=== PATIENT | female | born 1945 | race Caucasian/White ===

== ENCOUNTER 2018-02-07 20:36 | Inpatient (IN) | payer MEDICARE, SELFPAY ==
[2018-02-07 20:37] VITALS: BP 147/74; PULSE 100; RESP 24; TEMP 36.6; O2SAT 96; BMI 45.1
--- NOTE | 2018-02-07 20:51 | RAD_ITS ---
STUDY: X-RAY - RIGHT FEMUR REASON FOR STUDY: Female, 72 years old. Fall. TECHNIQUE: Radiological exam, femur, minimum 2 views COMPARISON: None. FINDINGS: There is diffuse demineralization of the femur. There is muscular atrophy of the thigh. RAD/Femur Min 2 Views IMPRESSION: Diffuse demineralization with no evidence of acute fracture. Electronically Signed: Wei Lucas DO at 21:53 EDT , Service support ,
--- NOTE | 2018-02-07 20:51 | EKG12_ITS ---
Test Reason : SOB Blood Pressure : / mmHG Vent. Rate : 098 BPM Atrial Rate : 098 BPM P-R Int : 150 ms QRS Dur : 122 ms QT Int : 384 ms P-R-T Axes : 056 -80 061 degrees QTc Int : 490 ms Sinus rhythm with Premature atrial complexes Right bundle branch block Left anterior fascicular block Bifascicular block Abnormal ECG Confirmed by LEON DAVIS, REG ([id number]), food editor DAYLNI DOWD ([id number]) on 02/10/2018 4:02:09 PM Referred By: GABRIELLE Confirmed By:REG QUINTERO MD
--- NOTE | 2018-02-07 20:56 | ED.VISSUMM ---
- ER Visit Summary Date of Service: 02/07/18 Chief Complaint: Dyspnea History of Present Illness: The patient is a 72 F with shortness of breath. She always has shortness of breath, but it has been increasing over the last several days. She has had an increasing cough with sputum. She has a history of COPD and CHF. She uses 3 L of oxygen at home. She thinks her CHF symptoms are worsening. She has some left breast pain, but denies any other chest or back pains. She also reports pain in her right femur for several days after a fall. She has noted her right leg has been increasingly swollen and increasingly red. She does have some baseline redness at times up to her knee, but her redness has been spreading above the knee. Physical Examination: Afebrile and vital signs unremarkable except for a heart rate of 100 and a respiratory rate of 24. She is 96% on 5 L. Speaking in full sentences. Resting. HEENT exam unremarkable. Heart regular. Lungs diminished throughout. Abdomen soft and nontender. Lower extremities are edematous, worse on the right. Right lower extremity is erythematous up to the mid thigh. Neurovascularly intact distally. Test Results: EKG, labs, chest x-ray, right femur x-ray, and right lower extremity duplex ultrasound pending. Emergency Department Course and Treatment: Treated with oxygen and a DuoNeb while awaiting results. EKG showed sinus rhythm at a rate of 98. Right bundle branch block pattern and left anterior fascicular block pattern. Troponin normal. BNP normal. White count 11.1 and hemoglobin 10.2. CO2 greater than 45 and glucose 221. INR 1.9. Chest x-ray showed chronic changes and congestion. X-ray of the right femur negative. Right leg ultrasound negative for DVT. Patient had mild improvement with a DuoNeb. She was started on doxycycline for right lower extremity cellulitis and for respiratory coverage. Given her hypoxia at home, COPD, history CHF, and cellulitis, patient was discussed with the hospitalist and will be admitted. Treatment Plan: As above Disposition: Admission Impression: 1. CHF 2. COPD 3. Cellulitis right leg 4. Coumadin coagulopathy This note was generated with Wozity[employer]ation software. It may contain incorrect words, spelling, and punctuation that were not noted in review of the chart prior to signing ED Disposition - Plan for ED Patient: Chief Complaint: Shortness of Breath Referrals: [facility] Doctor,Out of [NON-STAFF] -
[2018-02-07 20:59] VITALS: O2SAT 96
[2018-02-07 21:04] VITALS: PULSE 100; RESP 22
[2018-02-07] MEDS: Ipratropium/Albuterol Sulfate 3 ML AMPUL.NEB INHALATION (21:04)
--- NOTE | 2018-02-07 21:06 | US_ITS ---
STUDY: VENOUS DOPPLER ULTRASOUND - RIGHT LOWER EXTREMITY REASON FOR EXAM: Female, 72 years old. Right leg redness and swelling. TECHNIQUE: Ultrasound evaluation of the deep vein system to include serna-scale imaging and compression was performed. Serna-scale imaging and Doppler sonographic evaluation, including duplex spectral analysis and qualitative color flow sonography, was performed. COMPARISON: None. FINDINGS: Common Femoral Vein: Normal compression, spontaneity and augmentation. Normal color Doppler. Common Femoral Vein/Greater Saphenous Junction: Normal compression without internal echoes. Deep Femoral Vein: Normal compression without internal echoes. Femoral Proximal: Normal compression without internal echoes. Femoral Middle: Normal compression, spontaneity and augmentation. Normal color Doppler. Femoral Distal: Normal compression without internal echoes. Popliteal Vein: Normal compression, spontaneity and augmentation. Normal color Doppler. Posterior Tibial Vein: Normal compression without internal echoes. Peroneal Vein: Normal compression without internal echoes. US/Venous Duplex Imag/Limited/Uni IMPRESSION: No evidence of deep venous thrombosis. Electronically Signed: Wei Lucas DO at 21:49 EDT , Service support ,
[2018-02-07 21:31] LABS: International Normalized Ratio 1.9; Prothrombin Time (Protime)PT. 22.2 SECONDS (11.7-14.9)
[2018-02-07 21:32] LABS: Absolute Lymphocyte Count 1.74 X10^3/ul (0.83-4.51); Absolute Neutrophil Count 8.3 X10^3/uL (2.0-7.7); Basophil# 0.01 X10^3/uL; Basophil% 0.1 % (0-1); Eosinophil# 0.03 X10^3/uL; Eosinophils% 0.3 % (0-5); Hematocrit 35.7 % (37-47); Hemoglobin 10.2 g/dl (12.0-15.0); Lymphocyte # 1.74 X10^3/ul (4.0); Lymphocyte % 15.7 % (19-41); Mean Corp Hgb Conc 28.6 g/gl (32-36); Mean Corpuscular Volume 90.8 fL (81-99); Mean Platelet Vol. 10.9 fl (6.2-12.0); Monocyte# 1.01 X10^3/uL; Monocyte% 9.1 % (0-10); Neutrophil # 8.25 X10^3/uL (2.7-7.7); Neutrophil % 74.6 % (47-70); Platelet Count 234 K/mm3 (150-450); RBC Distribution Width CV 15.5 % (11.6-14.6); RBC Distribution Width SD 51.7 fl (35.1-43.9); Red Blood Count 3.93 M/mm3 (4.2-5.4); White Blood Count 11.1 K/mm3 (4.4-11.0)
[2018-02-07 21:33] LABS: POSITIVE COUNT NO; POSITIVE DIFFERENTIAL NO; POSITIVE MORPHOLOGY NO
--- NOTE | 2018-02-07 21:35 | RAD_ITS ---
STUDY: X-RAY CHEST REASON FOR EXAM: Female, 72 years old. Shortness of breath for a few days. TECHNIQUE: Single AP portable view of the chest. COMPARISON: None. FINDINGS: Prominent interstitial markings throughout are present. There is no demonstrated pleural abnormality. Normal size heart. Normal mediastinum and luke. Normal visualized pulmonary arteries. There is atherosclerotic calcification of the aortic arch with tortuosity. There are diffuse degenerative changes of the visualized thoracic spine. Normal visualized ribs, clavicles, and shoulders. There is no demonstrated abnormality of the visualized soft tissue structures of the upper abdomen. RAD/Chest 1 View (Portable) IMPRESSION: Prominent diffuse interstitial markings with underlying interstitial edema likely. Clinically correlate for underlying CHF exacerbation in the appropriate clinical setting. Electronically Signed: Wei Lucas DO at 21:52 EDT , Service support ,
[2018-02-07 21:45] VITALS: BP 128/57; PULSE 101; RESP 21; O2SAT 96
[2018-02-07 22:02] LABS: BNP,B-Type NATRIURETIC PEPTIDE 42.2 pg/mL (0-100)
[2018-02-07 22:14] LABS: BUN 12 mg/dL (7-18); BUN/Creat Ratio 15.3 RATIO (10-20); Calcium,Total 8.8 mg/dL (8.5-10.1); Carbon Dioxide > 45.0 mmol/L (21.0-32.0); Chloride 88 mmol/L (98-107); Creatinine, Serum 0.78 mg/dL (0.55-1.02); EST Glomerular Filtration Rate 77 mL/min (>60); Est Glom Filt Rate - Afr Amer 93 mL/min (>60); Glucose 221 mg/dL (74-106); Potassium 4.5 mmol/L (3.5-5.1); Sodium Level 139 mmol/L (136-145)
--- NOTE | 2018-02-07 22:16 | ED.RN ---
CO2 >45 REPORTED TO . VERBALIZED UNDERSTANDING
[2018-02-07 23:01] VITALS: BP 127/72; PULSE 102; RESP 20; O2SAT 94
[2018-02-08] VITALS (21 sets, daily range): BP systolic 112–134; BP diastolic 52–85; PULSE 90–119; RESP 14–26; TEMP 36.6–36.9; O2SAT 85–96; BMI 45.8; BMI 45.9
--- NOTE | 2018-02-08 00:33 | HP.PCM_ITS ---
Problem List (1) CHF (congestive heart failure) Status: Acute Qualifiers: Heart failure type: unspecified (2) COPD (chronic obstructive pulmonary disease) Status: Acute Qualifiers: COPD type: unspecified COPD Qualified Code(s): J44.9 - Chronic obstructive pulmonary disease, unspecified (3) Cellulitis Status: Acute Qualifiers: Site of cellulitis: extremity Site of cellulitis of extremity: lower extremity Laterality: right Qualified Code(s): L03.115 - Cellulitis of right lower limb History of Present Illness Date of Admission: 02/08/18 Chief Complaint: shortness of breath The patient is a 72 year old female patient presents to the ER with shortness of breath. She is convinced that she has fluid in her lungs. She has had progressive shortness of breath over the past few days. Chest X-ray shows interstitial markings consistent with congestive heart failure. No fevers or chills. She has chronic stasis changes of her legs and right leg is warm and red as well from ankle to just above her knee. She is requiring oxygen to maintain her SPO2 in the 90s. She will be admitted for further management of CHF and COPD and cellulitis. Past Medical History Allergies amoxicillin Allergy (Verified 02/07/18 20:43) Rash azithromycin [From Zithromax] Allergy (Verified 02/07/18 20:43) Swelling levofloxacin [From Levaquin] Allergy (Verified 02/07/18 20:43) Swelling moxifloxacin [From Avelox] Allergy (Verified 02/07/18 20:43) Swelling aspirin Adverse Reaction (Verified 02/07/18 20:43) Other bleeding Home Medications: Ambulatory Orders Medication Instructions Recorded Acetaminophen [Tylenol Extra 500 mg PO Q6H PRN PRN 02/07/18 Strength] Albuterol Aerosols [Ventolin 2.5 mg INHALATION Q4H PRN PRN 02/07/18 Aerosols] Albuterol Inhaler [Ventolin Hfa 2 puff INHALATION Q4H PRN PRN 02/07/18 (SP)] Calcium Carbonate/Vitamin D3 1 each PO DAILY 02/07/18 [Calcium 600 with Vit D Chew Tb] Cholecalciferol (Vitamin D3) 2,000 unit PO DAILY 02/07/18 [Vitamin D3] Cranberry Fruit Extract [Cranberry] 2,000 mg PO DAILY PRN PRN 02/07/18 Deep Sea Nasal [place] 1 spray BID 02/07/18 Duloxetine Hcl [Cymbalta] 60 mg PO DAILY 02/07/18 Ezetimibe/Simvastatin [Vytorin 1 tablet PO DAILY 02/07/18 10-40 MG Tablet] Famotidine [Pepcid] 20 mg PO BID 02/07/18 Ferrous Sulfate [Iron] 325 mg PO DAILY 02/07/18 Furosemide [Lasix] 40 mg PO BIDLX 02/07/18 Hydrocodone Bitart/Apap 5-325 1 tablet PO Q6H PRN PRN 02/07/18 [[place] 5MG-325MG] Insulin Aspart [Novolog Flexpen 10 units SC TIDCM 02/07/18 ([facility])] Lactobacillus Acidophilus 1 tablet PO DAILY 02/07/18 [Acidophilus] Levothyroxine [Synthroid] 25 mcg PO DAILY 02/07/18 Loratadine [Claritin] 10 mg PO DAILY 02/07/18 Losartan Potassium [Cozaar] 25 mg PO DAILY 02/07/18 Magnesium Oxide [Magnesium] 400 mg PO DAILY 02/07/18 Montelukast [Singulair] 10 mg PO DAILY 02/07/18 Pantoprazole Sodium [Protonix] 40 mg PO BID 02/07/18 Polyethylene Glycol 3350 [Miralax] 17 gm PO DAILY PRN 02/07/18 Potassium Chloride [K-Dur] 10 meq PO DAILY 02/07/18 Warfarin [Coumadin ([facility])] 3 mg PO DAILY 02/07/18 busPIRone [Buspar] 15 mg PO TID 02/07/18 Smoking Status: Former smoker Review of Systems Constitutional: Denies: Chills, Fever, Weight Change HEENT: Denies: Head Aches, Sinus Congestion, Sinus Drainage Cardiovascular: Denies: Chest Pain, Palpitations Respiratory: Reports: Cough, Shortness of breath at rest. Denies: Sputum production Gastrointestinal: Denies: Abdominal Pain, Nausea, Vomiting Genitourinary: Denies: Dysuria Musculoskeletal: Denies: Joint Pain, Joint Tenderness Skin: Denies: Rash, Wounds Neurological: Denies: Numbness, Tingling, Focal weakness Psychiatric: Reports: Anxiety. Denies: Depression, Homicidal Ideations, Suicidal Ideations Hematologic/ Lymphatic: Denies: Easy Bruising, Easy Bleeding VTE Information - Inpt Only VTE Present on Admission: No VTE Mechan Device Prophylaxis: None VTE Pharm Prophylaxis ordered?: Yes Patient Problems: Active and Suspected Problems CHF (congestive heart failure) (Acute) COPD (chronic obstructive pulmonary disease) (Acute) Cellulitis (Acute) - Physical Exam General: Alert, Oriented x3, Cooperative HEENT: Atraumatic, Normocephalic Neck: Supple Lungs: No rhonchi, No rales, Diminished, Wheezes Cardiovascular: Regular rate, Normal S1, Normal S2, No murmurs, No Ectopic Activity Abdomen: Bowel Sounds Present, Soft, Non Tender, Obese Extremities: Edema Skin: - - erythema and warm to touch on right lower leg from ankle to just superior to knee Musculoskeletal: No Tenderness to Palpation of Joints or Extremities Neurological: Neuro grossly intact Psych/Mental Status: Normal Affect, Appropriate Vital Signs Temp Pulse Resp BP Pulse Ox 97.9 F 102 H 20 H 127/72 H 94 02/07/18 20:37 02/07/18 23:01 02/07/18 23:01 02/07/18 23:01 02/07/18 23:01 Oxygen Flow Rate (L/min) 3 Oxygen Delivery Method Nasal Cannula Weight: 231 lb Body Mass Index (BMI) 45.1 Laboratory Tests Past 24 Hrs 02/07/18 02/07/18 02/07/18 21:16 21:16 21:16 WBC 11.1 H RBC 3.93 L Hgb 10.2 L Hct 35.7 L MCV 90.8 MCH 26.0 L MCHC 28.6 L RDW 15.5 H RDW Differential 51.7 H Plt Count 234 MPV 10.9 Immature Gran % (Auto) 0.200 Neut % (Auto) 74.6 H Lymph % (Auto) 15.7 L [place] % (Auto) 9.1 Eos % (Auto) 0.3 Baso % (Auto) 0.1 Absolute Neuts (auto) 8.3 H Absolute Lymphs (auto) 1.74 Total Counted Not Reportable PT 22.2 H INR 1.9 Sodium 139 Potassium 4.5 Chloride 88 L Carbon Dioxide > 45.0 H* Anion Gap TNP BUN 12 Creatinine 0.78 Estim Creat Clear Calc 37.60 Est GFR (MDRD) Af Amer 93 Est GFR (MDRD) Non-Af 77 BUN/Creatinine Ratio 15.3 Glucose 221 H Calcium 8.8 Troponin I < 0.015 B-Natriuretic Peptide 02/07/18 21:16 WBC RBC Hgb Hct MCV MCH MCHC RDW RDW Differential Plt Count MPV Immature Gran % (Auto) Neut % (Auto) Lymph % (Auto) [place] % (Auto) Eos % (Auto) Baso % (Auto) Absolute Neuts (auto) Absolute Lymphs (auto) Total Counted PT INR Sodium Potassium Chloride Carbon Dioxide Anion Gap BUN Creatinine Estim Creat Clear Calc Est GFR (MDRD) Af Amer Est GFR (MDRD) Non-Af BUN/Creatinine Ratio Glucose Calcium Troponin I B-Natriuretic Peptide 42.2 Assessment/Plan All Active Problems CHF (congestive heart failure) (Acute) COPD (chronic obstructive pulmonary disease) (Acute) Cellulitis (Acute) Plan - admit to progressive care unit. - cycle cardiac markers. - ECHO in am - start sharma catheter and add 40mg IV lasix x 1 - doxycycline 100mg IV q 12 - methylprednisolone 40mg IV q 8hrs - duo neb inh q 4hrs prn - oxygen per routine - LMWH for DVT prophylaxis Code Visit Inpatient E&M: 96712 Init Hosp L3
--- NOTE | 2018-02-08 00:46 | NURSING ---
Called [facility] charge nurserose mary to send patient to the floor.
[2018-02-08] MEDS: Ipratropium/Albuterol Sulfate 3 ML AMPUL.NEB INHALATION ×6 (03:07→23:26)
[2018-02-08 04:25] LABS: Absolute Lymphocyte Count 1.67 X10^3/ul (0.83-4.51); Absolute Neutrophil Count 7.9 X10^3/uL (2.0-7.7); Basophil# 0.03 X10^3/uL; Basophil% 0.3 % (0-1); Eosinophil# 0.05 X10^3/uL; Eosinophils% 0.5 % (0-5); Hematocrit 34.1 % (37-47); Hemoglobin 9.7 g/dl (12.0-15.0); Lymphocyte # 1.67 X10^3/ul (4.0); Lymphocyte % 15.4 % (19-41); Mean Corp Hgb Conc 28.4 g/gl (32-36); Mean Corpuscular Hgb 26.6 pg (27.0-32.0); Mean Corpuscular Volume 93.4 fL (81-99); Mean Platelet Vol. 11.4 fl (6.2-12.0); Monocyte# 1.16 X10^3/uL; Monocyte% 10.7 % (0-10); Neutrophil % 72.7 % (47-70); Platelet Count 227 K/mm3 (150-450); RBC Distribution Width CV 15.3 % (11.6-14.6); RBC Distribution Width SD 50.1 fl (35.1-43.9); Red Blood Count 3.65 M/mm3 (4.2-5.4); White Blood Count 10.9 K/mm3 (4.4-11.0)
[2018-02-08 04:33] LABS: POSITIVE COUNT NO; POSITIVE DIFFERENTIAL NO; POSITIVE MORPHOLOGY NO
[2018-02-08] MEDS: Furosemide 40 MG/4 ML Vial IV (04:45)
[2018-02-08] MEDS: 0.9% NaCl Peripheral Flush Adult/Peds IV ×2 (04:46→13:28)
[2018-02-08 05:11] LABS: ALB/GLOB Ratio 0.6 RATIO (0.9-2.4); AST(SGOT) 12 U/L (15-37); Alanine Aminotransfer ALT/SGPT 16 U/L (13-56); Albumin, Serum 2.4 g/dL (3.2-5.0); Alkaline Phosphatase 77 U/L (45-117); BUN 11 mg/dL (7-18); BUN/Creat Ratio 15.9 RATIO (10-20); Calcium,Total 8.6 mg/dL (8.5-10.1); Carbon Dioxide > 45.0 mmol/L (21.0-32.0); Chloride 88 mmol/L (98-107); Creatinine, Serum 0.69 mg/dL (0.55-1.02); EST Glomerular Filtration Rate 89 mL/min (>60); Est Glom Filt Rate - Afr Amer 108 mL/min (>60); Globulin 4.1 g/dL (2.2-4.2); Glucose 226 mg/dL (74-106); Potassium 3.3 mmol/L (3.5-5.1); Protein, Total 6.5 g/dL (6.4-8.2); Sodium Level 141 mmol/L (136-145)
[2018-02-08] MEDS: busPIRone 15 MG TABLET PO ×3 (05:49→23:17)
[2018-02-08] MEDS: Levothyroxine 25 MCG TABLET PO (05:50)
--- NOTE | 2018-02-08 05:55 | ECHOD_ITS ---
Reason For Study: CHF Procedure This was a 2D Doppler, Color Flow transthoracic echocardiogram. The study was technically difficult. Unable to use Definity due to increased PAP. Exam performed portable in patient room. Left Ventricle Mild concentric left ventricular hypertrophy. Based upon the 2D echocardiographic images obtained there appears to be grossly normal appearing left ventricular size, wall motion, and systolic function. The estimated ejection fraction is 65 %. Unable to assess diastolic dysfunction. Right Ventricle Based upon the 2D echocardiographic images obtained there appears to be grossly normal right ventricular size and systolic function. Atria The left atrium is not well visualized. The right atrium is not well visualized. No doppler evidence for ASD. Mitral Valve There is no mitral annular calcification. Normal mitral valve. Trivial mitral valve insufficiency. Tricuspid Valve Normal tricuspid valve. Trivial tricuspid valve insufficiency. Right ventricular systolic pressure estimated to be 72 mmHg. Aortic Valve Trisinus/trileaflet aortic valve. Mild focal aortic valve thickening. Pulmonic Valve The pulmonic valve is not well visualized. Great Vessels The aortic root is not well visualized. Pericardium/Pleural No pericardial effusion. MMode/2D Measurements & Calculations LVIDd: 4.1 cm IVSd: 1.3 cm LA dimension: 4.7 cm LVIDs: 2.6 cm LVPWd: 1.3 cm FS: 37.7 % Time Measurements MV dec time: 0.23 sec Doppler Measurements & Calculations MV E max yarely: 72.5 cm/sec MV V2 max: 140.2 cm/sec MV P1/2t max yarely: 97.0 cm/sec MV A max yarely: 104.4 cm/sec MV max P.9 mmHg MV P1/2t: 58.6 msec MV E/A: 0.69 MV V2 mean: 72.3 cm/sec MV dec slope: 485.1 cm/sec2 MV mean P.5 mmHg MVA(P1/2t): 3.8 cm2 MV V2 VTI: 24.8 cm Ao V2 max: 170.6 cm/sec LV V1 max: 140.3 cm/sec PA V2 max: 169.6 cm/sec Ao max P.6 mmHg LV V1 max P.9 mmHg Ao V2 mean: 111.5 cm/sec LV V1 mean P.6 mmHg Ao mean P.8 mmHg LV V1 mean: 86.0 cm/sec Ao V2 VTI: 28.6 cm LV V1 VTI: 26.9 cm TR max yarely: 400.8 cm/sec TR max P.3 mmHg Interpretation Summary The study was technically difficult. Based upon the 2D echocardiographic images obtained there appears to be grossly normal appearing left ventricular size, wall motion, and systolic function. The estimated ejection fraction is 65 %. Mild concentric left ventricular hypertrophy. Trivial mitral valve insufficiency. Trivial tricuspid valve insufficiency. Mild focal aortic valve thickening. Right ventricular systolic pressure estimated to be 72 mmHg c/w pulmonary hypertension. Unable to assess diastolic dysfunction. Ordering Physician: Noel Mo Referring Physician: Kwasi Arnold Performed By: Anshul Payne RCS
[2018-02-08 07:11] LABS: Bedside Glucose 209 mg/dL (70-110)
[2018-02-08] MEDS: Ferrous Sulfate 325 MG Tablet PO (08:41)
[2018-02-08] MEDS: Sodium Chloride 0.65% 1 SPRAY SPRAY.BTL NASAL ×2 (08:42→23:17)
[2018-02-08] MEDS: Loratadine 10 MG Tablet PO (08:42)
[2018-02-08] MEDS: Calcium Carb/Vitamin D 1 TABLET Tablet PO (08:42)
[2018-02-08] MEDS: Magnesium Oxide 400 MG Tablet PO (08:43)
[2018-02-08] MEDS: DULoxetine Hcl 60 MG Capsule PO (08:43)
[2018-02-08] MEDS: Furosemide 40 MG Tablet PO ×2 (08:43→17:32)
[2018-02-08] MEDS: Famotidine 20 MG Tablet PO ×2 (08:44→23:18)
[2018-02-08] MEDS: Losartan Potassium 25 MG Tablet PO (08:44)
[2018-02-08] MEDS: Pantoprazole Sodium 40 MG Tablet PO ×2 (08:44→23:18)
[2018-02-08] MEDS: Montelukast 10 MG Tablet PO (08:44)
[2018-02-08] MEDS: Ezetimibe 10 MG Tablet PO (08:45)
[2018-02-08] MEDS: Insulin Lispro 100 UNIT/ML INSULN.PEN 10 UNIT SC ×3 (09:51→17:32)
[2018-02-08 11:20] LABS: Bedside Glucose 336 mg/dL (70-110)
--- NOTE | 2018-02-08 11:25 | CPS ---
PT PLACED BACK ON BIPAP POST AEROSOL RX FOR COMFORT
--- NOTE | 2018-02-08 12:31 | PCM.CONS.GEN ---
Problem List (1) Acute on chronic respiratory failure with hypoxia and hypercapnia Status: Acute (2) CHF (congestive heart failure) Status: Acute Qualifiers: Heart failure type: unspecified (3) COPD (chronic obstructive pulmonary disease) Status: Chronic Qualifiers: COPD type: unspecified COPD Qualified Code(s): J44.9 - Chronic obstructive pulmonary disease, unspecified (4) Cellulitis Status: Acute Qualifiers: Site of cellulitis: extremity Site of cellulitis of extremity: lower extremity Laterality: right Qualified Code(s): L03.115 - Cellulitis of right lower limb Reason for Consult Date of Consultation: 02/08/18 Reason for Consultation: Acute on chronic respiratory failure History of Present Illness: The patient is a 72 year old F with a past medical history as below, presented to the ED on 02/07/18 with complaints of right lower extremity pain, edema, and erythema, increased cough with changes in sputum production, and increased shortness of breath for several days. Checked her pulse ox at home and was in the 60s-70s on her baseline oxygen requirement of 3L per nasal cannula. Complains of some intermittent wheezing. No overt URI symptoms. She had some nausea which has resolved. She was unable to go to her primary care physician's office when she first noticed the right lower extremity edema and redness a couple of weeks ago, however called him and was placed on doxycycline for suspected right lower extremity infection. She completed a 10-day course and actually worsened. No fevers but had some shaking chills. Thought she was probably in congestive heart failure, similar to previous presentations. Patient reports white to brown, occasionally blood-tinged sputum over last few days. No epistaxis. Patient does have a history of DVT in the left lower extremity. She is anticoagulated on Coumadin for atrial fibrillation. Initial vitals BP 147/74, pulse 100, RR 24, 97.9?F, 96% on 5 L of oxygen supplementation. Blood work revealed a white count of 11,100, hemoglobin 10.2, normal platelets. Chemistry remarkable for a chloride level of 88, serum bicarb greater than 45.0, glucose of 221. Normal BNP and troponins. PT 22.2 and INR 1.9. An x-ray of her femur was normal. Right lower extremity venous Doppler ultrasound was negative for DVT. A plain film chest x-ray showed prominent diffuse interstitial markings with underlying interstitial edema. Possibly underlying CHF. No infectious workup has been ordered to date. She reports a history of COPD, however there are no formal pulmonary function tests available at this time. Patient follows with Dr. Wesley of [facility] and last saw him a couple of weeks ago. Patient states she is currently on albuterol and Atrovent nebulizers. He did change her to [facility] with albuterol, however she has not started this yet. She has been on several other different inhalers in the past. She previously followed with Dr. Cavazos in [place]. Her last pulmonary function tests were a few months ago. She reports she has asthma and COPD. She is unclear why she is on oxygen other than her COPD. Thinks she has been on oxygen for over 25 years. Does have obstructive sleep apnea and is compliant with her noninvasive positive pressure ventilation. She is not sure if she has pulmonary hypertension. Patient has significant smoking history of approximately [id number]. She previously followed with a commercial stripper in [place], however has not seen him in over 3 years. Patient is relatively immobile but can ambulate with the use of a cane. She gets dyspneic with minimal exertion. She lives with her daughter, who assists her when needed. Past Medical History Past Medical History (Chronic Problems): Chronic Problems Anxiety and depression (Chronic) Obstructive sleep apnea (Chronic) on NIPPV History of DVT (deep vein thrombosis) (Chronic) Hypothyroidism (Chronic) Morbid obesity with BMI of 45.0-49.9, adult (Chronic) COPD (chronic obstructive pulmonary disease) (Chronic) Allergies amoxicillin Allergy (Verified 02/07/18 20:43) Rash azithromycin [From Zithromax] Allergy (Verified 02/07/18 20:43) Swelling levofloxacin [From Levaquin] Allergy (Verified 02/07/18 20:43) Swelling moxifloxacin [From Avelox] Allergy (Verified 02/07/18 20:43) Swelling aspirin Adverse Reaction (Verified 02/07/18 20:43) Other bleeding Home Medications: Ambulatory Orders Medication Instructions Recorded Acetaminophen [Tylenol Extra 500 mg PO Q6H PRN PRN 02/07/18 Strength] Albuterol Aerosols [Ventolin 2.5 mg INHALATION Q4H PRN PRN 02/07/18 Aerosols] Albuterol Inhaler [Ventolin Hfa 2 puff INHALATION Q4H PRN PRN 02/07/18 (SP)] Calcium Carbonate/Vitamin D3 1 each PO DAILY 02/07/18 [Calcium 600 with Vit D Chew Tb] Cholecalciferol (Vitamin D3) 2,000 unit PO DAILY 02/07/18 [Vitamin D3] Cranberry Fruit Extract [Cranberry] 2,000 mg PO DAILY PRN PRN 02/07/18 Deep Sea Nasal [place] 1 spray BID 02/07/18 Duloxetine Hcl [Cymbalta] 60 mg PO DAILY 02/07/18 Ezetimibe/Simvastatin [Vytorin 1 tablet PO DAILY 02/07/18 10-40 MG Tablet] Furosemide [Lasix] 40 mg PO BIDLX 02/07/18 Insulin Aspart [Novolog Flexpen 10 units SC TIDCM 02/07/18 ([facility])] Levothyroxine [Synthroid] 25 mcg PO DAILY 02/07/18 Loratadine [Claritin] 10 mg PO DAILY 02/07/18 Losartan Potassium [Cozaar] 25 mg PO DAILY 02/07/18 Magnesium Oxide [Magnesium] 400 mg PO DAILY 02/07/18 Montelukast [Singulair] 10 mg PO DAILY 02/07/18 Pantoprazole Sodium [Protonix] 40 mg PO BID 02/07/18 Polyethylene Glycol 3350 [Miralax] 17 gm PO DAILY PRN 02/07/18 Potassium Chloride [K-Dur] 10 meq PO DAILY 02/07/18 Warfarin [Coumadin ([facility])] 3 mg PO DAILY 02/07/18 busPIRone [Buspar] 15 mg PO TID 02/07/18 Surgical History: - - noncontributory Psychiatric History: Anxiety, Depression 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 Denies: Anorexia, Fever, Night Sweats, Malaise, Weight Change Eyes: Denies: Pain, Vision Change HEENT: Denies: Difficulty Swallowing, Nasal bleeding, Nasal Congestion, Post Nasal Drip, Sinus Congestion, Sinus Drainage, Sore Throat Cardiovascular: Reports: Edema. Denies: Chest Pain, Chest Pressure, Light Headedness, Orthopnea, Palpitations, Paroxysmal Noc. Dyspnea, Syncope Respiratory: Reports: Cough, Hemoptysis, Shortness of breath upon exertion, Sputum production, Wheezing. Denies: Shortness of breath at rest Gastrointestinal: Denies: Abdominal Pain, Constipation, Diarrhea, Dyspepsia, Hematemesis, Hematochezia, Nausea, Melena, Vomiting Genitourinary: Reports: Incontinence. Denies: Dysuria, Frequency, Hematuria, Retention Musculoskeletal: Reports: Joint stiffness, Leg Pain - RLE. Denies: Back Pain, Neck Pain Skin: Reports: Skin Changes, - - RLE edema, erythema, warmth Neurological: Reports: Balance problems, Numbness, Tingling. Denies: Change in Speech, Confusion, Difficulty swallowing, Focal weakness, Tremor, Seizures Psychiatric: Reports: Anxiety, Depression Endocrine: Reports: Change in Body Habitus. Denies: Polydipsia, Polyuria Hematologic/ Lymphatic: Reports: Anemia, Easy Bruising, Easy Bleeding, Hx of blood clot, Hx of blood transfusion. Denies: Adenopathy Patient Problems: Active and Suspected Problems CHF (congestive heart failure) (Acute) Cellulitis (Acute) Acute on chronic respiratory failure with hypoxia and hypercapnia (Acute) Subjective: The patient was seen and examined. She does not appear to be in any acute distress. She is saturating in the low 90s on 4 L of oxygen supplementation. Denies any shortness of breath at rest. She is coughing up intermittent clear to brown sputum, occasional hemoptysis. Objective: Clinical Impression(s) from Imaging Studies Femur X-Ray 02/07/18 20:51 IMPRESSION: Diffuse demineralization with no evidence of acute fracture. Electronically Signed: Wei Lucas DO at 21:53 EDT , Service support , Venous Duplex 02/07/18 21:06 IMPRESSION: No evidence of deep venous thrombosis. Electronically Signed: Wei Lucas DO at 21:49 EDT , Service support , Chest X-Ray 02/07/18 21:35 IMPRESSION: Prominent diffuse interstitial markings with underlying interstitial edema likely. Clinically correlate for underlying CHF exacerbation in the appropriate clinical setting. Electronically Signed: Wei Lucas DO at 21:52 EDT , Service support , - Physical Exam General: Alert, Oriented x3, Cooperative, No apparent distress, Well developed, Well nourished, - - Conversational dyspnea. Obese. HEENT: Atraumatic, Normocephalic Oral: Moist Mucosa, No Gingival or Mucosal Lesions/ Ulcerations Neck: Supple, No Nodes, Trachea Midline, - - Large neck circumference with redundant soft tissue Lungs: No rhonchi, Diminished, - - Few expiratory wheeze with bibasilar rales. Symmetric expansion, no dullness to percussion. Cardiovascular: Regular Rhythm, Normal S1, Normal S2, No murmurs, No rub noted, No Gallop, Tachycardic Abdomen: Bowel Sounds Present, Soft, Non Tender, Non-Distended, Obese Extremities: No clubbing, Edema - Bilateral lower extremities, right greater than left, - - Toes are mildly cyanotic laterally, patient reports this is chronic Skin: - - Right lower extremity edema, erythema, increased warmth Musculoskeletal: No Muscle Wasting, Tenderness - RLE Lymphatic: No Cervical, Supraclavicular, or Inguinal Adenopathy Neurological: Cranial nerves II-XII grossly intact, Neuro grossly intact, Motor Exam 5/5 strength throughout, - - Chronic decreased sensation to bilateral LEs Psych/Mental Status: Alert and oriented to time, place, person, mood and affect Vital Signs Temp Pulse Resp BP Pulse Ox 97.9 F 101 H 21 H 122/71 H 90 02/08/18 05:57 02/08/18 11:00 02/08/18 10:40 02/08/18 05:57 02/08/18 10:40 Oxygen Flow Rate (L/min) 4 Oxygen Delivery Method Nasal Cannula Weight: 234 lb 12.783 oz Body Mass Index (BMI) 45.8 Intake and Output for Last 24 Hours 02/06/18 02/07/18 02/08/18 23:59 23:59 23:59 Output Total 1000 / 1000 Balance -1000 / -1000 Laboratory Tests Past 24 Hrs 02/08/18 02/08/18 02/08/18 01:55 04:14 04:14 WBC 10.9 RBC 3.65 L Hgb 9.7 L Hct 34.1 L MCV 93.4 MCH 26.6 L MCHC 28.4 L RDW 15.3 H RDW Differential 50.1 H Plt Count 227 MPV 11.4 Immature Gran % (Auto) 0.400 Neut % (Auto) 72.7 H Lymph % (Auto) 15.4 L [place] % (Auto) 10.7 H Eos % (Auto) 0.5 Baso % (Auto) 0.3 Absolute Neuts (auto) 7.9 H Absolute Lymphs (auto) 1.67 Total Counted Not Reportable Sodium 141 Potassium 3.3 L Chloride 88 L Carbon Dioxide > 45.0 H* Anion Gap TNP BUN 11 Creatinine 0.69 Estim Creat Clear Calc 37.60 Est GFR (MDRD) Af Amer 108 Est GFR (MDRD) Non-Af 89 BUN/Creatinine Ratio 15.9 Glucose 226 H Calcium 8.6 Total Bilirubin 0.50 AST 12 L ALT 16 Alkaline Phosphatase 77 Troponin I < 0.015 < 0.015 B-Natriuretic Peptide Total Protein 6.5 Albumin 2.4 L Globulin 4.1 Albumin/Globulin Ratio 0.6 L 02/08/18 02/08/18 07:30 07:30 WBC RBC Hgb Hct MCV MCH MCHC RDW RDW Differential Plt Count MPV Immature Gran % (Auto) Neut % (Auto) Lymph % (Auto) [place] % (Auto) Eos % (Auto) Baso % (Auto) Absolute Neuts (auto) Absolute Lymphs (auto) Total Counted Sodium Potassium Chloride Carbon Dioxide Anion Gap BUN Creatinine Estim Creat Clear Calc Est GFR (MDRD) Af Amer Est GFR (MDRD) Non-Af BUN/Creatinine Ratio Glucose Calcium Total Bilirubin AST ALT Alkaline Phosphatase Troponin I < 0.015 B-Natriuretic Peptide Pending Total Protein Albumin Globulin Albumin/Globulin Ratio POC Glucose 02/08/18 02/08/18 11:17 07:03 POC Glucose 336 H 209 H Assessment/Plan All Active Problems CHF (congestive heart failure) (Acute) Cellulitis (Acute) Acute on chronic respiratory failure with hypoxia and hypercapnia (Acute) RECOMMENDATIONS 1. Wean oxygen supplementation to keep saturations 88-92% to prevent paradoxical CO2 retention. 2. Encourage incentive spirometer/Acapella 3. Increase activity as tolerated 4. Continue bronchodilators 5. Continue IV steroids and transition to prednisone in the next 24-48 hours 6. Viral respiratory panel 7. Check urine for strep/Legionella antigens 8. Obtain echocardiogram, if not already done 9. Replete electrolytes as indicated 10. Obtain records from [facility] pul[facility]ology including any imaging, would also be beneficial to have last echocardiogram for comparison 11. Ambulatory pulse ox prior to discharge 12. 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 Acute on chronic hypoxic and hypercarbic respiratory failure Unclear etiology. No infectious workup to date. No fevers but chills at home. BNP was normal. Has chronic lower extremity edema. Chest x-ray showing prominent diffuse interstitial markings with underlying interstitial edema. Patient is being diuresed with IV Lasix. She remains on 4 L, home oxygen requirements of 3 L. PE would be an consideration given her history of DVT, however patient anticoagulated on Coumadin so would be unlikely. Continue BiPAP with all sleep and intermittently throughout the day as needed. Patient may bring her Trilogy machine and if she desires. Continue bronchodilators and antibiotics, antibiotics choice will need to be reevaluated secondary to failure of outpatient doxycycline. Obtain respiratory viral panel and sputum culture. Encourage incentive spirometer/Acapella and increase activity as tolerated. Likely has component of COPD exacerbation, so agree with IV steroids. Likely can be transitioned to oral in the next 24-48 hours. 2. Right lower extremity cellulitis Patient recently completed a 10 day course of doxycycline prescribed over the phone by her primary care physician. Currently on doxycycline here, this will need to be changed. However, patient lists several allergies to various antibiotics. Consider ID consultation. 3. Self reported history of COPD and asthma, with probable COPD exacerbation Patient with increased dyspnea, sputum production, cough. Uses albuterol and Atrovent nebulizers at home. Recently transitioned to Trelogy but has yet to start this. 4. Self-reported history of obstructive sleep apnea Compliant with trilogy at home. 5. Morbid obesity/hypothyroidism/history of DVT/anxiety/depression/hypokalemia Complicates care, management, recovery, and prognosis. Continue home medications as indicated. Electrolyte repletion as indicated.
--- NOTE | 2018-02-08 12:45 | CON.PCM_ITS ---
Problem List (1) Acute on chronic respiratory failure with hypoxia and hypercapnia Status: Acute (2) CHF (congestive heart failure) Status: Acute Qualifiers: Heart failure type: unspecified (3) COPD (chronic obstructive pulmonary disease) Status: Chronic Qualifiers: COPD type: unspecified COPD Qualified Code(s): J44.9 - Chronic obstructive pulmonary disease, unspecified (4) Cellulitis Status: Acute Qualifiers: Site of cellulitis: extremity Site of cellulitis of extremity: lower extremity Laterality: right Qualified Code(s): L03.115 - Cellulitis of right lower limb Reason for Consult Date of Consultation: 02/08/18 Reason for Consultation: Acute on chronic respiratory failure History of Present Illness: The patient is a 72 year old F with a past medical history as below, presented to the ED on 02/07/18 with complaints of right lower extremity pain, edema, and erythema, increased cough with changes in sputum production, and increased shortness of breath for several days. Checked her pulse ox at home and was in the 60s-70s on her baseline oxygen requirement of 3L per nasal cannula. Complains of some intermittent wheezing. No overt URI symptoms. She had some nausea which has resolved. She was unable to go to her primary care physician' s office when she first noticed the right lower extremity edema and redness a couple of weeks ago, however called him and was placed on doxycycline for suspected right lower extremity infection. She completed a 10-day course and actually worsened. No fevers but had some shaking chills. Thought she was probably in congestive heart failure, similar to previous presentations. Patient reports white to brown, occasionally blood-tinged sputum over last few days. No epistaxis. Patient does have a history of DVT in the left lower extremity. She is anticoagulated on Coumadin for atrial fibrillation. Initial vitals BP 147/74, pulse 100, RR 24, 97.9?F, 96% on 5 L of oxygen supplementation. Blood work revealed a white count of 11,100, hemoglobin 10.2, normal platelets. Chemistry remarkable for a chloride level of 88, serum bicarb greater than 45.0, glucose of 221. Normal BNP and troponins. PT 22.2 and INR 1.9. An x-ray of her femur was normal. Right lower extremity venous Doppler ultrasound was negative for DVT. A plain film chest x-ray showed prominent diffuse interstitial markings with underlying interstitial edema. Possibly underlying CHF. No infectious workup has been ordered to date. She reports a history of COPD, however there are no formal pulmonary function tests available at this time. Patient follows with Dr. Wesley of [facility] and last saw him a couple of weeks ago. Patient states she is currently on albuterol and Atrovent nebulizers. He did change her to [facility] with albuterol , however she has not started this yet. She has been on several other different inhalers in the past. She previously followed with Dr. Cavazos in [place]. Her last pulmonary function tests were a few months ago. She reports she has asthma and COPD. She is unclear why she is on oxygen other than her COPD. Thinks she has been on oxygen for over 25 years. Does have obstructive sleep apnea and is compliant with her noninvasive positive pressure ventilation. She is not sure if she has pulmonary hypertension. Patient has significant smoking history of approximately [id number]. She previously followed with a gate cutter in [place], however has not seen him in over 3 years. Patient is relatively immobile but can ambulate with the use of a cane. She gets dyspneic with minimal exertion. She lives with her daughter, who assists her when needed. Past Medical History Past Medical History (Chronic Problems): Chronic Problems Anxiety and depression (Chronic) Obstructive sleep apnea (Chronic) on NIPPV History of DVT (deep vein thrombosis) (Chronic) Hypothyroidism (Chronic) Morbid obesity with BMI of 45.0-49.9, adult (Chronic) COPD (chronic obstructive pulmonary disease) (Chronic) Allergies amoxicillin Allergy (Verified 02/07/18 20:43) Rash azithromycin [From Zithromax] Allergy (Verified 02/07/18 20:43) Swelling levofloxacin [From Levaquin] Allergy (Verified 02/07/18 20:43) Swelling moxifloxacin [From Avelox] Allergy (Verified 02/07/18 20:43) Swelling aspirin Adverse Reaction (Verified 02/07/18 20:43) Other bleeding Home Medications: Ambulatory Orders Medication Instructions Recorded Acetaminophen [Tylenol Extra 500 mg PO Q6H PRN PRN 02/07/18 Strength] Albuterol Aerosols [Ventolin 2.5 mg INHALATION Q4H PRN PRN 02/07/18 Aerosols] Albuterol Inhaler [Ventolin Hfa 2 puff INHALATION Q4H PRN PRN 02/07/18 (SP)] Calcium Carbonate/Vitamin D3 1 each PO DAILY 02/07/18 [Calcium 600 with Vit D Chew Tb] Cholecalciferol (Vitamin D3) 2,000 unit PO DAILY 02/07/18 [Vitamin D3] Cranberry Fruit Extract [Cranberry] 2,000 mg PO DAILY PRN PRN 02/07/18 Deep Sea Nasal [place] 1 spray BID 02/07/18 Duloxetine Hcl [Cymbalta] 60 mg PO DAILY 02/07/18 Ezetimibe/Simvastatin [Vytorin 1 tablet PO DAILY 02/07/18 10-40 MG Tablet] Furosemide [Lasix] 40 mg PO BIDLX 02/07/18 Insulin Aspart [Novolog Flexpen 10 units SC TIDCM 02/07/18 (BKC)] Levothyroxine [Synthroid] 25 mcg PO DAILY 02/07/18 Loratadine [Claritin] 10 mg PO DAILY 02/07/18 Losartan Potassium [Cozaar] 25 mg PO DAILY 02/07/18 Magnesium Oxide [Magnesium] 400 mg PO DAILY 02/07/18 Montelukast [Singulair] 10 mg PO DAILY 02/07/18 Pantoprazole Sodium [Protonix] 40 mg PO BID 02/07/18 Polyethylene Glycol 3350 [Miralax] 17 gm PO DAILY PRN 02/07/18 Potassium Chloride [K-Dur] 10 meq PO DAILY 02/07/18 Warfarin [Coumadin (PBKC)] 3 mg PO DAILY 02/07/18 busPIRone [Buspar] 15 mg PO TID 02/07/18 Surgical History: - - noncontributory Psychiatric History: Anxiety, Depression DISTRICT TRAFFIC CHIEF History: No pertinent DISTRICT TRAFFIC CHIEF history Lives: - - with daughter Smoking Status: Former smoker Tobacco Use: Cigarettes Alcohol: None Drugs: None Review of Systems Constitutional: Reports: Chills, Weakness, Fatigue. Denies: Anorexia, Fever, Night Sweats, Malaise, Weight Change Eyes: Denies: Pain, Vision Change HEENT: Denies: Difficulty Swallowing, Nasal bleeding, Nasal Congestion, Post Nasal Drip, Sinus Congestion, Sinus Drainage, Sore Throat Cardiovascular: Reports: Edema. Denies: Chest Pain, Chest Pressure, Light Headedness, Orthopnea, Palpitations, Paroxysmal Noc. Dyspnea, Syncope Respiratory: Reports: Cough, Hemoptysis, Shortness of breath upon exertion, Sputum production, Wheezing. Denies: Shortness of breath at rest Gastrointestinal: Denies: Abdominal Pain, Constipation, Diarrhea, Dyspepsia, Hematemesis, Hematochezia, Nausea, Melena, Vomiting Genitourinary: Reports: Incontinence. Denies: Dysuria, Frequency, Hematuria, Retention Musculoskeletal: Reports: Joint stiffness, Leg Pain - RLE. Denies: Back Pain, Neck Pain Skin: Reports: Skin Changes, - - RLE edema, erythema, warmth Neurological: Reports: Balance problems, Numbness, Tingling. Denies: Change in Speech, Confusion, Difficulty swallowing, Focal weakness, Tremor, Seizures Psychiatric: Reports: Anxiety, Depression Endocrine: Reports: Change in Body Habitus. Denies: Polydipsia, Polyuria Hematologic/ Lymphatic: Reports: Anemia, Easy Bruising, Easy Bleeding, Hx of blood clot, Hx of blood transfusion. Denies: Adenopathy Patient Problems: Active and Suspected Problems CHF (congestive heart failure) (Acute) Cellulitis (Acute) Acute on chronic respiratory failure with hypoxia and hypercapnia (Acute) Subjective: The patient was seen and examined. She does not appear to be in any acute distress. She is saturating in the low 90s on 4 L of oxygen supplementation. Denies any shortness of breath at rest. She is coughing up intermittent clear to brown sputum, occasional hemoptysis. Objective: Clinical Impression(s) from Imaging Studies Femur X-Ray 02/07/18 20:51 IMPRESSION: Diffuse demineralization with no evidence of acute fracture. Electronically Signed: Wei Lucas DO at 21:53 EDT , Service support , Venous Duplex 02/07/18 21:06 IMPRESSION: No evidence of deep venous thrombosis. Electronically Signed: Wei Lucas DO at 21:49 EDT , Service support , Chest X-Ray 02/07/18 21:35 IMPRESSION: Prominent diffuse interstitial markings with underlying interstitial edema likely. Clinically correlate for underlying CHF exacerbation in the appropriate clinical setting. Electronically Signed: Wei Lucas DO at 21:52 EDT , Service support , - Physical Exam General: Alert, Oriented x3, Cooperative, No apparent distress, Well developed, Well nourished, - - Conversational dyspnea. Obese. HEENT: Atraumatic, Normocephalic Oral: Moist Mucosa, No Gingival or Mucosal Lesions/ Ulcerations Neck: Supple, No Nodes, Trachea Midline, - - Large neck circumference with redundant soft tissue Lungs: No rhonchi, Diminished, - - Few expiratory wheeze with bibasilar rales. Symmetric expansion, no dullness to percussion. Cardiovascular: Regular Rhythm, Normal S1, Normal S2, No murmurs, No rub noted, No Gallop, Tachycardic Abdomen: Bowel Sounds Present, Soft, Non Tender, Non-Distended, Obese Extremities: No clubbing, Edema - Bilateral lower extremities, right greater than left, - - Toes are mildly cyanotic laterally, patient reports this is chronic Skin: - - Right lower extremity edema, erythema, increased warmth Musculoskeletal: No Muscle Wasting, Tenderness - RLE Lymphatic: No Cervical, Supraclavicular, or Inguinal Adenopathy Neurological: Cranial nerves II-XII grossly intact, Neuro grossly intact, Motor Exam 5/5 strength throughout, - - Chronic decreased sensation to bilateral LEs Psych/Mental Status: Alert and oriented to time, place, person, mood and affect Vital Signs Temp Pulse Resp BP Pulse Ox 97.9 F 101 H 21 H 122/71 H 90 02/08/18 05:57 02/08/18 11:00 02/08/18 10:40 02/08/18 05:57 02/08/18 10:40 Oxygen Flow Rate (L/min) 4 Oxygen Delivery Method Nasal Cannula Weight: 234 lb 12.783 oz Body Mass Index (BMI) 45.8 Intake and Output for Last 24 Hours 02/06/18 02/07/18 02/08/18 23:59 23:59 23:59 Output Total 1000 / 1000 Balance -1000 / -1000 Laboratory Tests Past 24 Hrs 02/08/18 02/08/18 02/08/18 01:55 04:14 04:14 WBC 10.9 RBC 3.65 L Hgb 9.7 L Hct 34.1 L MCV 93.4 MCH 26.6 L MCHC 28.4 L RDW 15.3 H RDW Differential 50.1 H Plt Count 227 MPV 11.4 Immature Gran % (Auto) 0.400 Neut % (Auto) 72.7 H Lymph % (Auto) 15.4 L [place] % (Auto) 10.7 H Eos % (Auto) 0.5 Baso % (Auto) 0.3 Absolute Neuts (auto) 7.9 H Absolute Lymphs (auto) 1.67 Total Counted Not Reportable Sodium 141 Potassium 3.3 L Chloride 88 L Carbon Dioxide > 45.0 H* Anion Gap TNP BUN 11 Creatinine 0.69 Estim Creat Clear Calc 37.60 Est GFR (MDRD) Af Amer 108 Est GFR (MDRD) Non-Af 89 BUN/Creatinine Ratio 15.9 Glucose 226 H Calcium 8.6 Total Bilirubin 0.50 AST 12 L ALT 16 Alkaline Phosphatase 77 Troponin I < 0.015 < 0.015 B-Natriuretic Peptide Total Protein 6.5 Albumin 2.4 L Globulin 4.1 Albumin/Globulin Ratio 0.6 L 02/08/18 02/08/18 07:30 07:30 WBC RBC Hgb Hct MCV MCH MCHC RDW RDW Differential Plt Count MPV Immature Gran % (Auto) Neut % (Auto) Lymph % (Auto) [place] % (Auto) Eos % (Auto) Baso % (Auto) Absolute Neuts (auto) Absolute Lymphs (auto) Total Counted Sodium Potassium Chloride Carbon Dioxide Anion Gap BUN Creatinine Estim Creat Clear Calc Est GFR (MDRD) Af Amer Est GFR (MDRD) Non-Af BUN/Creatinine Ratio Glucose Calcium Total Bilirubin AST ALT Alkaline Phosphatase Troponin I < 0.015 B-Natriuretic Peptide Pending Total Protein Albumin Globulin Albumin/Globulin Ratio POC Glucose 02/08/18 02/08/18 11:17 07:03 POC Glucose 336 H 209 H Assessment/Plan All Active Problems CHF (congestive heart failure) (Acute) Cellulitis (Acute) Acute on chronic respiratory failure with hypoxia and hypercapnia (Acute) RECOMMENDATIONS 1. Wean oxygen supplementation to keep saturations 88-92% to prevent paradoxical CO2 retention. 2. Encourage incentive spirometer/Acapella 3. Increase activity as tolerated 4. Continue bronchodilators 5. Continue IV steroids and transition to prednisone in the next 24-48 hours 6. Viral respiratory panel 7. Check urine for strep/Legionella antigens 8. Obtain echocardiogram, if not already done 9. Replete electrolytes as indicated 10. Obtain records from [facility] pulmonology including any imaging, would also be beneficial to have last echocardiogram for comparison 11. Ambulatory pulse ox prior to discharge 12. Patient should follow-up with her primary bellhop service captain within 2 weeks of discharge from the hospital IMPRESSIONS 1. Acute on chronic hypoxic and hypercarbic respiratory failure Unclear etiology. No infectious workup to date. No fevers but chills at home. BNP was normal. Has chronic lower extremity edema. Chest x-ray showing prominent diffuse interstitial markings with underlying interstitial edema. Patient is being diuresed with IV Lasix. She remains on 4 L, home oxygen requirements of 3 L. PE would be an consideration given her history of DVT, however patient anticoagulated on Coumadin so would be unlikely. Continue BiPAP with all sleep and intermittently throughout the day as needed. Patient may bring her Trilogy machine and if she desires. Continue bronchodilators and antibiotics, antibiotics choice will need to be reevaluated secondary to failure of outpatient doxycycline. Obtain respiratory viral panel and sputum culture. Encourage incentive spirometer/Acapella and increase activity as tolerated. Likely has component of COPD exacerbation, so agree with IV steroids. Likely can be transitioned to oral in the next 24-48 hours. 2. Right lower extremity cellulitis Patient recently completed a 10 day course of doxycycline prescribed over the phone by her primary care physician. Currently on doxycycline here, this will need to be changed. However, patient lists several allergies to various antibiotics. Consider ID consultation. 3. Self reported history of COPD and asthma, with probable COPD exacerbation Patient with increased dyspnea, sputum production, cough. Uses albuterol and Atrovent nebulizers at home. Recently transitioned to Trelogy but has yet to start this. 4. Self-reported history of obstructive sleep apnea Compliant with trilogy at home. 5. Morbid obesity/hypothyroidism/history of DVT/anxiety/depression/hypokalemia Complicates care, management, recovery, and prognosis. Continue home medications as indicated. Electrolyte repletion as indicated.
[2018-02-08 12:57] LABS: BNP,B-Type NATRIURETIC PEPTIDE 56.4 pg/mL (0-100)
--- NOTE | 2018-02-08 14:47 | CASEMGMT ---
SEE ISHA FREEMAN LINK. D/C PLAN: Undetermined PT/OT evaluations completed. Will continue to follow to eval Home with Home Health vs. SNF Contacted [facility] to verify services--pt currently has [facility], PT/OT, and aide services. [facility]: P: [phone] F: [phone] Pt's daughter, Verito, is her POA. Pt states she will ask her Verito to bring in copies of Advanced Directives. Bull AJ RN CM
[2018-02-08 16:45] LABS: Bedside Glucose 307 mg/dL (70-110)
--- NOTE | 2018-02-08 16:55 | PCM.PN.HOSP ---
Patient Problems: Active and Suspected Problems CHF (congestive heart failure) (Acute) Cellulitis (Acute) Acute on chronic respiratory failure with hypoxia and hypercapnia (Acute) Subjective: Patient was seen and examined. Admitted last night with acute hypoxic hypercapnic respiratory failure. Patient wants a Saldana catheter to be placed because I helped to drain fluid inhaler. History of acute on chronic diastolic heart failure and says the catheter helps her day because she has been voiding very little. Denies any chest pain or dizziness or shortness of breath. Patient has BiPAP at home. Vitals/I&O's: Vital Signs Temp Pulse Resp BP Pulse Ox 98.2 F 99 16 112/52 L 92 02/08/18 12:00 02/08/18 15:10 02/08/18 15:10 02/08/18 12:00 02/08/18 12:00 Oxygen Flow Rate (L/min) 4 Oxygen Delivery Method Bi-pap Weight: 106.503 kg Body Mass Index (BMI) 45.8 Intake and Output for Last 24 Hours 02/06/18 02/07/18 02/08/18 23:59 23:59 23:59 Intake Total 945 / 945 Output Total 2150 / 2150 Balance -1205 / -1205 General: Alert, Oriented x3, Cooperative, - - In moderate respiratory distress, obese HEENT: Atraumatic, PERRLA, EOMI, Normocephalic Oral: Moist Mucosa Neck: Supple Lungs: Clear to auscultation, Normal air movement Cardiovascular: Regular rate, Regular Rhythm, Normal S1, Normal S2, No murmurs Abdomen: Bowel Sounds Present, Soft, Non Tender, Non-Distended, No Hepato-splenomegaly Extremities: No edema Skin: No rashes, No breakdown Musculoskeletal: No Tenderness to Palpation of Joints or Extremities Lymphatic: No Cervical, Supraclavicular, or Inguinal Adenopathy Neurological: Cranial nerves II-XII grossly intact, Neuro grossly intact Psych/Mental Status: Normal Affect, Appropriate Microbiology Past 72 Hours 02/08/18 13:15 Mucosa - Nose Respiratory Panel (PCR) - Final 02/08/18 13:30 Urine Catheter - [place] Legionella Antigen - Final 02/08/18 13:30 Urine Catheter - [place] Streptococcus pneumoniae Antigen (M - Final Laboratory Results 02/08/18 01:55: Troponin I < 0.015 02/08/18 04:14: WBC 10.9, RBC 3.65 L, Hgb 9.7 L, Hct 34.1 L, MCV 93.4, MCH 26.6 L, MCHC 28.4 L, RDW 15.3 H, RDW Differential 50.1 H, Plt Count 227, MPV 11.4, Immature Gran % (Auto) 0.400, Neut % (Auto) 72.7 H, Lymph % (Auto) 15.4 L, [place] % (Auto) 10.7 H, Eos % (Auto) 0.5, Baso % (Auto) 0.3, Absolute Neuts (auto) 7.9 H, Absolute Lymphs (auto) 1.67, Total Counted Not Reportable 02/08/18 04:14: Sodium 141, Potassium 3.3 L, Chloride 88 L, Carbon Dioxide > 45.0 H*, Anion Gap TNP, BUN 11, Creatinine 0.69, Estim Creat Clear Calc 37.60, Est GFR (MDRD) Af Amer 108, Est GFR (MDRD) Non-Af 89, BUN/Creatinine Ratio 15.9, Glucose 226 H, Calcium 8.6, Total Bilirubin 0.50, AST 12 L, ALT 16, Alkaline Phosphatase 77, Troponin I < 0.015, Total Protein 6.5, Albumin 2.4 L, Globulin 4.1, Albumin/Globulin Ratio 0.6 L 02/08/18 07:03: POC Glucose 209 H 02/08/18 07:30: Troponin I < 0.015 02/08/18 07:30: B-Natriuretic Peptide 56.4 02/08/18 11:17: POC Glucose 336 H 02/08/18 16:37: POC Glucose 307 H Current Medications Acetaminophen (Tylenol) 500 mg PO Q6H PRN PRN PRN Reason: PAIN Hydrocodone Bitart/Acetaminophen ([place] 5mg-325mg) 1 tablet PO Q6H PRN PRN PRN Reason: PAIN Albuterol/Ipratropium (Duoneb) 3 ml INHALATION Q4H.RT CECILIO Last Admin: 02/08/18 15:10 Dose: 3 ml Atorvastatin Calcium (Lipitor) 20 mg PO QHS CECILIO Buspirone HCl (Buspar) 15 mg PO TID CECILIO Last Admin: 02/08/18 13:28 Dose: 15 mg Calcium/Vitamin D (Os-Carlos 500mg + D) 1 tablet PO DAILY [facility] Last Admin: 02/08/18 08:42 Dose: 1 tablet Cholecalciferol (Vitamin D) 2,000 unit PO DAILY [facility] Last Admin: 02/08/18 08:45 Dose: 2,000 unit Duloxetine HCl (Cymbalta) 60 mg PO DAILY [facility] Last Admin: 02/08/18 08:43 Dose: 60 mg Ezetimibe (Zetia) 10 mg PO DAILY [facility] Last Admin: 02/08/18 08:45 Dose: 10 mg Famotidine (Pepcid) 20 mg PO BID [facility] Last Admin: 02/08/18 08:44 Dose: 20 mg Ferrous Sulfate (Ferrous Sulfate) 325 mg PO DAILYCM [facility] Last Admin: 02/08/18 08:41 Dose: 325 mg Furosemide (Lasix) 40 mg PO BIDLX [facility] Last Admin: 02/08/18 08:43 Dose: 40 mg Doxycycline Hyclate 100 mg/ (Dextrose) 260 mls @ 250 mls/hr IV Q12 [facility] Last Admin: 02/08/18 09:52 Dose: 250 mls/hr Insulin Human Lispro (Humalog Kwikpen (Bkc)) 10 unit SC 0800,1200,1700 [facility] Last Admin: 02/08/18 13:28 Dose: 10 units Lactobacillus Acidophilus (Acidophilus) 1 tablet PO DAILY [facility] Last Admin: 02/08/18 08:41 Dose: 1 tablet Levothyroxine Sodium (Synthroid) 25 mcg PO DAILY@0600 [facility] Last Admin: 02/08/18 05:50 Dose: 25 mcg Loratadine (Claritin) 10 mg PO DAILY [facility] Last Admin: 02/08/18 08:42 Dose: 10 mg Losartan Potassium (Cozaar) 25 mg PO DAILY [facility] Last Admin: 02/08/18 08:44 Dose: 25 mg Magnesium Hydroxide (Milk Of Magnesia) 30 ml PO DAILY PRN PRN Reason: Constipation Magnesium Oxide (Mag-Ox 400) 400 mg PO DAILY [facility] Last Admin: 02/08/18 08:43 Dose: 400 mg Methylprednisolone (Solu-Medrol) 40 mg IV Q8 [facility] Last Admin: 02/08/18 13:28 Dose: 40 mg Montelukast Sodium (Singulair) 10 mg PO DAILY [facility] Last Admin: 02/08/18 08:44 Dose: 10 mg Morphine Sulfate () 2 - 4 mg IV Q3H PRN PRN PRN Reason: Severe Pain (pain scale 6-10) Pantoprazole Sodium (Protonix) 40 mg PO BID [facility] Last Admin: 02/08/18 08:44 Dose: 40 mg Polyethylene Glycol (Miralax) 17 gm PO DAILY PRN PRN Reason: Constipation Potassium Chloride (K-Dur) 10 meq PO DAILY [facility] Last Admin: 02/08/18 08:43 Dose: 10 meq Sodium Chloride ([place] Nasal [place]) 1 spray NASAL BID [facility] Last Admin: 02/08/18 08:42 Dose: 1 spray Sodium Chloride () 5 - 30 ml IV UD PRN PRN Reason: SALINE FLUSH Last Admin: 02/08/18 13:28 Dose: 10 ml Warfarin Sodium (Coumadin (Pbkc)) 3 mg PO DAILY@1700 [facility] Medical Necessity - Tobacco Use Smoking Status: Former smoker Tobacco Use: Cigarettes Assessment/Plan All Active Problems CHF (congestive heart failure) (Acute) Cellulitis (Acute) Acute on chronic respiratory failure with hypoxia and hypercapnia (Acute) 72-year-old female with multiple comorbidities, who gets most of her care in the [facility], comes in with complaints of worsening shortness of breath ongoing over the several days. 1. Acute hypoxic hypercapnic respiratory failure in a patient with severe COPD/diastolic heart failure, patient is on BiPAP, encourage use of BiPAP, pulmonology consult, retrieve records from the [facility] 2. Acute COPD exacerbation, does follow with urology [facility] system, on IV steroids, continue breathing treatments, doubt CHF as a BNpep is very low. Appreciate pulmonology consult. 3. Hypokalemia, replace, recheck in a.m. 4. Right lower extremity cellulitis, on doxycycline, doppler DVT for right DVT, multiple co-morbidities, will try on clindamycin and ID consult, discontinue doxycycline in the meantime. 5. History of LEDY, obesity hypoventilation syndrome, continue on BiPAP 6. Hyperlipidemia, on statin 7. Hypertension, continue on Cozaar, 8. Anxiety/depression, continue on Cymbalta, buspar 9. Hypothyroidism, on levothyroxine 10. Type II DM, on humalog 10 units SC, blood sugars are not controlled, will check hgbA1c, continue accucheks with insulin sliding scale. 11. History of diatolic CHF, not in acute exacerbation, BNPep is 42.2, will continued on home lasix, daily weights, strict I & Os 12. H/o DVT on coumadin, follow INRs. Code Visit Inpatient E&M: 20893 Subs Hosp L3
--- NOTE | 2018-02-08 17:29 | PN_ITS ---
Patient Problems: Active and Suspected Problems CHF (congestive heart failure) (Acute) Cellulitis (Acute) Acute on chronic respiratory failure with hypoxia and hypercapnia (Acute) Subjective: Patient was seen and examined. Admitted last night with acute hypoxic hypercapnic respiratory failure. Patient wants a [place] catheter to be placed because I helped to drain fluid inhaler. History of acute on chronic diastolic heart failure and says the catheter helps her day because she has been voiding very little. Denies any chest pain or dizziness or shortness of breath. Patient has BiPAP at home. Vitals/I&O's: Vital Signs Temp Pulse Resp BP Pulse Ox 98.2 F 99 16 112/52 L 92 02/08/18 12:00 02/08/18 15:10 02/08/18 15:10 02/08/18 12:00 02/08/18 12:00 Oxygen Flow Rate (L/min) 4 Oxygen Delivery Method Bi-pap Weight: 106.503 kg Body Mass Index (BMI) 45.8 Intake and Output for Last 24 Hours 02/06/18 02/07/18 02/08/18 23:59 23:59 23:59 Intake Total 945 / 945 Output Total 2150 / 2150 Balance -1205 / -1205 General: Alert, Oriented x3, Cooperative, - - In moderate respiratory distress, obese HEENT: Atraumatic, PERRLA, EOMI, Normocephalic Oral: Moist Mucosa Neck: Supple Lungs: Clear to auscultation, Normal air movement Cardiovascular: Regular rate, Regular Rhythm, Normal S1, Normal S2, No murmurs Abdomen: Bowel Sounds Present, Soft, Non Tender, Non-Distended, No Hepato- splenomegaly Extremities: No edema Skin: No rashes, No breakdown Musculoskeletal: No Tenderness to Palpation of Joints or Extremities Lymphatic: No Cervical, Supraclavicular, or Inguinal Adenopathy Neurological: Cranial nerves II-XII grossly intact, Neuro grossly intact Psych/Mental Status: Normal Affect, Appropriate Microbiology Past 72 Hours 02/08/18 13:15 Mucosa - Nose Respiratory Panel (PCR) - Final 02/08/18 13:30 Urine Catheter - [place] Legionella Antigen - Final 02/08/18 13:30 Urine Catheter - [place] Streptococcus pneumoniae Antigen (M - Final Laboratory Results 02/08/18 01:55: Troponin I < 0.015 02/08/18 04:14: WBC 10.9, RBC 3.65 L, Hgb 9.7 L, Hct 34.1 L, MCV 93.4, MCH 26.6 L, MCHC 28.4 L, RDW 15.3 H, RDW Differential 50.1 H, Plt Count 227, MPV 11.4, Immature Gran % (Auto) 0.400, Neut % (Auto) 72.7 H, Lymph % (Auto) 15.4 L, [place] % (Auto) 10.7 H, Eos % (Auto) 0.5, Baso % (Auto) 0.3, Absolute Neuts (auto) 7.9 H, Absolute Lymphs (auto) 1.67, Total Counted Not Reportable 02/08/18 04:14: Sodium 141, Potassium 3.3 L, Chloride 88 L, Carbon Dioxide > 45.0 H*, Anion Gap TNP, BUN 11, Creatinine 0.69, Estim Creat Clear Calc 37.60, Est GFR (MDRD) Af Amer 108, Est GFR (MDRD) Non-Af 89, BUN/Creatinine Ratio 15.9 , Glucose 226 H, Calcium 8.6, Total Bilirubin 0.50, AST 12 L, ALT 16, Alkaline Phosphatase 77, Troponin I < 0.015, Total Protein 6.5, Albumin 2.4 L, Globulin 4.1, Albumin/Globulin Ratio 0.6 L 02/08/18 07:03: POC Glucose 209 H 02/08/18 07:30: Troponin I < 0.015 02/08/18 07:30: B-Natriuretic Peptide 56.4 02/08/18 11:17: POC Glucose 336 H 02/08/18 16:37: POC Glucose 307 H Current Medications Acetaminophen (Tylenol) 500 mg PO Q6H PRN PRN PRN Reason: PAIN Hydrocodone Bitart/Acetaminophen ([place] 5mg-325mg) 1 tablet PO Q6H PRN PRN PRN Reason: PAIN Albuterol/Ipratropium (Duoneb) 3 ml INHALATION Q4H.RT CECILIO Last Admin: 02/08/18 15:10 Dose: 3 ml Atorvastatin Calcium (Lipitor) 20 mg PO QHS CECILIO Buspirone HCl (Buspar) 15 mg PO TID CECILIO Last Admin: 02/08/18 13:28 Dose: 15 mg Calcium/Vitamin D (Os-Carlos 500mg + D) 1 tablet PO DAILY [facility] Last Admin: 02/08/18 08:42 Dose: 1 tablet Cholecalciferol (Vitamin D) 2,000 unit PO DAILY [facility] Last Admin: 02/08/18 08:45 Dose: 2,000 unit Duloxetine HCl (Cymbalta) 60 mg PO DAILY [facility] Last Admin: 02/08/18 08:43 Dose: 60 mg Ezetimibe (Zetia) 10 mg PO DAILY [facility] Last Admin: 02/08/18 08:45 Dose: 10 mg Famotidine (Pepcid) 20 mg PO BID [facility] Last Admin: 02/08/18 08:44 Dose: 20 mg Ferrous Sulfate (Ferrous Sulfate) 325 mg PO DAILYCM [facility] Last Admin: 02/08/18 08:41 Dose: 325 mg Furosemide (Lasix) 40 mg PO BIDLX [facility] Last Admin: 02/08/18 08:43 Dose: 40 mg Doxycycline Hyclate 100 mg/ (Dextrose) 260 mls @ 250 mls/hr IV Q12 [facility] Last Admin: 02/08/18 09:52 Dose: 250 mls/hr Insulin Human Lispro (Humalog Kwikpen (Bkc)) 10 unit SC 0800,1200,1700 [facility] Last Admin: 02/08/18 13:28 Dose: 10 units Lactobacillus Acidophilus (Acidophilus) 1 tablet PO DAILY [facility] Last Admin: 02/08/18 08:41 Dose: 1 tablet Levothyroxine Sodium (Synthroid) 25 mcg PO DAILY@0600 [facility] Last Admin: 02/08/18 05:50 Dose: 25 mcg Loratadine (Claritin) 10 mg PO DAILY [facility] Last Admin: 02/08/18 08:42 Dose: 10 mg Losartan Potassium (Cozaar) 25 mg PO DAILY [facility] Last Admin: 02/08/18 08:44 Dose: 25 mg Magnesium Hydroxide (Milk Of Magnesia) 30 ml PO DAILY PRN PRN Reason: Constipation Magnesium Oxide (Mag-Ox 400) 400 mg PO DAILY [facility] Last Admin: 02/08/18 08:43 Dose: 400 mg Methylprednisolone (Solu-Medrol) 40 mg IV Q8 [facility] Last Admin: 02/08/18 13:28 Dose: 40 mg Montelukast Sodium (Singulair) 10 mg PO DAILY [facility] Last Admin: 02/08/18 08:44 Dose: 10 mg Morphine Sulfate () 2 - 4 mg IV Q3H PRN PRN PRN Reason: Severe Pain (pain scale 6-10) Pantoprazole Sodium (Protonix) 40 mg PO BID [facility] Last Admin: 02/08/18 08:44 Dose: 40 mg Polyethylene Glycol (Miralax) 17 gm PO DAILY PRN PRN Reason: Constipation Potassium Chloride (K-Dur) 10 meq PO DAILY [facility] Last Admin: 02/08/18 08:43 Dose: 10 meq Sodium Chloride (Crystal Nasal [place]) 1 spray NASAL BID [facility] Last Admin: 02/08/18 08:42 Dose: 1 spray Sodium Chloride () 5 - 30 ml IV UD PRN PRN Reason: SALINE FLUSH Last Admin: 02/08/18 13:28 Dose: 10 ml Warfarin Sodium (Coumadin (Pbkc)) 3 mg PO DAILY@1700 [facility] Medical Necessity - Tobacco Use Smoking Status: Former smoker Tobacco Use: Cigarettes Assessment/Plan All Active Problems CHF (congestive heart failure) (Acute) Cellulitis (Acute) Acute on chronic respiratory failure with hypoxia and hypercapnia (Acute) 72-year-old female with multiple comorbidities, who gets most of her care in the [facility], comes in with complaints of worsening shortness of breath ongoing over the several days. 1. Acute hypoxic hypercapnic respiratory failure in a patient with severe COPD/ diastolic heart failure, patient is on BiPAP, encourage use of BiPAP, pulmonology consult, retrieve records from the [facility] 2. Acute COPD exacerbation, does follow with urology [facility] system, on IV steroids, continue breathing treatments, doubt CHF as a BNpep is very low. Appreciate pulmonology consult. 3. Hypokalemia, replace, recheck in a.m. 4. Right lower extremity cellulitis, on doxycycline, doppler DVT for right DVT, multiple co-morbidities, will try on clindamycin and ID consult, discontinue doxycycline in the meantime. 5. History of LEDY, obesity hypoventilation syndrome, continue on BiPAP 6. Hyperlipidemia, on statin 7. Hypertension, continue on Cozaar, 8. Anxiety/depression, continue on Cymbalta, buspar 9. Hypothyroidism, on levothyroxine 10. Type II DM, on humalog 10 units SC, blood sugars are not controlled, will check hgbA1c, continue accucheks with insulin sliding scale. 11. History of diatolic CHF, not in acute exacerbation, BNPep is 42.2, will continued on home lasix, daily weights, strict I & Os 12. H/o DVT on coumadin, follow INRs. Code Visit Inpatient E&M: 44753 Subs Hosp L3
[2018-02-08 18:40] LABS: Hemoglobin A1c 8.2 % (4.2-6.3)
[2018-02-08] MEDS: Polyethylene Glycol 3350 17 GM PACKET PO (19:05)
--- NOTE | 2018-02-08 19:17 | CPS ---
o2 increased to 40% due to low sat-nurse aware
[2018-02-08] MEDS: Atorvastatin Calcium 20 MG Tablet PO (23:17)
[2018-02-09] VITALS (20 sets, daily range): BP systolic 104–128; BP diastolic 52–69; PULSE 90–110; RESP 14–29; TEMP 36.6–37; O2SAT 89–96
[2018-02-09] MEDS: Ipratropium/Albuterol Sulfate 3 ML AMPUL.NEB INHALATION ×5 (03:30→19:18)
[2018-02-09 05:35] LABS: Absolute Lymphocyte Count 0.67 X10^3/ul (0.83-4.51); Basophil# 0.01 X10^3/uL; Basophil% 0.1 % (0-1); Hematocrit 33.3 % (37-47); Hemoglobin 9.3 g/dl (12.0-15.0); Lymphocyte # 0.67 X10^3/ul (4.0); Lymphocyte % 7.3 % (19-41); Mean Corp Hgb Conc 27.9 g/gl (32-36); Mean Platelet Vol. 11.4 fl (6.2-12.0); Monocyte# 0.42 X10^3/uL; Monocyte% 4.6 % (0-10); Neutrophil # 8.01 X10^3/uL (2.7-7.7); Neutrophil % 87.8 % (47-70); Platelet Count 232 K/mm3 (150-450); RBC Distribution Width CV 15.1 % (11.6-14.6); RBC Distribution Width SD 51.7 fl (35.1-43.9); Red Blood Count 3.58 M/mm3 (4.2-5.4); White Blood Count 9.1 K/mm3 (4.4-11.0)
[2018-02-09] MEDS: Levothyroxine 25 MCG TABLET PO (05:43)
[2018-02-09] MEDS: busPIRone 15 MG TABLET PO ×3 (05:43→22:14)
[2018-02-09] MEDS: 0.9% NaCl Peripheral Flush Adult/Peds IV ×3 (05:44→22:14)
[2018-02-09 05:45] LABS: International Normalized Ratio 1.5; Prothrombin Time (Protime)PT. 17.8 SECONDS (11.7-14.9)
[2018-02-09 05:49] LABS: POSITIVE COUNT NO; POSITIVE DIFFERENTIAL NO; POSITIVE MORPHOLOGY NO
[2018-02-09 05:58] LABS: BUN 17 mg/dL (7-18); BUN/Creat Ratio 19.2 RATIO (10-20); Calcium,Total 8.9 mg/dL (8.5-10.1); Carbon Dioxide > 45.0 mmol/L (21.0-32.0); Chloride 90 mmol/L (98-107); Creatinine, Serum 0.88 mg/dL (0.55-1.02); EST Glomerular Filtration Rate 67 mL/min (>60); Est Glom Filt Rate - Afr Amer 81 mL/min (>60); Estimated Creatinine Clearance 42.73 ml/min; Glucose 324 mg/dL (74-106); Potassium 4.4 mmol/L (3.5-5.1); Sodium Level 141 mmol/L (136-145)
[2018-02-09] MEDS: Ferrous Sulfate 325 MG Tablet PO (09:00)
[2018-02-09] MEDS: Sodium Chloride 0.65% 1 SPRAY SPRAY.BTL NASAL ×2 (09:03→22:13)
[2018-02-09] MEDS: Polyethylene Glycol 3350 17 GM PACKET PO (09:05)
[2018-02-09] MEDS: Calcium Carb/Vitamin D 1 TABLET Tablet PO (09:06)
[2018-02-09] MEDS: Loratadine 10 MG Tablet PO (09:06)
[2018-02-09] MEDS: Furosemide 40 MG Tablet PO ×2 (09:06→16:51)
[2018-02-09] MEDS: Magnesium Oxide 400 MG Tablet PO (09:06)
[2018-02-09] MEDS: Pantoprazole Sodium 40 MG Tablet PO ×2 (09:06→22:12)
[2018-02-09] MEDS: Ezetimibe 10 MG Tablet PO (09:06)
[2018-02-09] MEDS: Famotidine 20 MG Tablet PO (09:06)
[2018-02-09] MEDS: Montelukast 10 MG Tablet PO (09:06)
[2018-02-09] MEDS: DULoxetine Hcl 60 MG Capsule PO (09:06)
[2018-02-09] MEDS: Losartan Potassium 25 MG Tablet PO (09:07)
[2018-02-09] MEDS: Insulin Lispro 100 UNIT/ML INSULN.PEN 10 UNIT SC ×3 (09:07→16:43)
--- NOTE | 2018-02-09 09:27 | PCM.PROGNOTE ---
Patient Problems: Active and Suspected Problems CHF (congestive heart failure) (Acute) Cellulitis (Acute) Acute on chronic respiratory failure with hypoxia and hypercapnia (Acute) Subjective: Patient was seen and examined. She is sitting up in the chair, in moderate respiratory distress. Patient just took off her oxygen to blow her nose and her saturations dropped into the 70s and she is tachycardic. She states this happens all the time with any activity and takes at least 10 minutes to recover back into the 80s or 90s. Her toes are cyanotic. No evidence of circumoral cyanosis. She does complain of a coarse cough with occasional small amounts of sputum production, clear to brown. Patient requesting steroids be discontinued. Objective: Recent lab and culture data reviewed. Patient remains afebrile and hemodynamically stable. Her serum bicarb remains elevated at greater than 45.0. Her potassium has normalized after repletion. Blood sugar is elevated this morning at 324. A viral respiratory panel and urine strep/Legionella antigens were negative. Echocardiogram revealed grossly normal LV size and systolic function, estimated EF of 65%, mild concentric LVH, trivial MVI and TVI, mild focal aortic valve thickening, RVSP estimated at 72 mmHg. Diastolic dysfunction was not assessed. - Physical Exam General: Alert, Oriented x3, Cooperative, - - moderate conversational dyspnea HEENT: Atraumatic, Normocephalic Oral: Moist Mucosa Neck: Supple, Trachea Midline Lungs: - - Very little air movement, no discernible rhonchi, wheezes, or rales. She is tachypneic with accessory muscle use, associated with minimal activity. Cardiovascular: Normal S1, Normal S2, No murmurs, Tachycardic Abdomen: Bowel Sounds Present, Soft, Non Tender, Obese Extremities: No Calf Tenderness, Cyanosis, Diminished Peripheral Pulses, Edema - bilat LEs, R>L. somewhat improved Skin: - - no changes from previous except erythema/edema RLE minimally improved Musculoskeletal: Tenderness - RLE Lymphatic: - - no adenopathy Neurological: Neuro grossly intact Psych/Mental Status: Alert and oriented to time, place, person, mood and affect Vital Signs Temp Pulse Resp BP Pulse Ox 97.8 F 94 18 126/69 H 94 02/09/18 09:00 02/09/18 09:00 02/09/18 09:00 02/09/18 09:00 02/09/18 09:00 Oxygen Flow Rate (L/min) 4 Oxygen Delivery Method Nasal Cannula Weight: 234 lb 12.677 oz Body Mass Index (BMI) 45.8 Intake and Output for Last 24 Hours 02/07/18 02/08/18 02/09/18 23:59 23:59 23:59 Intake Total 1165 / 1165 209 / 209 Output Total 2425 / 2425 550 / 550 Balance -1260 / -1260 -341 / -341 Microbiology Past 72 Hours 02/08/18 13:15 Respiratory Panel (PCR) - Final Mucosa - Nose 02/08/18 13:30 Legionella Antigen - Final Urine Catheter - [place] 02/08/18 13:30 Streptococcus pneumoniae Antigen (M - Final Urine Catheter - [place] Laboratory Tests Past 24 Hrs 02/08/18 02/08/18 02/09/18 04:14 07:30 05:15 WBC 9.1 RBC 3.58 L Hgb 9.3 L Hct 33.3 L MCV 93.0 MCH 26.0 L MCHC 27.9 L RDW 15.1 H RDW Differential 51.7 H Plt Count 232 MPV 11.4 Immature Gran % (Auto) 0.200 Neut % (Auto) 87.8 H Lymph % (Auto) 7.3 L [place] % (Auto) 4.6 Eos % (Auto) 0.0 Baso % (Auto) 0.1 Absolute Neuts (auto) 8.0 H Absolute Lymphs (auto) 0.67 L Total Counted Not Reportable PT INR Sodium Potassium Chloride Carbon Dioxide Anion Gap BUN Creatinine Estim Creat Clear Calc Est GFR (MDRD) Af Amer Est GFR (MDRD) Non-Af BUN/Creatinine Ratio Glucose Hemoglobin A1c 8.2 H Calcium B-Natriuretic Peptide 56.4 02/09/18 02/09/18 05:15 05:15 WBC RBC Hgb Hct MCV MCH MCHC RDW RDW Differential Plt Count MPV Immature Gran % (Auto) Neut % (Auto) Lymph % (Auto) [place] % (Auto) Eos % (Auto) Baso % (Auto) Absolute Neuts (auto) Absolute Lymphs (auto) Total Counted PT 17.8 H INR 1.5 Sodium 141 Potassium 4.4 Chloride 90 L Carbon Dioxide > 45.0 H* Anion Gap TNP BUN 17 Creatinine 0.88 Estim Creat Clear Calc 42.73 Est GFR (MDRD) Af Amer 81 Est GFR (MDRD) Non-Af 67 BUN/Creatinine Ratio 19.2 Glucose 324 H Hemoglobin A1c Calcium 8.9 B-Natriuretic Peptide POC Glucose 02/08/18 02/08/18 16:37 11:17 POC Glucose 307 H 336 H Medical Necessity - Tobacco Use Smoking Status: Former smoker Tobacco Use: Cigarettes Assessment/Plan All Active Problems CHF (congestive heart failure) (Acute) Cellulitis (Acute) Acute on chronic respiratory failure with hypoxia and hypercapnia (Acute) RECOMMENDATIONS 1. Wean oxygen supplementation to keep saturations 88-92% to prevent paradoxical CO2 retention. 2. Encourage incentive spirometer/Acapella 3. Increase activity as tolerated 4. Continue bronchodilators 5. Transition to prednisone today, possibly discontinue steroids altogether pending discussion w/ Dr. Pérez 6. Replete electrolytes as indicated 7. Obtain records from [facility] pulmonology including any imaging, would also be beneficial to have last echocardiogram for comparison 8. Ambulatory pulse ox prior to discharge 9. Patient should follow-up with her primary qc scientist within 2 weeks of discharge from the hospital IMPRESSIONS 1. Acute on chronic hypoxic and hypercarbic respiratory failure Unclear etiology. Echo does show significant pulmonary hypertension and I suspect patient is chronically hypoxic, especially with exertion. Infectious workup negative thus far, no blood cultures obtained. No fevers but chills at home. BNP normal. CXR showing prominent diffuse interstitial markings with underlying interstitial edema. Patient is being diuresed. She remains on 4 L, home oxygen requirements of 3 L. PE would be an consideration given her history of DVT, patient anticoagulated on Coumadin so would be unlikely. However, INR is subtherapeutic at 1.5 today. Continue BiPAP with all sleep and intermittently throughout the day as needed. Patient may bring her Trilogy machine if she desires. Continue bronchodilators and antibiotics. Encourage incentive spirometer/Acapella and increase activity as tolerated. Likely has component of COPD exacerbation, so agree with IV steroids. Transition to oral steroids. Possibly discontinue altogether, pending discussion with Dr. Pérez. 2. Right lower extremity cellulitis Patient recently completed a 10 day course of doxycycline prescribed over the phone by PCP. Antibiotics changed to Clindamycin. However, patient lists several allergies to various antibiotics. Consider ID consultation if no improvement in RLE cellulitis. 3. Self reported history of COPD and asthma, with probable COPD exacerbation Patient with increased dyspnea, sputum production, cough. Uses albuterol and Atrovent nebulizers at home. Recently transitioned to Trelogy but has yet to start this. See #1. 4. Self-reported history of obstructive sleep apnea Compliant with trilogy at home. Use BiPAP with all sleep. 5. Morbid obesity/hypothyroidism/history of DVT/anxiety/depression/hypokalemia Complicates care, management, recovery, and prognosis. Continue home medications as indicated. Electrolyte repletion as indicated. This note was generated with [employer] software. It may contain incorrect words, spelling, and punctuation that were not noted in checking the note before signing.
[2018-02-09 11:30] LABS: Bedside Glucose 415 mg/dL (70-110)
--- NOTE | 2018-02-09 13:35 | CON.PCM_ITS ---
Problem List (1) Cellulitis Status: Acute Qualifiers: Site of cellulitis: extremity Site of cellulitis of extremity: lower extremity Laterality: right Qualified Code(s): L03.115 - Cellulitis of right lower limb Reason for Consult: cellulitis Consulted by: Dr. Aguirre History of Present Illness: The patient is a 72 year old F who reports several years of BLE, R more than L, chronic redness and intermittent soreness. No drainage, no ulcers, no warmth, no fever. Had been on course of doxy with no improvement. Came to ED due to worsening cough with sputum and SOB. Dx with copd exacerbation, pulm following. Started on steroids and iv lasix. Doxy was changed to clinda 02/08. Today, feeling better, leg resolved resolved and swelling much better in BLE. Reports rash with amox, but no issues with keflex in the past. Full ROS performed and neg except as noted above. - Medical History Past Medical History (Chronic Problems): Chronic Problems Anxiety and depression (Chronic) Obstructive sleep apnea (Chronic) on NIPPV History of DVT (deep vein thrombosis) (Chronic) Hypothyroidism (Chronic) Morbid obesity with BMI of 45.0-49.9, adult (Chronic) COPD (chronic obstructive pulmonary disease) (Chronic) Allergies/Adverse Reactions: Allergies amoxicillin Allergy (Mild, Verified 02/09/18 13:28) Rash Reports tolerating keflex with no issue. azithromycin [From Zithromax] Allergy (Verified 02/07/18 20:43) Swelling levofloxacin [From Levaquin] Allergy (Verified 02/07/18 20:43) Swelling moxifloxacin [From Avelox] Allergy (Verified 02/07/18 20:43) Swelling aspirin Adverse Reaction (Verified 02/09/18 13:28) Other bleeding. Home Medications: Ambulatory Orders Medication Instructions Recorded Acetaminophen [Tylenol Extra 500 mg PO Q6H PRN PRN 02/07/18 Strength] Albuterol Aerosols [Ventolin 2.5 mg INHALATION Q4H PRN PRN 02/07/18 Aerosols] Albuterol Inhaler [Ventolin Hfa 2 puff INHALATION Q4H PRN PRN 02/07/18 (SP)] Calcium Carbonate/Vitamin D3 1 each PO DAILY 02/07/18 [Calcium 600 with Vit D Chew Tb] Cholecalciferol (Vitamin D3) 2,000 unit PO DAILY 02/07/18 [Vitamin D3] Cranberry Fruit Extract [Cranberry] 2,000 mg PO DAILY PRN PRN 02/07/18 [place] Nasal [place] 1 spray BID 02/07/18 Duloxetine Hcl [Cymbalta] 60 mg PO DAILY 02/07/18 Ezetimibe/Simvastatin [Vytorin 1 tablet PO DAILY 02/07/18 10-40 MG Tablet] Furosemide [Lasix] 40 mg PO BIDLX 02/07/18 Insulin Aspart [Novolog Flexpen 10 units SC TIDCM 02/07/18 (BKC)] Levothyroxine [Synthroid] 25 mcg PO DAILY 02/07/18 Loratadine [Claritin] 10 mg PO DAILY 02/07/18 Losartan Potassium [Cozaar] 25 mg PO DAILY 02/07/18 Magnesium Oxide [Magnesium] 400 mg PO DAILY 02/07/18 Montelukast [Singulair] 10 mg PO DAILY 02/07/18 Pantoprazole Sodium [Protonix] 40 mg PO BID 02/07/18 Polyethylene Glycol 3350 [Miralax] 17 gm PO DAILY PRN 02/07/18 Potassium Chloride [K-Dur] 10 meq PO DAILY 02/07/18 Warfarin [Coumadin (PBKC)] 3 mg PO DAILY 02/07/18 busPIRone [Buspar] 15 mg PO TID 02/07/18 - Social History SMOKING STATUS:: Former smoker Vital Signs Temp Pulse Resp BP Pulse Ox 97.8 F 105 H 18 126/69 H 92 02/09/18 09:00 02/09/18 10:53 02/09/18 10:53 02/09/18 09:00 02/09/18 10:53 Oxygen Flow Rate (L/min) 4 Oxygen Delivery Method Nasal Cannula Weight: 106.5 kg Body Mass Index (BMI) 45.8 Microbiology Past 72 Hours 02/08/18 13:15 Respiratory Panel (PCR) - Final Mucosa - Nose 02/08/18 13:30 Legionella Antigen - Final Urine Catheter - [place] 02/08/18 13:30 Streptococcus pneumoniae Antigen (M - Final Urine Catheter - [place] Laboratory Tests Past 24 Hrs 02/08/18 02/09/18 02/09/18 04:14 05:15 05:15 WBC 9.1 RBC 3.58 L Hgb 9.3 L Hct 33.3 L MCV 93.0 MCH 26.0 L MCHC 27.9 L RDW 15.1 H RDW Differential 51.7 H Plt Count 232 MPV 11.4 Immature Gran % (Auto) 0.200 Neut % (Auto) 87.8 H Lymph % (Auto) 7.3 L [place] % (Auto) 4.6 Eos % (Auto) 0.0 Baso % (Auto) 0.1 Absolute Neuts (auto) 8.0 H Absolute Lymphs (auto) 0.67 L Total Counted Not Reportable PT INR Sodium 141 Potassium 4.4 Chloride 90 L Carbon Dioxide > 45.0 H* Anion Gap TNP BUN 17 Creatinine 0.88 Estim Creat Clear Calc 42.73 Est GFR (MDRD) Af Amer 81 Est GFR (MDRD) Non-Af 67 BUN/Creatinine Ratio 19.2 Glucose 324 H Hemoglobin A1c 8.2 H Calcium 8.9 02/09/18 05:15 WBC RBC Hgb Hct MCV MCH MCHC RDW RDW Differential Plt Count MPV Immature Gran % (Auto) Neut % (Auto) Lymph % (Auto) [place] % (Auto) Eos % (Auto) Baso % (Auto) Absolute Neuts (auto) Absolute Lymphs (auto) Total Counted PT 17.8 H INR 1.5 Sodium Potassium Chloride Carbon Dioxide Anion Gap BUN Creatinine Estim Creat Clear Calc Est GFR (MDRD) Af Amer Est GFR (MDRD) Non-Af BUN/Creatinine Ratio Glucose Hemoglobin A1c Calcium - Other Studies Radiology: [] reviewed Other Studies: [] Route of nutrition/ use of supplements: [] Nutritional Intake: [] IV Site: [] [place] Catheter: [] - Physical Exam General: Alert, Oriented x3, Cooperative, No apparent distress HEENT: Atraumatic, PERRLA, EOMI Neck: Supple, No Nodes Lungs: Diminished Cardiovascular: Regular rate, Regular Rhythm Abdomen: Bowel Sounds Present, Soft, Non Tender, Non-Distended Extremities: Edema - mild in BLE Skin: No rashes IV Site: Peripheral Musculoskeletal: No Tenderness to Palpation of Joints or Extremities Neurological: Cranial nerves II-XII grossly intact - Assessment/Plan Antibiotics: [] Assessment/Plan: [] Active and Suspected Problems CHF (congestive heart failure) (Acute) Cellulitis (Acute) Acute on chronic respiratory failure with hypoxia and hypercapnia (Acute) RLE cellulitis - given that it had been present for years and had rapid improvement with diuresis, seems most consistent with chronic edema/venous stasis. Will change clinda to keflex for short course (5-7 days total of abx). Reports tolerating keflex in the past with no issue. Thank you, will follow as needed, please call with any ?s.
--- NOTE | 2018-02-09 14:34 | PCM.PN.HOSP ---
Patient Problems: Active and Suspected Problems CHF (congestive heart failure) (Acute) Cellulitis (Acute) Acute on chronic respiratory failure with hypoxia and hypercapnia (Acute) Subjective: Patient was seen and examined. Nose that her oxygen saturations dropped to the 70s when she takes of the BiPAP. Denies any chest pain except when she uses the pickle. Refused to take her Coumadin yesterday because she felt that her blood was too thin. Encouraged her to take her Coumadin and also take her steroids. Objective: Physical exam: General: Alert, Oriented x3, Cooperative, - - In moderate respiratory distress, obese HEENT: Atraumatic, PERRLA, EOMI, Normocephalic Oral: Moist Mucosa Neck: Supple Lungs: Clear to auscultation, Normal air movement Cardiovascular: Regular rate, Regular Rhythm, Normal S1, Normal S2, No murmurs Abdomen: Bowel Sounds Present, Soft, Non Tender, Non-Distended, No Hepato-splenomegaly Extremities: Right lower extremity swelling is better, redness has improved, trace edema Skin: No rashes, No breakdown Musculoskeletal: No Tenderness to Palpation of Joints or Extremities Lymphatic: No Cervical, Supraclavicular, or Inguinal Adenopathy Neurological: Cranial nerves II-XII grossly intact, Neuro grossly intact Psych/Mental Status: Normal Affect, Appropriate Vitals/I&O's: Vital Signs Temp Pulse Resp BP Pulse Ox 97.8 F 106 H 29 H 126/69 H 92 02/09/18 09:00 02/09/18 13:30 02/09/18 13:30 02/09/18 09:00 02/09/18 13:30 Oxygen Flow Rate (L/min) 4 Oxygen Delivery Method Nasal Cannula Weight: 106.5 kg Body Mass Index (BMI) 45.8 Intake and Output for Last 24 Hours 02/07/18 02/08/18 02/09/18 23:59 23:59 23:59 Intake Total 1165 / 1165 209 / 209 Output Total 2425 / 2425 550 / 550 Balance -1260 / -1260 -341 / -341 Microbiology Past 72 Hours 02/08/18 13:15 Mucosa - Nose Respiratory Panel (PCR) - Final 02/08/18 13:30 Urine Catheter - [place] Legionella Antigen - Final 02/08/18 13:30 Urine Catheter - [place] Streptococcus pneumoniae Antigen (M - Final Laboratory Results 02/08/18 04:14: Hemoglobin A1c 8.2 H 02/08/18 16:37: POC Glucose 307 H 02/09/18 05:15: WBC 9.1, RBC 3.58 L, Hgb 9.3 L, Hct 33.3 L, MCV 93.0, MCH 26.0 L, MCHC 27.9 L, RDW 15.1 H, RDW Differential 51.7 H, Plt Count 232, MPV 11.4, Immature Gran % (Auto) 0.200, Neut % (Auto) 87.8 H, Lymph % (Auto) 7.3 L, [place] % (Auto) 4.6, Eos % (Auto) 0.0, Baso % (Auto) 0.1, Absolute Neuts (auto) 8.0 H, Absolute Lymphs (auto) 0.67 L, Total Counted Not Reportable 02/09/18 05:15: Sodium 141, Potassium 4.4, Chloride 90 L, Carbon Dioxide > 45.0 H*, Anion Gap TNP, BUN 17, Creatinine 0.88, Estim Creat Clear Calc 42.73, Est GFR (MDRD) Af Amer 81, Est GFR (MDRD) Non-Af 67, BUN/Creatinine Ratio 19.2, Glucose 324 H, Calcium 8.9 02/09/18 05:15: PT 17.8 H, INR 1.5 02/09/18 11:04: POC Glucose 415 H Current Medications Acetaminophen (Tylenol) 500 mg PO Q6H PRN PRN PRN Reason: PAIN Hydrocodone Bitart/Acetaminophen ([place] 5mg-325mg) 1 tablet PO Q6H PRN PRN PRN Reason: PAIN Albuterol/Ipratropium (Duoneb) 3 ml INHALATION Q4H.RT [facility] Last Admin: 02/09/18 10:53 Dose: 3 ml Atorvastatin Calcium (Lipitor) 20 mg PO QHS [facility] Last Admin: 02/08/18 23:17 Dose: 20 mg Buspirone HCl (Buspar) 15 mg PO TID [facility] Last Admin: 02/09/18 05:43 Dose: 15 mg Calcium/Vitamin D (Os-Carlos 500mg + D) 1 tablet PO DAILY [facility] Last Admin: 02/09/18 09:06 Dose: 1 tablet Cephalexin (Keflex) 500 mg PO Q8 [facility] Cholecalciferol (Vitamin D) 2,000 unit PO DAILY [facility] Last Admin: 02/09/18 09:06 Dose: 2,000 unit Duloxetine HCl (Cymbalta) 60 mg PO DAILY [facility] Last Admin: 02/09/18 09:06 Dose: 60 mg Ezetimibe (Zetia) 10 mg PO DAILY [facility] Last Admin: 02/09/18 09:06 Dose: 10 mg Famotidine (Pepcid) 20 mg PO BID [facility] Last Admin: 02/09/18 09:06 Dose: 20 mg Ferrous Sulfate (Ferrous Sulfate) [facility] Last Admin: 02/09/18 09:00 Dose: 325 mg Furosemide (Lasix) 40 mg PO BIDLX [facility] Last Admin: 02/09/18 09:06 Dose: 40 mg Insulin Human Lispro (Humalog Kwikpen (Bkc)) 10 unit SC 0800,1200,1700 [facility] Last Admin: 02/09/18 11:12 Dose: 10 units Lactobacillus Acidophilus (Acidophilus) 1 tablet PO DAILY [facility] Last Admin: 02/09/18 09:06 Dose: 1 tablet Levothyroxine Sodium (Synthroid) 25 mcg PO DAILY@0600 [facility] Last Admin: 02/09/18 05:43 Dose: 25 mcg Loratadine (Claritin) 10 mg PO DAILY [facility] Last Admin: 02/09/18 09:06 Dose: 10 mg Losartan Potassium (Cozaar) 25 mg PO DAILY [facility] Last Admin: 02/09/18 09:07 Dose: 25 mg Magnesium Hydroxide (Milk Of Magnesia) 30 ml PO DAILY PRN PRN Reason: Constipation Magnesium Oxide (Mag-Ox 400) 400 mg PO DAILY [facility] Last Admin: 02/09/18 09:06 Dose: 400 mg Methylprednisolone (Solu-Medrol) 40 mg IV Q8 [facility] Last Admin: 02/09/18 05:43 Dose: 40 mg Montelukast Sodium (Singulair) 10 mg PO DAILY [facility] Last Admin: 02/09/18 09:06 Dose: 10 mg Morphine Sulfate () 2 - 4 mg IV Q3H PRN PRN PRN Reason: Severe Pain (pain scale 6-10) Pantoprazole Sodium (Protonix) 40 mg PO BID [facility] Last Admin: 02/09/18 09:06 Dose: 40 mg Polyethylene Glycol (Miralax) 17 gm PO DAILY PRN PRN Reason: Constipation Last Admin: 02/09/18 09:05 Dose: 17 gm Potassium Chloride (K-Dur) 10 meq PO DAILY [facility] Last Admin: 02/09/18 09:06 Dose: 10 meq Sodium Chloride ([place] Nasal [place]) 1 spray NASAL BID [facility] Last Admin: 02/09/18 09:03 Dose: 1 spray Sodium Chloride () 5 - 30 ml IV UD PRN PRN Reason: SALINE FLUSH Last Admin: 02/09/18 09:12 Dose: 10 ml Warfarin Sodium (Coumadin (Pbkc)) 3 mg PO DAILY@1700 [facility] Last Admin: 02/08/18 17:32 Dose: Not Given Medical Necessity - Tobacco Use Smoking Status: Former smoker Tobacco Use: Cigarettes Assessment/Plan All Active Problems CHF (congestive heart failure) (Acute) Cellulitis (Acute) Acute on chronic respiratory failure with hypoxia and hypercapnia (Acute) 72-year-old female with multiple comorbidities, who gets most of her care in the [facility], comes in with complaints of worsening shortness of breath ongoing over the several days. 1. Acute hypoxic hypercapnic respiratory failure in a patient with severe COPD/diastolic heart failure, patient is on AVAPS, discussed with hand rug cleaner, continue on the same settings, encourage use of AVAPs 2. Acute COPD exacerbation, on IV steroids, continue breathing treatments, waiting on records from the [facility], appreciate pulmonology consult. 3. Hypokalemia, resolved 4. Right lower extremity cellulitis, on doxycycline, doppler DVT for right DVT, multiple co-morbidities, started on IV clindamycin, appreciate ID consult, antibiotics switched to Keflex for a short course 5. History of LEDY, obesity hypoventilation syndrome, continue on AVAPS 6. Hyperlipidemia, on statin 7. Hypertension, continue on Cozaar, 8. Anxiety/depression, continue on Cymbalta, buspar 9. Hypothyroidism, on levothyroxine 10. Type II DM, on humalog 10 units SC, blood sugars are not controlled, hgbA1c 8.2, will add Lantus 5 units QHS, continue accucheks with insulin sliding scale. 11. History of diatolic CHF, not in acute exacerbation, BNPep is 42.2, continue on home lasix, daily weights, strict I & Os 12. H/o DVT on coumadin, INR subtherapeutic because patient has not been taking it, will cover with Lovenox, continue on Coumadin and stop Lovenox when INR is therapeutic. 13. DVT prophylaxis with Lovenox subcu Code Visit Inpatient E&M: 59559 Subs Hosp L3
[2018-02-09] MEDS: Cephalexin 500 MG Capsule PO ×2 (14:37→22:13)
[2018-02-09 17:00] LABS: Bedside Glucose 337 mg/dL (70-110)
[2018-02-09] MEDS: Insulin Lispro 100 UNIT/ML INSULN.PEN SQ (22:15)
[2018-02-09 23:16] LABS: Bedside Glucose 433 mg/dL (70-110)
[2018-02-10] VITALS (20 sets, daily range): BP systolic 109–131; BP diastolic 50–58; PULSE 78–115; RESP 14–26; TEMP 36.2–37.2; O2SAT 90–96
[2018-02-10] MEDS: Ipratropium/Albuterol Sulfate 3 ML AMPUL.NEB INHALATION ×6 (05:10→22:12)
[2018-02-10 06:09] LABS: International Normalized Ratio 1.3; Prothrombin Time (Protime)PT. 16.6 SECONDS (11.7-14.9)
[2018-02-10] MEDS: Levothyroxine 25 MCG TABLET PO (06:09)
[2018-02-10] MEDS: 0.9% NaCl Peripheral Flush Adult/Peds IV (06:09)
[2018-02-10] MEDS: guaiFENesin Dm 10 ML UDC PO ×2 (06:09→19:19)
[2018-02-10] MEDS: busPIRone 15 MG TABLET PO ×3 (06:10→22:00)
[2018-02-10] MEDS: Cephalexin 500 MG Capsule PO ×2 (06:10→15:51)
[2018-02-10 06:56] LABS: Bedside Glucose 318 mg/dL (70-110)
[2018-02-10] MEDS: Insulin Lispro 100 UNIT/ML INSULN.PEN 10 UNIT SC (08:08)
[2018-02-10] MEDS: Insulin Lispro 100 UNIT/ML INSULN.PEN SQ ×4 (08:08→22:02)
--- NOTE | 2018-02-10 08:26 | PN_ITS ---
Patient Problems: Active and Suspected Problems CHF (congestive heart failure) (Acute) Cellulitis (Acute) Acute on chronic respiratory failure with hypoxia and hypercapnia (Acute) Subjective: Patient was seen and examined. She is lying in bed, currently wearing BiPAP. Able to communicate through her mask. Reports she was up most of the night, restless. Does have a cough that is unchanged. Her dyspnea at rest/with exertion is the same. Nursing staff reports patient needing BiPAP frequently and sleeping a lot. When not on BiPAP, maintains on 4 L of oxygen, does desaturate quickly into the 60s-70s with exertion. Objective: Recent lab and culture data reviewed. Patient remains afebrile and hemodynamically stable. A viral respiratory panel and urine strep/Legionella antigens were negative. Blood sugars remain significantly elevated. Records were obtained from [facility], echocardiogram on 11/11/17 showed stage II diastolic dysfunction, normal systolic function, EF approximately 55%, RVSP estimated at 50 mmHg. Her last pulmonary function tests on 10/18/2017 at [facility] revealed an FEV1 of 30% of predicted. The patient was intubated on 11/25/17 secondary to respiratory failure, CO2 retention, and altered mental status. The patient followed up with her primary medical equipment repair technician on 01/21/2018 at which time she was switched to Trelegy but failed to fill rx. Was supposed to start pulmonary rehab at [facility]. Family reports of noncompliance with Trilogy. Multiple hospital admits. - Physical Exam General: Cooperative, No apparent distress, - - on BiPAP HEENT: Atraumatic Oral: No Gingival or Mucosal Lesions/ Ulcerations, Dry Mucosa Neck: Supple, Trachea Midline Lungs: - - Very poor air movement, no appreciable rhonchi, or wheezes, or rales. No current tachypnea or accessory muscle use Cardiovascular: Regular rate, Regular Rhythm, Normal S1, Normal S2 Abdomen: Bowel Sounds Present, Soft, Non Tender, Obese Extremities: Cyanosis - Toes bilaterally, unchanged from previous, Diminished Peripheral Pulses, Edema, - - Erythema and mild tenderness to the right lower extremity Skin: - - No changes from previous Lymphatic: - - No adenopathy Neurological: Neuro grossly intact Psych/Mental Status: Normal Affect, Appropriate Vital Signs Temp Pulse Resp BP Pulse Ox 97.1 F L 99 26 H 120/54 L 91 02/10/18 03:05 02/10/18 06:58 02/10/18 05:10 02/10/18 03:05 02/10/18 03:45 Oxygen Flow Rate (L/min) 4 Oxygen Delivery Method Nasal Cannula Weight: 235 lb 10.786 oz Body Mass Index (BMI) 45.8 Intake and Output for Last 24 Hours 02/08/18 02/09/18 02/10/18 23:59 23:59 23:59 Intake Total 1165 / 1165 1629 / 1629 120 / 120 Output Total 2425 / 2425 2250 / 2250 350 / 350 Balance -1260 / -1260 -621 / -621 -230 / -230 Microbiology Past 72 Hours 02/08/18 13:15 Respiratory Panel (PCR) - Final Mucosa - Nose 02/08/18 13:30 Legionella Antigen - Final Urine Catheter - [place] 02/08/18 13:30 Streptococcus pneumoniae Antigen (M - Final Urine Catheter - [place] Laboratory Tests Past 24 Hrs 02/10/18 05:25 PT 16.6 H INR 1.3 POC Glucose 02/10/18 02/09/18 02/09/18 06:51 22:05 16:40 POC Glucose 318 H 433 H 337 H 02/09/18 11:04 POC Glucose 415 H Medical Necessity - Tobacco Use Smoking Status: Former smoker Tobacco Use: Cigarettes Assessment/Plan All Active Problems CHF (congestive heart failure) (Acute) Cellulitis (Acute) Acute on chronic respiratory failure with hypoxia and hypercapnia (Acute) RECOMMENDATIONS 1. Wean oxygen supplementation to keep saturations 88-92% to prevent paradoxical CO2 retention. 2. Encourage incentive spirometer/Acapella 3. Increase activity as tolerated 4. Continue bronchodilators 5. Continue steroids 6. Adjust insulin while on steroids 7. Ambulatory pulse ox prior to discharge 8. Patient should follow-up with her primary medical equipment repair technician within 2 weeks of discharge from the hospital IMPRESSIONS 1. Acute on chronic hypoxic and hypercarbic respiratory failure Unclear etiology. Echo does show significant pulmonary hypertension and I suspect patient is chronically hypoxic, especially with exertion. Echo from [facility] in October 2017 also showed grade II diastolic dysfunction. Infectious workup negative. She remains on 4 L. PE would be an consideration given her history of DVT, patient anticoagulated on Coumadin so would be unlikely. However, INR is subtherapeutic as patient is refusing to take my blood is too thin. According to [facility] records, patient appears to be noncompliant and quits taking her medications/inhalers due to perceived lack of efficacy. She was supposed to start pulmonary rehab. She is on chronic prednisone 5 mg daily with plans for weaning if able per primary medical equipment repair technician. Continue BiPAP with all sleep and intermittently throughout the day as needed. Patient may bring her Trilogy machine if she desires. Continue bronchodilators and antibiotics. Encourage incentive spirometer. Continue with steroids. Upon discharge, patient should start Trelegy and PRN albuterol nebulizers, continue Trilogy with all sleep and PRN during day for rescue. 2. Right lower extremity cellulitis Patient recently completed a 10 day course of doxycycline. Antibiotics changed to Clindamycin. However, patient lists several allergies to various antibiotics. ID consult, now on Keflex. 3. COPD with probable exacerbation Patient with increased dyspnea, sputum production, cough. Uses albuterol and Atrovent nebulizers at home. Recently transitioned to Trelogy but has yet to start this. See #1. (Records from [facility] showing FEV1 30% of predicted, severe obstructive ventilatory defect with minimal response to bronchodilators). 4. Self-reported history of obstructive sleep apnea Questionable compliance with trilogy at home. Use BiPAP with all sleep. 5. Morbid obesity/hypothyroidism/history of DVT/anxiety/depression/hypokalemia Complicates care, management, recovery, and prognosis. Continue home medications as indicated. Electrolyte repletion as indicated. This note was generated with [employer] dictation software. It may contain incorrect words, spelling, and punctuation that were not noted in checking the note before signing.
[2018-02-10] MEDS: Losartan Potassium 25 MG Tablet PO (10:21)
[2018-02-10] MEDS: Calcium Carb/Vitamin D 1 TABLET Tablet PO (10:21)
[2018-02-10] MEDS: Pantoprazole Sodium 40 MG Tablet PO ×2 (10:21→22:00)
[2018-02-10] MEDS: DULoxetine Hcl 60 MG Capsule PO (10:22)
[2018-02-10] MEDS: Ezetimibe 10 MG Tablet PO (10:22)
[2018-02-10] MEDS: Famotidine 20 MG Tablet PO ×2 (10:22→22:00)
[2018-02-10] MEDS: Montelukast 10 MG Tablet PO (10:22)
[2018-02-10] MEDS: Loratadine 10 MG Tablet PO (10:22)
[2018-02-10] MEDS: Furosemide 40 MG Tablet PO ×2 (10:23→17:17)
[2018-02-10] MEDS: Magnesium Oxide 400 MG Tablet PO (10:23)
[2018-02-10] MEDS: Enoxaparin 40 MG/0.4 ML Syringe SC (10:23)
[2018-02-10] MEDS: Sodium Chloride 0.65% 1 SPRAY SPRAY.BTL NASAL ×2 (10:25→22:00)
[2018-02-10] MEDS: Polyethylene Glycol 3350 17 GM PACKET PO (10:26)
[2018-02-10] MEDS: Insulin Lispro 100 UNIT/ML INSULN.PEN 15 UNIT SC ×2 (12:45→17:16)
[2018-02-10 12:55] LABS: Bedside Glucose 350 mg/dL (70-110)
[2018-02-10 14:51] LABS: Bedside Glucose 361 mg/dL (70-110)
[2018-02-10 17:31] LABS: Bedside Glucose 339 mg/dL (70-110)
--- NOTE | 2018-02-10 19:08 | NURSING ---
Spoke with Stephane in pharmacy-pt potentially having allergic reaction to Keflex. Dr. Aguirre wants med D/C. Per Stephane 5-10% possibilty could have reaction to keflex because its closely related amoxicillin.
--- NOTE | 2018-02-10 19:16 | PCM.PN.HOSP ---
Patient Problems: Active and Suspected Problems CHF (congestive heart failure) (Acute) Cellulitis (Acute) Acute on chronic respiratory failure with hypoxia and hypercapnia (Acute) Subjective: Patient was seen and examined. She feels well. On nasal canula oxygen, appears comfortable. Denies fever, chills, chest pain. Objective: Physical exam: General: Alert, Oriented x3, Cooperative, - - In moderate respiratory distress, obese HEENT: Atraumatic, PERRLA, EOMI, Normocephalic Oral: Moist Mucosa Neck: Supple Lungs: Clear to auscultation, Normal air movement Cardiovascular: Regular rate, Regular Rhythm, Normal S1, Normal S2, No murmurs Abdomen: Bowel Sounds Present, Soft, Non Tender, Non-Distended, No Hepato-splenomegaly Extremities: Right lower extremity swelling is better, redness has improved, trace edema Skin: No rashes, No breakdown Musculoskeletal: No Tenderness to Palpation of Joints or Extremities Lymphatic: No Cervical, Supraclavicular, or Inguinal Adenopathy Neurological: Cranial nerves II-XII grossly intact, Neuro grossly intact Psych/Mental Status: Normal Affect, Appropriate Vitals/I&O's: Vital Signs Temp Pulse Resp BP Pulse Ox 98.9 F 100 20 H 122/55 H 91 02/10/18 15:05 02/10/18 15:10 02/10/18 15:10 02/10/18 15:05 02/10/18 17:22 Oxygen Flow Rate (L/min) 4 Oxygen Delivery Method Nasal Cannula Weight: 106.9 kg Body Mass Index (BMI) 45.8 Intake and Output for Last 24 Hours 02/08/18 02/09/18 02/10/18 23:59 23:59 23:59 Intake Total 1165 / 1165 1629 / 1629 1224 / 1224 Output Total 2425 / 2425 2250 / 2250 1500 / 1500 Balance -1260 / -1260 -621 / -621 -276 / -276 Microbiology Past 72 Hours 02/08/18 13:15 Mucosa - Nose Respiratory Panel (PCR) - Final 02/08/18 13:30 Urine Catheter - [place] Legionella Antigen - Final 02/08/18 13:30 Urine Catheter - [place] Streptococcus pneumoniae Antigen (M - Final Laboratory Results 02/09/18 22:05: POC Glucose 433 H 02/10/18 05:25: PT 16.6 H, INR 1.3 02/10/18 06:51: POC Glucose 318 H 02/10/18 12:29: POC Glucose 350 H 02/10/18 14:45: POC Glucose 361 H 02/10/18 17:14: POC Glucose 339 H Current Medications Acetaminophen (Tylenol) 500 mg PO Q6H PRN PRN PRN Reason: PAIN Hydrocodone Bitart/Acetaminophen ([place] 5mg-325mg) 1 tablet PO Q6H PRN PRN PRN Reason: PAIN Albuterol Sulfate (Ventolin Aerosols) 2.5 mg INHALATION Q2H PRN PRN PRN Reason: SHORTNESS OF BREATH Albuterol/Ipratropium (Duoneb) 3 ml INHALATION Q4H.RT [facility] Last Admin: 02/10/18 18:55 Dose: 3 ml Atorvastatin Calcium (Lipitor) 20 mg PO QHS [facility] Last Admin: 02/09/18 22:13 Dose: Not Given Buspirone HCl (Buspar) 15 mg PO TID [facility] Last Admin: 02/10/18 15:51 Dose: 15 mg Calcium/Vitamin D (Os-Carlos 500mg + D) 1 tablet PO DAILY [facility] Last Admin: 02/10/18 10:21 Dose: 1 tablet Cholecalciferol (Vitamin D) 2,000 unit PO DAILY [facility] Last Admin: 02/10/18 10:22 Dose: 2,000 unit Dextrose (D50w Syringe) 0 gm IV X1 PRN; Protocol PRN Reason: Hypoglycemia Duloxetine HCl (Cymbalta) 60 mg PO DAILY [facility] Last Admin: 02/10/18 10:22 Dose: 60 mg Ezetimibe (Zetia) 10 mg PO DAILY [facility] Last Admin: 02/10/18 10:22 Dose: 10 mg Enoxaparin Sodium (Lovenox) 40 mg SC DAILY [facility] Last Admin: 02/10/18 10:23 Dose: 40 mg Famotidine (Pepcid) 20 mg PO BID [facility] Last Admin: 02/10/18 10:22 Dose: 20 mg Ferrous Sulfate (Ferrous Sulfate) 325 mg PO DAILYCM [facility] Last Admin: 02/10/18 08:11 Dose: Not Given Furosemide (Lasix) 40 mg PO BIDLX [facility] Last Admin: 02/10/18 17:17 Dose: 40 mg Glucagon () 1 mg IM .X1 PRN PRN Reason: Hypoglycemia Guaifenesin (Robitussin Dm) 10 ml PO Q6H PRN PRN PRN Reason: COUGH Last Admin: 02/10/18 06:09 Dose: 10 ml Insulin Glargine (Lantus (Bkc)) 10 units SC QHS [facility] Insulin Human Lispro (Humalog Kwikpen (Bkc)) 0 unit SQ 4X/DAYCM [facility] PRN Reason: Protocol Last Admin: 02/10/18 17:16 Dose: 12 units Insulin Human Lispro (Humalog Kwikpen (Bkc)) 15 unit SC 0800,1200,1700 [facility] Last Admin: 02/10/18 17:16 Dose: 15 units Lactobacillus Acidophilus (Acidophilus) 1 tablet PO DAILY [facility] Last Admin: 02/10/18 10:20 Dose: 1 tablet Levothyroxine Sodium (Synthroid) 25 mcg PO DAILY@0600 [facility] Last Admin: 02/10/18 06:09 Dose: 25 mcg Loratadine (Claritin) 10 mg PO DAILY [facility] Last Admin: 02/10/18 10:22 Dose: 10 mg Losartan Potassium (Cozaar) 25 mg PO DAILY [facility] Last Admin: 02/10/18 10:21 Dose: 25 mg Magnesium Hydroxide (Milk Of Magnesia) 30 ml PO DAILY PRN PRN Reason: Constipation Magnesium Oxide (Mag-Ox 400) 400 mg PO DAILY [facility] Last Admin: 02/10/18 10:23 Dose: 400 mg Methylprednisolone (Solu-Medrol) 40 mg IV Q12 [facility] Montelukast Sodium (Singulair) 10 mg PO DAILY [facility] Last Admin: 02/10/18 10:22 Dose: 10 mg Morphine Sulfate () 2 - 4 mg IV Q3H PRN PRN PRN Reason: Severe Pain (pain scale 6-10) Pantoprazole Sodium (Protonix) 40 mg PO BID [facility] Last Admin: 02/10/18 10:21 Dose: 40 mg Polyethylene Glycol (Miralax) 17 gm PO DAILY PRN PRN Reason: Constipation Last Admin: 02/10/18 10:26 Dose: 17 gm Potassium Chloride (K-Dur) 10 meq PO DAILY [facility] Last Admin: 02/10/18 10:20 Dose: 10 meq Sodium Chloride ([place] Nasal [place]) 1 spray NASAL BID [facility] Last Admin: 02/10/18 10:25 Dose: 1 spray Sodium Chloride () 5 - 30 ml IV UD PRN PRN Reason: SALINE FLUSH Last Admin: 02/10/18 06:09 Dose: 10 ml Warfarin Sodium (Coumadin (Pbkc)) 3 mg PO DAILY@1700 [facility] Last Admin: 02/10/18 15:51 Dose: 3 mg Medical Necessity - Tobacco Use Smoking Status: Former smoker Tobacco Use: Cigarettes Assessment/Plan All Active Problems CHF (congestive heart failure) (Acute) Cellulitis (Acute) Acute on chronic respiratory failure with hypoxia and hypercapnia (Acute) 72-year-old female with multiple comorbidities, who gets most of her care in the [facility], comes in with complaints of worsening shortness of breath ongoing over the several days. 1. Acute hypoxic hypercapnic respiratory failure in a patient with severe COPD/diastolic heart failure, patient is on AVAPS, continue on the same settings, encourage use of AVAPs, pulmonology following. 2. Acute COPD exacerbation, on IV steroids, continue breathing treatments. 3. Hypokalemia, resolved 4. Right lower extremity cellulitis, on keflex 5. History of LEDY, obesity hypoventilation syndrome, continue on AVAPS 6. Hyperlipidemia, on statin 7. Hypertension, continue on Cozaar, 8. Anxiety/depression, continue on Cymbalta, buspar 9. Hypothyroidism, on levothyroxine 10. Type II DM, BS is uncontrolled, changes made to insulin. 11. History of diatolic CHF, not in acute exacerbation, BNPep is 42.2, continue on home lasix, daily weights, strict I & Os 12. H/o DVT on coumadin, INR subtherapeutic because patient has not been taking it, will cover with Lovenox, continue on Coumadin and stop Lovenox when INR is therapeutic. 13. DVT prophylaxis with Lovenox subcu Code Visit Inpatient E&M: 86395 Subs Hosp L2
--- NOTE | 2018-02-10 19:24 | PN_ITS ---
Patient Problems: Active and Suspected Problems CHF (congestive heart failure) (Acute) Cellulitis (Acute) Acute on chronic respiratory failure with hypoxia and hypercapnia (Acute) Subjective: Patient was seen and examined. She feels well. On nasal canula oxygen, appears comfortable. Denies fever, chills, chest pain. Objective: Physical exam: General: Alert, Oriented x3, Cooperative, - - In moderate respiratory distress, obese HEENT: Atraumatic, PERRLA, EOMI, Normocephalic Oral: Moist Mucosa Neck: Supple Lungs: Clear to auscultation, Normal air movement Cardiovascular: Regular rate, Regular Rhythm, Normal S1, Normal S2, No murmurs Abdomen: Bowel Sounds Present, Soft, Non Tender, Non-Distended, No Hepato- splenomegaly Extremities: Right lower extremity swelling is better, redness has improved, trace edema Skin: No rashes, No breakdown Musculoskeletal: No Tenderness to Palpation of Joints or Extremities Lymphatic: No Cervical, Supraclavicular, or Inguinal Adenopathy Neurological: Cranial nerves II-XII grossly intact, Neuro grossly intact Psych/Mental Status: Normal Affect, Appropriate Vitals/I&O's: Vital Signs Temp Pulse Resp BP Pulse Ox 98.9 F 100 20 H 122/55 H 91 02/10/18 15:05 02/10/18 15:10 02/10/18 15:10 02/10/18 15:05 02/10/18 17:22 Oxygen Flow Rate (L/min) 4 Oxygen Delivery Method Nasal Cannula Weight: 106.9 kg Body Mass Index (BMI) 45.8 Intake and Output for Last 24 Hours 02/08/18 02/09/18 02/10/18 23:59 23:59 23:59 Intake Total 1165 / 1165 1629 / 1629 1224 / 1224 Output Total 2425 / 2425 2250 / 2250 1500 / 1500 Balance -1260 / -1260 -621 / -621 -276 / -276 Microbiology Past 72 Hours 02/08/18 13:15 Mucosa - Nose Respiratory Panel (PCR) - Final 02/08/18 13:30 Urine Catheter - [place] Legionella Antigen - Final 02/08/18 13:30 Urine Catheter - [place] Streptococcus pneumoniae Antigen (M - Final Laboratory Results 02/09/18 22:05: POC Glucose 433 H 02/10/18 05:25: PT 16.6 H, INR 1.3 02/10/18 06:51: POC Glucose 318 H 02/10/18 12:29: POC Glucose 350 H 02/10/18 14:45: POC Glucose 361 H 02/10/18 17:14: POC Glucose 339 H Current Medications Acetaminophen (Tylenol) 500 mg PO Q6H PRN PRN PRN Reason: PAIN Hydrocodone Bitart/Acetaminophen ([place] 5mg-325mg) 1 tablet PO Q6H PRN PRN PRN Reason: PAIN Albuterol Sulfate (Ventolin Aerosols) 2.5 mg INHALATION Q2H PRN PRN PRN Reason: SHORTNESS OF BREATH Albuterol/Ipratropium (Duoneb) 3 ml INHALATION Q4H.RT [facility] Last Admin: 02/10/18 18:55 Dose: 3 ml Atorvastatin Calcium (Lipitor) 20 mg PO QHS [facility] Last Admin: 02/09/18 22:13 Dose: Not Given Buspirone HCl (Buspar) 15 mg PO TID [facility] Last Admin: 02/10/18 15:51 Dose: 15 mg Calcium/Vitamin D (Os-Carlos 500mg + D) 1 tablet PO DAILY [facility] Last Admin: 02/10/18 10:21 Dose: 1 tablet Cholecalciferol (Vitamin D) 2,000 unit PO DAILY [facility] Last Admin: 02/10/18 10:22 Dose: 2,000 unit Dextrose (D50w Syringe) 0 gm IV X1 PRN; Protocol PRN Reason: Hypoglycemia Duloxetine HCl (Cymbalta) 60 mg PO DAILY [facility] Last Admin: 02/10/18 10:22 Dose: 60 mg Ezetimibe (Zetia) 10 mg PO DAILY [facility] Last Admin: 02/10/18 10:22 Dose: 10 mg Enoxaparin Sodium (Lovenox) 40 mg SC DAILY [facility] Last Admin: 02/10/18 10:23 Dose: 40 mg Famotidine (Pepcid) 20 mg PO BID [facility] Last Admin: 02/10/18 10:22 Dose: 20 mg Ferrous Sulfate (Ferrous Sulfate) 325 mg PO DAILYCM [facility] Last Admin: 02/10/18 08:11 Dose: Not Given Furosemide (Lasix) 40 mg PO BIDLX [facility] Last Admin: 02/10/18 17:17 Dose: 40 mg Glucagon () 1 mg IM .X1 PRN PRN Reason: Hypoglycemia Guaifenesin (Robitussin Dm) 10 ml PO Q6H PRN PRN PRN Reason: COUGH Last Admin: 02/10/18 06:09 Dose: 10 ml Insulin Glargine (Lantus (Bkc)) 10 units SC QHS [facility] Insulin Human Lispro (Humalog Kwikpen (Bkc)) 0 unit SQ 4X/DAYCM [facility] PRN Reason: Protocol Last Admin: 02/10/18 17:16 Dose: 12 units Insulin Human Lispro (Humalog Kwikpen (Bkc)) 15 unit SC 0800,1200,1700 [facility] Last Admin: 02/10/18 17:16 Dose: 15 units Lactobacillus Acidophilus (Acidophilus) 1 tablet PO DAILY [facility] Last Admin: 02/10/18 10:20 Dose: 1 tablet Levothyroxine Sodium (Synthroid) 25 mcg PO DAILY@0600 [facility] Last Admin: 02/10/18 06:09 Dose: 25 mcg Loratadine (Claritin) 10 mg PO DAILY [facility] Last Admin: 02/10/18 10:22 Dose: 10 mg Losartan Potassium (Cozaar) 25 mg PO DAILY [facility] Last Admin: 02/10/18 10:21 Dose: 25 mg Magnesium Hydroxide (Milk Of Magnesia) 30 ml PO DAILY PRN PRN Reason: Constipation Magnesium Oxide (Mag-Ox 400) 400 mg PO DAILY [facility] Last Admin: 02/10/18 10:23 Dose: 400 mg Methylprednisolone (Solu-Medrol) 40 mg IV Q12 [facility] Montelukast Sodium (Singulair) 10 mg PO DAILY [facility] Last Admin: 02/10/18 10:22 Dose: 10 mg Morphine Sulfate () 2 - 4 mg IV Q3H PRN PRN PRN Reason: Severe Pain (pain scale 6-10) Pantoprazole Sodium (Protonix) 40 mg PO BID [facility] Last Admin: 02/10/18 10:21 Dose: 40 mg Polyethylene Glycol (Miralax) 17 gm PO DAILY PRN PRN Reason: Constipation Last Admin: 02/10/18 10:26 Dose: 17 gm Potassium Chloride (K-Dur) 10 meq PO DAILY [facility] Last Admin: 02/10/18 10:20 Dose: 10 meq Sodium Chloride ([place] Nasal [place]) 1 spray NASAL BID [facility] Last Admin: 02/10/18 10:25 Dose: 1 spray Sodium Chloride () 5 - 30 ml IV UD PRN PRN Reason: SALINE FLUSH Last Admin: 02/10/18 06:09 Dose: 10 ml Warfarin Sodium (Coumadin (Pbkc)) 3 mg PO DAILY@1700 [facility] Last Admin: 02/10/18 15:51 Dose: 3 mg Medical Necessity - Tobacco Use Smoking Status: Former smoker Tobacco Use: Cigarettes Assessment/Plan All Active Problems CHF (congestive heart failure) (Acute) Cellulitis (Acute) Acute on chronic respiratory failure with hypoxia and hypercapnia (Acute) 72-year-old female with multiple comorbidities, who gets most of her care in the [facility], comes in with complaints of worsening shortness of breath ongoing over the several days. 1. Acute hypoxic hypercapnic respiratory failure in a patient with severe COPD/ diastolic heart failure, patient is on AVAPS, continue on the same settings, encourage use of AVAPs, pulmonology following. 2. Acute COPD exacerbation, on IV steroids, continue breathing treatments. 3. Hypokalemia, resolved 4. Right lower extremity cellulitis, on keflex 5. History of LEDY, obesity hypoventilation syndrome, continue on AVAPS 6. Hyperlipidemia, on statin 7. Hypertension, continue on Cozaar, 8. Anxiety/depression, continue on Cymbalta, buspar 9. Hypothyroidism, on levothyroxine 10. Type II DM, BS is uncontrolled, changes made to insulin. 11. History of diatolic CHF, not in acute exacerbation, BNPep is 42.2, continue on home lasix, daily weights, strict I & Os 12. H/o DVT on coumadin, INR subtherapeutic because patient has not been taking it, will cover with Lovenox, continue on Coumadin and stop Lovenox when INR is therapeutic. 13. DVT prophylaxis with Lovenox subcu Code Visit Inpatient E&M: 81274 Subs Hosp L2
[2018-02-10 22:11] LABS: Bedside Glucose 237 mg/dL (70-110)
--- NOTE | 2018-02-10 23:29 | CPS ---
pt requested that her Min. pressure be decreased to 16 because that is what it is on at home.
[2018-02-11] VITALS (20 sets, daily range): BP systolic 102–124; BP diastolic 51–68; PULSE 89–115; RESP 12–22; TEMP 36.6–36.9; O2SAT 92–98
[2018-02-11] MEDS: guaiFENesin Dm 10 ML UDC PO ×3 (01:20→22:36)
[2018-02-11] MEDS: Ipratropium/Albuterol Sulfate 3 ML AMPUL.NEB INHALATION ×6 (02:40→23:44)
[2018-02-11] MEDS: busPIRone 15 MG TABLET PO ×3 (05:38→22:25)
[2018-02-11] MEDS: Levothyroxine 25 MCG TABLET PO (05:38)
[2018-02-11 06:24] LABS: International Normalized Ratio 1.6; Prothrombin Time (Protime)PT. 18.8 SECONDS (11.7-14.9)
[2018-02-11 06:39] LABS: BUN 21 mg/dL (7-18); BUN/Creat Ratio 25.5 RATIO (10-20); Calcium,Total 8.9 mg/dL (8.5-10.1); Carbon Dioxide > 45.0 mmol/L (21.0-32.0); Chloride 88 mmol/L (98-107); Creatinine, Serum 0.82 mg/dL (0.55-1.02); EST Glomerular Filtration Rate 73 mL/min (>60); Est Glom Filt Rate - Afr Amer 88 mL/min (>60); Estimated Creatinine Clearance 45.85 ml/min; Glucose 296 mg/dL (74-106); Potassium 4.5 mmol/L (3.5-5.1); Sodium Level 142 mmol/L (136-145)
[2018-02-11 06:55] LABS: Bedside Glucose 257 mg/dL (70-110)
--- NOTE | 2018-02-11 08:51 | PCM.PROGNOTE ---
Patient Problems: Active and Suspected Problems CHF (congestive heart failure) (Acute) Cellulitis (Acute) Acute on chronic respiratory failure with hypoxia and hypercapnia (Acute) Subjective: The patient was seen and examined. She is sitting up in bed, no acute distress. Saturating 98% on 4 L of oxygen, this was decreased to 3 L. Reports a productive cough of yellow sputum, which I observed during my visit. Denies any chest pain. Right lower extremity significantly improved. Objective: Recent lab and culture data reviewed. Patient remains afebrile and hemodynamically stable. A viral respiratory panel and urine strep/Legionella antigens were negative. Blood sugars remain elevated but improved. - Physical Exam General: Alert, Oriented x3, Cooperative, No apparent distress, - - Mild conversational dyspnea HEENT: Atraumatic, Normocephalic, - - face flushed Oral: Moist Mucosa Neck: Supple, Trachea Midline Lungs: No rhonchi, No wheeze, No rales, Diminished Cardiovascular: Regular rate, Regular Rhythm, Normal S1, Normal S2, No murmurs Abdomen: Bowel Sounds Present, Soft, Non Tender, Non-Distended, Obese Extremities: Cyanosis - L toes, none to R foot at this time, Edema - improved Skin: - - improvement to RLE erythema and edema. Musculoskeletal: No Tenderness to Palpation of Joints or Extremities Lymphatic: No Cervical, Supraclavicular, or Inguinal Adenopathy Neurological: Neuro grossly intact Psych/Mental Status: Alert and oriented to time, place, person, mood and affect Vital Signs Temp Pulse Resp BP Pulse Ox 98.4 F 90 20 H 111/65 94 02/11/18 08:19 02/11/18 08:19 02/11/18 08:19 02/11/18 08:19 02/11/18 08:19 Oxygen Flow Rate (L/min) 4 Oxygen Delivery Method Nasal Cannula Weight: 232 lb 6.4 oz Body Mass Index (BMI) 45.8 Intake and Output for Last 24 Hours 02/09/18 02/10/18 02/11/18 23:59 23:59 23:59 Intake Total 1629 / 1629 1464 / 1464 120 / 120 Output Total 2250 / 2250 1950 / 1950 450 / 450 Balance -621 / -621 -486 / -486 -330 / -330 Microbiology Past 72 Hours 02/08/18 13:15 Respiratory Panel (PCR) - Final Mucosa - Nose 02/08/18 13:30 Legionella Antigen - Final Urine Catheter - [place] 02/08/18 13:30 Streptococcus pneumoniae Antigen (M - Final Urine Catheter - [place] Laboratory Tests Past 24 Hrs 02/11/18 02/11/18 05:55 05:55 PT 18.8 H INR 1.6 Sodium 142 Potassium 4.5 Chloride 88 L Carbon Dioxide > 45.0 H* Anion Gap TNP BUN 21 H Creatinine 0.82 Estim Creat Clear Calc 45.85 Est GFR (MDRD) Af Amer 88 Est GFR (MDRD) Non-Af 73 BUN/Creatinine Ratio 25.5 H Glucose 296 H Calcium 8.9 POC Glucose 02/11/18 02/10/18 02/10/18 06:47 21:59 17:14 POC Glucose 257 H 237 H 339 H 02/10/18 02/10/18 14:45 12:29 POC Glucose 361 H 350 H Medical Necessity - Tobacco Use Smoking Status: Former smoker Tobacco Use: Cigarettes Assessment/Plan All Active Problems CHF (congestive heart failure) (Acute) Cellulitis (Acute) Acute on chronic respiratory failure with hypoxia and hypercapnia (Acute) RECOMMENDATIONS 1. Wean oxygen supplementation to keep saturations 88-92% to prevent paradoxical CO2 retention (baseline 3L) 2. Encourage incentive spirometer/Acapella 3. Increase activity as tolerated 4. Continue bronchodilators, Coumadin 5. Continue weaning steroids 6. Ambulatory pulse ox prior to discharge 7. Patient should follow-up with her primary freelance digital project manager within 2 weeks of discharge from the hospital IMPRESSIONS 1. Acute on chronic hypoxic and hypercarbic respiratory failure Likely multifactorial. Echo does show significant pulmonary hypertension and I suspect patient is chronically hypoxic, especially with exertion. Echo from [facility] in October 2017 also showed grade II diastolic dysfunction. Infectious workup negative. Patient supposed to start pulmonary rehab but has not. She is on chronic prednisone 5 mg daily with plans for weaning if able per primary freelance digital project manager. Continue BiPAP with all sleep and intermittently throughout the day as needed. Continue bronchodilators and antibiotics. Encourage incentive spirometer. Continue with steroids, weaning slowly. Upon discharge, patient should start Trelegy (has at home) and PRN albuterol nebulizers, continue Trilogy with all sleep and PRN during day for rescue. 2. Right lower extremity cellulitis Patient recently completed a 10 day course of doxycycline. Antibiotics changed to Clindamycin. However, patient lists several allergies to various antibiotics. ID consult, placed on Keflex. Patient reports reaction, refusing to finish course. ID plans to observe off atb. 3. COPD with probable exacerbation Patient with increased dyspnea, sputum production, cough. Uses albuterol and Atrovent nebulizers at home. Recently transitioned to Trelogy but has yet to start this. See #1. (Records from [facility] showing FEV1 30% of predicted, severe obstructive ventilatory defect with minimal response to bronchodilators). 4. Self-reported history of obstructive sleep apnea Questionable compliance with trilogy at home. Use BiPAP with all sleep. 5. Morbid obesity/hypothyroidism/history of DVT/anxiety/depression/hypokalemia/DM Complicates care, management, recovery, and prognosis. Continue home medications as indicated. Electrolyte repletion as indicated. Adjusting insulin while on steroids, the steroids are being weaned so should help with hyperglycemia. Plans for SNF vs HH. Anticipate discharge in the next 2-3 days. This note was generated with [employer] dictation software. It may contain incorrect words, spelling, and punctuation that were not noted in checking the note before signing.
--- NOTE | 2018-02-11 09:10 | PN_ITS ---
Patient Problems: Active and Suspected Problems CHF (congestive heart failure) (Acute) Cellulitis (Acute) Acute on chronic respiratory failure with hypoxia and hypercapnia (Acute) Subjective: The patient was seen and examined. She is sitting up in bed, no acute distress. Saturating 98% on 4 L of oxygen, this was decreased to 3 L. Reports a productive cough of yellow sputum, which I observed during my visit. Denies any chest pain. Right lower extremity significantly improved. Objective: Recent lab and culture data reviewed. Patient remains afebrile and hemodynamically stable. A viral respiratory panel and urine strep/Legionella antigens were negative. Blood sugars remain elevated but improved. - Physical Exam General: Alert, Oriented x3, Cooperative, No apparent distress, - - Mild conversational dyspnea HEENT: Atraumatic, Normocephalic, - - face flushed Oral: Moist Mucosa Neck: Supple, Trachea Midline Lungs: No rhonchi, No wheeze, No rales, Diminished Cardiovascular: Regular rate, Regular Rhythm, Normal S1, Normal S2, No murmurs Abdomen: Bowel Sounds Present, Soft, Non Tender, Non-Distended, Obese Extremities: Cyanosis - L toes, none to R foot at this time, Edema - improved Skin: - - improvement to RLE erythema and edema. Musculoskeletal: No Tenderness to Palpation of Joints or Extremities Lymphatic: No Cervical, Supraclavicular, or Inguinal Adenopathy Neurological: Neuro grossly intact Psych/Mental Status: Alert and oriented to time, place, person, mood and affect Vital Signs Temp Pulse Resp BP Pulse Ox 98.4 F 90 20 H 111/65 94 02/11/18 08:19 02/11/18 08:19 02/11/18 08:19 02/11/18 08:19 02/11/18 08:19 Oxygen Flow Rate (L/min) 4 Oxygen Delivery Method Nasal Cannula Weight: 232 lb 6.4 oz Body Mass Index (BMI) 45.8 Intake and Output for Last 24 Hours 02/09/18 02/10/18 02/11/18 23:59 23:59 23:59 Intake Total 1629 / 1629 1464 / 1464 120 / 120 Output Total 2250 / 2250 1950 / 1950 450 / 450 Balance -621 / -621 -486 / -486 -330 / -330 Microbiology Past 72 Hours 02/08/18 13:15 Respiratory Panel (PCR) - Final Mucosa - Nose 02/08/18 13:30 Legionella Antigen - Final Urine Catheter - [place] 02/08/18 13:30 Streptococcus pneumoniae Antigen (M - Final Urine Catheter - [place] Laboratory Tests Past 24 Hrs 02/11/18 02/11/18 05:55 05:55 PT 18.8 H INR 1.6 Sodium 142 Potassium 4.5 Chloride 88 L Carbon Dioxide > 45.0 H* Anion Gap TNP BUN 21 H Creatinine 0.82 Estim Creat Clear Calc 45.85 Est GFR (MDRD) Af Amer 88 Est GFR (MDRD) Non-Af 73 BUN/Creatinine Ratio 25.5 H Glucose 296 H Calcium 8.9 POC Glucose 02/11/18 02/10/18 02/10/18 06:47 21:59 17:14 POC Glucose 257 H 237 H 339 H 02/10/18 02/10/18 14:45 12:29 POC Glucose 361 H 350 H Medical Necessity - Tobacco Use Smoking Status: Former smoker Tobacco Use: Cigarettes Assessment/Plan All Active Problems CHF (congestive heart failure) (Acute) Cellulitis (Acute) Acute on chronic respiratory failure with hypoxia and hypercapnia (Acute) RECOMMENDATIONS 1. Wean oxygen supplementation to keep saturations 88-92% to prevent paradoxical CO2 retention (baseline 3L) 2. Encourage incentive spirometer/Acapella 3. Increase activity as tolerated 4. Continue bronchodilators, Coumadin 5. Continue weaning steroids 6. Ambulatory pulse ox prior to discharge 7. Patient should follow-up with her primary spray gun sizer within 2 weeks of discharge from the hospital IMPRESSIONS 1. Acute on chronic hypoxic and hypercarbic respiratory failure Likely multifactorial. Echo does show significant pulmonary hypertension and I suspect patient is chronically hypoxic, especially with exertion. Echo from [facility] in October 2017 also showed grade II diastolic dysfunction. Infectious workup negative. Patient supposed to start pulmonary rehab but has not. She is on chronic prednisone 5 mg daily with plans for weaning if able per primary spray gun sizer. Continue BiPAP with all sleep and intermittently throughout the day as needed. Continue bronchodilators and antibiotics. Encourage incentive spirometer. Continue with steroids, weaning slowly. Upon discharge, patient should start Trelegy (has at home) and PRN albuterol nebulizers, continue Trilogy with all sleep and PRN during day for rescue. 2. Right lower extremity cellulitis Patient recently completed a 10 day course of doxycycline. Antibiotics changed to Clindamycin. However, patient lists several allergies to various antibiotics. ID consult, placed on Keflex. Patient reports reaction, refusing to finish course. ID plans to observe off atb. 3. COPD with probable exacerbation Patient with increased dyspnea, sputum production, cough. Uses albuterol and Atrovent nebulizers at home. Recently transitioned to Trelogy but has yet to start this. See #1. (Records from [facility] showing FEV1 30% of predicted, severe obstructive ventilatory defect with minimal response to bronchodilators). 4. Self-reported history of obstructive sleep apnea Questionable compliance with trilogy at home. Use BiPAP with all sleep. 5. Morbid obesity/hypothyroidism/history of DVT/anxiety/depression/hypokalemia/ DM Complicates care, management, recovery, and prognosis. Continue home medications as indicated. Electrolyte repletion as indicated. Adjusting insulin while on steroids, the steroids are being weaned so should help with hyperglycemia. Plans for SNF vs HH. Anticipate discharge in the next 2-3 days. This note was generated with [employer] dictation software. It may contain incorrect words, spelling, and punctuation that were not noted in checking the note before signing.
--- NOTE | 2018-02-11 09:14 | PCM.PN.ID ---
Patient Problems: Active and Suspected Problems CHF (congestive heart failure) (Acute) Cellulitis (Acute) Acute on chronic respiratory failure with hypoxia and hypercapnia (Acute) Subjective: Patient overall clinically stable no fevers or chills. Currently off antimicrobial therapy. No specific complaints Objective: Alert and oriented does not appear toxic her right lower extremity looks relatively benign the erythema has receded and resolved. No signs of active infection at this time - Physical Exam Vital Signs Temp Pulse Resp BP Pulse Ox 98.4 F 90 20 H 111/65 94 02/11/18 08:19 02/11/18 08:19 02/11/18 08:19 02/11/18 08:19 02/11/18 08:19 Oxygen Flow Rate (L/min) 4 Oxygen Delivery Method Nasal Cannula Weight: 105.415 kg Body Mass Index (BMI) 45.8 Intake and Output for Last 24 Hours 02/09/18 02/10/18 02/11/18 23:59 23:59 23:59 Intake Total 1629 / 1629 1464 / 1464 120 / 120 Output Total 2250 / 2250 1950 / 1950 450 / 450 Balance -621 / -621 -486 / -486 -330 / -330 Microbiology Past 72 Hours 02/08/18 13:15 Respiratory Panel (PCR) - Final Mucosa - Nose 02/08/18 13:30 Legionella Antigen - Final Urine Catheter - [place] 02/08/18 13:30 Streptococcus pneumoniae Antigen (M - Final Urine Catheter - [place] Laboratory Tests Past 24 Hrs 02/11/18 02/11/18 05:55 05:55 PT 18.8 H INR 1.6 Sodium 142 Potassium 4.5 Chloride 88 L Carbon Dioxide > 45.0 H* Anion Gap TNP BUN 21 H Creatinine 0.82 Estim Creat Clear Calc 45.85 Est GFR (MDRD) Af Amer 88 Est GFR (MDRD) Non-Af 73 BUN/Creatinine Ratio 25.5 H Glucose 296 H Calcium 8.9 POC Glucose 02/11/18 02/10/18 02/10/18 06:47 21:59 17:14 POC Glucose 257 H 237 H 339 H 02/10/18 02/10/18 14:45 12:29 POC Glucose 361 H 350 H Medical Necessity - Tobacco Use Smoking Status: Former smoker Tobacco Use: Cigarettes Route of nutrition/ use of supplements: [] Nutritional Intake: [] IV Site: [] [place] Catheter: [] - Assessment/Plan Antibiotics: [] Assessment/Plan: [] Active and Suspected Problems CHF (congestive heart failure) (Acute) Cellulitis (Acute) Acute on chronic respiratory failure with hypoxia and hypercapnia (Acute) Right leg cellulitis clinically improved currently off antimicrobial therapy. No need for any further antibiotics at this point.
[2018-02-11] MEDS: Insulin Lispro 100 UNIT/ML INSULN.PEN SQ ×4 (10:20→22:23)
[2018-02-11] MEDS: Enoxaparin 40 MG/0.4 ML Syringe SC (10:21)
[2018-02-11] MEDS: Insulin Lispro 100 UNIT/ML INSULN.PEN 15 UNIT SC ×3 (10:21→17:32)
[2018-02-11] MEDS: Famotidine 20 MG Tablet PO (10:22)
[2018-02-11] MEDS: Pantoprazole Sodium 40 MG Tablet PO ×2 (10:22→22:25)
[2018-02-11] MEDS: Sodium Chloride 0.65% 1 SPRAY SPRAY.BTL NASAL ×2 (10:23→22:24)
[2018-02-11] MEDS: Montelukast 10 MG Tablet PO (10:23)
[2018-02-11] MEDS: Magnesium Oxide 400 MG Tablet PO (10:23)
[2018-02-11] MEDS: Furosemide 40 MG Tablet PO ×2 (10:24→17:32)
[2018-02-11] MEDS: Calcium Carb/Vitamin D 1 TABLET Tablet PO (10:24)
[2018-02-11] MEDS: Losartan Potassium 25 MG Tablet PO (10:26)
[2018-02-11] MEDS: Ezetimibe 10 MG Tablet PO (10:26)
[2018-02-11] MEDS: DULoxetine Hcl 60 MG Capsule PO (10:26)
[2018-02-11] MEDS: Loratadine 10 MG Tablet PO (10:26)
[2018-02-11] MEDS: 0.9% NaCl Peripheral Flush Adult/Peds IV ×2 (10:31→22:25)
--- NOTE | 2018-02-11 11:17 | CASEMGMT ---
This RN CM to room to speak with pt regarding discharge plan and pt is sleeping on bipap and there is no family at bedside at this time. This RN CM will attempt later. Jeanne RN CM
[2018-02-11 12:21] LABS: Bedside Glucose 333 mg/dL (70-110)
--- NOTE | 2018-02-11 14:12 | CASEMGMT ---
This RN CM to room to speak with pt regarding discharge planning and pt states that she did do therapy today. Pt states that she is willing to go to [facility] if needed for rehab at discharge. Pt is concerned about the coverage as she recently spent about 3 weeks there. Referral to [facility]ISCAL at this time regarding same, voices understanding. Tamera MARISCAL aware that pt is concerned about coverage, voices understanding. SStcaleb VIEIRA CM
--- NOTE | 2018-02-11 14:23 | CASEMGMT ---
Addendum entered by Patience العلي 02/11/18 15:02: SW spoke w/Marlyn at [facility], she states she does not know if they will have a bed for pt or not, to check back on Wednesday and if they do she will review the clinical information Wednesday. They would not get precert today anyway as pt has [employer]. Also, pt has used 21 days, so is on day 22 of her benefit, and will owe a copay each day of $167.50. SW spoke w/pt in room, let her know that [facility] may or may not have a bed by Wednesday for pt. SW also let pt know she is into her copay days and will owe $167.50 per day for SNF. SW gave pt a list of SNF's in the area that take pt's insurance, and asked her for a backup choice, pt is not sure what her backup choice would be. SW reviewed w/pt the SNF's in the area that take pt's insurance, including [facility] and [facility]. Pt states does not want to go to [facility] but otherwise it not certain what her second choice would be. SW asked pt to think about it and let SW know on Wednesday. Pt is on a bi pap right now and and states does not know what is going on w/her medically, she states she has not spoken with the doctor today; pt was so focused on this did not seem ready to make decisions regarding a secondary care home choice. SW explained will have the RN come in to speak w/her. SW will also come back on Wednesday to speak w/pt after checking w/[facility] regarding availability. CRISTOBAL Khan, BRANCH SERVICE LEADER Original Note: As per CM, pt is agreeable to referral being sent to [facility], pt states was there recently. Pt is concerned about the cost. SW called [facility], message left and referral faxed. SW inquired in message how long pt was there recently, and if they can take pt, if they can also check pt's benefits. SW will continue to follow, will wait for call back from [facility]. CRISTOBAL Khan, BRANCH SERVICE LEADER
--- NOTE | 2018-02-11 17:29 | PN_ITS ---
Patient Problems: Active and Suspected Problems CHF (congestive heart failure) (Acute) Cellulitis (Acute) Acute on chronic respiratory failure with hypoxia and hypercapnia (Acute) Subjective: Since was seen and examined. Has some redness of the face and upper part of her trunk believed to be due to reaction to Keflex. This has improved. Denies any new complaints. Oxygenation is still a problem with patient dropping to low 80s when oxygen is turned down to about 3 L. Saturates well on 4 L of oxygen. Is on the AVAPs intermittently Objective: General: Alert, Oriented x3, Cooperative, - - In moderate respiratory distress, obese HEENT: Atraumatic, PERRLA, EOMI, Normocephalic Oral: Moist Mucosa Neck: Supple Lungs: Clear to auscultation, Normal air movement Cardiovascular: Regular rate, Regular Rhythm, Normal S1, Normal S2, No murmurs Abdomen: Bowel Sounds Present, Soft, Non Tender, Non-Distended, No Hepato- splenomegaly Extremities: Right lower extremity swelling is better, redness has improved, trace edema Skin: No rashes, No breakdown Musculoskeletal: No Tenderness to Palpation of Joints or Extremities Lymphatic: No Cervical, Supraclavicular, or Inguinal Adenopathy Neurological: Cranial nerves II-XII grossly intact, Neuro grossly intact Psych/Mental Status: Normal Affect, Appropriate Vitals/I&O's: Vital Signs Temp Pulse Resp BP Pulse Ox 98.4 F 113 H 20 H 115/68 92 02/11/18 13:59 02/11/18 15:26 02/11/18 15:20 02/11/18 13:59 02/11/18 15:00 Oxygen Flow Rate (L/min) 4 Oxygen Delivery Method Bi-pap Weight: 105.415 kg Body Mass Index (BMI) 45.8 Intake and Output for Last 24 Hours 02/09/18 02/10/18 02/11/18 23:59 23:59 23:59 Intake Total 1629 / 1629 1464 / 1464 600 / 600 Output Total 2250 / 2250 1950 / 1950 450 / 450 Balance -621 / -621 -486 / -486 150 / 150 Microbiology Past 72 Hours 02/08/18 13:15 Mucosa - Nose Respiratory Panel (PCR) - Final 02/08/18 13:30 Urine Catheter - [place] Legionella Antigen - Final 02/08/18 13:30 Urine Catheter - [place] Streptococcus pneumoniae Antigen (M - Final Laboratory Results 02/10/18 17:14: POC Glucose 339 H 02/10/18 21:59: POC Glucose 237 H 02/11/18 05:55: PT 18.8 H, INR 1.6 02/11/18 05:55: Sodium 142, Potassium 4.5, Chloride 88 L, Carbon Dioxide > 45.0 H*, Anion Gap TNP, BUN 21 H, Creatinine 0.82, Estim Creat Clear Calc 45.85, Est GFR (MDRD) Af Amer 88, Est GFR (MDRD) Non-Af 73, BUN/Creatinine Ratio 25.5 H, Glucose 296 H, Calcium 8.9 02/11/18 06:47: POC Glucose 257 H 02/11/18 12:11: POC Glucose 333 H Current Medications Acetaminophen (Tylenol) 500 mg PO Q6H PRN PRN PRN Reason: PAIN Hydrocodone Bitart/Acetaminophen ([place] 5mg-325mg) 1 tablet PO Q6H PRN PRN PRN Reason: PAIN Albuterol Sulfate (Ventolin Aerosols) 2.5 mg INHALATION Q2H PRN PRN PRN Reason: SHORTNESS OF BREATH Albuterol/Ipratropium (Duoneb) 3 ml INHALATION Q4H.RT [facility] Last Admin: 02/11/18 15:23 Dose: 3 ml Atorvastatin Calcium (Lipitor) 20 mg PO QHS [facility] Last Admin: 02/10/18 22:02 Dose: Not Given Buspirone HCl (Buspar) 15 mg PO TID [facility] Last Admin: 02/11/18 13:04 Dose: 15 mg Calcium/Vitamin D (Os-Carlos 500mg + D) 1 tablet PO DAILY [facility] Last Admin: 02/11/18 10:24 Dose: 1 tablet Cholecalciferol (Vitamin D) 2,000 unit PO DAILY [facility] Last Admin: 02/11/18 10:26 Dose: 2,000 unit Dextrose (D50w Syringe) 0 gm IV X1 PRN; Protocol PRN Reason: Hypoglycemia Duloxetine HCl (Cymbalta) 60 mg PO DAILY [facility] Last Admin: 02/11/18 10:26 Dose: 60 mg Ezetimibe (Zetia) 10 mg PO DAILY [facility] Last Admin: 02/11/18 10:26 Dose: 10 mg Enoxaparin Sodium (Lovenox) 40 mg SC DAILY [facility] Last Admin: 02/11/18 10:21 Dose: 40 mg Famotidine (Pepcid) 20 mg PO BID [facility] Last Admin: 02/11/18 10:22 Dose: 20 mg Ferrous Sulfate (Ferrous Sulfate) 325 mg PO DAILYCM [facility] Last Admin: 02/11/18 10:23 Dose: Not Given Furosemide (Lasix) 40 mg PO BIDLX [facility] Last Admin: 02/11/18 10:24 Dose: 40 mg Glucagon () 1 mg IM .X1 PRN PRN Reason: Hypoglycemia Guaifenesin (Robitussin Dm) 10 ml PO Q6H PRN PRN PRN Reason: COUGH Last Admin: 02/11/18 10:43 Dose: 10 ml Insulin Glargine (Lantus (Bkc)) 10 units SC QHS [facility] Last Admin: 02/10/18 22:01 Dose: 10 u Insulin Human Lispro (Humalog Kwikpen (Bkc)) [facility] SQ [facility] Reason: Protocol Last Admin: 02/11/18 13:02 Dose: 12 units Insulin Human Lispro (Humalog Kwikpen (Bkc)) 15 unit SC 0800,1200,1700 [facility] Last Admin: 02/11/18 13:02 Dose: 15 units Lactobacillus Acidophilus (Acidophilus) 1 tablet PO DAILY [facility] Last Admin: 02/11/18 10:23 Dose: 1 tablet Levothyroxine Sodium (Synthroid) 25 mcg PO DAILY@0600 [facility] Last Admin: 02/11/18 05:38 Dose: 25 mcg Loratadine (Claritin) 10 mg PO DAILY [facility] Last Admin: 02/11/18 10:26 Dose: 10 mg Losartan Potassium (Cozaar) 25 mg PO DAILY [facility] Last Admin: 02/11/18 10:26 Dose: 25 mg Magnesium Hydroxide (Milk Of Magnesia) 30 ml PO DAILY PRN PRN Reason: Constipation Magnesium Oxide (Mag-Ox 400) 400 mg PO DAILY [facility] Last Admin: 02/11/18 10:23 Dose: 400 mg Methylprednisolone (Solu-Medrol) 40 mg IV Q12 [facility] Last Admin: 02/11/18 10:22 Dose: 40 mg Montelukast Sodium (Singulair) 10 mg PO DAILY [facility] Last Admin: 06/29/18 10:23 Dose: 10 mg Morphine Sulfate () 2 - 4 mg IV Q3H PRN PRN PRN Reason: Severe Pain (pain scale 6-10) Pantoprazole Sodium (Protonix) 40 mg PO BID [facility] Last Admin: 02/11/18 10:22 Dose: 40 mg Polyethylene Glycol (Miralax) 17 gm PO DAILY PRN PRN Reason: Constipation Last Admin: 02/10/18 10:26 Dose: 17 gm Potassium Chloride (K-Dur) 10 meq PO DAILY [facility] Last Admin: 02/11/18 10:26 Dose: 10 meq Sodium Chloride ([place] Nasal [place]) 1 spray NASAL BID [facility] Last Admin: 02/11/18 10:23 Dose: 1 spray Sodium Chloride () 5 - 30 ml IV UD PRN PRN Reason: SALINE FLUSH Last Admin: 02/11/18 10:31 Dose: 10 ml Warfarin Sodium (Coumadin (Pbkc)) 3 mg PO DAILY@1700 [facility] Last Admin: 02/10/18 15:51 Dose: 3 mg Medical Necessity - Tobacco Use Smoking Status: Former smoker Tobacco Use: Cigarettes Assessment/Plan All Active Problems CHF (congestive heart failure) (Acute) Cellulitis (Acute) Acute on chronic respiratory failure with hypoxia and hypercapnia (Acute) 72-year-old female with multiple comorbidities, who gets most of her care in the [facility], comes in with complaints of worsening shortness of breath ongoing over the several days. 1. Acute hypoxic hypercapnic respiratory failure in a patient with severe COPD/ diastolic heart failure, patient is on AVAPS, continue on the same settings, encourage use of AVAPs, pulmonology following. 2. Acute COPD exacerbation, on IV steroids, continue breathing treatments. 3. Hypokalemia, resolved 4. Right lower extremity cellulitis, resolving, had an acute reaction to keflex , off keflex, 5. History of LEDY, obesity hypoventilation syndrome, continue on AVAPS 6. Hyperlipidemia, on statin 7. Hypertension, continue on Cozaar, 8. Anxiety/depression, continue on Cymbalta, buspar 9. Hypothyroidism, on levothyroxine 10. Type II DM, BS is uncontrolled, changes made to insulin. 11. History of diatolic CHF, not in acute exacerbation, BNPep is 42.2, continue on home lasix, daily weights, strict I & Os 12. H/o DVT on coumadin, INR subtherapeutic because patient has not been taking it, will cover with Lovenox, continue on Coumadin and stop Lovenox when INR is therapeutic. 13. DVT prophylaxis with Lovenox subcu Code Visit Inpatient E&M: 96367 Subs Hosp L2
[2018-02-11 17:40] LABS: Bedside Glucose 236 mg/dL (70-110)
[2018-02-11 22:35] LABS: Bedside Glucose 174 mg/dL (70-110)
[2018-02-12] VITALS (22 sets, daily range): BP systolic 100–149; BP diastolic 58–76; PULSE 66–108; RESP 12–32; TEMP 36.4–37.1; O2SAT 90–95
[2018-02-12] MEDS: Ipratropium/Albuterol Sulfate 3 ML AMPUL.NEB INHALATION ×6 (04:21→22:56)
[2018-02-12] MEDS: Levothyroxine 25 MCG TABLET PO (05:09)
[2018-02-12] MEDS: busPIRone 15 MG TABLET PO ×3 (05:09→21:44)
[2018-02-12 06:01] LABS: Bedside Glucose 255 mg/dL (70-110)
[2018-02-12 07:01] LABS: Bedside Glucose 260 mg/dL (70-110)
--- NOTE | 2018-02-12 07:11 | PCM.PROGNOTE ---
Patient Problems: Active and Suspected Problems CHF (congestive heart failure) (Acute) Cellulitis (Acute) Acute on chronic respiratory failure with hypoxia and hypercapnia (Acute) Subjective: Patient did okay overnight. Patient was compliant with noninvasive therapy while sleeping. Patient reports that overall she feels not right, but is unable to provide any other information. Patient does not believe that she is doing worse from a respiratory standpoint. Patient does state I think the infections coming back to my leg. Patient admits that I may need rehab after this is some pretty weak. - Physical Exam General: Alert, Oriented x3, Cooperative, No apparent distress, - - Appears older than stated age. Speaking in full sentences. HEENT: Atraumatic, PERRLA, EOMI, Normocephalic, - - No scleral icterus or injection noted. Oral: Moist Mucosa, No Gingival or Mucosal Lesions/ Ulcerations, - - Edentulous Neck: Supple, No JVD, No Nodes, Trachea Midline Lungs: No rhonchi, No wheeze, No rales, Diminished, - - Symmetric expansion. Increased AP diameter. Cardiovascular: Normal S1, Normal S2, No murmurs, No rub noted, No Gallop, Tachycardic Abdomen: Bowel Sounds Present, Soft, Non Tender, Non-Distended, Obese Extremities: Clubbing, Cyanosis - Improvement of the left great toe., Edema - 1+ bilateral lower extremities Skin: - - Dermal atrophy noted. No erythema noted of the right lower extremity. Musculoskeletal: No Tenderness to Palpation of Joints or Extremities Lymphatic: No Cervical, Supraclavicular, or Inguinal Adenopathy Neurological: Cranial nerves II-XII grossly intact, Neuro grossly intact, Motor Exam 5/5 strength throughout Psych/Mental Status: Alert and oriented to time, place, person, mood and affect Vital Signs Temp Pulse Resp BP Pulse Ox 36.6 C 103 H 24 H 122/67 H 94 02/12/18 04:15 02/12/18 04:21 02/12/18 04:21 02/12/18 04:15 02/12/18 04:15 Oxygen Flow Rate (L/min) 4 Oxygen Delivery Method Nasal Cannula Weight: 105.715 kg Body Mass Index (BMI) 45.8 Intake and Output for Last 24 Hours 02/10/18 02/11/18 02/12/18 23:59 23:59 23:59 Intake Total 1464 / 1464 1020 / 1020 440 / 440 Output Total 1950 / 1950 1999 1650 / 1650 Balance -486 / -486 -980 / -980 -1210 / -1210 POC Glucose 02/12/18 02/12/18 02/11/18 06:56 05:57 22:21 POC Glucose 260 H 255 H 174 H 02/11/18 02/11/18 17:28 12:11 POC Glucose 236 H 333 H Medical Necessity - Tobacco Use Smoking Status: Former smoker Tobacco Use: Cigarettes Assessment/Plan All Active Problems CHF (congestive heart failure) (Acute) Cellulitis (Acute) Acute on chronic respiratory failure with hypoxia and hypercapnia (Acute) RECOMMENDATIONS 1. Wean oxygen supplementation to keep saturations 88-92% to prevent paradoxical CO2 retention (baseline 3L) 2. Repeat chemistry and blood counts tomorrow morning. 3. Increase activity as tolerated 4. Continue bronchodilators, Coumadin 5. Wean steroids over the next 12-14 days 6. Ambulatory pulse ox prior to discharge 7. Patient should follow-up with her primary van cdl driver within 2 weeks of discharge from the hospital IMPRESSIONS 1. Acute on chronic hypoxic and hypercarbic respiratory failure Likely multifactorial. Echo does show significant pulmonary hypertension and I suspect patient is chronically hypoxic, especially with exertion. Echo from [facility] in October 2017 also showed grade II diastolic dysfunction. Infectious workup negative. Patient supposed to start pulmonary rehab but has not. She is on chronic prednisone 5 mg daily with plans for weaning if able per primary van cdl driver. Continue AVAPS with all sleep and intermittently throughout the day as needed. Steroid should be weaned over the next 12-14 days. Continue with bronchodilators. Do anticipate patient will require AVAPS intermittently throughout the day given advanced lung disease. 2. Right lower extremity cellulitis Patient recently completed a 10 day course of doxycycline. Antibiotics changed to Clindamycin. However, patient lists several allergies to various antibiotics. ID consult, placed on Keflex. Would defer to infectious disease on whether antibiotics need to be reinitiated. No signs of cellulitis on my exam. 3. COPD with probable exacerbation Patient with increased dyspnea, sputum production, cough. Uses albuterol and Atrovent nebulizers at home. Recently transitioned to Trelogy but has yet to start this. See #1. (Records from [facility] showing FEV1 30% of predicted, severe obstructive ventilatory defect with minimal response to bronchodilators). 4. Self-reported history of obstructive sleep apnea Questionable compliance with trilogy at home. Use BiPAP with all sleep. 5. Morbid obesity/hypothyroidism/history of DVT/anxiety/depression/hypokalemia/DM Complicates care, management, recovery, and prognosis. Continue home medications as indicated. Electrolyte repletion as indicated. Adjusting insulin while on steroids, the steroids are being weaned so should help with hyperglycemia. This note was generated with [employer] dictation software. It may contain incorrect words, spelling, and punctuation that were not noted in checking the note before signing. Code Visit Inpatient E&M: 43590 Subs Hosp L2
--- NOTE | 2018-02-12 07:20 | PN_ITS ---
Patient Problems: Active and Suspected Problems CHF (congestive heart failure) (Acute) Cellulitis (Acute) Acute on chronic respiratory failure with hypoxia and hypercapnia (Acute) Subjective: Patient did okay overnight. Patient was compliant with noninvasive therapy while sleeping. Patient reports that overall she feels not right, but is unable to provide any other information. Patient does not believe that she is doing worse from a respiratory standpoint. Patient does state I think the infections coming back to my leg. Patient admits that I may need rehab after this is some pretty weak. - Physical Exam General: Alert, Oriented x3, Cooperative, No apparent distress, - - Appears older than stated age. Speaking in full sentences. HEENT: Atraumatic, PERRLA, EOMI, Normocephalic, - - No scleral icterus or injection noted. Oral: Moist Mucosa, No Gingival or Mucosal Lesions/ Ulcerations, - - Edentulous Neck: Supple, No JVD, No Nodes, Trachea Midline Lungs: No rhonchi, No wheeze, No rales, Diminished, - - Symmetric expansion. Increased AP diameter. Cardiovascular: Normal S1, Normal S2, No murmurs, No rub noted, No Gallop, Tachycardic Abdomen: Bowel Sounds Present, Soft, Non Tender, Non-Distended, Obese Extremities: Clubbing, Cyanosis - Improvement of the left great toe., Edema - 1 + bilateral lower extremities Skin: - - Dermal atrophy noted. No erythema noted of the right lower extremity. Musculoskeletal: No Tenderness to Palpation of Joints or Extremities Lymphatic: No Cervical, Supraclavicular, or Inguinal Adenopathy Neurological: Cranial nerves II-XII grossly intact, Neuro grossly intact, Motor Exam 5/5 strength throughout Psych/Mental Status: Alert and oriented to time, place, person, mood and affect Vital Signs Temp Pulse Resp BP Pulse Ox 36.6 C 103 H 24 H 122/67 H 94 02/12/18 04:15 02/12/18 04:21 02/12/18 04:21 02/12/18 04:15 02/12/18 04:15 Oxygen Flow Rate (L/min) 4 Oxygen Delivery Method Nasal Cannula Weight: 105.715 kg Body Mass Index (BMI) 45.8 Intake and Output for Last 24 Hours 02/10/18 02/11/18 02/12/18 23:59 23:59 23:59 Intake Total 1464 / 1464 1020 / 1020 440 / 440 Output Total 1950 / 1950 1999 1650 / 1650 Balance -486 / -486 -980 / -980 -1210 / -1210 POC Glucose 02/12/18 02/12/18 02/11/18 06:56 05:57 22:21 POC Glucose 260 H 255 H 174 H 02/11/18 02/11/18 17:28 12:11 POC Glucose 236 H 333 H Medical Necessity - Tobacco Use Smoking Status: Former smoker Tobacco Use: Cigarettes Assessment/Plan All Active Problems CHF (congestive heart failure) (Acute) Cellulitis (Acute) Acute on chronic respiratory failure with hypoxia and hypercapnia (Acute) RECOMMENDATIONS 1. Wean oxygen supplementation to keep saturations 88-92% to prevent paradoxical CO2 retention (baseline 3L) 2. Repeat chemistry and blood counts tomorrow morning. 3. Increase activity as tolerated 4. Continue bronchodilators, Coumadin 5. Wean steroids over the next 12-14 days 6. Ambulatory pulse ox prior to discharge 7. Patient should follow-up with her primary knotting machine operator portable within 2 weeks of discharge from the hospital IMPRESSIONS 1. Acute on chronic hypoxic and hypercarbic respiratory failure Likely multifactorial. Echo does show significant pulmonary hypertension and I suspect patient is chronically hypoxic, especially with exertion. Echo from [facility] in October 2017 also showed grade II diastolic dysfunction. Infectious workup negative. Patient supposed to start pulmonary rehab but has not. She is on chronic prednisone 5 mg daily with plans for weaning if able per primary knotting machine operator portable. Continue AVAPS with all sleep and intermittently throughout the day as needed. Steroid should be weaned over the next 12-14 days. Continue with bronchodilators. Do anticipate patient will require AVAPS intermittently throughout the day given advanced lung disease. 2. Right lower extremity cellulitis Patient recently completed a 10 day course of doxycycline. Antibiotics changed to Clindamycin. However, patient lists several allergies to various antibiotics. ID consult, placed on Keflex. Would defer to infectious disease on whether antibiotics need to be reinitiated. No signs of cellulitis on my exam. 3. COPD with probable exacerbation Patient with increased dyspnea, sputum production, cough. Uses albuterol and Atrovent nebulizers at home. Recently transitioned to Trelogy but has yet to start this. See #1. (Records from [facility] showing FEV1 30% of predicted, severe obstructive ventilatory defect with minimal response to bronchodilators) . 4. Self-reported history of obstructive sleep apnea Questionable compliance with trilogy at home. Use BiPAP with all sleep. 5. Morbid obesity/hypothyroidism/history of DVT/anxiety/depression/ hypokalemia/DM Complicates care, management, recovery, and prognosis. Continue home medications as indicated. Electrolyte repletion as indicated. Adjusting insulin while on steroids, the steroids are being weaned so should help with hyperglycemia. This note was generated with [employer] dictation software. It may contain incorrect words, spelling, and punctuation that were not noted in checking the note before signing. Code Visit Inpatient E&M: 19482 Subs Hosp L2
[2018-02-12] MEDS: Polyethylene Glycol 3350 17 GM PACKET PO (08:46)
[2018-02-12] MEDS: Insulin Lispro 100 UNIT/ML INSULN.PEN SQ ×4 (08:48→21:45)
[2018-02-12] MEDS: Insulin Lispro 100 UNIT/ML INSULN.PEN 15 UNIT SC ×2 (08:48→11:29)
[2018-02-12] MEDS: Loratadine 10 MG Tablet PO (09:04)
[2018-02-12] MEDS: Famotidine 20 MG Tablet PO (09:04)
[2018-02-12] MEDS: DULoxetine Hcl 60 MG Capsule PO (09:04)
[2018-02-12] MEDS: Magnesium Oxide 400 MG Tablet PO (09:04)
[2018-02-12] MEDS: Furosemide 40 MG Tablet PO (09:04)
[2018-02-12] MEDS: Losartan Potassium 25 MG Tablet PO (09:04)
[2018-02-12] MEDS: Pantoprazole Sodium 40 MG Tablet PO (09:04)
[2018-02-12] MEDS: Calcium Carb/Vitamin D 1 TABLET Tablet PO (09:04)
[2018-02-12] MEDS: 0.9% NaCl Peripheral Flush Adult/Peds IV ×2 (09:05→17:09)
[2018-02-12] MEDS: Ezetimibe 10 MG Tablet PO (09:05)
[2018-02-12] MEDS: Montelukast 10 MG Tablet PO (09:05)
[2018-02-12 09:29] LABS: International Normalized Ratio 1.8
--- NOTE | 2018-02-12 09:30 | RAD_ITS ---
STUDY: X-RAY CHEST REASON FOR EXAM: Female, 72 years old. Short of breath. TECHNIQUE: Single AP portable view of the chest. COMPARISON: 02/07/2018. FINDINGS: Limited by underexposure. Normal lung volumes. Stable prominence of interstitial markings. No focal infiltrates. No gross effusions. There is mild cardiac enlargement. Normal mediastinum and luke. Normal visualized pulmonary arteries. Normal visualized aortic arch and descending thoracic aorta. Normal visualized thoracic spine. Normal visualized ribs, clavicles, and shoulders. There is no demonstrated abnormality of the visualized soft tissue structures of the upper abdomen. RAD/Chest 1 View (Portable) IMPRESSION: Limited by underexposure. No gross change or acute chest disease. Electronically Signed: Deep Snider MD at 13:11 EDT , Service support ,
[2018-02-12 09:41] LABS: Base Excess > 30 mmol/L (-2 to +2); Bicarbonate 59.1 mmol/L (22-26); Blood Gas Specimen Type ART; O2 Delivery Device Nasal Can; PO2 55 mmHG (75-100); SITE R Radial; SO2 80 % (95-99); Time Given 926; Total Carbon Dioxide > 50 mmol/L; pCO2 117.9 mmHg (35-45); pH 7.31 (7.35-7.45)
[2018-02-12 09:58] LABS: BUN 20 mg/dL (7-18); BUN/Creat Ratio 24.1 RATIO (10-20); Carbon Dioxide > 45.0 mmol/L (21.0-32.0); Chloride 85 mmol/L (98-107); Creatinine, Serum 0.83 mg/dL (0.55-1.02); EST Glomerular Filtration Rate 72 mL/min (>60); Est Glom Filt Rate - Afr Amer 87 mL/min (>60); Glucose 368 mg/dL (74-106); Sodium Level 136 mmol/L (136-145)
[2018-02-12] MEDS: Enoxaparin 40 MG/0.4 ML Syringe SC (11:30)
[2018-02-12 11:41] LABS: Bedside Glucose 350 mg/dL (70-110)
--- NOTE | 2018-02-12 14:19 | PCM.PN.HOSP ---
Patient Problems: Active and Suspected Problems CHF (congestive heart failure) (Acute) Cellulitis (Acute) Acute on chronic respiratory failure with hypoxia and hypercapnia (Acute) Subjective: Patient was seen and examined. She feels tired. Feels slightly sleepy. Feels like she is working hard to breathe. Denies any chest pain or dizziness or shortness of breath. She had been on the AVAPS intermittently throughout the night. Objective: Physical exam: General: Alert, Oriented x3, Cooperative, in moderate respiratory distress, obese HEENT: Atraumatic, PERRLA, EOMI, Normocephalic Oral: Moist Mucosa Neck: Supple Lungs: Wheezes++, diminished AE all over the lungs Cardiovascular: Regular rate, Regular Rhythm, Normal S1, Normal S2, No murmurs Abdomen: Bowel Sounds Present, Soft, Non Tender, Non-Distended, No Hepato-splenomegaly Extremities: Right lower extremity swelling is better, redness has improved, trace edema Skin: No rashes, No breakdown Musculoskeletal: No Tenderness to Palpation of Joints or Extremities Lymphatic: No Cervical, Supraclavicular, or Inguinal Adenopathy Neurological: Cranial nerves II-XII grossly intact, Neuro grossly intact Psych/Mental Status: Normal Affect, Appropriate Vitals/I&O's: Vital Signs Temp Pulse Resp BP Pulse Ox 98.0 F 93 32 H 120/58 L 90 02/12/18 09:00 02/12/18 11:18 02/12/18 09:30 02/12/18 09:00 02/12/18 09:30 Oxygen Flow Rate (L/min) 4 Oxygen Delivery Method Nasal Cannula Weight: 105.715 kg Body Mass Index (BMI) 45.8 Intake and Output for Last 24 Hours 02/10/18 02/11/18 02/12/18 23:59 23:59 23:59 Intake Total 1464 / 1464 1020 / 1020 890 / 890 Output Total 1949 Balance -486 / -486 -980 / -980 -1060 / -1060 Laboratory Results 02/11/18 17:28: POC Glucose 236 H 02/11/18 22:21: POC Glucose 174 H 02/12/18 05:57: POC Glucose 255 H 02/12/18 06:56: POC Glucose 260 H 02/12/18 09:08: PT 21.0 H, INR 1.8 02/12/18 09:08: Sodium 136, Potassium 4.0, Chloride 85 L, Carbon Dioxide > 45.0 H*, Anion Gap TNP, BUN 20 H, Creatinine 0.83, Estim Creat Clear Calc 45.30, Est GFR (MDRD) Af Amer 87, Est GFR (MDRD) Non-Af 72, BUN/Creatinine Ratio 24.1 H, Glucose 368 H, Calcium 9.0 02/12/18 09:28: Specimen Type ART, Sample Site R Radial, pH 7.31 L, Bicarbonate Actual 59.1 H, POC Total CO2 > 50, Base Excess > 30 H, O2 Saturation 80 L, ABG pCO2 117.9 H*, ABG pO2 55 L, O2 Delivery Device Nasal Can, Liter Flow 4.0, Blood Gas Notified Whom [facility] , Blood Gas Notified Time 926 02/12/18 11:25: POC Glucose 350 H Current Medications Acetaminophen (Tylenol) 500 mg PO Q6H PRN PRN PRN Reason: PAIN Hydrocodone Bitart/Acetaminophen ([place] 5mg-325mg) 1 tablet PO Q6H PRN PRN PRN Reason: PAIN Albuterol Sulfate (Ventolin Aerosols) 2.5 mg INHALATION Q2H PRN PRN PRN Reason: SHORTNESS OF BREATH Albuterol/Ipratropium (Duoneb) 3 ml INHALATION Q4H.RT [facility] Last Admin: 02/12/18 11:18 Dose: 3 ml Atorvastatin Calcium (Lipitor) 20 mg PO QHS [facility] Last Admin: 02/11/18 22:25 Dose: Not Given Buspirone HCl (Buspar) 15 mg PO TID [facility] Last Admin: 02/12/18 05:09 Dose: 15 mg Calcium/Vitamin D (Os-Carlos 500mg + D) 1 tablet PO DAILY [facility] Last Admin: 02/12/18 09:04 Dose: 1 tablet Cholecalciferol (Vitamin D) 2,000 unit PO DAILY [facility] Last Admin: 02/12/18 09:05 Dose: 2,000 unit Dextrose (D50w Syringe) 0 gm IV X1 PRN; Protocol PRN Reason: Hypoglycemia Duloxetine HCl (Cymbalta) 60 mg PO DAILY [facility] Last Admin: 02/12/18 09:04 Dose: 60 mg Ezetimibe (Zetia) 10 mg PO DAILY [facility] Last Admin: 02/12/18 09:05 Dose: 10 mg Enoxaparin Sodium (Lovenox) 40 mg SC DAILY [facility] Last Admin: 02/12/18 11:30 Dose: 40 mg Famotidine (Pepcid) 20 mg PO BID [facility] Last Admin: 02/12/18 09:04 Dose: 20 mg Ferrous Sulfate (Ferrous Sulfate) 325 mg PO DAILYCM [facility] Last Admin: 02/12/18 08:42 Dose: Not Given Furosemide (Lasix) 40 mg PO BIDLX [facility] Last Admin: 02/12/18 09:04 Dose: 40 mg Glucagon () 1 mg IM .X1 PRN PRN Reason: Hypoglycemia Guaifenesin (Robitussin Dm) 10 ml PO Q6H PRN PRN PRN Reason: COUGH Last Admin: 02/11/18 22:36 Dose: 10 ml Insulin Glargine (Lantus (Bkc)) 10 units SC QHS [facility] Last Admin: 02/11/18 22:24 Dose: 10 u Insulin Human Lispro (Humalog Kwikpen (Bkc)) [facility] unit SQ [facility] PR[facility] Reason: Protocol Last Admin: 02/12/18 11:30 Dose: 12 units Insulin Human Lispro (Humalog Kwikpen (Bkc)) 15 unit SC 0800,1200,1700 [facility] Last Admin: 02/12/18 11:29 Dose: 15 units Lactobacillus Acidophilus (Acidophilus) 1 tablet PO DAILY [facility] Last Admin: 02/12/18 09:03 Dose: 1 tablet Levothyroxine Sodium (Synthroid) 25 mcg PO DAILY@0600 [facility] Last Admin: 02/12/18 05:09 Dose: 25 mcg Loratadine (Claritin) 10 mg PO DAILY [facility] Last Admin: 02/12/18 09:04 Dose: 10 mg Losartan Potassium (Cozaar) 25 mg PO DAILY [facility] Last Admin: 02/12/18 09:04 Dose: 25 mg Magnesium Hydroxide (Milk Of Magnesia) 30 ml PO DAILY PRN PRN Reason: Constipation Magnesium Oxide (Mag-Ox 400) 400 mg PO DAILY [facility] Last Admin: 02/12/18 09:04 Dose: 400 mg Methylprednisolone (Solu-Medrol) 40 mg IV Q12 [facility] Last Admin: 02/12/18 09:05 Dose: 40 mg Montelukast Sodium (Singulair) 10 mg PO DAILY [facility] Last Admin: 02/12/18 09:05 Dose: 10 mg Morphine Sulfate () 2 - 4 mg IV Q3H PRN PRN PRN Reason: Severe Pain (pain scale 6-10) Pantoprazole Sodium (Protonix) 40 mg PO BID [facility] Last Admin: 02/12/18 09:04 Dose: 40 mg Polyethylene Glycol (Miralax) 17 gm PO DAILY PRN PRN Reason: Constipation Last Admin: 02/12/18 08:46 Dose: 17 gm Potassium Chloride (K-Dur) 10 meq PO DAILY [facility] Last Admin: 02/12/18 09:04 Dose: 10 meq Sodium Chloride ([place] Nasal [place]) 1 spray NASAL BID [facility] Last Admin: 02/12/18 11:28 Dose: Not Given Sodium Chloride () 5 - 30 ml IV UD PRN PRN Reason: SALINE FLUSH Last Admin: 02/12/18 09:05 Dose: 10 ml Warfarin Sodium (Coumadin (Pbkc)) 3 mg PO DAILY@1700 [facility] Last Admin: 02/11/18 17:32 Dose: 3 mg Medical Necessity - Tobacco Use Smoking Status: Former smoker Tobacco Use: Cigarettes Assessment/Plan All Active Problems CHF (congestive heart failure) (Acute) Cellulitis (Acute) Acute on chronic respiratory failure with hypoxia and hypercapnia (Acute) 72-year-old female with multiple comorbidities, who gets most of her care in the [facility], comes in with complaints of worsening shortness of breath ongoing over the several days. 1. Acute hypoxic hypercapnic respiratory failure in a patient with severe COPD/diastolic heart failure, patient is on AVAPS, continues to be about the same with wheezes. Patient appears to be getting tired. ABG showed PCO2 117.9, PO2 80%, will continue on AVAPs 2. Acute COPD exacerbation, on IV steroids 40mg , continue breathing treatments and steroids. 3. Hypokalemia, resolved 4. Right lower extremity cellulitis, resolving, had an acute reaction to keflex, off keflex, 5. History of LEDY, obesity hypoventilation syndrome, continue on AVAPS 6. Hyperlipidemia, on statin 7. Hypertension, continue on Cozaar, 8. Anxiety/depression, continue on Cymbalta, buspar 9. Hypothyroidism, on levothyroxine 10. Type II DM, BS is uncontrolled, will increased Lantus to 15 units QHS, premeal lispro to units 15 units tid 11. History of diatolic CHF, will continue on Lasix 20mg IV bid, same as home going dose. 12. H/o DVT on coumadin, INR subtherapeutic at 1.8, will continue on Lovenox, coumadin. Will dc Lovenox if INR gets therapeutic. 13. DVT prophylaxis with Lovenox subcu I discussed her general condition and talked about her goals of care. She says she has been down this road before. She had been intubated twice and came off the ventilator. She wants to be full code. I talked to her HCPOA, Michelle Lafleur. I updated her on her mothers condition. She confirmed that she is a full code. She says if she ends up intubated, they will then re-assess to see if she could come off. Time spent in discussing code status and goals of care/advance planning was 38 minutes. Code Visit Inpatient E&M: 48799 Subs Hosp L3 Procedures: 90462 Advncd Care Plan addl 30 Min
--- NOTE | 2018-02-12 14:32 | PN_ITS ---
Patient Problems: Active and Suspected Problems CHF (congestive heart failure) (Acute) Cellulitis (Acute) Acute on chronic respiratory failure with hypoxia and hypercapnia (Acute) Subjective: Patient was seen and examined. She feels tired. Feels slightly sleepy. Feels like she is working hard to breathe. Denies any chest pain or dizziness or shortness of breath. She had been on the AVAPS intermittently throughout the night. Objective: Physical exam: General: Alert, Oriented x3, Cooperative, in moderate respiratory distress, obese HEENT: Atraumatic, PERRLA, EOMI, Normocephalic Oral: Moist Mucosa Neck: Supple Lungs: Wheezes++, diminished AE all over the lungs Cardiovascular: Regular rate, Regular Rhythm, Normal S1, Normal S2, No murmurs Abdomen: Bowel Sounds Present, Soft, Non Tender, Non-Distended, No Hepato- splenomegaly Extremities: Right lower extremity swelling is better, redness has improved, trace edema Skin: No rashes, No breakdown Musculoskeletal: No Tenderness to Palpation of Joints or Extremities Lymphatic: No Cervical, Supraclavicular, or Inguinal Adenopathy Neurological: Cranial nerves II-XII grossly intact, Neuro grossly intact Psych/Mental Status: Normal Affect, Appropriate Vitals/I&O's: Vital Signs Temp Pulse Resp BP Pulse Ox 98.0 F 93 32 H 120/58 L 90 02/12/18 09:00 02/12/18 11:18 02/12/18 09:30 02/12/18 09:00 02/12/18 09:30 Oxygen Flow Rate (L/min) 4 Oxygen Delivery Method Nasal Cannula Weight: 105.715 kg Body Mass Index (BMI) 45.8 Intake and Output for Last 24 Hours 02/10/18 02/11/18 02/12/18 23:59 23:59 23:59 Intake Total 1464 / 1464 1020 / 1020 890 / 890 Output Total 1949 Balance -486 / -486 -980 / -980 -1060 / -1060 Laboratory Results 02/11/18 17:28: POC Glucose 236 H 02/11/18 22:21: POC Glucose 174 H 02/12/18 05:57: POC Glucose 255 H 02/12/18 06:56: POC Glucose 260 H 02/12/18 09:08: PT 21.0 H, INR 1.8 02/12/18 09:08: Sodium 136, Potassium 4.0, Chloride 85 L, Carbon Dioxide > 45.0 H*, Anion Gap TNP, BUN 20 H, Creatinine 0.83, Estim Creat Clear Calc 45.30, Est GFR (MDRD) Af Amer 87, Est GFR (MDRD) Non-Af 72, BUN/Creatinine Ratio 24.1 H, Glucose 368 H, Calcium 9.0 02/12/18 09:28: Specimen Type ART, Sample Site R Radial, pH 7.31 L, Bicarbonate Actual 59.1 H, POC Total CO2 > 50, Base Excess > 30 H, O2 Saturation 80 L, ABG pCO2 117.9 H*, ABG pO2 55 L, O2 Delivery Device Nasal Can, Liter Flow 4.0, Blood Gas Notified Whom [facility] , Blood Gas Notified Time 926 02/12/18 11:25: POC Glucose 350 H Current Medications Acetaminophen (Tylenol) 500 mg PO Q6H PRN PRN PRN Reason: PAIN Hydrocodone Bitart/Acetaminophen ([place] 5mg-325mg) 1 tablet PO Q6H PRN PRN PRN Reason: PAIN Albuterol Sulfate (Ventolin Aerosols) 2.5 mg INHALATION Q2H PRN PRN PRN Reason: SHORTNESS OF BREATH Albuterol/Ipratropium (Duoneb) 3 ml INHALATION Q4H.RT [facility] Last Admin: 02/12/18 11:18 Dose: 3 ml Atorvastatin Calcium (Lipitor) 20 mg PO QHS [facility] Last Admin: 02/11/18 22:25 Dose: Not Given Buspirone HCl (Buspar) 15 mg PO TID [facility] Last Admin: 02/12/18 05:09 Dose: 15 mg Calcium/Vitamin D (Os-Carlos 500mg + D) 1 tablet PO DAILY [facility] Last Admin: 02/12/18 09:04 Dose: 1 tablet Cholecalciferol (Vitamin D) 2,000 unit PO DAILY [facility] Last Admin: 02/12/18 09:05 Dose: 2,000 unit Dextrose (D50w Syringe) 0 gm IV X1 PRN; Protocol PRN Reason: Hypoglycemia Duloxetine HCl (Cymbalta) 60 mg PO DAILY [facility] Last Admin: 02/12/18 09:04 Dose: 60 mg Ezetimibe (Zetia) 10 mg PO DAILY [facility] Last Admin: 02/12/18 09:05 Dose: 10 mg Enoxaparin Sodium (Lovenox) 40 mg SC DAILY [facility] Last Admin: 02/12/18 11:30 Dose: 40 mg Famotidine (Pepcid) 20 mg PO BID [facility] Last Admin: 02/12/18 09:04 Dose: 20 mg Ferrous Sulfate (Ferrous Sulfate) 325 mg PO DAILYCM [facility] Last Admin: 02/12/18 08:42 Dose: Not Given Furosemide (Lasix) 40 mg PO BIDLX [facility] Last Admin: 02/12/18 09:04 Dose: 40 mg Glucagon () 1 mg IM .X1 PRN PRN Reason: Hypoglycemia Guaifenesin (Robitussin Dm) 10 ml PO Q6H PRN PRN PRN Reason: COUGH Last Admin: 02/11/18 22:36 Dose: 10 ml Insulin Glargine (Lantus (Bkc)) 10 units SC QHS [facility] Last Admin: 02/11/18 22:24 Dose: 10 u Insulin Human Lispro (Humalog Kwikpen (Bkc)) [facility] SQ [facility] Reason: Protocol Last Admin: 02/12/18 11:30 Dose: 12 units Insulin Human Lispro (Humalog Kwikpen (Bkc)) 15 unit SC 0800,1200,1700 [facility] Last Admin: 02/12/18 11:29 Dose: 15 units Lactobacillus Acidophilus (Acidophilus) 1 tablet PO DAILY [facility] Last Admin: 02/12/18 09:03 Dose: 1 tablet Levothyroxine Sodium (Synthroid) 25 mcg PO DAILY@0600 [facility] Last Admin: 02/12/18 05:09 Dose: 25 mcg Loratadine (Claritin) 10 mg PO DAILY [facility] Last Admin: 02/12/18 09:04 Dose: 10 mg Losartan Potassium (Cozaar) 25 mg PO DAILY [facility] Last Admin: 02/12/18 09:04 Dose: 25 mg Magnesium Hydroxide (Milk Of Magnesia) 30 ml PO DAILY PRN PRN Reason: Constipation Magnesium Oxide (Mag-Ox 400) 400 mg PO DAILY [facility] Last Admin: 02/12/18 09:04 Dose: 400 mg Methylprednisolone (Solu-Medrol) 40 mg IV Q12 [facility] Last Admin: 02/12/18 09:05 Dose: 40 mg Montelukast Sodium (Singulair) 10 mg PO DAILY [facility] Last Admin: 02/12/18 09:05 Dose: 10 mg Morphine Sulfate () 2 - 4 mg IV Q3H PRN PRN PRN Reason: Severe Pain (pain scale 6-10) Pantoprazole Sodium (Protonix) 40 mg PO BID [facility] Last Admin: 02/12/18 09:04 Dose: 40 mg Polyethylene Glycol (Miralax) 17 gm PO DAILY PRN PRN Reason: Constipation Last Admin: 02/12/18 08:46 Dose: 17 gm Potassium Chloride (K-Dur) 10 meq PO DAILY [facility] Last Admin: 02/12/18 09:04 Dose: 10 meq Sodium Chloride ([place] Nasal [place]) 1 spray NASAL BID [facility] Last Admin: 02/12/18 11:28 Dose: Not Given Sodium Chloride () 5 - 30 ml IV UD PRN PRN Reason: SALINE FLUSH Last Admin: 02/12/18 09:05 Dose: 10 ml Warfarin Sodium (Coumadin (Pbkc)) 3 mg PO DAILY@1700 [facility] Last Admin: 02/11/18 17:32 Dose: 3 mg Medical Necessity - Tobacco Use Smoking Status: Former smoker Tobacco Use: Cigarettes Assessment/Plan All Active Problems CHF (congestive heart failure) (Acute) Cellulitis (Acute) Acute on chronic respiratory failure with hypoxia and hypercapnia (Acute) 72-year-old female with multiple comorbidities, who gets most of her care in the [facility], comes in with complaints of worsening shortness of breath ongoing over the several days. 1. Acute hypoxic hypercapnic respiratory failure in a patient with severe COPD/ diastolic heart failure, patient is on AVAPS, continues to be about the same with wheezes. Patient appears to be getting tired. ABG showed PCO2 117.9, PO2 80 %, will continue on AVAPs 2. Acute COPD exacerbation, on IV steroids 40mg , continue breathing treatments and steroids. 3. Hypokalemia, resolved 4. Right lower extremity cellulitis, resolving, had an acute reaction to keflex , off keflex, 5. History of LEDY, obesity hypoventilation syndrome, continue on AVAPS 6. Hyperlipidemia, on statin 7. Hypertension, continue on Cozaar, 8. Anxiety/depression, continue on Cymbalta, buspar 9. Hypothyroidism, on levothyroxine 10. Type II DM, BS is uncontrolled, will increased Lantus to 15 units QHS, premeal lispro to units 15 units tid 11. History of diatolic CHF, will continue on Lasix 20mg IV bid, same as home going dose. 12. H/o DVT on coumadin, INR subtherapeutic at 1.8, will continue on Lovenox, coumadin. Will dc Lovenox if INR gets therapeutic. 13. DVT prophylaxis with Lovenox subcu I discussed her general condition and talked about her goals of care. She says she has been down this road before. She had been intubated twice and came off the ventilator. She wants to be full code. I talked to her HCPOA, Michelle Lafleur. I updated her on her mothers condition. She confirmed that she is a full code. She says if she ends up intubated, they will then re-assess to see if she could come off. Time spent in discussing code status and goals of care/advance planning was 38 minutes. Code Visit Inpatient E&M: 70465 Subs Hosp L3 Procedures: 88239 Advncd Care Plan addl 30 Min
[2018-02-12] MEDS: Magnesium Hydroxide 30 ML UDC PO (14:51)
[2018-02-12 16:43] LABS: BNP,B-Type NATRIURETIC PEPTIDE 126.3 pg/mL (0-100)
[2018-02-12] MEDS: Furosemide 20 MG/2 ML VIAL IV (17:07)
[2018-02-12 17:26] LABS: Bedside Glucose 233 mg/dL (70-110)
[2018-02-12 21:42] LABS: Allen Test POS; Blood Gas Specimen Type ART; SITE R RADIAL
[2018-02-12 21:43] LABS: FI02 35; PEEP 8; RR 14
[2018-02-12 21:44] LABS: Bicarbonate 63.2 mmol/L (22-26); PO2 65 mmHG (75-100); SO2 91 % (95-99); pCO2 96.2 mmHg (35-45); pH 7.43 (7.35-7.45)
[2018-02-13] VITALS (21 sets, daily range): BP systolic 111–155; BP diastolic 58–78; PULSE 67–122; RESP 14–26; TEMP 36.1–36.7; O2SAT 90–98
[2018-02-13 00:51] LABS: Bedside Glucose 174 mg/dL (70-110)
[2018-02-13] MEDS: Ipratropium/Albuterol Sulfate 3 ML AMPUL.NEB INHALATION ×6 (03:22→23:13)
[2018-02-13] MEDS: busPIRone 15 MG TABLET PO ×2 (06:22→14:39)
[2018-02-13] MEDS: Levothyroxine 25 MCG TABLET PO (06:22)
[2018-02-13 06:46] LABS: Bedside Glucose 201 mg/dL (70-110)
--- NOTE | 2018-02-13 07:26 | PCM.PROGNOTE ---
Patient Problems: Active and Suspected Problems CHF (congestive heart failure) (Acute) Cellulitis (Acute) Acute on chronic respiratory failure with hypoxia and hypercapnia (Acute) Subjective: Patient with significant respiratory distress over the last 24 hours requiring significant BiPAP. Patient reports some dyspnea this morning, but feels good when she is on her AVAPS. Patient's daughter was not at the bedside, but staff reports that she was notified of patient's condition and stated several times that she would want the patient to be full code. Patient denies any increase in cough or other constitutional symptoms - Physical Exam General: Alert, Cooperative, No apparent distress, - - Good synchrony with positive pressure ventilation. Appears older than stated age. HEENT: Atraumatic, PERRLA, EOMI, Normocephalic, - - Slight scleral injection without icterus Oral: Moist Mucosa, No Gingival or Mucosal Lesions/ Ulcerations Neck: Supple, No Nodes, Trachea Midline, JVD, Right Lungs: No rhonchi, No wheeze, No rales, Diminished, - - Symmetric expansion. No dullness to percussion. Cardiovascular: Regular rate, Regular Rhythm, Normal S1, Normal S2, No murmurs, No rub noted, No Gallop Abdomen: Bowel Sounds Present, Soft, Non Tender, Non-Distended, Obese Extremities: No cyanosis, Clubbing, Edema Skin: - - Dermal atrophy noted Musculoskeletal: No Tenderness to Palpation of Joints or Extremities Lymphatic: No Cervical, Supraclavicular, or Inguinal Adenopathy Neurological: Cranial nerves II-XII grossly intact, Neuro grossly intact, Motor Exam 5/5 strength throughout Psych/Mental Status: Appropriate, Restless Vital Signs Temp Pulse Resp BP Pulse Ox 36.4 C L 96 22 H 121/61 H 96 02/13/18 03:35 02/13/18 07:14 02/13/18 07:14 02/13/18 03:35 02/13/18 07:14 Oxygen Flow Rate (L/min) 4 Oxygen Delivery Method Nasal Cannula Weight: 105.715 kg Body Mass Index (BMI) 45.8 Intake and Output for Last 24 Hours 02/11/18 02/12/18 02/13/18 23:59 23:59 23:59 Intake Total 1020 / 1020 1380 / 1380 60 / 60 Output Total 1999 4050 / 4050 Balance -980 / -980 -2670 / -2670 60 / 60 Laboratory Tests Past 24 Hrs 02/12/18 02/12/18 02/12/18 09:08 09:08 09:28 WBC RBC Hgb Hct MCV MCH MCHC RDW RDW Differential Plt Count Neut % (Auto) Absolute Neuts (auto) Total Counted PT 21.0 H INR 1.8 Specimen Type ART Sample Site R Radial pH 7.31 L Bicarbonate Actual 59.1 H POC Total CO2 > 50 Base Excess > 30 H O2 Saturation 80 L O2 % ABG pCO2 117.9 H* ABG pO2 55 L Luis Test Respiration Rate O2 Delivery Device Nasal Can Liter Flow 4.0 POC PEEP Blood Gas Notified Whom [facility] Blood Gas Notified Time 926 Sodium 136 Potassium 4.0 Chloride 85 L Carbon Dioxide > 45.0 H* Anion Gap TNP BUN 20 H Creatinine 0.83 Estim Creat Clear Calc 45.30 Est GFR (MDRD) Af Amer 87 Est GFR (MDRD) Non-Af 72 BUN/Creatinine Ratio 24.1 H Glucose 368 H Calcium 9.0 B-Natriuretic Peptide 02/12/18 02/12/18 02/13/18 15:35 21:25 06:00 WBC Pending RBC Pending Hgb Pending Hct Pending MCV Pending MCH Pending MCHC Pending RDW Pending RDW Differential Pending Plt Count Pending Neut % (Auto) Pending Absolute Neuts (auto) Pending Total Counted Pending PT INR Specimen Type ART Sample Site R RADIAL pH 7.43 Bicarbonate Actual 63.2 H POC Total CO2 50 Base Excess 30 H O2 Saturation 91 L O2 % 35 ABG pCO2 96.2 H* ABG pO2 65 L Luis Test POS Respiration Rate 14 O2 Delivery Device Liter Flow POC PEEP 8 Blood Gas Notified Whom [facility] Blood Gas Notified Time Sodium Potassium Chloride Carbon Dioxide Anion Gap BUN Creatinine Estim Creat Clear Calc Est GFR (MDRD) Af Amer Est GFR (MDRD) Non-Af BUN/Creatinine Ratio Glucose Calcium B-Natriuretic Peptide 126.3 H 02/13/18 06:00 WBC RBC Hgb Hct MCV MCH MCHC RDW RDW Differential Plt Count Neut % (Auto) Absolute Neuts (auto) Total Counted PT INR Specimen Type Sample Site pH Bicarbonate Actual POC Total CO2 Base Excess O2 Saturation O2 % ABG pCO2 ABG pO2 Luis Test Respiration Rate O2 Delivery Device Liter Flow POC PEEP Blood Gas Notified Whom Blood Gas Notified Time Sodium Pending Potassium Pending Chloride Pending Carbon Dioxide Pending Anion Gap Pending BUN Pending Creatinine Pending Estim Creat Clear Calc Est GFR (MDRD) Af Amer Pending Est GFR (MDRD) Non-Af Pending BUN/Creatinine Ratio Pending Glucose Pending Calcium Pending B-Natriuretic Peptide POC Glucose 02/13/18 02/12/18 02/12/18 06:43 21:40 17:14 POC Glucose 201 H 174 H 233 H 02/12/18 11:25 POC Glucose 350 H Clinical Impression(s) from Imaging Studies Chest X-Ray 02/12/18 09:30 IMPRESSION: Limited by underexposure. No gross change or acute chest disease. Electronically Signed: Deep Snider MD at 13:11 EDT , Service support , Medical Necessity - Tobacco Use Smoking Status: Former smoker Tobacco Use: Cigarettes Assessment/Plan All Active Problems CHF (congestive heart failure) (Acute) Cellulitis (Acute) Acute on chronic respiratory failure with hypoxia and hypercapnia (Acute) RECOMMENDATIONS 1. Wean oxygen supplementation to keep saturations 88-92% to prevent paradoxical CO2 retention (baseline 3L) 2. Await repeat chemistry and blood counts tomorrow morning. 3. Increase activity as tolerated 4. Continue bronchodilators, Coumadin 5. Reinitiate IV steroids to every 8 dosing 6. Consider palliative care consult 7. Patient should follow-up with her primary acute care clinical nurse specialist within 2 weeks of discharge from the hospital IMPRESSIONS 1. Acute on chronic hypoxic and hypercarbic respiratory failure Likely multifactorial. Echo does show significant pulmonary hypertension and I suspect patient is chronically hypoxic, especially with exertion. Echo from [facility] in October 2017 also showed grade II diastolic dysfunction. Infectious workup negative. Patient supposed to start pulmonary rehab but has not. She is on chronic prednisone 5 mg daily with plans for weaning if able per primary acute care clinical nurse specialist. Continue AVAPS with all sleep and intermittently throughout the day as needed. Will reinitiate steroid therapy by IV, but long-term prognosis is poor. Patient already with a resting carbon dioxide over 90. Continue with bronchodilators. Do anticipate patient will require AVAPS intermittently throughout the day given advanced lung disease. No changes required in current settings. Patient is likely not a candidate for lung transplant evaluation given advanced age, comorbidities and history of noncompliance. 2. Right lower extremity cellulitis Patient recently completed a 10 day course of doxycycline. Antibiotics changed to Clindamycin. However, patient lists several allergies to various antibiotics. ID consult, placed on Keflex. Would defer to infectious disease on whether antibiotics need to be reinitiated. No signs of cellulitis on my exam. 3. COPD with probable exacerbation Patient with increased dyspnea, sputum production, cough. Uses albuterol and Atrovent nebulizers at home. Recently transitioned to Trelegy but has yet to start this. See #1. (Records from [facility] showing FEV1 30% of predicted in November 2017, severe obstructive ventilatory defect with minimal response to bronchodilators). 4. Self-reported history of obstructive sleep apnea Questionable compliance with trilogy at home. Use BiPAP with all sleep. 5. Morbid obesity/hypothyroidism/history of DVT/anxiety/depression/hypokalemia/DM Complicates care, management, recovery, and prognosis. Continue home medications as indicated. Electrolyte repletion as indicated. Adjusting insulin while on steroids. May need to increase insulin coverage given increase in steroid therapy. This note was generated with [employer] dictation software. It may contain incorrect words, spelling, and punctuation that were not noted in checking the note before signing. Code Visit Inpatient E&M: 30043 Subs Hosp L3
--- NOTE | 2018-02-13 07:33 | PN_ITS ---
Patient Problems: Active and Suspected Problems CHF (congestive heart failure) (Acute) Cellulitis (Acute) Acute on chronic respiratory failure with hypoxia and hypercapnia (Acute) Subjective: Patient with significant respiratory distress over the last 24 hours requiring significant BiPAP. Patient reports some dyspnea this morning, but feels good when she is on her AVAPS. Patient's daughter was not at the bedside, but staff reports that she was notified of patient's condition and stated several times that she would want the patient to be full code. Patient denies any increase in cough or other constitutional symptoms - Physical Exam General: Alert, Cooperative, No apparent distress, - - Good synchrony with positive pressure ventilation. Appears older than stated age. HEENT: Atraumatic, PERRLA, EOMI, Normocephalic, - - Slight scleral injection without icterus Oral: Moist Mucosa, No Gingival or Mucosal Lesions/ Ulcerations Neck: Supple, No Nodes, Trachea Midline, JVD, Right Lungs: No rhonchi, No wheeze, No rales, Diminished, - - Symmetric expansion. No dullness to percussion. Cardiovascular: Regular rate, Regular Rhythm, Normal S1, Normal S2, No murmurs, No rub noted, No Gallop Abdomen: Bowel Sounds Present, Soft, Non Tender, Non-Distended, Obese Extremities: No cyanosis, Clubbing, Edema Skin: - - Dermal atrophy noted Musculoskeletal: No Tenderness to Palpation of Joints or Extremities Lymphatic: No Cervical, Supraclavicular, or Inguinal Adenopathy Neurological: Cranial nerves II-XII grossly intact, Neuro grossly intact, Motor Exam 5/5 strength throughout Psych/Mental Status: Appropriate, Restless Vital Signs Temp Pulse Resp BP Pulse Ox 36.4 C L 96 22 H 121/61 H 96 02/13/18 03:35 02/13/18 07:14 02/13/18 07:14 02/13/18 03:35 02/13/18 07:14 Oxygen Flow Rate (L/min) 4 Oxygen Delivery Method Nasal Cannula Weight: 105.715 kg Body Mass Index (BMI) 45.8 Intake and Output for Last 24 Hours 02/11/18 02/12/18 02/13/18 23:59 23:59 23:59 Intake Total 1020 / 1020 1380 / 1380 60 / 60 Output Total 1999 4050 / 4050 Balance -980 / -980 -2670 / -2670 60 / 60 Laboratory Tests Past 24 Hrs 02/12/18 02/12/18 02/12/18 09:08 09:08 09:28 WBC RBC Hgb Hct MCV MCH MCHC RDW RDW Differential Plt Count Neut % (Auto) Absolute Neuts (auto) Total Counted PT 21.0 H INR 1.8 Specimen Type ART Sample Site R Radial pH 7.31 L Bicarbonate Actual 59.1 H POC Total CO2 > 50 Base Excess > 30 H O2 Saturation 80 L O2 % ABG pCO2 117.9 H* ABG pO2 55 L Luis Test Respiration Rate O2 Delivery Device Nasal Can Liter Flow 4.0 POC PEEP Blood Gas Notified Whom [facility] Blood Gas Notified Time 926 Sodium 136 Potassium 4.0 Chloride 85 L Carbon Dioxide > 45.0 H* Anion Gap TNP BUN 20 H Creatinine 0.83 Estim Creat Clear Calc 45.30 Est GFR (MDRD) Af Amer 87 Est GFR (MDRD) Non-Af 72 BUN/Creatinine Ratio 24.1 H Glucose 368 H Calcium 9.0 B-Natriuretic Peptide 02/12/18 02/12/18 02/13/18 15:35 21:25 06:00 WBC Pending RBC Pending Hgb Pending Hct Pending MCV Pending MCH Pending MCHC Pending RDW Pending RDW Differential Pending Plt Count Pending Neut % (Auto) Pending Absolute Neuts (auto) Pending Total Counted Pending PT INR Specimen Type ART Sample Site R RADIAL pH 7.43 Bicarbonate Actual 63.2 H POC Total CO2 50 Base Excess 30 H O2 Saturation 91 L O2 % 35 ABG pCO2 96.2 H* ABG pO2 65 L Luis Test POS Respiration Rate 14 O2 Delivery Device Liter Flow POC PEEP 8 Blood Gas Notified Whom [facility] Blood Gas Notified Time Sodium Potassium Chloride Carbon Dioxide Anion Gap BUN Creatinine Estim Creat Clear Calc Est GFR (MDRD) Af Amer Est GFR (MDRD) Non-Af BUN/Creatinine Ratio Glucose Calcium B-Natriuretic Peptide 126.3 H 02/13/18 06:00 WBC RBC Hgb Hct MCV MCH MCHC RDW RDW Differential Plt Count Neut % (Auto) Absolute Neuts (auto) Total Counted PT INR Specimen Type Sample Site pH Bicarbonate Actual POC Total CO2 Base Excess O2 Saturation O2 % ABG pCO2 ABG pO2 Luis Test Respiration Rate O2 Delivery Device Liter Flow POC PEEP Blood Gas Notified Whom Blood Gas Notified Time Sodium Pending Potassium Pending Chloride Pending Carbon Dioxide Pending Anion Gap Pending BUN Pending Creatinine Pending Estim Creat Clear Calc Est GFR (MDRD) Af Amer Pending Est GFR (MDRD) Non-Af Pending BUN/Creatinine Ratio Pending Glucose Pending Calcium Pending B-Natriuretic Peptide POC Glucose 02/13/18 02/12/18 02/12/18 06:43 21:40 17:14 POC Glucose 201 H 174 H 233 H 02/12/18 11:25 POC Glucose 350 H Clinical Impression(s) from Imaging Studies Chest X-Ray 02/12/18 09:30 IMPRESSION: Limited by underexposure. No gross change or acute chest disease. Electronically Signed: Deep Snider MD at 13:11 EDT , Service support , Medical Necessity - Tobacco Use Smoking Status: Former smoker Tobacco Use: Cigarettes Assessment/Plan All Active Problems CHF (congestive heart failure) (Acute) Cellulitis (Acute) Acute on chronic respiratory failure with hypoxia and hypercapnia (Acute) RECOMMENDATIONS 1. Wean oxygen supplementation to keep saturations 88-92% to prevent paradoxical CO2 retention (baseline 3L) 2. Await repeat chemistry and blood counts tomorrow morning. 3. Increase activity as tolerated 4. Continue bronchodilators, Coumadin 5. Reinitiate IV steroids to every 8 dosing 6. Consider palliative care consult 7. Patient should follow-up with her primary swiss type screw machine operator within 2 weeks of discharge from the hospital IMPRESSIONS 1. Acute on chronic hypoxic and hypercarbic respiratory failure Likely multifactorial. Echo does show significant pulmonary hypertension and I suspect patient is chronically hypoxic, especially with exertion. Echo from [facility] in October 2017 also showed grade II diastolic dysfunction. Infectious workup negative. Patient supposed to start pulmonary rehab but has not. She is on chronic prednisone 5 mg daily with plans for weaning if able per primary swiss type screw machine operator. Continue AVAPS with all sleep and intermittently throughout the day as needed. Will reinitiate steroid therapy by IV, but long-term prognosis is poor. Patient already with a resting carbon dioxide over 90. Continue with bronchodilators. Do anticipate patient will require AVAPS intermittently throughout the day given advanced lung disease. No changes required in current settings. Patient is likely not a candidate for lung transplant evaluation given advanced age, comorbidities and history of noncompliance. 2. Right lower extremity cellulitis Patient recently completed a 10 day course of doxycycline. Antibiotics changed to Clindamycin. However, patient lists several allergies to various antibiotics. ID consult, placed on Keflex. Would defer to infectious disease on whether antibiotics need to be reinitiated. No signs of cellulitis on my exam. 3. COPD with probable exacerbation Patient with increased dyspnea, sputum production, cough. Uses albuterol and Atrovent nebulizers at home. Recently transitioned to Trelegy but has yet to start this. See #1. (Records from [facility] showing FEV1 30% of predicted in November 2017, severe obstructive ventilatory defect with minimal response to bronchodilators). 4. Self-reported history of obstructive sleep apnea Questionable compliance with trilogy at home. Use BiPAP with all sleep. 5. Morbid obesity/hypothyroidism/history of DVT/anxiety/depression/ hypokalemia/DM Complicates care, management, recovery, and prognosis. Continue home medications as indicated. Electrolyte repletion as indicated. Adjusting insulin while on steroids. May need to increase insulin coverage given increase in steroid therapy. This note was generated with [employer] dictation software. It may contain incorrect words, spelling, and punctuation that were not noted in checking the note before signing. Code Visit Inpatient E&M: 89288 Subs Hosp L3
[2018-02-13 07:52] LABS: BUN 20 mg/dL (7-18); BUN/Creat Ratio 30.1 RATIO (10-20); Calcium,Total 9.1 mg/dL (8.5-10.1); Carbon Dioxide > 45.0 mmol/L (21.0-32.0); Chloride 85 mmol/L (98-107); Creatinine, Serum 0.66 mg/dL (0.55-1.02); EST Glomerular Filtration Rate 93 mL/min (>60); Est Glom Filt Rate - Afr Amer 113 mL/min (>60); Glucose 242 mg/dL (74-106); Potassium 4.6 mmol/L (3.5-5.1); Sodium Level 140 mmol/L (136-145)
[2018-02-13] MEDS: Insulin Lispro 100 UNIT/ML INSULN.PEN 15 UNIT SC (08:19)
[2018-02-13] MEDS: Insulin Lispro 100 UNIT/ML INSULN.PEN SQ ×3 (08:20→22:23)
[2018-02-13 08:21] LABS: Absolute Lymphocyte Count 0.73 X10^3/ul (0.83-4.51); Absolute Neutrophil Count 10.3 X10^3/uL (2.0-7.7); Basophil# 0.02 X10^3/uL; Basophil% 0.2 % (0-1); Hematocrit 38.3 % (37-47); Hemoglobin 10.8 g/dl (12.0-15.0); Lymphocyte # 0.73 X10^3/ul (4.0); Lymphocyte % 5.9 % (19-41); Mean Corp Hgb Conc 28.2 g/gl (32-36); Mean Corpuscular Hgb 26.8 pg (27.0-32.0); Mean Platelet Vol. 11.5 fl (6.2-12.0); Monocyte# 1.31 X10^3/uL; Monocyte% 10.5 % (0-10); Neutrophil # 10.27 X10^3/uL (2.7-7.7); Neutrophil % 82.6 % (47-70); POSITIVE COUNT NO; POSITIVE DIFFERENTIAL NO; POSITIVE MORPHOLOGY NO; Platelet Count 225 K/mm3 (150-450); RBC Distribution Width CV 15.2 % (11.6-14.6); RBC Distribution Width SD 51.3 fl (35.1-43.9); Red Blood Count 4.03 M/mm3 (4.2-5.4); White Blood Count 12.4 K/mm3 (4.4-11.0)
[2018-02-13] MEDS: Calcium Carb/Vitamin D 1 TABLET Tablet PO (08:23)
[2018-02-13] MEDS: Magnesium Oxide 400 MG Tablet PO (08:23)
[2018-02-13 08:24] LABS: International Normalized Ratio 2.2; Prothrombin Time (Protime)PT. 24.7 SECONDS (11.7-14.9)
[2018-02-13] MEDS: Famotidine 20 MG Tablet PO (08:24)
[2018-02-13] MEDS: Pantoprazole Sodium 40 MG Tablet PO (08:24)
[2018-02-13] MEDS: Magnesium Hydroxide 30 ML UDC PO (08:29)
[2018-02-13] MEDS: Sodium Chloride 0.65% 1 SPRAY SPRAY.BTL NASAL ×2 (08:30→22:20)
[2018-02-13 08:48] LABS: Allen Test POS; Blood Gas Specimen Type ART; O2 Delivery Device NC; SITE RRADIAL
[2018-02-13 08:49] LABS: Base Excess > 30 mmol/L (-2 to +2); Bicarbonate 58.8 mmol/L (22-26); PO2 62 mmHG (75-100); Time Given 1517; Total Carbon Dioxide > 50 mmol/L; pCO2 112.5 mmHg (35-45); pH 7.33 (7.35-7.45)
[2018-02-13 08:50] LABS: SO2 86 % (95-99)
[2018-02-13 09:10] LABS: Time Given 2125
[2018-02-13 09:11] LABS: Base Excess > 30 mmol/L (-2 to +2)
[2018-02-13 09:12] LABS: Total Carbon Dioxide > 50 mmol/L
[2018-02-13] MEDS: Losartan Potassium 25 MG Tablet PO (10:49)
[2018-02-13] MEDS: Furosemide 20 MG/2 ML VIAL IV ×2 (10:49→17:19)
[2018-02-13 13:00] LABS: Allen Test POS; Base Excess > 30 mmol/L (-2 to +2); Bicarbonate 63.9 mmol/L (22-26); Blood Gas Specimen Type ART; EPAP 8; FI02 40; PO2 77 mmHG (75-100); RR 12; SITE R Radial; SO2 93 % (95-99); Time Given 1245; Total Carbon Dioxide > 50 mmol/L; pH 7.36 (7.35-7.45)
[2018-02-13 13:11] LABS: Bedside Glucose 262 mg/dL (70-110)
[2018-02-13] MEDS: DULoxetine Hcl 60 MG Capsule PO (14:39)
[2018-02-13] MEDS: Ezetimibe 10 MG Tablet PO (14:39)
--- NOTE | 2018-02-13 14:47 | PCM.PN.HOSP ---
Patient Problems: Active and Suspected Problems CHF (congestive heart failure) (Acute) Cellulitis (Acute) Acute on chronic respiratory failure with hypoxia and hypercapnia (Acute) Subjective: Patient seen and examined. Patient is about the same, easily desaturates when the Bipap is taken off. Noted that left foot is erythematous, warm to touch. Wants full code. Objective: Physical exam: General: Alert, lethargic, cooperative, in moderate respiratory distress, obese HEENT: Atraumatic, PERRLA, EOMI, Normocephalic Oral: Moist Mucosa Neck: Supple Lungs: Wheezes++, diminished AE all over the lungs Cardiovascular: Regular rate, Regular Rhythm, Normal S1, Normal S2, No murmurs Abdomen: Bowel Sounds Present, Soft, Non Tender, Non-Distended, No Hepato-splenomegaly Extremities: Right lower extremity swelling is better, redness has improved, trace edema Skin: No rashes, No breakdown Musculoskeletal: No Tenderness to Palpation of Joints or Extremities Lymphatic: No Cervical, Supraclavicular, or Inguinal Adenopathy Neurological: Cranial nerves II-XII grossly intact, Neuro grossly intact Psych/Mental Status: Normal Affect, Appropriate Vitals/I&O's: Vital Signs Temp Pulse Resp BP Pulse Ox 98.0 F 91 22 H 155/78 H 93 02/13/18 09:35 02/13/18 14:15 02/13/18 14:15 02/13/18 09:35 02/13/18 14:15 Oxygen Flow Rate (L/min) 4 Oxygen Delivery Method Bi-pap Weight: 104.1 kg Body Mass Index (BMI) 45.8 Intake and Output for Last 24 Hours 02/11/18 02/12/18 02/13/18 23:59 23:59 23:59 Intake Total 1020 / 1020 1380 / 1380 212.6 / 212.6 Output Total 1999 / 1999 4050 / 4050 500 / 500 Balance -980 / -980 -2670 / -2670 -287.4 / -287.4 Laboratory Results 02/12/18 15:17: Specimen Type ART, Sample Site RRADIAL, pH 7.33 L, Bicarbonate Actual 58.8 H, POC Total CO2 > 50, Base Excess > 30 H, O2 Saturation 86 L, ABG pCO2 112.5 H*, ABG pO2 62 L, Luis Test POS, O2 Delivery Device NC, Liter Flow 4.0, Blood Gas Notified Whom KELSEA DAVIS, Blood Gas Notified Time 1517 02/12/18 15:35: B-Natriuretic Peptide 126.3 H 02/12/18 17:14: POC Glucose 233 H 02/12/18 21:25: Specimen Type ART, Sample Site R RADIAL, pH 7.43, Bicarbonate Actual 63.2 H, POC Total CO2 > 50, Base Excess > 30 H, O2 Saturation 91 L, O2 % 35, ABG pCO2 96.2 H*, ABG pO2 65 L, Luis Test POS, Respiration Rate 14, POC PEEP 8, Blood Gas Notified Whom KELSEA DAVIS, Blood Gas Notified Time 212402/12/18 21:40: POC Glucose 174 H 02/13/18 06:00: WBC Cancelled, Corrected WBC Cancelled, RBC Cancelled, Hgb Cancelled, Hct Cancelled, MCV Cancelled, MCH Cancelled, MCHC Cancelled, RDW Cancelled, RDW Differential Cancelled, Plt Count Cancelled, MPV Cancelled, Immature Gran % (Auto) Cancelled, Neut % (Auto) Cancelled, Lymph % (Auto) Cancelled, [place] % (Auto) Cancelled, Eos % (Auto) Cancelled, Baso % (Auto) Cancelled, Immature Gran # (Auto) Cancelled, Absolute Neuts (auto) Cancelled, Absolute Lymphs (auto) Cancelled, Absolute Monos (auto) Cancelled, Total Counted Cancelled, Neutrophils % (Manual) Cancelled, Band Neutrophils % Cancelled, Lymphocytes % (Manual) Cancelled, Monocytes % (Manual) Cancelled, Eosinophils % (Manual) Cancelled, Basophils % (Manual) Cancelled, Metamyelocytes % Cancelled, Myelocytes % Cancelled, Promyelocytes % Cancelled, Blast Cells % Cancelled, Plasma Cell % (Manual) Cancelled, Other Cells % Cancelled, Lymphocytes # Cancelled, Nucleated RBCs/100 WBC Cancelled, Differential Comment Cancelled, Diff Path Review Cancelled, Hypersegmented Neuts Cancelled, Atypical Lymphocytes Cancelled, Reactive Lymphocytes Cancelled, Smudge Cells Cancelled, Eosinophilia # Cancelled, Basophilia # Cancelled, Toxic Granulation Cancelled, Dohle Bodies Cancelled, Arnaldo Rods Cancelled, Platelet Estimate Cancelled, Plt Morphology Comment Cancelled, RBC Morphology Cancelled, Polychromasia Cancelled, Hypochromasia Cancelled, Poikilocytosis Cancelled, Basophilic Stippling Cancelled, Anisocytosis Cancelled, Microcytosis Cancelled, Macrocytosis Cancelled, Spherocytes Cancelled, Sickle Cells Cancelled, Target Cells Cancelled, Tear Drop Cells Cancelled, Ovalocytes Cancelled, Stomatocytes Cancelled, [place] Bodies Cancelled, Tana Cells Cancelled, Bite Cells Cancelled, Acanthocytes (Spur) Cancelled, Rouleaux Cancelled, Schistocytes Cancelled 02/13/18 06:00: Sodium 140, Potassium 4.6, Chloride 85 L, Carbon Dioxide > 45.0 H*, Anion Gap TNP, BUN 20 H, Creatinine 0.66, Estim Creat Clear Calc 37.60, Est GFR (MDRD) Af Amer 113, Est GFR (MDRD) Non-Af 93, BUN/Creatinine Ratio 30.1 H, Glucose 242 H, Calcium 9.1 02/13/18 06:43: POC Glucose 201 H 02/13/18 08:08: PT 24.7 H, INR 2.2 02/13/18 08:08: WBC 12.4 H, RBC 4.03 L, Hgb 10.8 L, Hct 38.3, MCV 95.0, MCH 26.8 L, MCHC 28.2 L, RDW 15.2 H, RDW Differential 51.3 H, Plt Count 225, MPV 11.5, Immature Gran % (Auto) 0.800, Neut % (Auto) 82.6 H, Lymph % (Auto) 5.9 L, [place] % (Auto) 10.5 H, Eos % (Auto) 0.0, Baso % (Auto) 0.2, Absolute Neuts (auto) 10.3 H, Absolute Lymphs (auto) 0.73 L, Total Counted Not Reportable 02/13/18 11:19: POC Glucose 262 H 02/13/18 12:46: Specimen Type ART, Sample Site R Radial, pH 7.36, Bicarbonate Actual 63.9 H, POC Total CO2 > 50, Base Excess > 30 H, O2 Saturation 93 L, O2 % 40, ABG pCO2 112.0 H*, ABG pO2 77, Luis Test POS, Respiration Rate 12, O2 Delivery Device Bi / C PAP, EPAP 8, Blood Gas Notified Whom [facility]OSP , Blood Gas Notified Time 1245 Current Medications Acetaminophen (Tylenol) 500 mg PO Q6H PRN PRN PRN Reason: PAIN Hydrocodone Bitart/Acetaminophen ([place] 5mg-325mg) 1 tablet PO Q6H PRN PRN PRN Reason: PAIN Albuterol Sulfate (Ventolin Aerosols) 2.5 mg INHALATION Q2H PRN PRN PRN Reason: SHORTNESS OF BREATH Albuterol/Ipratropium (Duoneb) 3 ml INHALATION Q4H.RT [facility] Last Admin: 02/13/18 11:31 Dose: 3 ml Atorvastatin Calcium (Lipitor) 20 mg PO QHS [facility] Last Admin: 02/12/18 21:44 Dose: Not Given Bisacodyl (Dulcolax) 10 mg RECTAL DAILY PRN PRN Reason: Constipation Buspirone HCl (Buspar) 15 mg PO TID [facility] Last Admin: 02/13/18 14:39 Dose: 15 mg Calcium/Vitamin D (Os-Carlos 500mg + D) 1 tablet PO DAILY [facility] Last Admin: 02/13/18 08:23 Dose: 1 tablet Cholecalciferol (Vitamin D) 2,000 unit PO DAILY [facility] Last Admin: 02/13/18 11:14 Dose: Not Given Dextrose (D50w Syringe) 0 gm IV X1 PRN; Protocol PRN Reason: Hypoglycemia Duloxetine HCl (Cymbalta) 60 mg PO DAILY [facility] Last Admin: 02/13/18 14:39 Dose: 60 mg Ezetimibe (Zetia) 10 mg PO DAILY [facility] Last Admin: 02/13/18 14:39 Dose: 10 mg Famotidine (Pepcid) 20 mg PO BID [facility] Last Admin: 02/13/18 08:24 Dose: 20 mg Ferrous Sulfate (Ferrous Sulfate) 325 mg PO DAILYCM [facility] Last Admin: 02/13/18 08:19 Dose: Not Given Furosemide (Lasix) 20 mg IV BID@1000,1800 [facility] Last Admin: 02/13/18 10:49 Dose: 20 mg Glucagon () 1 mg IM .X1 PRN PRN Reason: Hypoglycemia Guaifenesin (Robitussin Dm) 10 ml PO Q6H PRN PRN PRN Reason: COUGH Last Admin: 02/11/18 22:36 Dose: 10 ml Clindamycin Phosphate (Cleocin) 300 mg in 50 mls @ 150 mls/hr IV Q6 [facility] Last Admin: 02/13/18 11:02 Dose: 150 mls/hr Insulin Glargine (Lantus (Bkc)) 15 units SC QHS [facility] Last Admin: 02/12/18 21:45 Dose: 15 u Insulin Human Lispro (Humalog Kwikpen (Bk)) 0 unit SQ 4X/DAYCM [facility] PRN Reason: Protocol Lactobacillus Acidophilus (Acidophilus) 1 tablet PO DAILY [facility] Last Admin: 02/13/18 08:23 Dose: 1 tablet Levothyroxine Sodium (Synthroid) 25 mcg PO DAILY@0600 [facility] Last Admin: 02/13/18 06:22 Dose: 25 mcg Loratadine (Claritin) 10 mg PO DAILY [facility] Last Admin: 02/13/18 11:12 Dose: Not Given Losartan Potassium (Cozaar) 25 mg PO DAILY [facility] Last Admin: 02/13/18 10:49 Dose: 25 mg Magnesium Hydroxide (Milk Of Magnesia) 30 ml PO DAILY PRN PRN Reason: Constipation Last Admin: 02/13/18 08:29 Dose: 30 ml Magnesium Oxide (Mag-Ox 400) 400 mg PO DAILY [facility] Last Admin: 02/13/18 08:23 Dose: 400 mg Methylprednisolone (Solu-Medrol) 40 mg IV Q8 [facility] Montelukast Sodium (Singulair) 10 mg PO DAILY [facility] Last Admin: 02/13/18 11:14 Dose: Not Given Morphine Sulfate () 1 mg IV Q3H PRN PRN PRN Reason: Severe Pain (pain scale 6-10) Pantoprazole Sodium (Protonix) 40 mg PO BID [facility] Last Admin: 02/13/18 08:24 Dose: 40 mg Polyethylene Glycol (Miralax) 17 gm PO DAILY PRN PRN Reason: Constipation Last Admin: 02/12/18 08:46 Dose: 17 gm Potassium Chloride (K-Dur) 10 meq PO DAILY [facility] Last Admin: 02/13/18 08:22 Dose: 10 meq Senna/Docusate Sodium (Senokot-S, Emily-Colace) 2 tablet PO BID PRN PRN Reason: Constipation Sodium Chloride ([place] Nasal [place]) 1 spray NASAL BID [facility] Last Admin: 02/13/18 08:30 Dose: 1 spray Sodium Chloride () 5 - 30 ml IV UD PRN PRN Reason: SALINE FLUSH Last Admin: 02/12/18 17:09 Dose: 10 ml Warfarin Sodium (Coumadin (Pbkc)) 3 mg PO DAILY@1700 [facility] Last Admin: 02/12/18 17:06 Dose: 3 mg Medical Necessity - Tobacco Use Smoking Status: Former smoker Tobacco Use: Cigarettes Assessment/Plan All Active Problems CHF (congestive heart failure) (Acute) Cellulitis (Acute) Acute on chronic respiratory failure with hypoxia and hypercapnia (Acute) 72-year-old female with multiple comorbidities, who gets most of her care in the [facility], comes in with complaints of worsening shortness of breath ongoing over the several days. 1. Acute hypoxic hypercapnic respiratory failure in a patient with severe COPD/diastolic heart failure, patient is on AVAPS, continues to be about the same with wheezes. Patient appears to be getting tired. Patient is full code, will continue on AVAPs for most part of the day. 2. Acute COPD exacerbation, on IV steroids 40mg , continue breathing treatments and steroids. 3. Hypokalemia, resolved 4. Right lower extremity cellulitis, resolving, had an acute reaction to keflex, off keflex, 5. History of LEDY, obesity hypoventilation syndrome, continue on AVAPS 6. Hyperlipidemia, on statin 7. Hypertension, continue on Cozaar, 8. Anxiety/depression, continue on Cymbalta, buspar 9. Hypothyroidism, on levothyroxine 10. Type II DM, BS is uncontrolled, continue on Lantus 15 units QHS, premeal lispro to units 15 units tid 11. History of diatolic CHF, continue on Lasix 20mg IV bid, same as home going dose. 12. H/o DVT on coumadin, INR subtherapeutic at 1.8, will continue on Lovenox, coumadin. Will dc Lovenox if INR gets therapeutic. 13. DVT prophylaxis with Lovenox subcu 14. Code status - full code Code Visit Inpatient E&M: 31431 Subs Hosp L2
--- NOTE | 2018-02-13 14:49 | PN_ITS ---
Patient Problems: Active and Suspected Problems CHF (congestive heart failure) (Acute) Cellulitis (Acute) Acute on chronic respiratory failure with hypoxia and hypercapnia (Acute) Vitals/I&O's: Vital Signs Temp Pulse Resp BP Pulse Ox 98.0 F 91 22 H 155/78 H 93 02/13/18 09:35 02/13/18 14:15 02/13/18 14:15 02/13/18 09:35 02/13/18 14:15 Oxygen Flow Rate (L/min) 4 Oxygen Delivery Method Bi-pap Weight: 104.1 kg Body Mass Index (BMI) 45.8 Intake and Output for Last 24 Hours 02/11/18 02/12/18 02/13/18 23:59 23:59 23:59 Intake Total 1020 / 1020 1380 / 1380 212.6 / 212.6 Output Total 1999 4050 / 4050 500 / 500 Balance -980 / -980 -2670 / -2670 -287.4 / -287.4 Laboratory Results 02/12/18 15:17: Specimen Type ART, Sample Site RRADIAL, pH 7.33 L, Bicarbonate Actual 58.8 H, POC Total CO2 > 50, Base Excess > 30 H, O2 Saturation 86 L, ABG pCO2 112.5 H*, ABG pO2 62 L, Luis Test POS, O2 Delivery Device NC, Liter Flow 4.0, Blood Gas Notified Whom [facility] , Blood Gas Notified Time 151602/12/18 15:35: B-Natriuretic Peptide 126.3 H 02/12/18 17:14: POC Glucose 233 H 02/12/18 21:25: Specimen Type ART, Sample Site R RADIAL, pH 7.43, Bicarbonate Actual 63.2 H, POC Total CO2 > 50, Base Excess > 30 H, O2 Saturation 91 L, O2 % 35, ABG pCO2 96.2 H*, ABG pO2 65 L, Luis Test POS, Respiration Rate 14, POC PEEP 8, Blood Gas Notified Whom [facility] , Blood Gas Notified Time 212402/12/18 21:40: POC Glucose 174 H 02/13/18 06:00: WBC Cancelled, Corrected WBC Cancelled, RBC Cancelled, Hgb Cancelled, Hct Cancelled, MCV Cancelled, MCH Cancelled, MCHC Cancelled, RDW Cancelled, RDW Differential Cancelled, Plt Count Cancelled, MPV Cancelled, Immature Gran % (Auto) Cancelled, Neut % (Auto) Cancelled, Lymph % (Auto) Cancelled, [place] % (Auto) Cancelled, Eos % (Auto) Cancelled, Baso % (Auto) Cancelled, Immature Gran # (Auto) Cancelled, Absolute Neuts (auto) Cancelled, Absolute Lymphs (auto) Cancelled, Absolute Monos (auto) Cancelled, Total Counted Cancelled, Neutrophils % (Manual) Cancelled, Band Neutrophils % Cancelled, Lymphocytes % (Manual) Cancelled, Monocytes % (Manual) Cancelled, Eosinophils % (Manual) Cancelled, Basophils % (Manual) Cancelled, Metamyelocytes % Cancelled, Myelocytes % Cancelled, Promyelocytes % Cancelled, Blast Cells % Cancelled, Plasma Cell % (Manual) Cancelled, Other Cells % Cancelled, Lymphocytes # Cancelled, Nucleated RBCs/100 WBC Cancelled, Differential Comment Cancelled, Diff Path Review Cancelled, Hypersegmented Neuts Cancelled, Atypical Lymphocytes Cancelled, Reactive Lymphocytes Cancelled , Smudge Cells Cancelled, Eosinophilia # Cancelled, Basophilia # Cancelled, Toxic Granulation Cancelled, Dohle Bodies Cancelled, Arnaldo Rods Cancelled, Platelet Estimate Cancelled, Plt Morphology Comment Cancelled, RBC Morphology Cancelled, Polychromasia Cancelled, Hypochromasia Cancelled, Poikilocytosis Cancelled, Basophilic Stippling Cancelled, Anisocytosis Cancelled, Microcytosis Cancelled, Macrocytosis Cancelled, Spherocytes Cancelled, Sickle Cells Cancelled , Target Cells Cancelled, Tear Drop Cells Cancelled, Ovalocytes Cancelled, Stomatocytes Cancelled, [place] Bodies Cancelled, Tana Cells Cancelled, Bite Cells Cancelled, Acanthocytes (Spur) Cancelled, Rouleaux Cancelled, Schistocytes Cancelled 02/13/18 06:00: Sodium 140, Potassium 4.6, Chloride 85 L, Carbon Dioxide > 45.0 H*, Anion Gap TNP, BUN 20 H, Creatinine 0.66, Estim Creat Clear Calc 37.60, Est GFR (MDRD) Af Amer 113, Est GFR (MDRD) Non-Af 93, BUN/Creatinine Ratio 30.1 H, Glucose 242 H, Calcium 9.1 02/13/18 06:43: POC Glucose 201 H 02/13/18 08:08: PT 24.7 H, INR 2.2 02/13/18 08:08: WBC 12.4 H, RBC 4.03 L, Hgb 10.8 L, Hct 38.3, MCV 95.0, MCH 26.8 L, MCHC 28.2 L, RDW 15.2 H, RDW Differential 51.3 H, Plt Count 225, MPV 11.5, Immature Gran % (Auto) 0.800, Neut % (Auto) 82.6 H, Lymph % (Auto) 5.9 L, [place] % (Auto) 10.5 H, Eos % (Auto) 0.0, Baso % (Auto) 0.2, Absolute Neuts (auto ) 10.3 H, Absolute Lymphs (auto) 0.73 L, Total Counted Not Reportable 02/13/18 11:19: POC Glucose 262 H 02/13/18 12:46: Specimen Type ART, Sample Site R Radial, pH 7.36, Bicarbonate Actual 63.9 H, POC Total CO2 > 50, Base Excess > 30 H, O2 Saturation 93 L, O2 % 40, ABG pCO2 112.0 H*, ABG pO2 77, Luis Test POS, Respiration Rate 12, O2 Delivery Device Bi / C PAP, EPAP 8, Blood Gas Notified Whom HOSP , Blood Gas Notified Time 1245 Current Medications Acetaminophen (Tylenol) 500 mg PO Q6H PRN PRN PRN Reason: PAIN Hydrocodone Bitart/Acetaminophen ([place] 5mg-325mg) 1 tablet PO Q6H PRN PRN PRN Reason: PAIN Albuterol Sulfate (Ventolin Aerosols) 2.5 mg INHALATION Q2H PRN PRN PRN Reason: SHORTNESS OF BREATH Albuterol/Ipratropium (Duoneb) 3 ml INHALATION Q4H.RT [facility] Last Admin: 02/13/18 11:31 Dose: 3 ml Atorvastatin Calcium (Lipitor) 20 mg PO QHS [facility] Last Admin: 02/12/18 21:44 Dose: Not Given Bisacodyl (Dulcolax) 10 mg RECTAL DAILY PRN PRN Reason: Constipation Buspirone HCl (Buspar) 15 mg PO TID [facility] Last Admin: 02/13/18 14:39 Dose: 15 mg Calcium/Vitamin D (Os-Carlos 500mg + D) 1 tablet PO DAILY [facility] Last Admin: 02/13/18 08:23 Dose: 1 tablet Cholecalciferol (Vitamin D) 2,000 unit PO DAILY [facility] Last Admin: 02/13/18 11:14 Dose: Not Given Dextrose (D50w Syringe) 0 gm IV X1 PRN; Protocol PRN Reason: Hypoglycemia Duloxetine HCl (Cymbalta) 60 mg PO DAILY [facility] Last Admin: 02/13/18 14:39 Dose: 60 mg Ezetimibe (Zetia) 10 mg PO DAILY [facility] Last Admin: 02/13/18 14:39 Dose: 10 mg Famotidine (Pepcid) 20 mg PO BID [facility] Last Admin: 02/13/18 08:24 Dose: 20 mg Ferrous Sulfate (Ferrous Sulfate) 325 mg PO [facility] Last Admin: 02/13/18 08:19 Dose: Not Given Furosemide (Lasix) 20 mg IV BID@1000,1800 [facility] Last Admin: 02/13/18 10:49 Dose: 20 mg Glucagon () 1 mg IM .X1 PRN PRN Reason: Hypoglycemia Guaifenesin (Robitussin Dm) 10 ml PO Q6H PRN PRN PRN Reason: COUGH Last Admin: 02/11/18 22:36 Dose: 10 ml Clindamycin Phosphate (Cleocin) 300 mg in 50 mls @ 150 mls/hr IV Q6 [facility] Last Admin: 02/13/18 11:02 Dose: 150 mls/hr Insulin Glargine (Lantus (Bkc)) 15 units SC QHS [facility] Last Admin: 02/12/18 21:45 Dose: 15 u Insulin Human Lispro (Humalog Kwikpen (Bkc)) 0 unit SQ 4X/[facility] PRN Reason: Protocol Lactobacillus Acidophilus (Acidophilus) 1 tablet PO DAILY [facility] Last Admin: 02/13/18 08:23 Dose: 1 tablet Levothyroxine Sodium (Synthroid) 25 mcg PO DAILY@0600 [facility] Last Admin: 02/13/18 06:22 Dose: 25 mcg Loratadine (Claritin) 10 mg PO DAILY [facility] Last Admin: 02/13/18 11:12 Dose: Not Given Losartan Potassium (Cozaar) 25 mg PO DAILY [facility] Last Admin: 02/13/18 10:49 Dose: 25 mg Magnesium Hydroxide (Milk Of Magnesia) 30 ml PO DAILY PRN PRN Reason: Constipation Last Admin: 02/13/18 08:29 Dose: 30 ml Magnesium Oxide (Mag-Ox 400) 400 mg PO DAILY [facility] Last Admin: 02/13/18 08:23 Dose: 400 mg Methylprednisolone (Solu-Medrol) 40 mg IV Q8 [facility] Montelukast Sodium (Singulair) 10 mg PO DAILY [facility] Last Admin: 02/13/18 11:14 Dose: Not Given Morphine Sulfate () 1 mg IV Q3H PRN PRN PRN Reason: Severe Pain (pain scale 6-10) Pantoprazole Sodium (Protonix) 40 mg PO BID [facility] Last Admin: 02/13/18 08:24 Dose: 40 mg Polyethylene Glycol (Miralax) 17 gm PO DAILY PRN PRN Reason: Constipation Last Admin: 02/12/18 08:46 Dose: 17 gm Potassium Chloride (K-Dur) 10 meq PO DAILY [facility] Last Admin: 02/13/18 08:22 Dose: 10 meq Senna/Docusate Sodium (Senokot-S, Emily-Colace) 2 tablet PO BID PRN PRN Reason: Constipation Sodium Chloride ([place] Nasal [place]) 1 spray NASAL BID [facility] Last Admin: 02/13/18 08:30 Dose: 1 spray Sodium Chloride () 5 - 30 ml IV UD PRN PRN Reason: SALINE FLUSH Last Admin: 02/12/18 17:09 Dose: 10 ml Warfarin Sodium (Coumadin (Pbkc)) 3 mg PO DAILY@1700 [facility] Last Admin: 02/12/18 17:06 Dose: 3 mg Medical Necessity - Tobacco Use Smoking Status: Former smoker Tobacco Use: Cigarettes Assessment/Plan All Active Problems CHF (congestive heart failure) (Acute) Cellulitis (Acute) Acute on chronic respiratory failure with hypoxia and hypercapnia (Acute)
--- NOTE | 2018-02-13 14:51 | PN_ITS ---
Patient Problems: Active and Suspected Problems CHF (congestive heart failure) (Acute) Cellulitis (Acute) Acute on chronic respiratory failure with hypoxia and hypercapnia (Acute) Subjective: Patient seen and examined. Patient is about the same, easily desaturates when the Bipap is taken off. Noted that left foot is erythematous, warm to touch. Wants full code. Objective: Physical exam: General: Alert, lethargic, cooperative, in moderate respiratory distress, obese HEENT: Atraumatic, PERRLA, EOMI, Normocephalic Oral: Moist Mucosa Neck: Supple Lungs: Wheezes++, diminished AE all over the lungs Cardiovascular: Regular rate, Regular Rhythm, Normal S1, Normal S2, No murmurs Abdomen: Bowel Sounds Present, Soft, Non Tender, Non-Distended, No Hepato- splenomegaly Extremities: Right lower extremity swelling is better, redness has improved, trace edema Skin: No rashes, No breakdown Musculoskeletal: No Tenderness to Palpation of Joints or Extremities Lymphatic: No Cervical, Supraclavicular, or Inguinal Adenopathy Neurological: Cranial nerves II-XII grossly intact, Neuro grossly intact Psych/Mental Status: Normal Affect, Appropriate Vitals/I&O's: Vital Signs Temp Pulse Resp BP Pulse Ox 98.0 F 91 22 H 155/78 H 93 02/13/18 09:35 02/13/18 14:15 02/13/18 14:15 02/13/18 09:35 02/13/18 14:15 Oxygen Flow Rate (L/min) 4 Oxygen Delivery Method Bi-pap Weight: 104.1 kg Body Mass Index (BMI) 45.8 Intake and Output for Last 24 Hours 02/11/18 02/12/18 02/13/18 23:59 23:59 23:59 Intake Total 1020 / 1020 1380 / 1380 212.6 / 212.6 Output Total 1999 / 1999 4050 / 4050 500 / 500 Balance -980 / -980 -2670 / -2670 -287.4 / -287.4 Laboratory Results 02/12/18 15:17: Specimen Type ART, Sample Site RRADIAL, pH 7.33 L, Bicarbonate Actual 58.8 H, POC Total CO2 > 50, Base Excess > 30 H, O2 Saturation 86 L, ABG pCO2 112.5 H*, ABG pO2 62 L, Luis Test POS, O2 Delivery Device NC, Liter Flow 4.0, Blood Gas Notified Whom KELSEA DAVIS, Blood Gas Notified Time 1517 02/12/18 15:35: B-Natriuretic Peptide 126.3 H 02/12/18 17:14: POC Glucose 233 H 02/12/18 21:25: Specimen Type ART, Sample Site R RADIAL, pH 7.43, Bicarbonate Actual 63.2 H, POC Total CO2 > 50, Base Excess > 30 H, O2 Saturation 91 L, O2 % 35, ABG pCO2 96.2 H*, ABG pO2 65 L, Luis Test POS, Respiration Rate 14, POC PEEP 8, Blood Gas Notified Whom KELSEA DAVIS, Blood Gas Notified Time 212402/12/18 21:40: POC Glucose 174 H 02/13/18 06:00: WBC Cancelled, Corrected WBC Cancelled, RBC Cancelled, Hgb Cancelled, Hct Cancelled, MCV Cancelled, MCH Cancelled, MCHC Cancelled, RDW Cancelled, RDW Differential Cancelled, Plt Count Cancelled, MPV Cancelled, Immature Gran % (Auto) Cancelled, Neut % (Auto) Cancelled, Lymph % (Auto) Cancelled, [place] % (Auto) Cancelled, Eos % (Auto) Cancelled, Baso % (Auto) Cancelled, Immature Gran # (Auto) Cancelled, Absolute Neuts (auto) Cancelled, Absolute Lymphs (auto) Cancelled, Absolute Monos (auto) Cancelled, Total Counted Cancelled, Neutrophils % (Manual) Cancelled, Band Neutrophils % Cancelled, Lymphocytes % (Manual) Cancelled, Monocytes % (Manual) Cancelled, Eosinophils % (Manual) Cancelled, Basophils % (Manual) Cancelled, Metamyelocytes % Cancelled, Myelocytes % Cancelled, Promyelocytes % Cancelled, Blast Cells % Cancelled, Plasma Cell % (Manual) Cancelled, Other Cells % Cancelled, Lymphocytes # Cancelled, Nucleated RBCs/100 WBC Cancelled, Differential Comment Cancelled, Diff Path Review Cancelled, Hypersegmented Neuts Cancelled, Atypical Lymphocytes Cancelled, Reactive Lymphocytes Cancelled , Smudge Cells Cancelled, Eosinophilia # Cancelled, Basophilia # Cancelled, Toxic Granulation Cancelled, Dohle Bodies Cancelled, Arnaldo Rods Cancelled, Platelet Estimate Cancelled, Plt Morphology Comment Cancelled, RBC Morphology Cancelled, Polychromasia Cancelled, Hypochromasia Cancelled, Poikilocytosis Cancelled, Basophilic Stippling Cancelled, Anisocytosis Cancelled, Microcytosis Cancelled, Macrocytosis Cancelled, Spherocytes Cancelled, Sickle Cells Cancelled , Target Cells Cancelled, Tear Drop Cells Cancelled, Ovalocytes Cancelled, Stomatocytes Cancelled, [place] Bodies Cancelled, Tana Cells Cancelled, Bite Cells Cancelled, Acanthocytes (Spur) Cancelled, Rouleaux Cancelled, Schistocytes Cancelled 02/13/18 06:00: Sodium 140, Potassium 4.6, Chloride 85 L, Carbon Dioxide > 45.0 H*, Anion Gap TNP, BUN 20 H, Creatinine 0.66, Estim Creat Clear Calc 37.60, Est GFR (MDRD) Af Amer 113, Est GFR (MDRD) Non-Af 93, BUN/Creatinine Ratio 30.1 H, Glucose 242 H, Calcium 9.1 02/13/18 06:43: POC Glucose 201 H 02/13/18 08:08: PT 24.7 H, INR 2.2 02/13/18 08:08: WBC 12.4 H, RBC 4.03 L, Hgb 10.8 L, Hct 38.3, MCV 95.0, MCH 26.8 L, MCHC 28.2 L, RDW 15.2 H, RDW Differential 51.3 H, Plt Count 225, MPV 11.5, Immature Gran % (Auto) 0.800, Neut % (Auto) 82.6 H, Lymph % (Auto) 5.9 L, [place] % (Auto) 10.5 H, Eos % (Auto) 0.0, Baso % (Auto) 0.2, Absolute Neuts (auto ) 10.3 H, Absolute Lymphs (auto) 0.73 L, Total Counted Not Reportable 02/13/18 11:19: POC Glucose 262 H 02/13/18 12:46: Specimen Type ART, Sample Site R Radial, pH 7.36, Bicarbonate Actual 63.9 H, POC Total CO2 > 50, Base Excess > 30 H, O2 Saturation 93 L, O2 % 40, ABG pCO2 112.0 H*, ABG pO2 77, Luis Test POS, Respiration Rate 12, O2 Delivery Device Bi / C PAP, EPAP 8, Blood Gas Notified Whom HOSP , Blood Gas Notified Time 1245 Current Medications Acetaminophen (Tylenol) 500 mg PO Q6H PRN PRN PRN Reason: PAIN Hydrocodone Bitart/Acetaminophen ([place] 5mg-325mg) 1 tablet PO Q6H PRN PRN PRN Reason: PAIN Albuterol Sulfate (Ventolin Aerosols) 2.5 mg INHALATION Q2H PRN PRN PRN Reason: SHORTNESS OF BREATH Albuterol/Ipratropium (Duoneb) 3 ml INHALATION Q4H.RT [facility] Last Admin: 02/13/18 11:31 Dose: 3 ml Atorvastatin Calcium (Lipitor) 20 mg PO QHS [facility] Last Admin: 02/12/18 21:44 Dose: Not Given Bisacodyl (Dulcolax) 10 mg RECTAL DAILY PRN PRN Reason: Constipation Buspirone HCl (Buspar) 15 mg PO TID [facility] Last Admin: 02/13/18 14:39 Dose: 15 mg Calcium/Vitamin D (Os-Carlos 500mg + D) 1 tablet PO DAILY [facility] Last Admin: 02/13/18 08:23 Dose: 1 tablet Cholecalciferol (Vitamin D) 2,000 unit PO DAILY [facility] Last Admin: 02/13/18 11:14 Dose: Not Given Dextrose (D50w Syringe) 0 gm IV X1 PRN; Protocol PRN Reason: Hypoglycemia Duloxetine HCl (Cymbalta) 60 mg PO DAILY [facility] Last Admin: 02/13/18 14:39 Dose: 60 mg Ezetimibe (Zetia) 10 mg PO DAILY [facility] Last Admin: 02/13/18 14:39 Dose: 10 mg Famotidine (Pepcid) 20 mg PO BID [facility] Last Admin: 02/13/18 08:24 Dose: 20 mg Ferrous Sulfate (Ferrous Sulfate) 325 mg PO DAILYCM [facility] Last Admin: 02/13/18 08:19 Dose: Not Given Furosemide (Lasix) 20 mg IV BID@1000,1800 [facility] Last Admin: 02/13/18 10:49 Dose: 20 mg Glucagon () 1 mg IM .X1 PRN PRN Reason: Hypoglycemia Guaifenesin (Robitussin Dm) 10 ml PO Q6H PRN PRN PRN Reason: COUGH Last Admin: 02/11/18 22:36 Dose: 10 ml Clindamycin Phosphate (Cleocin) 300 mg in 50 mls @ 150 mls/hr IV Q6 [facility] Last Admin: 02/13/18 11:02 Dose: 150 mls/hr Insulin Glargine (Lantus (Bkc)) 15 units SC QHS [facility] Last Admin: 02/12/18 21:45 Dose: 15 u Insulin Human Lispro (Humalog Kwikpen (Bk)) 0 unit SQ 4X/DAYCM [facility] PRN Reason: Protocol Lactobacillus Acidophilus (Acidophilus) 1 tablet PO DAILY [facility] Last Admin: 02/13/18 08:23 Dose: 1 tablet Levothyroxine Sodium (Synthroid) 25 mcg PO DAILY@0600 [facility] Last Admin: 02/13/18 06:22 Dose: 25 mcg Loratadine (Claritin) 10 mg PO DAILY [facility] Last Admin: 02/13/18 11:12 Dose: Not Given Losartan Potassium (Cozaar) 25 mg PO DAILY [facility] Last Admin: 02/13/18 10:49 Dose: 25 mg Magnesium Hydroxide (Milk Of Magnesia) 30 ml PO DAILY PRN PRN Reason: Constipation Last Admin: 02/13/18 08:29 Dose: 30 ml Magnesium Oxide (Mag-Ox 400) 400 mg PO DAILY [facility] Last Admin: 02/13/18 08:23 Dose: 400 mg Methylprednisolone (Solu-Medrol) 40 mg IV Q8 [facility] Montelukast Sodium (Singulair) 10 mg PO DAILY [facility] Last Admin: 02/13/18 11:14 Dose: Not Given Morphine Sulfate () 1 mg IV Q3H PRN PRN PRN Reason: Severe Pain (pain scale 6-10) Pantoprazole Sodium (Protonix) 40 mg PO BID [facility] Last Admin: 02/13/18 08:24 Dose: 40 mg Polyethylene Glycol (Miralax) 17 gm PO DAILY PRN PRN Reason: Constipation Last Admin: 02/12/18 08:46 Dose: 17 gm Potassium Chloride (K-Dur) 10 meq PO DAILY [facility] Last Admin: 02/13/18 08:22 Dose: 10 meq Senna/Docusate Sodium (Senokot-S, Emily-Colace) 2 tablet PO BID PRN PRN Reason: Constipation Sodium Chloride ([place] Nasal [place]) 1 spray NASAL BID [facility] Last Admin: 02/13/18 08:30 Dose: 1 spray Sodium Chloride () 5 - 30 ml IV UD PRN PRN Reason: SALINE FLUSH Last Admin: 02/12/18 17:09 Dose: 10 ml Warfarin Sodium (Coumadin (Pbkc)) 3 mg PO DAILY@1700 [facility] Last Admin: 02/12/18 17:06 Dose: 3 mg Medical Necessity - Tobacco Use Smoking Status: Former smoker Tobacco Use: Cigarettes Assessment/Plan All Active Problems CHF (congestive heart failure) (Acute) Cellulitis (Acute) Acute on chronic respiratory failure with hypoxia and hypercapnia (Acute) 72-year-old female with multiple comorbidities, who gets most of her care in the [facility], comes in with complaints of worsening shortness of breath ongoing over the several days. 1. Acute hypoxic hypercapnic respiratory failure in a patient with severe COPD/ diastolic heart failure, patient is on AVAPS, continues to be about the same with wheezes. Patient appears to be getting tired. Patient is full code, will continue on AVAPs for most part of the day. 2. Acute COPD exacerbation, on IV steroids 40mg , continue breathing treatments and steroids. 3. Hypokalemia, resolved 4. Right lower extremity cellulitis, resolving, had an acute reaction to keflex , off keflex, 5. History of LEDY, obesity hypoventilation syndrome, continue on AVAPS 6. Hyperlipidemia, on statin 7. Hypertension, continue on Cozaar, 8. Anxiety/depression, continue on Cymbalta, buspar 9. Hypothyroidism, on levothyroxine 10. Type II DM, BS is uncontrolled, continue on Lantus 15 units QHS, premeal lispro to units 15 units tid 11. History of diatolic CHF, continue on Lasix 20mg IV bid, same as home going dose. 12. H/o DVT on coumadin, INR subtherapeutic at 1.8, will continue on Lovenox, coumadin. Will dc Lovenox if INR gets therapeutic. 13. DVT prophylaxis with Lovenox subcu 14. Code status - full code Code Visit Inpatient E&M: 44881 Subs Hosp L2
--- NOTE | 2018-02-13 16:07 | RAD_ITS ---
STUDY: X-RAY CHEST REASON FOR EXAM: Female, 72 years old. Dyspnea, CHF exacerbation, COPD. TECHNIQUE: Single AP portable upright view of the chest. COMPARISON: Portable AP upright chest x-ray February 12, 2018. FINDINGS: There is improved inspiratory effort on today's exam, and basilar atelectasis is improved. A cluster of small nodular densities in the lateral left midlung may be summation artifacts or small calcified granulomata. Question of subtle soft tissue nodules versus summation artifact or other patchy airspace disease in the right apex, not clearly apparent on the previous exam had There is no demonstrated pleural abnormality. There is stable mild cardiac enlargement. Normal mediastinum. There is some depression of the luke. Normal visualized pulmonary arteries when allowing for crowding. There is stable atherosclerotic calcification of the aortic arch. Poorly visualized thoracic spine. Normal visualized ribs, clavicles, and shoulders. There is no demonstrated abnormality of the visualized soft tissue structures of the upper abdomen. RAD/Chest 1 View (Portable) IMPRESSION: 1. Improved inspiratory effort with improving basilar atelectasis. 2. Summation artifact versus new patchy infiltrate or vague nodular densities in the right apex. These can be reevaluated on follow-up study. 3. Stable mild cardiac enlargement. No CHF. Electronically Signed: Angel Will MD at 16:36 EDT , Service support ,
[2018-02-13 17:35] LABS: Bedside Glucose 138 mg/dL (70-110)
[2018-02-13] MEDS: 0.9% NaCl Peripheral Flush Adult/Peds IV (22:26)
[2018-02-14] VITALS (38 sets, daily range): BP systolic 84–133; BP diastolic 40–79; PULSE 74–111; RESP 12–37; TEMP 36.3–36.9; O2SAT 40–100
[2018-02-14 00:26] LABS: Bedside Glucose 234 mg/dL (70-110)
[2018-02-14] MEDS: Ipratropium/Albuterol Sulfate 3 ML AMPUL.NEB INHALATION ×6 (03:33→23:16)
[2018-02-14] MEDS: busPIRone 15 MG TABLET PO ×2 (05:49→22:13)
[2018-02-14] MEDS: Levothyroxine 25 MCG TABLET PO (05:49)
[2018-02-14] MEDS: guaiFENesin Dm 10 ML UDC PO (05:49)
[2018-02-14 07:10] LABS: Bedside Glucose 284 mg/dL (70-110)
[2018-02-14 07:51] LABS: International Normalized Ratio 2.9; Prothrombin Time (Protime)PT. 30.7 SECONDS (11.7-14.9)
--- NOTE | 2018-02-14 08:13 | PCM.PROGNOTE ---
Patient Problems: Active and Suspected Problems CHF (congestive heart failure) (Acute) Cellulitis (Acute) Acute on chronic respiratory failure with hypoxia and hypercapnia (Acute) Subjective: Patient was seen and examined. Nursing staff reports she has been on AVAPS pretty consistently for the last 24 hours. The patient still appears labored despite noninvasive positive pressure therapy. She is fatigued. She is unable to tolerate breaks on nasal cannula as much as she was the previous week. She denies any significant cough or sputum production. Objective: Recent lab and culture data reviewed. INR 2.9 today. Viral respiratory panel and urine strep/Legionella antigens were negative. Cumulative fluid balance -7271 mL. - Physical Exam General: Alert, Oriented x3, Cooperative, - - Dyspneic, general ill appearance. Fatigued, difficult for her to maintain opening eyes HEENT: Atraumatic, Normocephalic Oral: No Gingival or Mucosal Lesions/ Ulcerations, Dry Mucosa Neck: Supple, Trachea Midline Lungs: Diminished, - - minimal rales R base, otherwise no appreciable rhonchi or wheezes. Minimal air movement overall. Cardiovascular: Regular rate, Regular Rhythm, Normal S1, Normal S2, No murmurs, No rub noted, No Gallop Abdomen: Bowel Sounds Present, Soft, Non Tender, Obese Extremities: No cyanosis, Clubbing, Edema Skin: - - No changes from previous Musculoskeletal: No Tenderness to Palpation of Joints or Extremities Lymphatic: No Cervical, Supraclavicular, or Inguinal Adenopathy Neurological: Neuro grossly intact Psych/Mental Status: Flat Affect, - - Fatigued Vital Signs Temp Pulse Resp BP Pulse Ox 98 F 92 24 H 112/40 L 92 02/14/18 03:07 02/14/18 08:00 02/14/18 08:00 02/14/18 03:07 02/14/18 08:00 Oxygen Flow Rate (L/min) 4 Oxygen Delivery Method Bi-pap Weight: 227 lb 15.327 oz Body Mass Index (BMI) 45.8 Intake and Output for Last 24 Hours 02/12/18 02/13/18 02/14/18 23:59 23:59 23:59 Intake Total 1380 / 1380 745.7 / 745.7 120 / 120 Output Total 4050 / 4050 1999 / 1999 500 / 500 Balance -2670 / -2670 -1254.3 / -1254.3 -380 / -380 Laboratory Tests Past 24 Hrs 02/12/18 02/12/18 02/13/18 15:17 21:25 08:08 WBC RBC Hgb Hct MCV MCH MCHC RDW RDW Differential Plt Count MPV Immature Gran % (Auto) Neut % (Auto) Lymph % (Auto) [place] % (Auto) Eos % (Auto) Baso % (Auto) Absolute Neuts (auto) Absolute Lymphs (auto) Total Counted PT 24.7 H INR 2.2 Specimen Type ART Sample Site RRADIAL pH 7.33 L Bicarbonate Actual 58.8 H POC Total CO2 > 50 > 50 Base Excess > 30 H > 30 H O2 Saturation 86 L O2 % ABG pCO2 112.5 H* ABG pO2 62 L Luis Test POS Respiration Rate O2 Delivery Device NC Liter Flow 4.0 EPAP Blood Gas Notified Whom [facility] Blood Gas Notified Time [id number] 02/13/18 02/13/18 02/14/18 08:08 12:46 05:40 WBC 12.4 H RBC 4.03 L Hgb 10.8 L Hct 38.3 MCV 95.0 MCH 26.8 L MCHC 28.2 L RDW 15.2 H RDW Differential 51.3 H Plt Count 225 MPV 11.5 Immature Gran % (Auto) 0.800 Neut % (Auto) 82.6 H Lymph % (Auto) 5.9 L [place] % (Auto) 10.5 H Eos % (Auto) 0.0 Baso % (Auto) 0.2 Absolute Neuts (auto) 10.3 H Absolute Lymphs (auto) 0.73 L Total Counted Not Reportable PT Cancelled INR Cancelled Specimen Type ART Sample Site R Radial pH 7.36 Bicarbonate Actual 63.9 H POC Total CO2 > 50 Base Excess > 30 H O2 Saturation 93 L O2 % 40 ABG pCO2 112.0 H* ABG pO2 77 Luis Test POS Respiration Rate 12 O2 Delivery Device Bi / C PAP Liter Flow EPAP 8 Blood Gas Notified Whom [facility] Blood Gas Notified Time 1245 02/14/18 07:10 WBC RBC Hgb Hct MCV MCH MCHC RDW RDW Differential Plt Count MPV Immature Gran % (Auto) Neut % (Auto) Lymph % (Auto) [place] % (Auto) Eos % (Auto) Baso % (Auto) Absolute Neuts (auto) Absolute Lymphs (auto) Total Counted PT 30.7 H INR 2.9 Specimen Type Sample Site pH Bicarbonate Actual POC Total CO2 Base Excess O2 Saturation O2 % ABG pCO2 ABG pO2 Luis Test Respiration Rate O2 Delivery Device Liter Flow EPAP Blood Gas Notified Whom Blood Gas Notified Time POC Glucose 02/14/18 02/13/18 02/13/18 07:01 22:18 17:21 POC Glucose 284 H 234 H 138 H 02/13/18 11:19 POC Glucose 262 H Medical Necessity - Tobacco Use Smoking Status: Former smoker Tobacco Use: Cigarettes Assessment/Plan All Active Problems CHF (congestive heart failure) (Acute) Cellulitis (Acute) Acute on chronic respiratory failure with hypoxia and hypercapnia (Acute) RECOMMENDATIONS 1. Wean oxygen supplementation to keep saturations 88-92% to prevent paradoxical CO2 retention (baseline 3L) 2. Increase activity as tolerated 3. Continue bronchodilators, Coumadin 4. Continue IV steroids 5. Consider palliative care/hospice consult 6. Patient should follow-up with her primary transport nurse within 2 weeks of discharge from the hospital 7. Daughter to meet with staff and discuss code status IMPRESSIONS 1. Acute on chronic hypoxic and hypercarbic respiratory failure Likely multifactorial. Echo does show significant pulmonary hypertension and I suspect patient is chronically hypoxic, especially with exertion. Echo from [facility] in October 2017 also showed grade II diastolic dysfunction. Infectious workup negative. Patient supposed to start pulmonary rehab but has not. She is on chronic prednisone. Continue AVAPS with all sleep and intermittently throughout the day as needed. Will reinitiate steroid therapy by IV, but long-term prognosis is poor. Patient already with a resting carbon dioxide over 90. Continue with bronchodilators. Do anticipate patient will require AVAPS intermittently throughout the day given advanced lung disease. No changes required in current settings. Patient is likely not a candidate for lung transplant evaluation given advanced age, comorbidities and history of noncompliance. The daughter has agreed to come in this evening and discussed CODE STATUS and goals of care. Patient has low threshold for intubation and will likely need PEG tube placement if going this route. Patient is hospice/palliative care appropriate, no consult at this time until discussion with daughter. 2. Right lower extremity cellulitis Patient recently completed a 10 day course of doxycycline. Antibiotics changed to Clindamycin. However, patient lists several allergies to various antibiotics. ID consult, placed on Keflex. Would defer to infectious disease on whether antibiotics need to be reinitiated. No signs of cellulitis on my exam. 3. COPD with probable exacerbation Patient with increased dyspnea, sputum production, cough. Uses albuterol and Atrovent nebulizers at home. Recently transitioned to Trelegy but has yet to start this. See #1. (Records from [facility] showing FEV1 30% of predicted in November 2017, severe obstructive ventilatory defect with minimal response to bronchodilators). 4. Self-reported history of obstructive sleep apnea Questionable compliance with trilogy at home. Use AVAPS with all sleep. 5. Morbid obesity/hypothyroidism/history of DVT/anxiety/depression/hypokalemia/DM Complicates care, management, recovery, and prognosis. Continue home medications as indicated. Electrolyte repletion as indicated. Adjusting insulin while on steroids. May need to increase insulin coverage given increase in steroid therapy. This note was generated with [employer] dictation software. It may contain incorrect words, spelling, and punctuation that were not noted in checking the note before signing.
--- NOTE | 2018-02-14 08:20 | PN_ITS ---
Patient Problems: Active and Suspected Problems CHF (congestive heart failure) (Acute) Cellulitis (Acute) Acute on chronic respiratory failure with hypoxia and hypercapnia (Acute) Subjective: Patient was seen and examined. Nursing staff reports she has been on AVAPS pretty consistently for the last 24 hours. The patient still appears labored despite noninvasive positive pressure therapy. She is fatigued. She is unable to tolerate breaks on nasal cannula as much as she was the previous week. She denies any significant cough or sputum production. Objective: Recent lab and culture data reviewed. INR 2.9 today. Viral respiratory panel and urine strep/Legionella antigens were negative. Cumulative fluid balance - 7271 mL. - Physical Exam General: Alert, Oriented x3, Cooperative, - - Dyspneic, general ill appearance. Fatigued, difficult for her to maintain opening eyes HEENT: Atraumatic, Normocephalic Oral: No Gingival or Mucosal Lesions/ Ulcerations, Dry Mucosa Neck: Supple, Trachea Midline Lungs: Diminished, - - minimal rales R base, otherwise no appreciable rhonchi or wheezes. Minimal air movement overall. Cardiovascular: Regular rate, Regular Rhythm, Normal S1, Normal S2, No murmurs, No rub noted, No Gallop Abdomen: Bowel Sounds Present, Soft, Non Tender, Obese Extremities: No cyanosis, Clubbing, Edema Skin: - - No changes from previous Musculoskeletal: No Tenderness to Palpation of Joints or Extremities Lymphatic: No Cervical, Supraclavicular, or Inguinal Adenopathy Neurological: Neuro grossly intact Psych/Mental Status: Flat Affect, - - Fatigued Vital Signs Temp Pulse Resp BP Pulse Ox 98 F 92 24 H 112/40 L 92 02/14/18 03:07 02/14/18 08:00 02/14/18 08:00 02/14/18 03:07 02/14/18 08:00 Oxygen Flow Rate (L/min) 4 Oxygen Delivery Method Bi-pap Weight: 227 lb 15.327 oz Body Mass Index (BMI) 45.8 Intake and Output for Last 24 Hours 02/12/18 02/13/18 02/14/18 23:59 23:59 23:59 Intake Total 1380 / 1380 745.7 / 745.7 120 / 120 Output Total 4050 / 4050 1999 / 1999 500 / 500 Balance -2670 / -2670 -1254.3 / -1254.3 -380 / -380 Laboratory Tests Past 24 Hrs 02/12/18 02/12/18 02/13/18 15:17 21:25 08:08 WBC RBC Hgb Hct MCV MCH MCHC RDW RDW Differential Plt Count MPV Immature Gran % (Auto) Neut % (Auto) Lymph % (Auto) [place] % (Auto) Eos % (Auto) Baso % (Auto) Absolute Neuts (auto) Absolute Lymphs (auto) Total Counted PT 24.7 H INR 2.2 Specimen Type ART Sample Site RRADIAL pH 7.33 L Bicarbonate Actual 58.8 H POC Total CO2 > 50 > 50 Base Excess > 30 H > 30 H O2 Saturation 86 L O2 % ABG pCO2 112.5 H* ABG pO2 62 L Luis Test POS Respiration Rate O2 Delivery Device NC Liter Flow 4.0 EPAP Blood Gas Notified Whom [facility] Blood Gas Notified Time 0814 8743 02/13/18 02/13/18 02/14/18 08:08 12:46 05:40 WBC 12.4 H RBC 4.03 L Hgb 10.8 L Hct 38.3 MCV 95.0 MCH 26.8 L MCHC 28.2 L RDW 15.2 H RDW Differential 51.3 H Plt Count 225 MPV 11.5 Immature Gran % (Auto) 0.800 Neut % (Auto) 82.6 H Lymph % (Auto) 5.9 L [place] % (Auto) 10.5 H Eos % (Auto) 0.0 Baso % (Auto) 0.2 Absolute Neuts (auto) 10.3 H Absolute Lymphs (auto) 0.73 L Total Counted Not Reportable PT Cancelled INR Cancelled Specimen Type ART Sample Site R Radial pH 7.36 Bicarbonate Actual 63.9 H POC Total CO2 > 50 Base Excess > 30 H O2 Saturation 93 L O2 % 40 ABG pCO2 112.0 H* ABG pO2 77 Luis Test POS Respiration Rate 12 O2 Delivery Device Bi / C PAP Liter Flow EPAP 8 Blood Gas Notified Whom [facility] Blood Gas Notified Time 1245 02/14/18 07:10 WBC RBC Hgb Hct MCV MCH MCHC RDW RDW Differential Plt Count MPV Immature Gran % (Auto) Neut % (Auto) Lymph % (Auto) [place] % (Auto) Eos % (Auto) Baso % (Auto) Absolute Neuts (auto) Absolute Lymphs (auto) Total Counted PT 30.7 H INR 2.9 Specimen Type Sample Site pH Bicarbonate Actual POC Total CO2 Base Excess O2 Saturation O2 % ABG pCO2 ABG pO2 Luis Test Respiration Rate O2 Delivery Device Liter Flow EPAP Blood Gas Notified Whom Blood Gas Notified Time POC Glucose 02/14/18 02/13/18 02/13/18 07:01 22:18 17:21 POC Glucose 284 H 234 H 138 H 02/13/18 11:19 POC Glucose 262 H Medical Necessity - Tobacco Use Smoking Status: Former smoker Tobacco Use: Cigarettes Assessment/Plan All Active Problems CHF (congestive heart failure) (Acute) Cellulitis (Acute) Acute on chronic respiratory failure with hypoxia and hypercapnia (Acute) RECOMMENDATIONS 1. Wean oxygen supplementation to keep saturations 88-92% to prevent paradoxical CO2 retention (baseline 3L) 2. Increase activity as tolerated 3. Continue bronchodilators, Coumadin 4. Continue IV steroids 5. Consider palliative care/hospice consult 6. Patient should follow-up with her primary manager integration within 2 weeks of discharge from the hospital 7. Daughter to meet with staff and discuss code status IMPRESSIONS 1. Acute on chronic hypoxic and hypercarbic respiratory failure Likely multifactorial. Echo does show significant pulmonary hypertension and I suspect patient is chronically hypoxic, especially with exertion. Echo from [facility] in October 2017 also showed grade II diastolic dysfunction. Infectious workup negative. Patient supposed to start pulmonary rehab but has not. She is on chronic prednisone. Continue AVAPS with all sleep and intermittently throughout the day as needed. Will reinitiate steroid therapy by IV, but long- term prognosis is poor. Patient already with a resting carbon dioxide over 90. Continue with bronchodilators. Do anticipate patient will require AVAPS intermittently throughout the day given advanced lung disease. No changes required in current settings. Patient is likely not a candidate for lung transplant evaluation given advanced age, comorbidities and history of noncompliance. The daughter has agreed to come in this evening and discussed CODE STATUS and goals of care. Patient has low threshold for intubation and will likely need PEG tube placement if going this route. Patient is hospice/ palliative care appropriate, no consult at this time until discussion with daughter. 2. Right lower extremity cellulitis Patient recently completed a 10 day course of doxycycline. Antibiotics changed to Clindamycin. However, patient lists several allergies to various antibiotics. ID consult, placed on Keflex. Would defer to infectious disease on whether antibiotics need to be reinitiated. No signs of cellulitis on my exam. 3. COPD with probable exacerbation Patient with increased dyspnea, sputum production, cough. Uses albuterol and Atrovent nebulizers at home. Recently transitioned to Trelegy but has yet to start this. See #1. (Records from [facility] showing FEV1 30% of predicted in November 2017, severe obstructive ventilatory defect with minimal response to bronchodilators). 4. Self-reported history of obstructive sleep apnea Questionable compliance with trilogy at home. Use AVAPS with all sleep. 5. Morbid obesity/hypothyroidism/history of DVT/anxiety/depression/hypokalemia/ DM Complicates care, management, recovery, and prognosis. Continue home medications as indicated. Electrolyte repletion as indicated. Adjusting insulin while on steroids. May need to increase insulin coverage given increase in steroid therapy. This note was generated with HQ plus dictation software. It may contain incorrect words, spelling, and punctuation that were not noted in checking the note before signing.
[2018-02-14] MEDS: Calcium Carb/Vitamin D 1 TABLET Tablet PO (09:08)
[2018-02-14] MEDS: Loratadine 10 MG Tablet PO (09:08)
[2018-02-14] MEDS: Pantoprazole Sodium 40 MG Tablet PO (09:08)
[2018-02-14] MEDS: Losartan Potassium 25 MG Tablet PO (09:09)
[2018-02-14] MEDS: Furosemide 20 MG/2 ML VIAL IV ×2 (09:13→18:27)
[2018-02-14] MEDS: Magnesium Oxide 400 MG Tablet PO (09:13)
[2018-02-14] MEDS: Insulin Lispro 100 UNIT/ML INSULN.PEN SQ ×4 (09:14→23:34)
[2018-02-14] MEDS: Sodium Chloride 0.65% 1 SPRAY SPRAY.BTL NASAL (09:15)
[2018-02-14] MEDS: 0.9% NaCl Peripheral Flush Adult/Peds IV (09:21)
--- NOTE | 2018-02-14 10:24 | CASEMGMT ---
LOIDA spoke with patient to see if she still wanted to go to [facility]. She said she thought she was going here. LOIDA told her she can go wherever she wants to go. She said she wants to go to [facility]. LOIDA told her that we will have to wait on her insurance to approve. LOIDA called Marlyn and left her a voice mail to start the pre-cert and LOIDA also faxed updates. Plan: [facility] pending insurance approval. Gladys PITTS MSW
--- NOTE | 2018-02-14 10:45 | PCM.PN.ID ---
Patient Problems: Active and Suspected Problems CHF (congestive heart failure) (Acute) Cellulitis (Acute) Acute on chronic respiratory failure with hypoxia and hypercapnia (Acute) Subjective: Still some dyspnea and wheezing. No fever. No pain in foot. Leg redness resolved. - Physical Exam General: Alert, Cooperative Lungs: Rhonchi, Using Accessory Muscles, Wheezes Cardiovascular: Regular rate, Regular Rhythm Abdomen: Soft, Non Tender, Non-Distended Skin: Rash Present - minimal erythema over distal R foot, no warmth, no tenderness, no drainage, no swelling Vital Signs Temp Pulse Resp BP Pulse Ox 98.1 F 86 20 H 133/54 H 95 02/14/18 09:00 02/14/18 09:00 02/14/18 09:00 02/14/18 09:00 02/14/18 09:00 Oxygen Flow Rate (L/min) 4 Oxygen Delivery Method Bi-pap Weight: 103.4 kg Body Mass Index (BMI) 45.8 Intake and Output for Last 24 Hours 02/12/18 02/13/18 02/14/18 23:59 23:59 23:59 Intake Total 1380 / 1380 745.7 / 745.7 120 / 120 Output Total 4050 / 4050 2000 / 2000 500 / 500 Balance -2670 / -2670 -1254.3 / -1254.3 -380 / -380 Laboratory Tests Past 24 Hrs 02/13/18 02/14/18 02/14/18 12:46 05:40 07:10 PT Cancelled 30.7 H INR Cancelled 2.9 Specimen Type ART Sample Site R Radial pH 7.36 Bicarbonate Actual 63.9 H POC Total CO2 > 50 Base Excess > 30 H O2 Saturation 93 L O2 % 40 ABG pCO2 112.0 H* ABG pO2 77 Luis Test POS Respiration Rate 12 O2 Delivery Device Bi / C PAP EPAP 8 Blood Gas Notified Whom [facility]OS[facility] Blood Gas Notified Time 1245 POC Glucose 02/14/18 02/13/18 02/13/18 07:01 22:18 17:21 POC Glucose 284 H 234 H 138 H 02/13/18 11:19 POC Glucose 262 H Medical Necessity - Tobacco Use Smoking Status: Former smoker Tobacco Use: Cigarettes Route of nutrition/ use of supplements: [] Nutritional Intake: [] IV Site: [] Saldana Catheter: [] - Assessment/Plan Antibiotics: [] Assessment/Plan: [] Active and Suspected Problems CHF (congestive heart failure) (Acute) Cellulitis (Acute) Acute on chronic respiratory failure with hypoxia and hypercapnia (Acute) RLE cellulitis - given that it had been present for years and had rapid improvement with diuresis, seems most consistent with chronic edema/venous stasis. Had some reported chest/face redness on keflex. Distal R foot with mild redness, but no warmth/pain/swelling/drainage. Doubt this is cellulitis of her foot. Has some mild leukocytosis, may be related to iv steroids. Will stop clinda and monitor off abx. will follow
[2018-02-14 11:25] LABS: Bedside Glucose 246 mg/dL (70-110)
--- NOTE | 2018-02-14 14:30 | NURSING ---
Patient arrived to floor on bipap. Dr. Orantes at bedside, preparing to intubate. Versed 4mg given at 1438, etomidate 20mg given at 1440 with successful intubation done at 1440. Positive color change, positive b/l lung sounds. See documented vitals.
[2018-02-14] MEDS: Midazolam 2 MG/2 ML Syringe 4 MG IV (14:38)
[2018-02-14] MEDS: Etomidate 20 MG/10 ML Vial IV (14:40)
--- NOTE | 2018-02-14 14:43 | PCM.PN.HOSP ---
Patient Problems: Active and Suspected Problems CHF (congestive heart failure) (Acute) Cellulitis (Acute) Acute on chronic respiratory failure with hypoxia and hypercapnia (Acute) Subjective: Patient was seen and examined. Patient is not getting better, remains on AVAPS, still wheezing, no change in more than [address] Orantes and patient's daughter, patient wants to be full code. Objective: Physical exam: General: Alert, lethargic, cooperative, in moderate respiratory distress, obese, on AVAPS HEENT: Atraumatic, PERRLA, EOMI, Normocephalic Oral: Moist Mucosa Neck: Supple Lungs: Wheezes++, diminished AE all over the lungs Cardiovascular: Regular rate, Regular Rhythm, Normal S1, Normal S2, No murmurs Abdomen: Bowel Sounds Present, Soft, Non Tender, Non-Distended, No Hepato-splenomegaly Extremities: Right lower extremity swelling is better, redness has improved, trace edema Skin: No rashes, No breakdown Musculoskeletal: No Tenderness to Palpation of Joints or Extremities Lymphatic: No Cervical, Supraclavicular, or Inguinal Adenopathy Neurological: Cranial nerves II-XII grossly intact, Neuro grossly intact Psych/Mental Status: Normal Affect, Appropriate Vitals/I&O's: Vital Signs Temp Pulse Resp BP Pulse Ox 97.4 F L 74 22 H 120/64 95 02/14/18 14:05 02/14/18 14:05 02/14/18 14:05 02/14/18 14:05 02/14/18 14:05 Oxygen Flow Rate (L/min) 4 Oxygen Delivery Method Bi-pap Weight: 103.4 kg Body Mass Index (BMI) 45.8 Intake and Output for Last 24 Hours 02/12/18 02/13/18 02/14/18 23:59 23:59 23:59 Intake Total 1380 / 1380 745.7 / 745.7 220 / 220 Output Total 4050 / 4050 1999 / 2000 1100 / 1100 Balance -2670 / -2670 -1254.3 / -1254.3 -880 / -880 Laboratory Results 02/13/18 17:21: POC Glucose 138 H 02/13/18 22:18: POC Glucose 234 H 02/14/18 05:40: PT Cancelled, INR Cancelled 02/14/18 07:01: POC Glucose 284 H 02/14/18 07:10: PT 30.7 H, INR 2.9 02/14/18 11:17: POC Glucose 246 H Current Medications Acetaminophen (Tylenol) 500 mg PO Q6H PRN PRN PRN Reason: PAIN Hydrocodone Bitart/Acetaminophen ([place] 5mg-325mg) 1 tablet PO Q6H PRN PRN PRN Reason: PAIN Albuterol Sulfate (Ventolin Aerosols) 2.5 mg INHALATION Q2H PRN PRN PRN Reason: SHORTNESS OF BREATH Albuterol/Ipratropium (Duoneb) 3 ml INHALATION Q4H.RT [facility] Last Admin: 02/14/18 10:48 Dose: 3 ml Atorvastatin Calcium (Lipitor) 20 mg PO QHS [facility] Last Admin: 02/13/18 22:19 Dose: Not Given Bisacodyl (Dulcolax) 10 mg RECTAL DAILY PRN PRN Reason: Constipation Buspirone HCl (Buspar) 15 mg PO TID [facility] Last Admin: 02/14/18 13:06 Dose: Not Given Calcium/Vitamin D (Os-Carlos 500mg + D) 1 tablet PO DAILY [facility] Last Admin: 02/14/18 09:08 Dose: 1 tablet Cholecalciferol (Vitamin D) 2,000 unit PO DAILY [facility] Last Admin: 02/14/18 09:06 Dose: Not Given Dextrose (D50w Syringe) 0 gm IV X1 PRN; Protocol PRN Reason: Hypoglycemia Duloxetine HCl (Cymbalta) 60 mg PO DAILY [facility] Last Admin: 02/14/18 11:34 Dose: Not Given Ezetimibe (Zetia) 10 mg PO DAILY [facility] Last Admin: 02/14/18 11:34 Dose: Not Given Famotidine (Pepcid) 20 mg PO BID [facility] Last Admin: 02/14/18 09:05 Dose: Not Given Ferrous Sulfate (Ferrous Sulfate) 325 mg PO DAILYCM [facility] Last Admin: 02/14/18 08:50 Dose: Not Given Furosemide (Lasix) 20 mg IV BID@1000,1800 [facility] Last Admin: 02/14/18 09:13 Dose: 20 mg Glucagon () 1 mg IM .X1 PRN PRN Reason: Hypoglycemia Guaifenesin (Robitussin Dm) 10 ml PO Q6H PRN PRN PRN Reason: COUGH Last Admin: 02/14/18 05:49 Dose: 10 ml Insulin Glargine (Lantus (Bkc)) 15 units SC QHS [facility] Last Admin: 02/13/18 22:21 Dose: 15 u Insulin Human Lispro (Humalog Kwikpen (Bk)) 0 unit SQ 4X/DAYCM CECILIO PRN Reason: Protocol Last Admin: 02/14/18 12:48 Dose: 2 units Lactobacillus Acidophilus (Acidophilus) 1 tablet PO DAILY [facility] Last Admin: 02/14/18 09:09 Dose: 1 tablet Levothyroxine Sodium (Synthroid) 25 mcg PO DAILY@0600 [facility] Last Admin: 02/14/18 05:49 Dose: 25 mcg Loratadine (Claritin) 10 mg PO DAILY [facility] Last Admin: 02/14/18 09:08 Dose: 10 mg Losartan Potassium (Cozaar) 25 mg PO DAILY [facility] Last Admin: 02/14/18 09:09 Dose: 25 mg Magnesium Hydroxide (Milk Of Magnesia) 30 ml PO DAILY PRN PRN Reason: Constipation Last Admin: 02/13/18 08:29 Dose: 30 ml Magnesium Oxide (Mag-Ox 400) 400 mg PO DAILY [facility] Last Admin: 02/14/18 09:13 Dose: 400 mg Methylprednisolone (Solu-Medrol) 40 mg IV Q8 [facility] Last Admin: 02/14/18 14:11 Dose: 40 mg Montelukast Sodium (Singulair) 10 mg PO DAILY [facility] Last Admin: 02/14/18 09:05 Dose: Not Given Morphine Sulfate () 1 mg IV Q3H PRN PRN PRN Reason: Severe Pain (pain scale 6-10) Pantoprazole Sodium (Protonix) 40 mg PO BID [facility] Last Admin: 02/14/18 09:08 Dose: 40 mg Polyethylene Glycol (Miralax) 17 gm PO DAILY PRN PRN Reason: Constipation Last Admin: 02/12/18 08:46 Dose: 17 gm Potassium Chloride (K-Dur) 10 meq PO DAILY [facility] Last Admin: 02/14/18 09:08 Dose: 10 meq Senna/Docusate Sodium (Senokot-S, Emily-Colace) 2 tablet PO BID PRN PRN Reason: Constipation Sodium Chloride ([place] Nasal [place]) 1 spray NASAL BID [facility] Last Admin: 02/14/18 09:15 Dose: 1 spray Sodium Chloride () 5 - 30 ml IV UD PRN PRN Reason: SALINE FLUSH Last Admin: 02/14/18 09:21 Dose: 10 ml Warfarin Sodium (Coumadin (Pbkc)) 3 mg PO DAILY@1700 CECILIO Last Admin: 02/13/18 17:19 Dose: 3 mg Medical Necessity - Tobacco Use Smoking Status: Former smoker Tobacco Use: Cigarettes Assessment/Plan All Active Problems CHF (congestive heart failure) (Acute) Cellulitis (Acute) Acute on chronic respiratory failure with hypoxia and hypercapnia (Acute) 72-year-old female with multiple comorbidities, comes in with complaints of worsening shortness of breath ongoing over the several days. 1. Acute hypoxic hypercapnic respiratory failure in a patient with severe COPD/diastolic heart failure, patient continues not to progress, discussed with substitute teacher, patient and daughter, will be intubated and managed in ICU. 2. Acute COPD exacerbation, on IV steroids 40mg tid, will continue as such. 3. Hypokalemia, resolved 4. Right lower extremity cellulitis, had worsening cellulitis, was on clindamycin IV, will stop antibiotics and monitor. 5. History of LEDY, obesity hypoventilation syndrome, continue on AVAPS 6. Hyperlipidemia, on statin 7. Hypertension, continue on Cozaar,will continue to monitor 8. Anxiety/depression, continue on Cymbalta, Buspar 9. Hypothyroidism, on levothyroxine 10. Type II DM, BS is remain uncontrolled, continue on Lantus 15 units QHS, premeal lispro to units 15 units tid 11. History of diatolic CHF, continue on Lasix 20mg IV bid, will be monitoring renal function 12. H/o DVT on coumadin, therapeutic at 2.9, will hold coumadin for now. 13. DVT prophylaxis with Coumadin, INR is therapeutic 14. Code status - full code Code Visit Inpatient E&M: 71672 Subs Hosp L3
--- NOTE | 2018-02-14 14:55 | PN_ITS ---
Patient Problems: Active and Suspected Problems CHF (congestive heart failure) (Acute) Cellulitis (Acute) Acute on chronic respiratory failure with hypoxia and hypercapnia (Acute) Subjective: Patient was seen and examined. Patient is not getting better, remains on AVAPS , still wheezing, no change in more than [address] Orantes and patient's daughter, patient wants to be full code. Objective: Physical exam: General: Alert, lethargic, cooperative, in moderate respiratory distress, obese , on AVAPS HEENT: Atraumatic, PERRLA, EOMI, Normocephalic Oral: Moist Mucosa Neck: Supple Lungs: Wheezes++, diminished AE all over the lungs Cardiovascular: Regular rate, Regular Rhythm, Normal S1, Normal S2, No murmurs Abdomen: Bowel Sounds Present, Soft, Non Tender, Non-Distended, No Hepato- splenomegaly Extremities: Right lower extremity swelling is better, redness has improved, trace edema Skin: No rashes, No breakdown Musculoskeletal: No Tenderness to Palpation of Joints or Extremities Lymphatic: No Cervical, Supraclavicular, or Inguinal Adenopathy Neurological: Cranial nerves II-XII grossly intact, Neuro grossly intact Psych/Mental Status: Normal Affect, Appropriate Vitals/I&O's: Vital Signs Temp Pulse Resp BP Pulse Ox 97.4 F L 74 22 H 120/64 95 02/14/18 14:05 02/14/18 14:05 02/14/18 14:05 02/14/18 14:05 02/14/18 14:05 Oxygen Flow Rate (L/min) 4 Oxygen Delivery Method Bi-pap Weight: 103.4 kg Body Mass Index (BMI) 45.8 Intake and Output for Last 24 Hours 02/12/18 02/13/18 02/14/18 23:59 23:59 23:59 Intake Total 1380 / 1380 745.7 / 745.7 220 / 220 Output Total 4050 / 4050 1999 / 2000 1100 / 1100 Balance -2670 / -2670 -1254.3 / -1254.3 -880 / -880 Laboratory Results 02/13/18 17:21: POC Glucose 138 H 02/13/18 22:18: POC Glucose 234 H 02/14/18 05:40: PT Cancelled, INR Cancelled 02/14/18 07:01: POC Glucose 284 H 02/14/18 07:10: PT 30.7 H, INR 2.9 02/14/18 11:17: POC Glucose 246 H Current Medications Acetaminophen (Tylenol) 500 mg PO Q6H PRN PRN PRN Reason: PAIN Hydrocodone Bitart/Acetaminophen ([place] 5mg-325mg) 1 tablet PO Q6H PRN PRN PRN Reason: PAIN Albuterol Sulfate (Ventolin Aerosols) 2.5 mg INHALATION Q2H PRN PRN PRN Reason: SHORTNESS OF BREATH Albuterol/Ipratropium (Duoneb) 3 ml INHALATION Q4H.RT [facility] Last Admin: 02/14/18 10:48 Dose: 3 ml Atorvastatin Calcium (Lipitor) 20 mg PO QHS [facility] Last Admin: 02/13/18 22:19 Dose: Not Given Bisacodyl (Dulcolax) 10 mg RECTAL DAILY PRN PRN Reason: Constipation Buspirone HCl (Buspar) 15 mg PO TID [facility] Last Admin: 02/14/18 13:06 Dose: Not Given Calcium/Vitamin D (Os-Carlos 500mg + D) 1 tablet PO DAILY [facility] Last Admin: 02/14/18 09:08 Dose: 1 tablet Cholecalciferol (Vitamin D) 2,000 unit PO DAILY [facility] Last Admin: 02/14/18 09:06 Dose: Not Given Dextrose (D50w Syringe) 0 gm IV X1 PRN; Protocol PRN Reason: Hypoglycemia Duloxetine HCl (Cymbalta) 60 mg PO DAILY [facility] Last Admin: 02/14/18 11:34 Dose: Not Given Ezetimibe (Zetia) 10 mg PO DAILY [facility] Last Admin: 02/14/18 11:34 Dose: Not Given Famotidine (Pepcid) 20 mg PO BID [facility] Last Admin: 02/14/18 09:05 Dose: Not Given Ferrous Sulfate (Ferrous Sulfate) 325 mg PO DAILYCM [facility] Last Admin: 02/14/18 08:50 Dose: Not Given Furosemide (Lasix) 20 mg IV BID@1000,1800 [facility] Last Admin: 02/14/18 09:13 Dose: 20 mg Glucagon () 1 mg IM .X1 PRN PRN Reason: Hypoglycemia Guaifenesin (Robitussin Dm) 10 ml PO Q6H PRN PRN PRN Reason: COUGH Last Admin: 02/14/18 05:49 Dose: 10 ml Insulin Glargine (Lantus (Bkc)) 15 units SC QHS [facility] Last Admin: 02/13/18 22:21 Dose: 15 u Insulin Human Lispro (Humalog Kwikpen (Bk)) 0 unit SQ 4X/DAYCM [facility] PRN Reason: Protocol Last Admin: 02/14/18 12:48 Dose: 2 units Lactobacillus Acidophilus (Acidophilus) 1 tablet PO DAILY [facility] Last Admin: 02/14/18 09:09 Dose: 1 tablet Levothyroxine Sodium (Synthroid) 25 mcg PO DAILY@0600 [facility] Last Admin: 02/14/18 05:49 Dose: 25 mcg Loratadine (Claritin) 10 mg PO DAILY [facility] Last Admin: 02/14/18 09:08 Dose: 10 mg Losartan Potassium (Cozaar) 25 mg PO DAILY [facility] Last Admin: 02/14/18 09:09 Dose: 25 mg Magnesium Hydroxide (Milk Of Magnesia) 30 ml PO DAILY PRN PRN Reason: Constipation Last Admin: 02/13/18 08:29 Dose: 30 ml Magnesium Oxide (Mag-Ox 400) 400 mg PO DAILY [facility] Last Admin: 02/14/18 09:13 Dose: 400 mg Methylprednisolone (Solu-Medrol) 40 mg IV Q8 [facility] Last Admin: 02/14/18 14:11 Dose: 40 mg Montelukast Sodium (Singulair) 10 mg PO DAILY [facility] Last Admin: 02/14/18 09:05 Dose: Not Given Morphine Sulfate () 1 mg IV Q3H PRN PRN PRN Reason: Severe Pain (pain scale 6-10) Pantoprazole Sodium (Protonix) 40 mg PO BID [facility] Last Admin: 02/14/18 09:08 Dose: 40 mg Polyethylene Glycol (Miralax) 17 gm PO DAILY PRN PRN Reason: Constipation Last Admin: 02/12/18 08:46 Dose: 17 gm Potassium Chloride (K-Dur) 10 meq PO DAILY [facility] Last Admin: 02/14/18 09:08 Dose: 10 meq Senna/Docusate Sodium (Senokot-S, Emily-Colace) 2 tablet PO BID PRN PRN Reason: Constipation Sodium Chloride ([place] Nasal [place]) 1 spray NASAL BID [facility] Last Admin: 02/14/18 09:15 Dose: 1 spray Sodium Chloride () 5 - 30 ml IV UD PRN PRN Reason: SALINE FLUSH Last Admin: 02/14/18 09:21 Dose: 10 ml Warfarin Sodium (Coumadin (Pbkc)) 3 mg PO DAILY@1700 [facility] Last Admin: 02/13/18 17:19 Dose: 3 mg Medical Necessity - Tobacco Use Smoking Status: Former smoker Tobacco Use: Cigarettes Assessment/Plan All Active Problems CHF (congestive heart failure) (Acute) Cellulitis (Acute) Acute on chronic respiratory failure with hypoxia and hypercapnia (Acute) 72-year-old female with multiple comorbidities, comes in with complaints of worsening shortness of breath ongoing over the several days. 1. Acute hypoxic hypercapnic respiratory failure in a patient with severe COPD/ diastolic heart failure, patient continues not to progress, discussed with procedures nurse, patient and daughter, will be intubated and managed in ICU. 2. Acute COPD exacerbation, on IV steroids 40mg tid, will continue as such. 3. Hypokalemia, resolved 4. Right lower extremity cellulitis, had worsening cellulitis, was on clindamycin IV, will stop antibiotics and monitor. 5. History of LEDY, obesity hypoventilation syndrome, continue on AVAPS 6. Hyperlipidemia, on statin 7. Hypertension, continue on Cozaar,will continue to monitor 8. Anxiety/depression, continue on Cymbalta, Buspar 9. Hypothyroidism, on levothyroxine 10. Type II DM, BS is remain uncontrolled, continue on Lantus 15 units QHS, premeal lispro to units 15 units tid 11. History of diatolic CHF, continue on Lasix 20mg IV bid, will be monitoring renal function 12. H/o DVT on coumadin, therapeutic at 2.9, will hold coumadin for now. 13. DVT prophylaxis with Coumadin, INR is therapeutic 14. Code status - full code Code Visit Inpatient E&M: 23751 Subs Hosp L3
[2018-02-14] MEDS: Propofol 10MG/Ml 1,000 MG/100 ML Bottle 3.102 MG CONT INF ×3 (15:00→22:47)
--- NOTE | 2018-02-14 15:05 | RAD_ITS ---
STUDY: X-RAY CHEST REASON FOR EXAM: Female, 72 years old. Endotracheal tube and oral gastric tube placement. TECHNIQUE: Single AP portable view of the chest. COMPARISON: Comparison is made with prior examination dated February 13, 2018. FINDINGS: An endotracheal tube is in situ. The tip is at 3.7 cm proximal to the [place]. The oral gastric tube is seen below the right hemidiaphragm most likely within the body of the stomach. Persistent atelectasis and/or infiltrates at the lung bases with blunting of both costophrenic angles. There has been essentially no change. Normal size heart. Normal mediastinum and luke. Normal visualized pulmonary arteries. There is atherosclerotic calcification of the aortic arch with tortuosity. Normal visualized thoracic spine. Normal visualized ribs, clavicles, and shoulders. There is no demonstrated abnormality of the visualized soft tissue structures of the upper abdomen. RAD/Chest 1 View (Portable) IMPRESSION: The tip of the endotracheal tube is at 3.7 cm proximal to the paris. The tip of the orogastric tube most likely is within the body of the stomach. There has been essentially no change since prior study. Electronically Signed: Jim Plaza MD at 15:44 EDT Tel [phone], Service support ,
[2018-02-14 17:17] LABS: Blood Gas Specimen Type ART; SITE R RADIAL
[2018-02-14 17:18] LABS: FI02 50; Mode VC+; PEEP 5; RR 14; Vt 350
[2018-02-14] MEDS: 0.9% Normal Saline 1,000 ML 100 ML IV (18:20)
[2018-02-14 18:41] LABS: Bedside Glucose 267 mg/dL (70-110)
[2018-02-14 19:31] LABS: CPK Total, Creatine Kinase 55 U/L (26-192); Triglycerides 257 mg/dL
[2018-02-14 21:36] LABS: M R Staph aureus DNA By PCR Negative (Negative); Probe Check PASS; Specimen Processing Control PASS
[2018-02-14] MEDS: 0.9% NaCl PICC Flush IV (21:47)
[2018-02-14] MEDS: Famotidine 20 MG Tablet PO (22:13)
[2018-02-14] MEDS: Chlorhexidine 15 ML PO (22:13)
[2018-02-14] MEDS: Atorvastatin Calcium 20 MG Tablet PO (22:13)
[2018-02-14 23:41] LABS: Bedside Glucose 245 mg/dL (70-110)
[2018-02-14 23:41] LABS: Bedside Glucose 243 mg/dL (70-110)
[2018-02-15] VITALS (37 sets, daily range): BP systolic 93–120; BP diastolic 53–68; PULSE 73–92; RESP 12–24; TEMP 36.2–37.1; O2SAT 94–100
[2018-02-15] MEDS: 0.9% Normal Saline 1,000 ML 100 ML IV (00:56)
[2018-02-15] MEDS: Ipratropium/Albuterol Sulfate 3 ML AMPUL.NEB INHALATION ×5 (02:37→23:25)
[2018-02-15] MEDS: Propofol 10MG/Ml 1,000 MG/100 ML Bottle 3.102 MG CONT INF ×4 (03:24→17:49)
[2018-02-15 04:26] LABS: Absolute Lymphocyte Count 0.76 X10^3/ul (0.83-4.51); Absolute Neutrophil Count 5.6 X10^3/uL (2.0-7.7); Hematocrit 33.3 % (37-47); Hemoglobin 9.2 g/dl (12.0-15.0); Lymphocyte # 0.76 X10^3/ul (4.0); Lymphocyte % 11.2 % (19-41); Mean Corp Hgb Conc 27.6 g/gl (32-36); Mean Corpuscular Volume 94.1 fL (81-99); Monocyte# 0.35 X10^3/uL; Monocyte% 5.2 % (0-10); Neutrophil # 5.63 X10^3/uL (2.7-7.7); Neutrophil % 83.2 % (47-70); Platelet Count 185 K/mm3 (150-450); RBC Distribution Width CV 15.6 % (11.6-14.6); RBC Distribution Width SD 54.2 fl (35.1-43.9); Red Blood Count 3.54 M/mm3 (4.2-5.4); White Blood Count 6.8 K/mm3 (4.4-11.0)
[2018-02-15 04:32] LABS: POSITIVE COUNT NO; POSITIVE DIFFERENTIAL NO; POSITIVE MORPHOLOGY NO
[2018-02-15 04:39] LABS: BUN 24 mg/dL (7-18); BUN/Creat Ratio 36.1 RATIO (10-20); Calcium,Total 8.2 mg/dL (8.5-10.1); Chloride 89 mmol/L (98-107); Creatinine, Serum 0.66 mg/dL (0.55-1.02); EST Glomerular Filtration Rate 93 mL/min (>60); Est Glom Filt Rate - Afr Amer 113 mL/min (>60); Glucose 221 mg/dL (74-106); Potassium 4.4 mmol/L (3.5-5.1); Sodium Level 142 mmol/L (136-145)
[2018-02-15 04:56] LABS: International Normalized Ratio 3.1; Prothrombin Time (Protime)PT. 32.2 SECONDS (11.7-14.9)
[2018-02-15] MEDS: busPIRone 15 MG TABLET GT ×3 (05:23→21:31)
[2018-02-15] MEDS: Levothyroxine 25 MCG TABLET GT (05:23)
[2018-02-15] MEDS: Insulin Lispro 100 UNIT/ML INSULN.PEN SQ ×4 (05:24→23:57)
[2018-02-15] MEDS: CHLORHEXIDINE GLUC 2% CLOTH 1 EACH TOWELETTE TOPICAL (05:28)
[2018-02-15 05:46] LABS: Bedside Glucose 214 mg/dL (70-110)
[2018-02-15 06:13] LABS: Time Given 1618; pH 7.52 (7.35-7.45)
[2018-02-15 06:14] LABS: Base Excess > 30 mmol/L (-2 to +2); Bicarbonate 61.5 mmol/L (22-26); PO2 50 mmHG (75-100); SO2 86 % (95-99); Total Carbon Dioxide > 50 mmol/L; pCO2 74.9 mmHg (35-45)
--- NOTE | 2018-02-15 06:46 | NURSING ---
Patient's personal pulse oximeter was removed and placed in green bag with patient's other belongings.
--- NOTE | 2018-02-15 06:46 | PCM.PN.INT ---
Subjective: The patient was seen and examined at the bedside this morning. Events from the last 24 hours have been reviewed. The patient is currently afebrile, hemodynamically stable and maintaining appropriate oxygen saturations on ACVC+ with an FiO2 of 50%. The patient was transferred to the medical intensive care unit yesterday afternoon, following a prolonged discussion with the patient and her family regarding her clinical prognosis. She was intubated upon her arrival to the ICU accordingly. Due to the lack of peripheral IV access, a PICC line was placed last evening. Objective: The patient's most recent lab work, culture data and imaging studies have all been personally reviewed. Surface echocardiogram completed here at [facility] on February 08 revealed mild concentric LVH with an ejection fraction of 65%. Right ventricular systolic pressure was estimated to be 72 mmHg. Respiratory viral panel was negative. Strep and urine Legionella antigens were both negative. Sputum cultures currently pending. Records from [facility]: Pulmonary function testing was last completed in October 2017 and revealed evidence of an irreversible very severe obstructive ventilatory impairment with evidence of air trapping and reduction in diffusing capacity. Surface echocardiogram dated October 2017 revealed normal LV size and function. There was evidence of grade 2 diastolic dysfunction. The estimated right ventricular systolic pressure was 50 mmHg. The patient was last seen by her pulmonary provider at the [facility], Dr. Wesley, on January 21, 2018. The patient was admitted to the [facility] January 02 - January 07. The patient's medical history includes COPD, LEDY, diastolic dysfunction, personal history of DVT, morbid obesity and erosive gastroduodenitis/distal esophageal stricture status post dilation in September 2017. She is a former smoker of 2-3 packs per day ?30 years. She has a baseline 3 L/min supplemental oxygen requirement and multiple recent admissions for COPD exacerbations. She has been inherently noncompliant with use of home trilogy. She is on a triple therapy inhaler regimen along with chronic prednisone. General: - - Intubated, sedated and mechanically ventilated. HEENT: Atraumatic, Normocephalic, Sluggish Pupils Oral: No Gingival or Mucosal Lesions/ Ulcerations, - - Endotracheal and OG tubes remain in place. Neck: Supple, No Nodes, Trachea Midline Lungs: No rhonchi, No rales, Diminished, Wheezes Cardiovascular: Regular rate, Regular Rhythm, Normal S1, Normal S2, No murmurs Abdomen: Bowel Sounds Present, Soft, Non Tender, Obese Extremities: No clubbing, No cyanosis, No edema Skin: No breakdown Musculoskeletal: No Tenderness to Palpation of Joints or Extremities Lymphatic: No Cervical, Supraclavicular, or Inguinal Adenopathy Neurological: - - No focal neurological deficits. Currently sedated with a RASS of -2. Vital Signs Temp Pulse Resp BP Pulse Ox 97.9 F 79 14 93/58 L 98 02/15/18 00:00 02/15/18 06:00 02/15/18 06:00 02/15/18 06:00 02/15/18 06:00 Oxygen Flow Rate (L/min) 4 Oxygen Delivery Method Mechanical Ventilator Weight: 225 lb 1.471 oz Body Mass Index (BMI) 45.8 Intake and Output for Last 24 Hours 02/13/18 02/14/18 02/15/18 23:59 23:59 23:59 Intake Total 745.7 / 745.7 1327 / 1327 777 / 777 Output Total 1999 1900 / 1900 350 / 350 Balance -1254.3 / -1254.3 -573 / -573 427 / 427 Labs (Last 48 Hours) 02/12/18 02/12/18 02/13/18 15:17 21:25 06:00 WBC Cancelled Corrected WBC Cancelled RBC Cancelled Hgb Cancelled Hct Cancelled MCV Cancelled MCH Cancelled MCHC Cancelled RDW Cancelled RDW Differential Cancelled Plt Count Cancelled MPV Cancelled Immature Gran % (Auto) Cancelled Neut % (Auto) Cancelled Lymph % (Auto) Cancelled Pepin % (Auto) Cancelled Eos % (Auto) Cancelled Baso % (Auto) Cancelled Immature Gran # (Auto) Cancelled Absolute Neuts (auto) Cancelled Absolute Lymphs (auto) Cancelled Absolute Monos (auto) Cancelled Total Counted Cancelled Neutrophils % (Manual) Cancelled Band Neutrophils % Cancelled Lymphocytes % (Manual) Cancelled Monocytes % (Manual) Cancelled Eosinophils % (Manual) Cancelled Basophils % (Manual) Cancelled Metamyelocytes % Cancelled Myelocytes % Cancelled Promyelocytes % Cancelled Blast Cells % Cancelled Plasma Cell % (Manual) Cancelled Other Cells % Cancelled Lymphocytes # Cancelled Nucleated RBCs/100 WBC Cancelled Differential Comment Cancelled Diff Path Review Cancelled Hypersegmented Neuts Cancelled Atypical Lymphocytes Cancelled Reactive Lymphocytes Cancelled Smudge Cells Cancelled Eosinophilia # Cancelled Basophilia # Cancelled Toxic Granulation Cancelled Dohle Bodies Cancelled Arnaldo Rods Cancelled Platelet Estimate Cancelled Plt Morphology Comment Cancelled RBC Morphology Cancelled Polychromasia Cancelled Hypochromasia Cancelled Poikilocytosis Cancelled Basophilic Stippling Cancelled Anisocytosis Cancelled Microcytosis Cancelled Macrocytosis Cancelled Spherocytes Cancelled Sickle Cells Cancelled Target Cells Cancelled Tear Drop Cells Cancelled Ovalocytes Cancelled Stomatocytes Cancelled Castillo-Tiger Bodies Cancelled Tana Cells Cancelled Bite Cells Cancelled Acanthocytes (Spur) Cancelled Rouleaux Cancelled Schistocytes Cancelled PT INR Specimen Type ART Sample Site RRADIAL pH 7.33 L Bicarbonate Actual 58.8 H POC Total CO2 > 50 > 50 Base Excess > 30 H > 30 H O2 Saturation 86 L O2 % ABG pCO2 112.5 H* ABG pO2 62 L Luis Test POS Respiration Rate O2 Delivery Device NC Liter Flow 4.0 Vent Mode Tidal Volume POC PEEP EPAP Blood Gas Notified Whom HOSP Blood Gas Notified Time 5067 0672 Sodium Potassium Chloride Carbon Dioxide Anion Gap BUN Creatinine Estim Creat Clear Calc Est GFR (MDRD) Af Amer Est GFR (MDRD) Non-Af BUN/Creatinine Ratio Glucose Calcium Total Creatine Kinase Triglycerides MRSA (PCR) POC Glucose 02/13/18 02/13/18 02/13/18 06:00 06:43 08:08 WBC Corrected WBC RBC Hgb Hct MCV MCH MCHC RDW RDW Differential Plt Count MPV Immature Gran % (Auto) Neut % (Auto) Lymph % (Auto) Pepin % (Auto) Eos % (Auto) Baso % (Auto) Immature Gran # (Auto) Absolute Neuts (auto) Absolute Lymphs (auto) Absolute Monos (auto) Total Counted Neutrophils % (Manual) Band Neutrophils % Lymphocytes % (Manual) Monocytes % (Manual) Eosinophils % (Manual) Basophils % (Manual) Metamyelocytes % Myelocytes % Promyelocytes % Blast Cells % Plasma Cell % (Manual) Other Cells % Lymphocytes # Nucleated RBCs/100 WBC Differential Comment Diff Path Review Hypersegmented Neuts Atypical Lymphocytes Reactive Lymphocytes Smudge Cells Eosinophilia # Basophilia # Toxic Granulation Dohle Bodies Arnaldo Rods Platelet Estimate Plt Morphology Comment RBC Morphology Polychromasia Hypochromasia Poikilocytosis Basophilic Stippling Anisocytosis Microcytosis Macrocytosis Spherocytes Sickle Cells Target Cells Tear Drop Cells Ovalocytes Stomatocytes Castillo-Tiger Bodies Miles Cells Bite Cells Acanthocytes (Spur) Rouleaux Schistocytes PT 24.7 H INR 2.2 Specimen Type Sample Site pH Bicarbonate Actual POC Total CO2 Base Excess O2 Saturation O2 % ABG pCO2 ABG pO2 Luis Test Respiration Rate O2 Delivery Device Liter Flow Vent Mode Tidal Volume POC PEEP EPAP Blood Gas Notified Whom Blood Gas Notified Time Sodium 140 Potassium 4.6 Chloride 85 L Carbon Dioxide > 45.0 H* Anion Gap TNP BUN 20 H Creatinine 0.66 Estim Creat Clear Calc 37.60 Est GFR (MDRD) Af Amer 113 Est GFR (MDRD) Non-Af 93 BUN/Creatinine Ratio 30.1 H Glucose 242 H Calcium 9.1 Total Creatine Kinase Triglycerides MRSA (PCR) POC Glucose 201 H 02/13/18 02/13/18 02/13/18 08:08 11:19 12:46 WBC 12.4 H Corrected WBC RBC 4.03 L Hgb 10.8 L Hct 38.3 MCV 95.0 MCH 26.8 L MCHC 28.2 L RDW 15.2 H RDW Differential 51.3 H Plt Count 225 MPV 11.5 Immature Gran % (Auto) 0.800 Neut % (Auto) 82.6 H Lymph % (Auto) 5.9 L Pepin % (Auto) 10.5 H Eos % (Auto) 0.0 Baso % (Auto) 0.2 Immature Gran # (Auto) Absolute Neuts (auto) 10.3 H Absolute Lymphs (auto) 0.73 L Absolute Monos (auto) Total Counted Not Reportable Neutrophils % (Manual) Band Neutrophils % Lymphocytes % (Manual) Monocytes % (Manual) Eosinophils % (Manual) Basophils % (Manual) Metamyelocytes % Myelocytes % Promyelocytes % Blast Cells % Plasma Cell % (Manual) Other Cells % Lymphocytes # Nucleated RBCs/100 WBC Differential Comment Diff Path Review Hypersegmented Neuts Atypical Lymphocytes Reactive Lymphocytes Smudge Cells Eosinophilia # Basophilia # Toxic Granulation Dohle Bodies Arnaldo Rods Platelet Estimate Plt Morphology Comment RBC Morphology Polychromasia Hypochromasia Poikilocytosis Basophilic Stippling Anisocytosis Microcytosis Macrocytosis Spherocytes Sickle Cells Target Cells Tear Drop Cells Ovalocytes Stomatocytes Castillo-Tiger Bodies Tana Cells Bite Cells Acanthocytes (Spur) Rouleaux Schistocytes PT INR Specimen Type ART Sample Site R Radial pH 7.36 Bicarbonate Actual 63.9 H POC Total CO2 > 50 Base Excess > 30 H O2 Saturation 93 L O2 % 40 ABG pCO2 112.0 H* ABG pO2 77 Luis Test POS Respiration Rate 12 O2 Delivery Device Bi / C PAP Liter Flow Vent Mode Tidal Volume POC PEEP EPAP 8 Blood Gas Notified Whom [facility] Blood Gas Notified Time 1245 Sodium Potassium Chloride Carbon Dioxide Anion Gap BUN Creatinine Estim Creat Clear Calc Est GFR (MDRD) Af Amer Est GFR (MDRD) Non-Af BUN/Creatinine Ratio Glucose Calcium Total Creatine Kinase Triglycerides MRSA (PCR) POC Glucose 262 H 02/13/18 02/13/18 02/14/18 17:21 22:18 05:40 WBC Corrected WBC RBC Hgb Hct MCV MCH MCHC RDW RDW Differential Plt Count MPV Immature Gran % (Auto) Neut % (Auto) Lymph % (Auto) Pepin % (Auto) Eos % (Auto) Baso % (Auto) Immature Gran # (Auto) Absolute Neuts (auto) Absolute Lymphs (auto) Absolute Monos (auto) Total Counted Neutrophils % (Manual) Band Neutrophils % Lymphocytes % (Manual) Monocytes % (Manual) Eosinophils % (Manual) Basophils % (Manual) Metamyelocytes % Myelocytes % Promyelocytes % Blast Cells % Plasma Cell % (Manual) Other Cells % Lymphocytes # Nucleated RBCs/100 WBC Differential Comment Diff Path Review Hypersegmented Neuts Atypical Lymphocytes Reactive Lymphocytes Smudge Cells Eosinophilia # Basophilia # Toxic Granulation Dohle Bodies Arnaldo Rods Platelet Estimate Plt Morphology Comment RBC Morphology Polychromasia Hypochromasia Poikilocytosis Basophilic Stippling Anisocytosis Microcytosis Macrocytosis Spherocytes Sickle Cells Target Cells Tear Drop Cells Ovalocytes Stomatocytes Castillo-Tiger Bodies Miles Cells Bite Cells Acanthocytes (Spur) Rouleaux Schistocytes PT Cancelled INR Cancelled Specimen Type Sample Site pH Bicarbonate Actual POC Total CO2 Base Excess O2 Saturation O2 % ABG pCO2 ABG pO2 Luis Test Respiration Rate O2 Delivery Device Liter Flow Vent Mode Tidal Volume POC PEEP EPAP Blood Gas Notified Whom Blood Gas Notified Time Sodium Potassium Chloride Carbon Dioxide Anion Gap BUN Creatinine Estim Creat Clear Calc Est GFR (MDRD) Af Amer Est GFR (MDRD) Non-Af BUN/Creatinine Ratio Glucose Calcium Total Creatine Kinase Triglycerides MRSA (PCR) POC Glucose 138 H 234 H 02/14/18 02/14/18 02/14/18 07:01 07:10 11:17 WBC Corrected WBC RBC Hgb Hct MCV MCH MCHC RDW RDW Differential Plt Count MPV Immature Gran % (Auto) Neut % (Auto) Lymph % (Auto) Pepin % (Auto) Eos % (Auto) Baso % (Auto) Immature Gran # (Auto) Absolute Neuts (auto) Absolute Lymphs (auto) Absolute Monos (auto) Total Counted Neutrophils % (Manual) Band Neutrophils % Lymphocytes % (Manual) Monocytes % (Manual) Eosinophils % (Manual) Basophils % (Manual) Metamyelocytes % Myelocytes % Promyelocytes % Blast Cells % Plasma Cell % (Manual) Other Cells % Lymphocytes # Nucleated RBCs/100 WBC Differential Comment Diff Path Review Hypersegmented Neuts Atypical Lymphocytes Reactive Lymphocytes Smudge Cells Eosinophilia # Basophilia # Toxic Granulation Dohle Bodies Arnaldo Rods Platelet Estimate Plt Morphology Comment RBC Morphology Polychromasia Hypochromasia Poikilocytosis Basophilic Stippling Anisocytosis Microcytosis Macrocytosis Spherocytes Sickle Cells Target Cells Tear Drop Cells Ovalocytes Stomatocytes Castillo-Tiger Bodies Miles Cells Bite Cells Acanthocytes (Spur) Rouleaux Schistocytes PT 30.7 H INR 2.9 Specimen Type Sample Site pH Bicarbonate Actual POC Total CO2 Base Excess O2 Saturation O2 % ABG pCO2 ABG pO2 Luis Test Respiration Rate O2 Delivery Device Liter Flow Vent Mode Tidal Volume POC PEEP EPAP Blood Gas Notified Whom Blood Gas Notified Time Sodium Potassium Chloride Carbon Dioxide Anion Gap BUN Creatinine Estim Creat Clear Calc Est GFR (MDRD) Af Amer Est GFR (MDRD) Non-Af BUN/Creatinine Ratio Glucose Calcium Total Creatine Kinase Triglycerides MRSA (PCR) POC Glucose 284 H 246 H 02/14/18 02/14/18 02/14/18 16:18 18:35 18:37 WBC Corrected WBC RBC Hgb Hct MCV MCH MCHC RDW RDW Differential Plt Count MPV Immature Gran % (Auto) Neut % (Auto) Lymph % (Auto) Pepin % (Auto) Eos % (Auto) Baso % (Auto) Immature Gran # (Auto) Absolute Neuts (auto) Absolute Lymphs (auto) Absolute Monos (auto) Total Counted Neutrophils % (Manual) Band Neutrophils % Lymphocytes % (Manual) Monocytes % (Manual) Eosinophils % (Manual) Basophils % (Manual) Metamyelocytes % Myelocytes % Promyelocytes % Blast Cells % Plasma Cell % (Manual) Other Cells % Lymphocytes # Nucleated RBCs/100 WBC Differential Comment Diff Path Review Hypersegmented Neuts Atypical Lymphocytes Reactive Lymphocytes Smudge Cells Eosinophilia # Basophilia # Toxic Granulation Dohle Bodies Arnaldo Rods Platelet Estimate Plt Morphology Comment RBC Morphology Polychromasia Hypochromasia Poikilocytosis Basophilic Stippling Anisocytosis Microcytosis Macrocytosis Spherocytes Sickle Cells Target Cells Tear Drop Cells Ovalocytes Stomatocytes Castillo-Tiger Bodies Miles Cells Bite Cells Acanthocytes (Spur) Rouleaux Schistocytes PT INR Specimen Type ART Sample Site R RADIAL pH 7.52 H Bicarbonate Actual 61.5 H POC Total CO2 > 50 Base Excess > 30 H O2 Saturation 86 L O2 % 50 ABG pCO2 74.9 H* ABG pO2 50 L Luis Test NA Respiration Rate 14 O2 Delivery Device Liter Flow Vent Mode VC+ Tidal Volume 350 POC PEEP 5 EPAP Blood Gas Notified Whom ICU MD Blood Gas Notified Time 1618 Sodium Potassium Chloride Carbon Dioxide Anion Gap BUN Creatinine Estim Creat Clear Calc Est GFR (MDRD) Af Amer Est GFR (MDRD) Non-Af BUN/Creatinine Ratio Glucose Calcium Total Creatine Kinase Triglycerides MRSA (PCR) Negative POC Glucose 267 H 02/14/18 02/14/18 02/14/18 18:45 21:38 23:31 WBC Corrected WBC RBC Hgb Hct MCV MCH MCHC RDW RDW Differential Plt Count MPV Immature Gran % (Auto) Neut % (Auto) Lymph % (Auto) Pepin % (Auto) Eos % (Auto) Baso % (Auto) Immature Gran # (Auto) Absolute Neuts (auto) Absolute Lymphs (auto) Absolute Monos (auto) Total Counted Neutrophils % (Manual) Band Neutrophils % Lymphocytes % (Manual) Monocytes % (Manual) Eosinophils % (Manual) Basophils % (Manual) Metamyelocytes % Myelocytes % Promyelocytes % Blast Cells % Plasma Cell % (Manual) Other Cells % Lymphocytes # Nucleated RBCs/100 WBC Differential Comment Diff Path Review Hypersegmented Neuts Atypical Lymphocytes Reactive Lymphocytes Smudge Cells Eosinophilia # Basophilia # Toxic Granulation Dohle Bodies Arnaldo Rods Platelet Estimate Plt Morphology Comment RBC Morphology Polychromasia Hypochromasia Poikilocytosis Basophilic Stippling Anisocytosis Microcytosis Macrocytosis Spherocytes Sickle Cells Target Cells Tear Drop Cells Ovalocytes Stomatocytes Castillo-Tiger Bodies Tana Cells Bite Cells Acanthocytes (Spur) Rouleaux Schistocytes PT INR Specimen Type Sample Site pH Bicarbonate Actual POC Total CO2 Base Excess O2 Saturation O2 % ABG pCO2 ABG pO2 Luis Test Respiration Rate O2 Delivery Device Liter Flow Vent Mode Tidal Volume POC PEEP EPAP Blood Gas Notified Whom Blood Gas Notified Time Sodium Potassium Chloride Carbon Dioxide Anion Gap BUN Creatinine Estim Creat Clear Calc Est GFR (MDRD) Af Amer Est GFR (MDRD) Non-Af BUN/Creatinine Ratio Glucose Calcium Total Creatine Kinase 55 Triglycerides 257 H MRSA (PCR) POC Glucose 243 H 245 H 02/15/18 02/15/18 02/15/18 04:10 04:10 04:10 WBC 6.8 Corrected WBC RBC 3.54 L Hgb 9.2 L Hct 33.3 L MCV 94.1 MCH 26.0 L MCHC 27.6 L RDW 15.6 H RDW Differential 54.2 H Plt Count 185 MPV 11.0 Immature Gran % (Auto) 0.400 Neut % (Auto) 83.2 H Lymph % (Auto) 11.2 L Pepin % (Auto) 5.2 Eos % (Auto) 0.0 Baso % (Auto) 0.0 Immature Gran # (Auto) Absolute Neuts (auto) 5.6 Absolute Lymphs (auto) 0.76 L Absolute Monos (auto) Total Counted Not Reportable Neutrophils % (Manual) Band Neutrophils % Lymphocytes % (Manual) Monocytes % (Manual) Eosinophils % (Manual) Basophils % (Manual) Metamyelocytes % Myelocytes % Promyelocytes % Blast Cells % Plasma Cell % (Manual) Other Cells % Lymphocytes # Nucleated RBCs/100 WBC Differential Comment Diff Path Review Hypersegmented Neuts Atypical Lymphocytes Reactive Lymphocytes Smudge Cells Eosinophilia # Basophilia # Toxic Granulation Dohle Bodies Arnaldo Rods Platelet Estimate Plt Morphology Comment RBC Morphology Polychromasia Hypochromasia Poikilocytosis Basophilic Stippling Anisocytosis Microcytosis Macrocytosis Spherocytes Sickle Cells Target Cells Tear Drop Cells Ovalocytes Stomatocytes Castillo-Tiger Bodies Miles Cells Bite Cells Acanthocytes (Spur) Rouleaux Schistocytes PT 32.2 H INR 3.1 Specimen Type Sample Site pH Bicarbonate Actual POC Total CO2 Base Excess O2 Saturation O2 % ABG pCO2 ABG pO2 Luis Test Respiration Rate O2 Delivery Device Liter Flow Vent Mode Tidal Volume POC PEEP EPAP Blood Gas Notified Whom Blood Gas Notified Time Sodium 142 Potassium 4.4 Chloride 89 L Carbon Dioxide Pending Anion Gap Pending BUN 24 H Creatinine 0.66 Estim Creat Clear Calc 37.60 Est GFR (MDRD) Af Amer 113 Est GFR (MDRD) Non-Af 93 BUN/Creatinine Ratio 36.1 H Glucose 221 H Calcium 8.2 L Total Creatine Kinase Triglycerides MRSA (PCR) POC Glucose 02/15/18 05:23 WBC Corrected WBC RBC Hgb Hct MCV MCH MCHC RDW RDW Differential Plt Count MPV Immature Gran % (Auto) Neut % (Auto) Lymph % (Auto) Pepin % (Auto) Eos % (Auto) Baso % (Auto) Immature Gran # (Auto) Absolute Neuts (auto) Absolute Lymphs (auto) Absolute Monos (auto) Total Counted Neutrophils % (Manual) Band Neutrophils % Lymphocytes % (Manual) Monocytes % (Manual) Eosinophils % (Manual) Basophils % (Manual) Metamyelocytes % Myelocytes % Promyelocytes % Blast Cells % Plasma Cell % (Manual) Other Cells % Lymphocytes # Nucleated RBCs/100 WBC Differential Comment Diff Path Review Hypersegmented Neuts Atypical Lymphocytes Reactive Lymphocytes Smudge Cells Eosinophilia # Basophilia # Toxic Granulation Dohle Bodies Arnaldo Rods Platelet Estimate Plt Morphology Comment RBC Morphology Polychromasia Hypochromasia Poikilocytosis Basophilic Stippling Anisocytosis Microcytosis Macrocytosis Spherocytes Sickle Cells Target Cells Tear Drop Cells Ovalocytes Stomatocytes Castillo-Tiger Bodies Miles Cells Bite Cells Acanthocytes (Spur) Rouleaux Schistocytes PT INR Specimen Type Sample Site pH Bicarbonate Actual POC Total CO2 Base Excess O2 Saturation O2 % ABG pCO2 ABG pO2 Luis Test Respiration Rate O2 Delivery Device Liter Flow Vent Mode Tidal Volume POC PEEP EPAP Blood Gas Notified Whom Blood Gas Notified Time Sodium Potassium Chloride Carbon Dioxide Anion Gap BUN Creatinine Estim Creat Clear Calc Est GFR (MDRD) Af Amer Est GFR (MDRD) Non-Af BUN/Creatinine Ratio Glucose Calcium Total Creatine Kinase Triglycerides MRSA (PCR) POC Glucose 214 H Clinical Impression(s) from Imaging Studies Femur X-Ray 02/07/18 20:51 IMPRESSION: Diffuse demineralization with no evidence of acute fracture. Electronically Signed: Wei Lucas DO at 21:53 EDT , Service support , Venous Duplex 02/07/18 21:06 IMPRESSION: No evidence of deep venous thrombosis. Electronically Signed: Wei LucasDO at 21:49 EDT , Service support , Chest X-Ray 02/07/18 21:35 IMPRESSION: Prominent diffuse interstitial markings with underlying interstitial edema likely. Clinically correlate for underlying CHF exacerbation in the appropriate clinical setting. Electronically Signed: Wei LucasDO at 21:52 EDT , Service support , Chest X-Ray 02/12/18 09:30 IMPRESSION: Limited by underexposure. No gross change or acute chest disease. Electronically Signed: Deep Snider MD at 13:11 EDT , Service support , Chest X-Ray 02/13/18 16:07 IMPRESSION: 1. Improved inspiratory effort with improving basilar atelectasis. 2. Summation artifact versus new patchy infiltrate or vague nodular densities in the right apex. These can be reevaluated on follow-up study. 3. Stable mild cardiac enlargement. No CHF. Electronically Signed: Angel Will MD at 16:36 EDT , Service support , Chest X-Ray 02/14/18 15:05 IMPRESSION: The tip of the endotracheal tube is at 3.7 cm proximal to the paris. The tip of the orogastric tube most likely is within the body of the stomach. There has been essentially no change since prior study. Electronically Signed: Jim Plaza MD at 15:44 EDT Tel [phone], Service support , Medical Necessity - Tobacco Use Smoking Status: Former smoker Tobacco Use: Cigarettes Assessment/Plan All Active Problems CHF (congestive heart failure) (Acute) Cellulitis (Acute) Acute on chronic respiratory failure with hypoxia and hypercapnia (Acute) RECOMMENDATIONS: 1. Continue current supportive measures with mechanical ventilatory support. 2. Consultation placed to ENT and general surgery for tracheostomy and PEG tube insertion. 3. Will begin tube feeds today. 4. Plan to hold Coumadin, given upcoming surgical intervention. 5. Continue bronchodilators and steroids. We will plan to transition to prednisone beginning tomorrow. 6. Start Pepcid for GI prophylaxis 7. Start fentanyl, to be used in conjunction with propofol, for sedation. IMPRESSIONS: 1. Acute on chronic combined respiratory failure Likely multifactorial in etiology with end-stage COPD with exacerbation, diastolic dysfunction and pulmonary hypertension contributing. The patient was dependent on noninvasive positive pressure ventilation for multiple days, which culminated in her elective intubation on February 14. She has been failing in health per her family for a multitude of years. She is currently on maximal therapy for her underlying COPD and is prescribed a noninvasive ventilator in her home environment, for which she has been noncompliant with its use. Given her history of multiple recurrent hospitalizations for COPD related issues along with her outpatient noncompliance, would recommend proceeding with tracheostomy and PEG tube placement, following a discussion with the patient. The patient was in agreement to proceed accordingly per my discussion with her prior to being intubated. General surgery and ENT will be consulted for assistance accordingly. We will plan to continue scheduled bronchodilators, diuretics and steroids. IV methylprednisone can be transitioned to prednisone 40 mg daily beginning tomorrow. The patient will be maintained on ACVC+ with plans to continue propofol and start fentanyl for sedation. The patient has poor long-term prognosis from a respiratory standpoint. 2. Heart failure with preserved ejection fraction/pulmonary hypertension Continue current medical management, including diuretics. 3. Personal history of DVT Given the future plans for surgical intervention, recommend holding Coumadin and checking daily INR. Once INR becomes subtherapeutic, a continuous heparin drip can be started. 4. Morbid obesity/erosive gastroduodenitis/esophageal stricture/obstructive sleep apnea Complicates care, management, recovery and prognosis. The patient will be continued on appropriate GI prophylaxis. Tube feeds can be initiated. Recommend physical therapy evaluation, once medically stabilized. TIME: 40 minutes of critical care time, independent of procedures, was spent addressing the patient's acute on chronic combined respiratory failure, COPD with exacerbation, heart failure with preserved ejection fraction, pulmonary hypertension, history of DVT, obstructive sleep apnea, review of all data and collaboration with the care team. ([id number]) Code Visit [id number]: [id number] Critical care first hour
--- NOTE | 2018-02-15 06:57 | PN_ITS ---
Subjective: The patient was seen and examined at the bedside this morning. Events from the last 24 hours have been reviewed. The patient is currently afebrile, hemodynamically stable and maintaining appropriate oxygen saturations on ACVC+ with an FiO2 of 50%. The patient was transferred to the medical intensive care unit yesterday afternoon, following a prolonged discussion with the patient and her family regarding her clinical prognosis. She was intubated upon her arrival to the ICU accordingly. Due to the lack of peripheral IV access, a PICC line was placed last evening. Objective: The patient's most recent lab work, culture data and imaging studies have all been personally reviewed. Surface echocardiogram completed here at [facility] on February 08 revealed mild concentric LVH with an ejection fraction of 65%. Right ventricular systolic pressure was estimated to be 72 mmHg. Respiratory viral panel was negative. Strep and urine Legionella antigens were both negative. Sputum cultures currently pending. Records from [facility]: Pulmonary function testing was last completed in October 2017 and revealed evidence of an irreversible very severe obstructive ventilatory impairment with evidence of air trapping and reduction in diffusing capacity. Surface echocardiogram dated October 2017 revealed normal LV size and function. There was evidence of grade 2 diastolic dysfunction. The estimated right ventricular systolic pressure was 50 mmHg. The patient was last seen by her pulmonary provider at the [facility], Dr. Wesley, on January 21, 2018. The patient was admitted to the [facility] January 02 - January 07. The patient's medical history includes COPD, LEDY, diastolic dysfunction, personal history of DVT, morbid obesity and erosive gastroduodenitis/distal esophageal stricture status post dilation in September 2017. She is a former smoker of 2-3 packs per day ?30 years. She has a baseline 3 L/min supplemental oxygen requirement and multiple recent admissions for COPD exacerbations. She has been inherently noncompliant with use of home trilogy. She is on a triple therapy inhaler regimen along with chronic prednisone. General: - - Intubated, sedated and mechanically ventilated. HEENT: Atraumatic, Normocephalic, Sluggish Pupils Oral: No Gingival or Mucosal Lesions/ Ulcerations, - - Endotracheal and OG tubes remain in place. Neck: Supple, No Nodes, Trachea Midline Lungs: No rhonchi, No rales, Diminished, Wheezes Cardiovascular: Regular rate, Regular Rhythm, Normal S1, Normal S2, No murmurs Abdomen: Bowel Sounds Present, Soft, Non Tender, Obese Extremities: No clubbing, No cyanosis, No edema Skin: No breakdown Musculoskeletal: No Tenderness to Palpation of Joints or Extremities Lymphatic: No Cervical, Supraclavicular, or Inguinal Adenopathy Neurological: - - No focal neurological deficits. Currently sedated with a RASS of -2. Vital Signs Temp Pulse Resp BP Pulse Ox 97.9 F 79 14 93/58 L 98 02/15/18 00:00 02/15/18 06:00 02/15/18 06:00 02/15/18 06:00 02/15/18 06:00 Oxygen Flow Rate (L/min) 4 Oxygen Delivery Method Mechanical Ventilator Weight: 225 lb 1.471 oz Body Mass Index (BMI) 45.8 Intake and Output for Last 24 Hours 02/13/18 02/14/18 02/15/18 23:59 23:59 23:59 Intake Total 745.7 / 745.7 1327 / 1327 777 / 777 Output Total 1999 1900 / 1900 350 / 350 Balance -1254.3 / -1254.3 -573 / -573 427 / 427 Labs (Last 48 Hours) 02/12/18 02/12/18 02/13/18 15:17 21:25 06:00 WBC Cancelled Corrected WBC Cancelled RBC Cancelled Hgb Cancelled Hct Cancelled MCV Cancelled MCH Cancelled MCHC Cancelled RDW Cancelled RDW Differential Cancelled Plt Count Cancelled MPV Cancelled Immature Gran % (Auto) Cancelled Neut % (Auto) Cancelled Lymph % (Auto) Cancelled [place] % (Auto) Cancelled Eos % (Auto) Cancelled Baso % (Auto) Cancelled Immature Gran # (Auto) Cancelled Absolute Neuts (auto) Cancelled Absolute Lymphs (auto) Cancelled Absolute Monos (auto) Cancelled Total Counted Cancelled Neutrophils % (Manual) Cancelled Band Neutrophils % Cancelled Lymphocytes % (Manual) Cancelled Monocytes % (Manual) Cancelled Eosinophils % (Manual) Cancelled Basophils % (Manual) Cancelled Metamyelocytes % Cancelled Myelocytes % Cancelled Promyelocytes % Cancelled Blast Cells % Cancelled Plasma Cell % (Manual) Cancelled Other Cells % Cancelled Lymphocytes # Cancelled Nucleated RBCs/100 WBC Cancelled Differential Comment Cancelled Diff Path Review Cancelled Hypersegmented Neuts Cancelled Atypical Lymphocytes Cancelled Reactive Lymphocytes Cancelled Smudge Cells Cancelled Eosinophilia # Cancelled Basophilia # Cancelled Toxic Granulation Cancelled Dohle Bodies Cancelled Arnaldo Rods Cancelled Platelet Estimate Cancelled Plt Morphology Comment Cancelled RBC Morphology Cancelled Polychromasia Cancelled Hypochromasia Cancelled Poikilocytosis Cancelled Basophilic Stippling Cancelled Anisocytosis Cancelled Microcytosis Cancelled Macrocytosis Cancelled Spherocytes Cancelled Sickle Cells Cancelled Target Cells Cancelled Tear Drop Cells Cancelled Ovalocytes Cancelled Stomatocytes Cancelled [place] Bodies Cancelled Tana Cells Cancelled Bite Cells Cancelled Acanthocytes (Spur) Cancelled Rouleaux Cancelled Schistocytes Cancelled PT INR Specimen Type ART Sample Site RRADIAL pH 7.33 L Bicarbonate Actual 58.8 H POC Total CO2 > 50 > 50 Base Excess > 30 H > 30 H O2 Saturation 86 L O2 % ABG pCO2 112.5 H* ABG pO2 62 L Luis Test POS Respiration Rate O2 Delivery Device NC Liter Flow 4.0 Vent Mode Tidal Volume POC PEEP EPAP Blood Gas Notified Whom HOSP Blood Gas Notified Time 8742 0729 Sodium Potassium Chloride Carbon Dioxide Anion Gap BUN Creatinine Estim Creat Clear Calc Est GFR (MDRD) Af Amer Est GFR (MDRD) Non-Af BUN/Creatinine Ratio Glucose Calcium Total Creatine Kinase Triglycerides MRSA (PCR) POC Glucose 02/13/18 02/13/18 02/13/18 06:00 06:43 08:08 WBC Corrected WBC RBC Hgb Hct MCV MCH MCHC RDW RDW Differential Plt Count MPV Immature Gran % (Auto) Neut % (Auto) Lymph % (Auto) [place] % (Auto) Eos % (Auto) Baso % (Auto) Immature Gran # (Auto) Absolute Neuts (auto) Absolute Lymphs (auto) Absolute Monos (auto) Total Counted Neutrophils % (Manual) Band Neutrophils % Lymphocytes % (Manual) Monocytes % (Manual) Eosinophils % (Manual) Basophils % (Manual) Metamyelocytes % Myelocytes % Promyelocytes % Blast Cells % Plasma Cell % (Manual) Other Cells % Lymphocytes # Nucleated RBCs/100 WBC Differential Comment Diff Path Review Hypersegmented Neuts Atypical Lymphocytes Reactive Lymphocytes Smudge Cells Eosinophilia # Basophilia # Toxic Granulation Dohle Bodies Arnaldo Rods Platelet Estimate Plt Morphology Comment RBC Morphology Polychromasia Hypochromasia Poikilocytosis Basophilic Stippling Anisocytosis Microcytosis Macrocytosis Spherocytes Sickle Cells Target Cells Tear Drop Cells Ovalocytes Stomatocytes [place] Bodies [place] Cells Bite Cells Acanthocytes (Spur) Rouleaux Schistocytes PT 24.7 H INR 2.2 Specimen Type Sample Site pH Bicarbonate Actual POC Total CO2 Base Excess O2 Saturation O2 % ABG pCO2 ABG pO2 Luis Test Respiration Rate O2 Delivery Device Liter Flow Vent Mode Tidal Volume POC PEEP EPAP Blood Gas Notified Whom Blood Gas Notified Time Sodium 140 Potassium 4.6 Chloride 85 L Carbon Dioxide > 45.0 H* Anion Gap TNP BUN 20 H Creatinine 0.66 Estim Creat Clear Calc 37.60 Est GFR (MDRD) Af Amer 113 Est GFR (MDRD) Non-Af 93 BUN/Creatinine Ratio 30.1 H Glucose 242 H Calcium 9.1 Total Creatine Kinase Triglycerides MRSA (PCR) POC Glucose 201 H 02/13/18 02/13/18 02/13/18 08:08 11:19 12:46 WBC 12.4 H Corrected WBC RBC 4.03 L Hgb 10.8 L Hct 38.3 MCV 95.0 MCH 26.8 L MCHC 28.2 L RDW 15.2 H RDW Differential 51.3 H Plt Count 225 MPV 11.5 Immature Gran % (Auto) 0.800 Neut % (Auto) 82.6 H Lymph % (Auto) 5.9 L [place] % (Auto) 10.5 H Eos % (Auto) 0.0 Baso % (Auto) 0.2 Immature Gran # (Auto) Absolute Neuts (auto) 10.3 H Absolute Lymphs (auto) 0.73 L Absolute Monos (auto) Total Counted Not Reportable Neutrophils % (Manual) Band Neutrophils % Lymphocytes % (Manual) Monocytes % (Manual) Eosinophils % (Manual) Basophils % (Manual) Metamyelocytes % Myelocytes % Promyelocytes % Blast Cells % Plasma Cell % (Manual) Other Cells % Lymphocytes # Nucleated RBCs/100 WBC Differential Comment Diff Path Review Hypersegmented Neuts Atypical Lymphocytes Reactive Lymphocytes Smudge Cells Eosinophilia # Basophilia # Toxic Granulation Dohle Bodies Arnaldo Rods Platelet Estimate Plt Morphology Comment RBC Morphology Polychromasia Hypochromasia Poikilocytosis Basophilic Stippling Anisocytosis Microcytosis Macrocytosis Spherocytes Sickle Cells Target Cells Tear Drop Cells Ovalocytes Stomatocytes [place] Bodies Tana Cells Bite Cells Acanthocytes (Spur) Rouleaux Schistocytes PT INR Specimen Type ART Sample Site R Radial pH 7.36 Bicarbonate Actual 63.9 H POC Total CO2 > 50 Base Excess > 30 H O2 Saturation 93 L O2 % 40 ABG pCO2 112.0 H* ABG pO2 77 Luis Test POS Respiration Rate 12 O2 Delivery Device Bi / C PAP Liter Flow Vent Mode Tidal Volume POC PEEP EPAP 8 Blood Gas Notified Whom [facility] Blood Gas Notified Time 1245 Sodium Potassium Chloride Carbon Dioxide Anion Gap BUN Creatinine Estim Creat Clear Calc Est GFR (MDRD) Af Amer Est GFR (MDRD) Non-Af BUN/Creatinine Ratio Glucose Calcium Total Creatine Kinase Triglycerides MRSA (PCR) POC Glucose 262 H 02/13/18 02/13/18 02/14/18 17:21 22:18 05:40 WBC Corrected WBC RBC Hgb Hct MCV MCH MCHC RDW RDW Differential Plt Count MPV Immature Gran % (Auto) Neut % (Auto) Lymph % (Auto) [place] % (Auto) Eos % (Auto) Baso % (Auto) Immature Gran # (Auto) Absolute Neuts (auto) Absolute Lymphs (auto) Absolute Monos (auto) Total Counted Neutrophils % (Manual) Band Neutrophils % Lymphocytes % (Manual) Monocytes % (Manual) Eosinophils % (Manual) Basophils % (Manual) Metamyelocytes % Myelocytes % Promyelocytes % Blast Cells % Plasma Cell % (Manual) Other Cells % Lymphocytes # Nucleated RBCs/100 WBC Differential Comment Diff Path Review Hypersegmented Neuts Atypical Lymphocytes Reactive Lymphocytes Smudge Cells Eosinophilia # Basophilia # Toxic Granulation Dohle Bodies Arnaldo Rods Platelet Estimate Plt Morphology Comment RBC Morphology Polychromasia Hypochromasia Poikilocytosis Basophilic Stippling Anisocytosis Microcytosis Macrocytosis Spherocytes Sickle Cells Target Cells Tear Drop Cells Ovalocytes Stomatocytes [place] Bodies [place] Cells Bite Cells Acanthocytes (Spur) Rouleaux Schistocytes PT Cancelled INR Cancelled Specimen Type Sample Site pH Bicarbonate Actual POC Total CO2 Base Excess O2 Saturation O2 % ABG pCO2 ABG pO2 Luis Test Respiration Rate O2 Delivery Device Liter Flow Vent Mode Tidal Volume POC PEEP EPAP Blood Gas Notified Whom Blood Gas Notified Time Sodium Potassium Chloride Carbon Dioxide Anion Gap BUN Creatinine Estim Creat Clear Calc Est GFR (MDRD) Af Amer Est GFR (MDRD) Non-Af BUN/Creatinine Ratio Glucose Calcium Total Creatine Kinase Triglycerides MRSA (PCR) POC Glucose 138 H 234 H 02/14/18 02/14/18 02/14/18 07:01 07:10 11:17 WBC Corrected WBC RBC Hgb Hct MCV MCH MCHC RDW RDW Differential Plt Count MPV Immature Gran % (Auto) Neut % (Auto) Lymph % (Auto) [place] % (Auto) Eos % (Auto) Baso % (Auto) Immature Gran # (Auto) Absolute Neuts (auto) Absolute Lymphs (auto) Absolute Monos (auto) Total Counted Neutrophils % (Manual) Band Neutrophils % Lymphocytes % (Manual) Monocytes % (Manual) Eosinophils % (Manual) Basophils % (Manual) Metamyelocytes % Myelocytes % Promyelocytes % Blast Cells % Plasma Cell % (Manual) Other Cells % Lymphocytes # Nucleated RBCs/100 WBC Differential Comment Diff Path Review Hypersegmented Neuts Atypical Lymphocytes Reactive Lymphocytes Smudge Cells Eosinophilia # Basophilia # Toxic Granulation Dohle Bodies Arnaldo Rods Platelet Estimate Plt Morphology Comment RBC Morphology Polychromasia Hypochromasia Poikilocytosis Basophilic Stippling Anisocytosis Microcytosis Macrocytosis Spherocytes Sickle Cells Target Cells Tear Drop Cells Ovalocytes Stomatocytes [place] Bodies [place] Cells Bite Cells Acanthocytes (Spur) Rouleaux Schistocytes PT 30.7 H INR 2.9 Specimen Type Sample Site pH Bicarbonate Actual POC Total CO2 Base Excess O2 Saturation O2 % ABG pCO2 ABG pO2 Luis Test Respiration Rate O2 Delivery Device Liter Flow Vent Mode Tidal Volume POC PEEP EPAP Blood Gas Notified Whom Blood Gas Notified Time Sodium Potassium Chloride Carbon Dioxide Anion Gap BUN Creatinine Estim Creat Clear Calc Est GFR (MDRD) Af Amer Est GFR (MDRD) Non-Af BUN/Creatinine Ratio Glucose Calcium Total Creatine Kinase Triglycerides MRSA (PCR) POC Glucose 284 H 246 H 02/14/18 02/14/18 02/14/18 16:18 18:35 18:37 WBC Corrected WBC RBC Hgb Hct MCV MCH MCHC RDW RDW Differential Plt Count MPV Immature Gran % (Auto) Neut % (Auto) Lymph % (Auto) [place] % (Auto) Eos % (Auto) Baso % (Auto) Immature Gran # (Auto) Absolute Neuts (auto) Absolute Lymphs (auto) Absolute Monos (auto) Total Counted Neutrophils % (Manual) Band Neutrophils % Lymphocytes % (Manual) Monocytes % (Manual) Eosinophils % (Manual) Basophils % (Manual) Metamyelocytes % Myelocytes % Promyelocytes % Blast Cells % Plasma Cell % (Manual) Other Cells % Lymphocytes # Nucleated RBCs/100 WBC Differential Comment Diff Path Review Hypersegmented Neuts Atypical Lymphocytes Reactive Lymphocytes Smudge Cells Eosinophilia # Basophilia # Toxic Granulation Dohle Bodies Arnaldo Rods Platelet Estimate Plt Morphology Comment RBC Morphology Polychromasia Hypochromasia Poikilocytosis Basophilic Stippling Anisocytosis Microcytosis Macrocytosis Spherocytes Sickle Cells Target Cells Tear Drop Cells Ovalocytes Stomatocytes [place] Bodies [place] Cells Bite Cells Acanthocytes (Spur) Rouleaux Schistocytes PT INR Specimen Type ART Sample Site R RADIAL pH 7.52 H Bicarbonate Actual 61.5 H POC Total CO2 > 50 Base Excess > 30 H O2 Saturation 86 L O2 % 50 ABG pCO2 74.9 H* ABG pO2 50 L Luis Test NA Respiration Rate 14 O2 Delivery Device Liter Flow Vent Mode VC+ Tidal Volume 350 POC PEEP 5 EPAP Blood Gas Notified Whom ICU MD Blood Gas Notified Time 1618 Sodium Potassium Chloride Carbon Dioxide Anion Gap BUN Creatinine Estim Creat Clear Calc Est GFR (MDRD) Af Amer Est GFR (MDRD) Non-Af BUN/Creatinine Ratio Glucose Calcium Total Creatine Kinase Triglycerides MRSA (PCR) Negative POC Glucose 267 H 02/14/18 02/14/18 02/14/18 18:45 21:38 23:31 WBC Corrected WBC RBC Hgb Hct MCV MCH MCHC RDW RDW Differential Plt Count MPV Immature Gran % (Auto) Neut % (Auto) Lymph % (Auto) [place] % (Auto) Eos % (Auto) Baso % (Auto) Immature Gran # (Auto) Absolute Neuts (auto) Absolute Lymphs (auto) Absolute Monos (auto) Total Counted Neutrophils % (Manual) Band Neutrophils % Lymphocytes % (Manual) Monocytes % (Manual) Eosinophils % (Manual) Basophils % (Manual) Metamyelocytes % Myelocytes % Promyelocytes % Blast Cells % Plasma Cell % (Manual) Other Cells % Lymphocytes # Nucleated RBCs/100 WBC Differential Comment Diff Path Review Hypersegmented Neuts Atypical Lymphocytes Reactive Lymphocytes Smudge Cells Eosinophilia # Basophilia # Toxic Granulation Dohle Bodies Arnaldo Rods Platelet Estimate Plt Morphology Comment RBC Morphology Polychromasia Hypochromasia Poikilocytosis Basophilic Stippling Anisocytosis Microcytosis Macrocytosis Spherocytes Sickle Cells Target Cells Tear Drop Cells Ovalocytes Stomatocytes [place] Bodies Tana Cells Bite Cells Acanthocytes (Spur) Rouleaux Schistocytes PT INR Specimen Type Sample Site pH Bicarbonate Actual POC Total CO2 Base Excess O2 Saturation O2 % ABG pCO2 ABG pO2 Luis Test Respiration Rate O2 Delivery Device Liter Flow Vent Mode Tidal Volume POC PEEP EPAP Blood Gas Notified Whom Blood Gas Notified Time Sodium Potassium Chloride Carbon Dioxide Anion Gap BUN Creatinine Estim Creat Clear Calc Est GFR (MDRD) Af Amer Est GFR (MDRD) Non-Af BUN/Creatinine Ratio Glucose Calcium Total Creatine Kinase 55 Triglycerides 257 H MRSA (PCR) POC Glucose 243 H 245 H 02/15/18 02/15/18 02/15/18 04:10 04:10 04:10 WBC 6.8 Corrected WBC RBC 3.54 L Hgb 9.2 L Hct 33.3 L MCV 94.1 MCH 26.0 L MCHC 27.6 L RDW 15.6 H RDW Differential 54.2 H Plt Count 185 MPV 11.0 Immature Gran % (Auto) 0.400 Neut % (Auto) 83.2 H Lymph % (Auto) 11.2 L [place] % (Auto) 5.2 Eos % (Auto) 0.0 Baso % (Auto) 0.0 Immature Gran # (Auto) Absolute Neuts (auto) 5.6 Absolute Lymphs (auto) 0.76 L Absolute Monos (auto) Total Counted Not Reportable Neutrophils % (Manual) Band Neutrophils % Lymphocytes % (Manual) Monocytes % (Manual) Eosinophils % (Manual) Basophils % (Manual) Metamyelocytes % Myelocytes % Promyelocytes % Blast Cells % Plasma Cell % (Manual) Other Cells % Lymphocytes # Nucleated RBCs/100 WBC Differential Comment Diff Path Review Hypersegmented Neuts Atypical Lymphocytes Reactive Lymphocytes Smudge Cells Eosinophilia # Basophilia # Toxic Granulation Dohle Bodies [place] Rods Platelet Estimate Plt Morphology Comment RBC Morphology Polychromasia Hypochromasia Poikilocytosis Basophilic Stippling Anisocytosis Microcytosis Macrocytosis Spherocytes Sickle Cells Target Cells Tear Drop Cells Ovalocytes Stomatocytes [place] Bodies [place] Cells Bite Cells Acanthocytes (Spur) Rouleaux Schistocytes PT 32.2 H INR 3.1 Specimen Type Sample Site pH Bicarbonate Actual POC Total CO2 Base Excess O2 Saturation O2 % ABG pCO2 ABG pO2 Luis Test Respiration Rate O2 Delivery Device Liter Flow Vent Mode Tidal Volume POC PEEP EPAP Blood Gas Notified Whom Blood Gas Notified Time Sodium 142 Potassium 4.4 Chloride 89 L Carbon Dioxide Pending Anion Gap Pending BUN 24 H Creatinine 0.66 Estim Creat Clear Calc 37.60 Est GFR (MDRD) Af Amer 113 Est GFR (MDRD) Non-Af 93 BUN/Creatinine Ratio 36.1 H Glucose 221 H Calcium 8.2 L Total Creatine Kinase Triglycerides MRSA (PCR) POC Glucose 02/15/18 05:23 WBC Corrected WBC RBC Hgb Hct MCV MCH MCHC RDW RDW Differential Plt Count MPV Immature Gran % (Auto) Neut % (Auto) Lymph % (Auto) [place] % (Auto) Eos % (Auto) Baso % (Auto) Immature Gran # (Auto) Absolute Neuts (auto) Absolute Lymphs (auto) Absolute Monos (auto) Total Counted Neutrophils % (Manual) Band Neutrophils % Lymphocytes % (Manual) Monocytes % (Manual) Eosinophils % (Manual) Basophils % (Manual) Metamyelocytes % Myelocytes % Promyelocytes % Blast Cells % Plasma Cell % (Manual) Other Cells % Lymphocytes # Nucleated RBCs/100 WBC Differential Comment Diff Path Review Hypersegmented Neuts Atypical Lymphocytes Reactive Lymphocytes Smudge Cells Eosinophilia # Basophilia # Toxic Granulation Dohle Bodies Arnaldo Rods Platelet Estimate Plt Morphology Comment RBC Morphology Polychromasia Hypochromasia Poikilocytosis Basophilic Stippling Anisocytosis Microcytosis Macrocytosis Spherocytes Sickle Cells Target Cells Tear Drop Cells Ovalocytes Stomatocytes [place] Bodies [place] Cells Bite Cells Acanthocytes (Spur) Rouleaux Schistocytes PT INR Specimen Type Sample Site pH Bicarbonate Actual POC Total CO2 Base Excess O2 Saturation O2 % ABG pCO2 ABG pO2 Luis Test Respiration Rate O2 Delivery Device Liter Flow Vent Mode Tidal Volume POC PEEP EPAP Blood Gas Notified Whom Blood Gas Notified Time Sodium Potassium Chloride Carbon Dioxide Anion Gap BUN Creatinine Estim Creat Clear Calc Est GFR (MDRD) Af Amer Est GFR (MDRD) Non-Af BUN/Creatinine Ratio Glucose Calcium Total Creatine Kinase Triglycerides MRSA (PCR) POC Glucose 214 H Clinical Impression(s) from Imaging Studies Femur X-Ray 02/07/18 20:51 IMPRESSION: Diffuse demineralization with no evidence of acute fracture. Electronically Signed: Wei Lucas DO at 21:53 EDT , Service support , Venous Duplex 02/07/18 21:06 IMPRESSION: No evidence of deep venous thrombosis. Electronically Signed: Wei LucasDO at 21:49 EDT , Service support , Chest X-Ray 02/07/18 21:35 IMPRESSION: Prominent diffuse interstitial markings with underlying interstitial edema likely. Clinically correlate for underlying CHF exacerbation in the appropriate clinical setting. Electronically Signed: Wei LucasDO at 21:52 EDT , Service support , Chest X-Ray 02/12/18 09:30 IMPRESSION: Limited by underexposure. No gross change or acute chest disease. Electronically Signed: Deep Snider MD at 13:11 EDT , Service support , Chest X-Ray 02/13/18 16:07 IMPRESSION: 1. Improved inspiratory effort with improving basilar atelectasis. 2. Summation artifact versus new patchy infiltrate or vague nodular densities in the right apex. These can be reevaluated on follow-up study. 3. Stable mild cardiac enlargement. No CHF. Electronically Signed: Angel Will MD at 16:36 EDT , Service support , Chest X-Ray 02/14/18 15:05 IMPRESSION: The tip of the endotracheal tube is at 3.7 cm proximal to the [place]. The tip of the orogastric tube most likely is within the body of the stomach. There has been essentially no change since prior study. Electronically Signed: Jim Plaza MD at 15:44 EDT Tel [phone], Service support , Medical Necessity - Tobacco Use Smoking Status: Former smoker Tobacco Use: Cigarettes Assessment/Plan All Active Problems CHF (congestive heart failure) (Acute) Cellulitis (Acute) Acute on chronic respiratory failure with hypoxia and hypercapnia (Acute) RECOMMENDATIONS: 1. Continue current supportive measures with mechanical ventilatory support. 2. Consultation placed to ENT and general surgery for tracheostomy and PEG tube insertion. 3. Will begin tube feeds today. 4. Plan to hold Coumadin, given upcoming surgical intervention. 5. Continue bronchodilators and steroids. We will plan to transition to prednisone beginning tomorrow. 6. Start Pepcid for GI prophylaxis 7. Start fentanyl, to be used in conjunction with propofol, for sedation. IMPRESSIONS: 1. Acute on chronic combined respiratory failure Likely multifactorial in etiology with end-stage COPD with exacerbation, diastolic dysfunction and pulmonary hypertension contributing. The patient was dependent on noninvasive positive pressure ventilation for multiple days, which culminated in her elective intubation on February 14. She has been failing in health per her family for a multitude of years. She is currently on maximal therapy for her underlying COPD and is prescribed a noninvasive ventilator in her home environment, for which she has been noncompliant with its use. Given her history of multiple recurrent hospitalizations for COPD related issues along with her outpatient noncompliance, would recommend proceeding with tracheostomy and PEG tube placement, following a discussion with the patient. The patient was in agreement to proceed accordingly per my discussion with her prior to being intubated. General surgery and ENT will be consulted for assistance accordingly. We will plan to continue scheduled bronchodilators, diuretics and steroids. IV methylprednisone can be transitioned to prednisone 40 mg daily beginning tomorrow. The patient will be maintained on ACVC+ with plans to continue propofol and start fentanyl for sedation. The patient has poor long-term prognosis from a respiratory standpoint. 2. Heart failure with preserved ejection fraction/pulmonary hypertension Continue current medical management, including diuretics. 3. Personal history of DVT Given the future plans for surgical intervention, recommend holding Coumadin and checking daily INR. Once INR becomes subtherapeutic, a continuous heparin drip can be started. 4. Morbid obesity/erosive gastroduodenitis/esophageal stricture/obstructive sleep apnea Complicates care, management, recovery and prognosis. The patient will be continued on appropriate GI prophylaxis. Tube feeds can be initiated. Recommend physical therapy evaluation, once medically stabilized. TIME: 40 minutes of critical care time, independent of procedures, was spent addressing the patient's acute on chronic combined respiratory failure, COPD with exacerbation, heart failure with preserved ejection fraction, pulmonary hypertension, history of DVT, obstructive sleep apnea, review of all data and collaboration with the care team. ([id number]) Code Visit [id number]: [id number] Critical care first hour
[2018-02-15 07:36] LABS: Carbon Dioxide > 45.0 mmol/L (21.0-32.0)
[2018-02-15 08:31] LABS: Allen Test POS; Base Excess > 30 mmol/L (-2 to +2); Bicarbonate 55.7 mmol/L (22-26); Blood Gas Specimen Type ART; FI02 50; Mode VC+; O2 Delivery Device Vent; PEEP 5; PO2 108 mmHG (75-100); RR 12; SITE R Radial; SO2 97 % (95-99); Time Given 655; Total Carbon Dioxide > 50 mmol/L; Vt 350; pCO2 94.4 mmHg (35-45); pH 7.38 (7.35-7.45)
[2018-02-15] MEDS: Famotidine 20 MG Tablet GT ×2 (09:16→21:31)
[2018-02-15] MEDS: Montelukast 10 MG Tablet GT (09:16)
[2018-02-15] MEDS: Ferrous Sulfate 325 MG Tablet GT (09:17)
[2018-02-15] MEDS: Magnesium Oxide 400 MG Tablet GT (09:18)
[2018-02-15] MEDS: Calcium Carb/Vitamin D 1 TABLET Tablet GT (09:18)
[2018-02-15] MEDS: DULoxetine Hcl 60 MG Capsule PO (09:19)
[2018-02-15] MEDS: Loratadine 10 MG Tablet GT (09:19)
[2018-02-15] MEDS: Ezetimibe 10 MG Tablet GT (09:20)
[2018-02-15] MEDS: Chlorhexidine 15 ML PO ×2 (09:23→21:30)
[2018-02-15] MEDS: Enoxaparin 40 MG/0.4 ML Syringe SC (09:44)
--- NOTE | 2018-02-15 09:54 | PCM.PN.HOSP ---
Patient Problems: Active and Suspected Problems CHF (congestive heart failure) (Acute) Cellulitis (Acute) Acute on chronic respiratory failure with hypoxia and hypercapnia (Acute) Subjective: Patient was seen and examined. She was electively intubated and managed in the ICU yesterday. She appears comfortable on the mechanical ventilator. On propofol. No acute events overnight. Discussed with fire control system installer, patient will be evaluated for tracheostomy and PEG tube. Per discussions, patient is still full code. Vitals/I&O's: Vital Signs Temp Pulse Resp BP Pulse Ox 97.9 F 82 12 108/56 L 96 02/15/18 00:00 02/15/18 09:05 02/15/18 09:05 02/15/18 08:00 02/15/18 09:05 Oxygen Flow Rate (L/min) 4 Oxygen Delivery Method Mechanical Ventilator Weight: 102.1 kg Body Mass Index (BMI) 45.8 Intake and Output for Last 24 Hours 02/13/18 02/14/18 02/15/18 23:59 23:59 23:59 Intake Total 745.7 / 745.7 1327 / 1327 777 / 777 Output Total 1999 1900 / 1900 350 / 350 Balance -1254.3 / -1254.3 -573 / -573 427 / 427 General: Alert, Oriented x3, Cooperative HEENT: Atraumatic, PERRLA, EOMI, Normocephalic Oral: Moist Mucosa Neck: Supple Lungs: Normal air movement, Diminished, Wheezes - ++ Cardiovascular: Regular rate, Regular Rhythm, Normal S1, Normal S2, No murmurs Abdomen: Bowel Sounds Present, Soft, Non Tender, Non-Distended, No Hepato-splenomegaly Extremities: No edema Skin: No rashes, No breakdown Musculoskeletal: No Tenderness to Palpation of Joints or Extremities Lymphatic: No Cervical, Supraclavicular, or Inguinal Adenopathy Neurological: Cranial nerves II-XII grossly intact, Motor Exam 5/5 strength throughout Psych/Mental Status: Normal Affect, Appropriate Laboratory Results 02/14/18 11:17: POC Glucose 246 H 02/14/18 16:18: Specimen Type ART, Sample Site R RADIAL, pH 7.52 H, Bicarbonate Actual 61.5 H, POC Total CO2 > 50, Base Excess > 30 H, O2 Saturation 86 L, O2 % 50, ABG pCO2 74.9 H*, ABG pO2 50 L, Luis Test NA, Respiration Rate 14, Vent Mode VC+, Tidal Volume 350, POC PEEP 5, Blood Gas Notified Whom ICU , Blood Gas Notified Time 1618 02/14/18 18:35: MRSA (PCR) Negative 02/14/18 18:37: POC Glucose 267 H 02/14/18 18:45: Total Creatine Kinase 55, Triglycerides 257 H 02/14/18 21:38: POC Glucose 243 H 02/14/18 23:31: POC Glucose 245 H 02/15/18 04:10: PT 32.2 H, INR 3.1 02/15/18 04:10: WBC 6.8, RBC 3.54 L, Hgb 9.2 L, Hct 33.3 L, MCV 94.1, MCH 26.0 L, MCHC 27.6 L, RDW 15.6 H, RDW Differential 54.2 H, Plt Count 185, MPV 11.0, Immature Gran % (Auto) 0.400, Neut % (Auto) 83.2 H, Lymph % (Auto) 11.2 L, [place] % (Auto) 5.2, Eos % (Auto) 0.0, Baso % (Auto) 0.0, Absolute Neuts (auto) 5.6, Absolute Lymphs (auto) 0.76 L, Total Counted Not Reportable 02/15/18 04:10: Sodium 142, Potassium 4.4, Chloride 89 L, Carbon Dioxide > 45.0 H*, Anion Gap TNP, BUN 24 H, Creatinine 0.66, Estim Creat Clear Calc 37.60, Est GFR (MDRD) Af Amer 113, Est GFR (MDRD) Non-Af 93, BUN/Creatinine Ratio 36.1 H, Glucose 221 H, Calcium 8.2 L 02/15/18 05:23: POC Glucose 214 H 02/15/18 06:50: Specimen Type ART, Sample Site R Radial, pH 7.38, Bicarbonate Actual 55.7 H, POC Total CO2 > 50, Base Excess > 30 H, O2 Saturation 97, O2 % 50, ABG pCO2 94.4 H*, ABG pO2 108 H, Luis Test POS, Respiration Rate 12, O2 Delivery Device Vent, Vent Mode VC+, Tidal Volume 350, POC PEEP 5, Blood Gas Notified Whom ICU , Blood Gas Notified Time 655 Current Medications Acetaminophen (Tylenol Liquid) 500 mg GT Q6H PRN PRN PRN Reason: PAIN Hydrocodone Bitart/Acetaminophen ([place] 5mg-325mg) 1 tablet GT Q6H PRN PRN PRN Reason: PAIN Albuterol Sulfate (Ventolin Aerosols) 2.5 mg INHALATION Q2H PRN PRN PRN Reason: SHORTNESS OF BREATH Albuterol/Ipratropium (Duoneb) 3 ml INHALATION Q4H.RT [facility] Last Admin: 02/15/18 06:35 Dose: 3 ml Atorvastatin Calcium (Lipitor) 20 mg GT QHS [facility] Bisacodyl (Dulcolax) 10 mg RECTAL DAILY PRN PRN Reason: Constipation Buspirone HCl (Buspar) 15 mg GT TID [facility] Last Admin: 02/15/18 05:23 Dose: 15 mg Calcium/Vitamin D (Os-Carlos 500mg + D) 1 tablet GT DAILY [facility] Last Admin: 02/15/18 09:18 Dose: 1 tablet Chlorhexidine Gluconate () 15 ml PO BID [facility] Last Admin: 02/15/18 09:23 Dose: 15 ml Chlorhexidine Gluconate () 1 each TOPICAL DAILY [facility] Last Admin: 02/15/18 05:28 Dose: 1 each Cholecalciferol (Vitamin D) 2,000 unit GT DAILY [facility] Last Admin: 02/15/18 09:15 Dose: 2,000 unit Dextrose (D50w Syringe) 0 gm IV X1 PRN; Protocol PRN Reason: Hypoglycemia Duloxetine HCl (Cymbalta) 60 mg PO DAILY [facility] Last Admin: 02/15/18 09:19 Dose: 60 mg Ezetimibe (Zetia) 10 mg GT DAILY [facility] Last Admin: 02/15/18 09:20 Dose: 10 mg Enoxaparin Sodium (Lovenox) 40 mg SC DAILY [facility] Last Admin: 02/15/18 09:44 Dose: 40 mg Famotidine (Pepcid) 20 mg GT BID [facility] Last Admin: 02/15/18 09:16 Dose: 20 mg Ferrous Sulfate (Ferrous Sulfate) 325 mg GT DAILYCM [facility] Last Admin: 02/15/18 09:17 Dose: 325 mg Furosemide (Lasix) 20 mg IV BID@1000,1800 [facility] Last Admin: 02/15/18 09:32 Dose: Not Given Glucagon () 1 mg IM .X1 PRN PRN Reason: Hypoglycemia Guaifenesin (Robitussin Dm) 10 ml GT Q6H PRN PRN PRN Reason: COUGH Heparin Sodium (Beef Lung) (Heparin 500 Unit/5 Ml (100/Ml)) 500 unit IV UD PRN PRN Reason: HEPARIN FLUSH Propofol (Diprivan) 1,000 mg in 100 mls @ 3.102 mls/hr CONT INF .Q12H [facility]; 5 MCG/KG/MIN PRN Reason: Protocol Last Admin: 02/15/18 07:50 Dose: 3.102 mls/hr Sodium Chloride () 1,000 mls @ 100 mls/hr IV .Q10H [facility] Last Admin: 02/15/18 00:56 Dose: 100 mls/hr Enteral Nutritional Formula (Vital Af 1.2 Carlos Liquid) 1,000 mls @ 60 mls/hr GT .[id number] [facility] Fentanyl () 100 mls @ 2.5 mls/hr IV .Q40H [facility] Insulin Glargine (Lantus (Bkc)) 15 units SC QHS [facility] Last Admin: 02/14/18 21:38 Dose: 15 u Insulin Human Lispro (Humalog Kwikpen (Bkc)) 0 unit SQ Q6 [facility] PRN Reason: Protocol Lactobacillus Acidophilus (Acidophilus) 1 tablet GT DAILY [facility] Last Admin: 02/15/18 09:22 Dose: 1 tablet Levothyroxine Sodium (Synthroid) 25 mcg GT DAILY@0600 [facility] Last Admin: 02/15/18 05:23 Dose: 25 mcg Loratadine (Claritin) 10 mg GT DAILY [facility] Last Admin: 02/15/18 09:19 Dose: 10 mg Losartan Potassium (Cozaar) 25 mg GT DAILY [facility] Last Admin: 02/15/18 09:32 Dose: Not Given Magnesium Hydroxide (Milk Of Magnesia) 30 ml GT DAILY PRN PRN Reason: Constipation Magnesium Oxide (Mag-Ox 400) 400 mg GT DAILY [facility] Last Admin: 02/15/18 09:18 Dose: 400 mg Methylprednisolone (Solu-Medrol) 40 mg IV Q8 [facility] Stop: 02/16/18 06:01 Last Admin: 02/15/18 05:24 Dose: 40 mg Montelukast Sodium (Singulair) 10 mg GT DAILY [facility] Last Admin: 02/15/18 09:16 Dose: 10 mg Morphine Sulfate () 1 mg IV Q3H PRN PRN PRN Reason: Severe Pain (pain scale 6-10) Polyethylene Glycol (Miralax) 17 gm GT DAILY PRN PRN Reason: Constipation Potassium Chloride (K-Dur) 10 meq GT DAILY [facility] Last Admin: 02/15/18 09:19 Dose: 10 meq Prednisone () 40 mg GT DAILY@0800 [facility] Senna/Docusate Sodium (Senokot-S, Emily-Colace) 2 tablet GT BID PRN PRN Reason: Constipation Sodium Chloride ([place] Nasal [place]) 1 spray NASAL BID [facility] Last Admin: 02/15/18 09:21 Dose: Not Given Sodium Chloride () 5 - 30 ml IV UD PRN PRN Reason: SALINE FLUSH Last Admin: 02/14/18 09:21 Dose: 10 ml Sodium Chloride () 10 - 20 ml IV UD PRN PRN Reason: PICC FLUSH Last Admin: 02/14/18 21:47 Dose: 20 ml Medical Necessity - Tobacco Use Smoking Status: Former smoker Tobacco Use: Cigarettes Assessment/Plan All Active Problems CHF (congestive heart failure) (Acute) Cellulitis (Acute) Acute on chronic respiratory failure with hypoxia and hypercapnia (Acute) 72-year-old female with endstage COPD, pulmonary hypertension, chronic diastolic CHF admitted with worsening shortness of breath ongoing over the several days prior to admission. Her CODE STATUS is full code. Patient was initially been managed conservatively on the PCU floor as acute COPD exacerbation with steroids. Patient has been intermittently refusing steroids. She was continued on her trilogy with no improvement in her hypercapnia. Pulmonary team consulted and following. 1. Acute hypoxic hypercapnic respiratory failure in a patient with severe COPD/diastolic heart failure, electively intubated, being managed on mechanical ventilator in the ICU, plans in place for tracheostomy and PEG tube. 2. Acute COPD exacerbation, on IV steroids 40mg tid, breathing treatments 3. Hypokalemia, resolved. 4. Right lower extremity cellulitis,resolved, monitoring off antibiotics. 5. History of LEDY, obesity hypoventilation syndrome, continue on AVAPS 6. Hyperlipidemia, on statin 7. Hypertension, continue on Cozaar 8. Anxiety/depression, continue on Cymbalta, Buspar 9. Hypothyroidism, on levothyroxine 10. Type II DM, BS remain uncontrolled due to IV steroids, continue on Lantus 15 units QHS, will dc premeal and monitor on accucheks q6hrly 11. History of diatolic CHF, continue on Lasix 20mg IV bid. 12. H/o DVT on coumadin, therapeutic at 3.1, will hold coumadin for now, in light of possible PEG tube. 13. DVT prophylaxis with Coumadin, INR is therapeutic 14. Code status - full code Code Visit Inpatient E&M: 31970 Subs Hosp L3
--- NOTE | 2018-02-15 10:03 | PN_ITS ---
Patient Problems: Active and Suspected Problems CHF (congestive heart failure) (Acute) Cellulitis (Acute) Acute on chronic respiratory failure with hypoxia and hypercapnia (Acute) Subjective: Patient was seen and examined. She was electively intubated and managed in the ICU yesterday. She appears comfortable on the mechanical ventilator. On propofol. No acute events overnight. Discussed with metrology specialist, patient will be evaluated for tracheostomy and PEG tube. Per discussions, patient is still full code. Vitals/I&O's: Vital Signs Temp Pulse Resp BP Pulse Ox 97.9 F 82 12 108/56 L 96 02/15/18 00:00 02/15/18 09:05 02/15/18 09:05 02/15/18 08:00 02/15/18 09:05 Oxygen Flow Rate (L/min) 4 Oxygen Delivery Method Mechanical Ventilator Weight: 102.1 kg Body Mass Index (BMI) 45.8 Intake and Output for Last 24 Hours 02/13/18 02/14/18 02/15/18 23:59 23:59 23:59 Intake Total 745.7 / 745.7 1327 / 1327 777 / 777 Output Total 1999 1900 / 1900 350 / 350 Balance -1254.3 / -1254.3 -573 / -573 427 / 427 General: Alert, Oriented x3, Cooperative HEENT: Atraumatic, PERRLA, EOMI, Normocephalic Oral: Moist Mucosa Neck: Supple Lungs: Normal air movement, Diminished, Wheezes - ++ Cardiovascular: Regular rate, Regular Rhythm, Normal S1, Normal S2, No murmurs Abdomen: Bowel Sounds Present, Soft, Non Tender, Non-Distended, No Hepato- splenomegaly Extremities: No edema Skin: No rashes, No breakdown Musculoskeletal: No Tenderness to Palpation of Joints or Extremities Lymphatic: No Cervical, Supraclavicular, or Inguinal Adenopathy Neurological: Cranial nerves II-XII grossly intact, Motor Exam 5/5 strength throughout Psych/Mental Status: Normal Affect, Appropriate Laboratory Results 02/14/18 11:17: POC Glucose 246 H 02/14/18 16:18: Specimen Type ART, Sample Site R RADIAL, pH 7.52 H, Bicarbonate Actual 61.5 H, POC Total CO2 > 50, Base Excess > 30 H, O2 Saturation 86 L, O2 % 50, ABG pCO2 74.9 H*, ABG pO2 50 L, Luis Test NA, Respiration Rate 14, Vent Mode VC+, Tidal Volume 350, POC PEEP 5, Blood Gas Notified Whom ICU , Blood Gas Notified Time 1618 02/14/18 18:35: MRSA (PCR) Negative 02/14/18 18:37: POC Glucose 267 H 02/14/18 18:45: Total Creatine Kinase 55, Triglycerides 257 H 02/14/18 21:38: POC Glucose 243 H 02/14/18 23:31: POC Glucose 245 H 02/15/18 04:10: PT 32.2 H, INR 3.1 02/15/18 04:10: WBC 6.8, RBC 3.54 L, Hgb 9.2 L, Hct 33.3 L, MCV 94.1, MCH 26.0 L , MCHC 27.6 L, RDW 15.6 H, RDW Differential 54.2 H, Plt Count 185, MPV 11.0, Immature Gran % (Auto) 0.400, Neut % (Auto) 83.2 H, Lymph % (Auto) 11.2 L, [place] % (Auto) 5.2, Eos % (Auto) 0.0, Baso % (Auto) 0.0, Absolute Neuts (auto) 5.6, Absolute Lymphs (auto) 0.76 L, Total Counted Not Reportable 02/15/18 04:10: Sodium 142, Potassium 4.4, Chloride 89 L, Carbon Dioxide > 45.0 H*, Anion Gap TNP, BUN 24 H, Creatinine 0.66, Estim Creat Clear Calc 37.60, Est GFR (MDRD) Af Amer 113, Est GFR (MDRD) Non-Af 93, BUN/Creatinine Ratio 36.1 H, Glucose 221 H, Calcium 8.2 L 02/15/18 05:23: POC Glucose 214 H 02/15/18 06:50: Specimen Type ART, Sample Site R Radial, pH 7.38, Bicarbonate Actual 55.7 H, POC Total CO2 > 50, Base Excess > 30 H, O2 Saturation 97, O2 % 50 , ABG pCO2 94.4 H*, ABG pO2 108 H, Luis Test POS, Respiration Rate 12, O2 Delivery Device Vent, Vent Mode VC+, Tidal Volume 350, POC PEEP 5, Blood Gas Notified Whom ICU , Blood Gas Notified Time 655 Current Medications Acetaminophen (Tylenol Liquid) 500 mg GT Q6H PRN PRN PRN Reason: PAIN Hydrocodone Bitart/Acetaminophen ([place] 5mg-325mg) 1 tablet GT Q6H PRN PRN PRN Reason: PAIN Albuterol Sulfate (Ventolin Aerosols) 2.5 mg INHALATION Q2H PRN PRN PRN Reason: SHORTNESS OF BREATH Albuterol/Ipratropium (Duoneb) 3 ml INHALATION Q4H.RT [facility] Last Admin: 02/15/18 06:35 Dose: 3 ml Atorvastatin Calcium (Lipitor) 20 mg GT QHS [facility] Bisacodyl (Dulcolax) 10 mg RECTAL DAILY PRN PRN Reason: Constipation Buspirone HCl (Buspar) 15 mg GT TID [facility] Last Admin: 02/15/18 05:23 Dose: 15 mg Calcium/Vitamin D (Os-Carlos 500mg + D) 1 tablet GT DAILY [facility] Last Admin: 02/15/18 09:18 Dose: 1 tablet Chlorhexidine Gluconate () 15 ml PO BID [facility] Last Admin: 02/15/18 09:23 Dose: 15 ml Chlorhexidine Gluconate () 1 each TOPICAL DAILY [facility] Last Admin: 02/15/18 05:28 Dose: 1 each Cholecalciferol (Vitamin D) 2,000 unit GT DAILY [facility] Last Admin: 02/15/18 09:15 Dose: 2,000 unit Dextrose (D50w Syringe) 0 gm IV X1 PRN; Protocol PRN Reason: Hypoglycemia Duloxetine HCl (Cymbalta) 60 mg PO DAILY [facility] Last Admin: 02/15/18 09:19 Dose: 60 mg Ezetimibe (Zetia) 10 mg GT DAILY [facility] Last Admin: 02/15/18 09:20 Dose: 10 mg Enoxaparin Sodium (Lovenox) 40 mg SC DAILY [facility] Last Admin: 02/15/18 09:44 Dose: 40 mg Famotidine (Pepcid) 20 mg GT BID [facility] Last Admin: 02/15/18 09:16 Dose: 20 mg Ferrous Sulfate (Ferrous Sulfate) 325 mg GT DAILYCM [facility] Last Admin: 02/15/18 09:17 Dose: 325 mg Furosemide (Lasix) 20 mg IV BID@1000,1800 [facility] Last Admin: 02/15/18 09:32 Dose: Not Given Glucagon () 1 mg IM .X1 PRN PRN Reason: Hypoglycemia Guaifenesin (Robitussin Dm) 10 ml GT Q6H PRN PRN PRN Reason: COUGH Heparin Sodium (Beef Lung) (Heparin 500 Unit/5 Ml (100/Ml)) 500 unit IV UD PRN PRN Reason: HEPARIN FLUSH Propofol (Diprivan) 1,000 mg in 100 mls @ 3.102 mls/hr CONT INF .Q12H [facility]; 5 MCG/KG/MIN PRN Reason: Protocol Last Admin: 02/15/18 07:50 Dose: 3.102 mls/hr Sodium Chloride () 1,000 mls @ 100 mls/hr IV .Q10H [facility] Last Admin: 02/15/18 00:56 Dose: 100 mls/hr Enteral Nutritional Formula (Vital Af 1.2 Carlos Liquid) 1,000 mls @ 60 mls/hr GT .[id number] [facility] Fentanyl () 100 mls @ 2.5 mls/hr IV .Q40H [facility] Insulin Glargine (Lantus (Bkc)) 15 units SC QHS [facility] Last Admin: 02/14/18 21:38 Dose: 15 u Insulin Human Lispro (Humalog Kwikpen (Bkc)) 0 unit SQ Q6 [facility] PRN Reason: Protocol Lactobacillus Acidophilus (Acidophilus) 1 tablet GT DAILY [facility] Last Admin: 02/15/18 09:22 Dose: 1 tablet Levothyroxine Sodium (Synthroid) 25 mcg GT DAILY@0600 [facility] Last Admin: 02/15/18 05:23 Dose: 25 mcg Loratadine (Claritin) 10 mg GT DAILY [facility] Last Admin: 02/15/18 09:19 Dose: 10 mg Losartan Potassium (Cozaar) 25 mg GT DAILY [facility] Last Admin: 02/15/18 09:32 Dose: Not Given Magnesium Hydroxide (Milk Of Magnesia) 30 ml GT DAILY PRN PRN Reason: Constipation Magnesium Oxide (Mag-Ox 400) 400 mg GT DAILY [facility] Last Admin: 02/15/18 09:18 Dose: 400 mg Methylprednisolone (Solu-Medrol) 40 mg IV Q8 [facility] Stop: 02/16/18 06:01 Last Admin: 02/15/18 05:24 Dose: 40 mg Montelukast Sodium (Singulair) 10 mg GT DAILY [facility] Last Admin: 02/15/18 09:16 Dose: 10 mg Morphine Sulfate () 1 mg IV Q3H PRN PRN PRN Reason: Severe Pain (pain scale 6-10) Polyethylene Glycol (Miralax) 17 gm GT DAILY PRN PRN Reason: Constipation Potassium Chloride (K-Dur) 10 meq GT DAILY [facility] Last Admin: 02/15/18 09:19 Dose: 10 meq Prednisone () 40 mg GT DAILY@0800 [facility] Senna/Docusate Sodium (Senokot-S, [place]-Colace) 2 tablet GT BID PRN PRN Reason: Constipation Sodium Chloride ([place] Nasal [place]) 1 spray NASAL BID [facility] Last Admin: 02/15/18 09:21 Dose: Not Given Sodium Chloride () 5 - 30 ml IV UD PRN PRN Reason: SALINE FLUSH Last Admin: 02/14/18 09:21 Dose: 10 ml Sodium Chloride () 10 - 20 ml IV UD PRN PRN Reason: PICC FLUSH Last Admin: 02/14/18 21:47 Dose: 20 ml Medical Necessity - Tobacco Use Smoking Status: Former smoker Tobacco Use: Cigarettes Assessment/Plan All Active Problems CHF (congestive heart failure) (Acute) Cellulitis (Acute) Acute on chronic respiratory failure with hypoxia and hypercapnia (Acute) 72-year-old female with endstage COPD, pulmonary hypertension, chronic diastolic CHF admitted with worsening shortness of breath ongoing over the several days prior to admission. Her CODE STATUS is full code. Patient was initially been managed conservatively on the PCU floor as acute COPD exacerbation with steroids. Patient has been intermittently refusing steroids. She was continued on her trilogy with no improvement in her hypercapnia. Pulmonary team consulted and following. 1. Acute hypoxic hypercapnic respiratory failure in a patient with severe COPD/ diastolic heart failure, electively intubated, being managed on mechanical ventilator in the ICU, plans in place for tracheostomy and PEG tube. 2. Acute COPD exacerbation, on IV steroids 40mg tid, breathing treatments 3. Hypokalemia, resolved. 4. Right lower extremity cellulitis,resolved, monitoring off antibiotics. 5. History of LEDY, obesity hypoventilation syndrome, continue on AVAPS 6. Hyperlipidemia, on statin 7. Hypertension, continue on Cozaar 8. Anxiety/depression, continue on Cymbalta, Buspar 9. Hypothyroidism, on levothyroxine 10. Type II DM, BS remain uncontrolled due to IV steroids, continue on Lantus 15 units QHS, will dc premeal and monitor on accucheks q6hrly 11. History of diatolic CHF, continue on Lasix 20mg IV bid. 12. H/o DVT on coumadin, therapeutic at 3.1, will hold coumadin for now, in light of possible PEG tube. 13. DVT prophylaxis with Coumadin, INR is therapeutic 14. Code status - full code Code Visit Inpatient E&M: 47081 Subs Hosp L3
--- NOTE | 2018-02-15 10:04 | CASEMGMT ---
RN PETE Note. Intro role of CM to patient's daughter, Michelle in room. Per interdisciplinary rounds, pt will need trach, peg and recommendation is for LTAC on discharge. ISHA FREEMAN spoke with daughter at length re: LTAC locations (closest being [facility] in [place] and [place]), purpose of recovery and weaning of ventilator to degree pt can tolerate, PT/OT. Daughter is agreeable and is requesting [facility] [place]. -[facility] folder given to daughter. -Referral to be sent once Trach/Peg insertions are completed. Cordell BSN RN ACM
--- NOTE | 2018-02-15 10:41 | PCM.PN.ID ---
Patient Problems: Active and Suspected Problems CHF (congestive heart failure) (Acute) Cellulitis (Acute) Acute on chronic respiratory failure with hypoxia and hypercapnia (Acute) Subjective: Moved to icu and intubated. Awake. No fever. Denies pain in feet. - Physical Exam General: Alert, No apparent distress Lungs: Diminished Cardiovascular: Regular rate, Regular Rhythm Abdomen: Soft, Non Tender, Non-Distended Skin: Rash Present - mild bilateral foot redness, non tender. Vital Signs Temp Pulse Resp BP Pulse Ox 97.9 F 82 12 108/56 L 96 02/15/18 00:00 02/15/18 09:05 02/15/18 09:05 02/15/18 08:00 02/15/18 09:05 Oxygen Flow Rate (L/min) 4 Oxygen Delivery Method Mechanical Ventilator Weight: 102.1 kg Body Mass Index (BMI) 45.8 Intake and Output for Last 24 Hours 02/13/18 02/14/18 02/15/18 23:59 23:59 23:59 Intake Total 745.7 / 745.7 1327 / 1327 777 / 777 Output Total 1999 / 1999 1900 / 1900 350 / 350 Balance -1254.3 / -1254.3 -573 / -573 427 / 427 Microbiology Past 72 Hours 02/14/18 15:20 Respiratory Culture - Preliminary Sputum, Induced/Lukens Appears to be normal respiratory rajan. Further studies to follow. Laboratory Tests Past 24 Hrs 02/14/18 02/14/18 02/14/18 16:18 18:35 18:45 WBC RBC Hgb Hct MCV MCH MCHC RDW RDW Differential Plt Count MPV Immature Gran % (Auto) Neut % (Auto) Lymph % (Auto) [place] % (Auto) Eos % (Auto) Baso % (Auto) Absolute Neuts (auto) Absolute Lymphs (auto) Total Counted PT INR Specimen Type ART Sample Site R RADIAL pH 7.52 H Bicarbonate Actual 61.5 H POC Total CO2 > 50 Base Excess > 30 H O2 Saturation 86 L O2 % 50 ABG pCO2 74.9 H* ABG pO2 50 L Luis Test NA Respiration Rate 14 O2 Delivery Device Vent Mode VC+ Tidal Volume 350 POC PEEP 5 Blood Gas Notified Whom ICU Blood Gas Notified Time 1618 Sodium Potassium Chloride Carbon Dioxide Anion Gap BUN Creatinine Estim Creat Clear Calc Est GFR (MDRD) Af Amer Est GFR (MDRD) Non-Af BUN/Creatinine Ratio Glucose Calcium Total Creatine Kinase 55 Triglycerides 257 H MRSA (PCR) Negative 02/15/18 02/15/18 02/15/18 04:10 04:10 04:10 WBC 6.8 RBC 3.54 L Hgb 9.2 L Hct 33.3 L MCV 94.1 MCH 26.0 L MCHC 27.6 L RDW 15.6 H RDW Differential 54.2 H Plt Count 185 MPV 11.0 Immature Gran % (Auto) 0.400 Neut % (Auto) 83.2 H Lymph % (Auto) 11.2 L [place] % (Auto) 5.2 Eos % (Auto) 0.0 Baso % (Auto) 0.0 Absolute Neuts (auto) 5.6 Absolute Lymphs (auto) 0.76 L Total Counted Not Reportable PT 32.2 H INR 3.1 Specimen Type Sample Site pH Bicarbonate Actual POC Total CO2 Base Excess O2 Saturation O2 % ABG pCO2 ABG pO2 Luis Test Respiration Rate O2 Delivery Device Vent Mode Tidal Volume POC PEEP Blood Gas Notified Whom Blood Gas Notified Time Sodium 142 Potassium 4.4 Chloride 89 L Carbon Dioxide > 45.0 H* Anion Gap TNP BUN 24 H Creatinine 0.66 Estim Creat Clear Calc 37.60 Est GFR (MDRD) Af Amer 113 Est GFR (MDRD) Non-Af 93 BUN/Creatinine Ratio 36.1 H Glucose 221 H Calcium 8.2 L Total Creatine Kinase Triglycerides MRSA (PCR) 02/15/18 06:50 WBC RBC Hgb Hct MCV MCH MCHC RDW RDW Differential Plt Count MPV Immature Gran % (Auto) Neut % (Auto) Lymph % (Auto) [place] % (Auto) Eos % (Auto) Baso % (Auto) Absolute Neuts (auto) Absolute Lymphs (auto) Total Counted PT INR Specimen Type ART Sample Site R Radial pH 7.38 Bicarbonate Actual 55.7 H POC Total CO2 > 50 Base Excess > 30 H O2 Saturation 97 O2 % 50 ABG pCO2 94.4 H* ABG pO2 108 H Luis Test POS Respiration Rate 12 O2 Delivery Device Vent Vent Mode VC+ Tidal Volume 350 POC PEEP 5 Blood Gas Notified Whom ICU MD Blood Gas Notified Time 655 Sodium Potassium Chloride Carbon Dioxide Anion Gap BUN Creatinine Estim Creat Clear Calc Est GFR (MDRD) Af Amer Est GFR (MDRD) Non-Af BUN/Creatinine Ratio Glucose Calcium Total Creatine Kinase Triglycerides MRSA (PCR) POC Glucose 02/15/18 02/14/18 02/14/18 05:23 23:31 21:38 POC Glucose 214 H 245 H 243 H 02/14/18 02/14/18 18:37 11:17 POC Glucose 267 H 246 H Medical Necessity - Tobacco Use Smoking Status: Former smoker Tobacco Use: Cigarettes Route of nutrition/ use of supplements: [] Nutritional Intake: [] IV Site: [] [place] Catheter: [] - Assessment/Plan Antibiotics: [] Assessment/Plan: [] Active and Suspected Problems CHF (congestive heart failure) (Acute) Cellulitis (Acute) Acute on chronic respiratory failure with hypoxia and hypercapnia (Acute) RLE cellulitis - Had some reported chest/face redness on keflex. Distal B feet with mild redness, but no pain/swelling/drainage. Has some mild leukocytosis, may be related to iv steroids. Stopped clinda and monitoring off abx. will follow
--- NOTE | 2018-02-15 11:22 | PCM.CONS.GEN ---
Reason for Consult Date of Consultation: 02/15/18 Reason for Consultation: peg History of Present Illness: The patient is a 72 year old F admitted to the ICU due to end-stage COPD. Patient was intubated yesterday. Previous intubation Dr. Orantes did discuss with patient CODE STATUS she stated that she would want trach and PEG and be a full code. Currently patient is intubated and able to nod to questions as well as right responses the piece of paper. Patient's daughter Michelle who is also her POA is also in the room. Patient states she is hungry currently is intubated with an OG placed. Patient denies any abdominal pain currently or nausea or vomiting. Past Medical History Past Medical History (Chronic Problems): Chronic Problems Anxiety and depression (Chronic) Obstructive sleep apnea (Chronic) on NIPPV History of DVT (deep vein thrombosis) (Chronic) Hypothyroidism (Chronic) Morbid obesity with BMI of 45.0-49.9, adult (Chronic) COPD (chronic obstructive pulmonary disease) (Chronic) Allergies amoxicillin Allergy (Mild, Verified 02/09/18 13:28) Rash Reports tolerating keflex with no issue. azithromycin [From Zithromax] Allergy (Verified 02/07/18 20:43) Swelling levofloxacin [From Levaquin] Allergy (Verified 02/07/18 20:43) Swelling moxifloxacin [From Avelox] Allergy (Verified 02/07/18 20:43) Swelling aspirin Adverse Reaction (Verified 02/09/18 13:28) Other bleeding. Home Medications: Ambulatory Orders Medication Instructions Recorded Acetaminophen [Tylenol Extra 500 mg PO Q6H PRN PRN 02/07/18 Strength] Albuterol Aerosols [Ventolin 2.5 mg INHALATION Q4H PRN PRN 02/07/18 Aerosols] Albuterol Inhaler [Ventolin Hfa 2 puff INHALATION Q4H PRN PRN 02/07/18 (SP)] Calcium Carbonate/Vitamin D3 1 each PO DAILY 02/07/18 [Calcium 600 with Vit D Chew Tb] Cholecalciferol (Vitamin D3) 2,000 unit PO DAILY 02/07/18 [Vitamin D3] Cranberry Fruit Extract [Cranberry] 2,000 mg PO DAILY PRN PRN 02/07/18 Deep Sea Nasal [place] 1 spray BID 02/07/18 Duloxetine Hcl [Cymbalta] 60 mg PO DAILY 02/07/18 Ezetimibe/Simvastatin [Vytorin 1 tablet PO DAILY 02/07/18 10-40 MG Tablet] Furosemide [Lasix] 40 mg PO BIDLX 02/07/18 Insulin Aspart [Novolog Flexpen 10 units SC TIDCM 02/07/18 ([facility])] Levothyroxine [Synthroid] 25 mcg PO DAILY 02/07/18 Loratadine [Claritin] 10 mg PO DAILY 02/07/18 Losartan Potassium [Cozaar] 25 mg PO DAILY 02/07/18 Magnesium Oxide [Magnesium] 400 mg PO DAILY 02/07/18 Montelukast [Singulair] 10 mg PO DAILY 02/07/18 Pantoprazole Sodium [Protonix] 40 mg PO BID 02/07/18 Polyethylene Glycol 3350 [Miralax] 17 gm PO DAILY PRN 02/07/18 Potassium Chloride [K-Dur] 10 meq PO DAILY 02/07/18 Warfarin [Coumadin ([facility])] 3 mg PO DAILY 02/07/18 busPIRone [Buspar] 15 mg PO TID 02/07/18 Surgical History: - - Hysterectomy-1991, , hernia repair likely at lower midline incision Psychiatric History: Anxiety, Depression 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 Lives: - - with daughter Smoking Status: Former smoker Tobacco Use: Cigarettes Alcohol: None Drugs: None Review of Systems Constitutional: Denies: Chills, Fever HEENT: Reports: - - Patient currently intubated with ET and OG tube Cardiovascular: Denies: Chest Pain Respiratory: Reports: - - Patient currently intubated with OG and ET tube Gastrointestinal: Denies: Abdominal Pain Genitourinary: Reports: - - Saldana in place Hematologic/ Lymphatic: Reports: Easy Bleeding - Patient was on Coumadin previously for history of DVT Patient Problems: Active and Suspected Problems CHF (congestive heart failure) (Acute) Cellulitis (Acute) Acute on chronic respiratory failure with hypoxia and hypercapnia (Acute) - Physical Exam General: Alert, Cooperative, No apparent distress HEENT: - - ET tube and OG tube in place Cardiovascular: Regular rate Abdomen: Soft, Non Tender, Non-Distended, Obese, - - No guarding or rebound, previous lower midline incision, no upper abdominal incisions. Extremities: No clubbing, No edema Vital Signs Temp Pulse Resp BP Pulse Ox 97.9 F 85 14 106/64 96 02/15/18 09:00 02/15/18 11:00 02/15/18 11:00 02/15/18 11:00 02/15/18 11:00 Oxygen Flow Rate (L/min) 4 Oxygen Delivery Method Mechanical Ventilator Weight: 225 lb 1.471 oz Body Mass Index (BMI) 45.8 Intake and Output for Last 24 Hours 02/13/18 02/14/18 02/15/18 23:59 23:59 23:59 Intake Total 745.7 / 745.7 1327 / 1327 827 / 827 Output Total 1999 1900 / 1900 350 / 350 Balance -1254.3 / -1254.3 -573 / -573 477 / 477 Microbiology Past 72 Hours 02/14/18 15:20 Respiratory Culture - Preliminary Sputum, Induced/Lukens Appears to be normal respiratory rajan. Further studies to follow. Laboratory Tests Past 24 Hrs 02/14/18 02/14/18 02/14/18 16:18 18:35 18:45 WBC RBC Hgb Hct MCV MCH MCHC RDW RDW Differential Plt Count MPV Immature Gran % (Auto) Neut % (Auto) Lymph % (Auto) [place] % (Auto) Eos % (Auto) Baso % (Auto) Absolute Neuts (auto) Absolute Lymphs (auto) Total Counted PT INR Specimen Type ART Sample Site R RADIAL pH 7.52 H Bicarbonate Actual 61.5 H POC Total CO2 > 50 Base Excess > 30 H O2 Saturation 86 L O2 % 50 ABG pCO2 74.9 H* ABG pO2 50 L Luis Test NA Respiration Rate 14 O2 Delivery Device Vent Mode VC+ Tidal Volume 350 POC PEEP 5 Blood Gas Notified Whom ICU MD Blood Gas Notified Time 1618 Sodium Potassium Chloride Carbon Dioxide Anion Gap BUN Creatinine Estim Creat Clear Calc Est GFR (MDRD) Af Amer Est GFR (MDRD) Non-Af BUN/Creatinine Ratio Glucose Calcium Total Creatine Kinase 55 Triglycerides 257 H MRSA (PCR) Negative 02/15/18 02/15/18 02/15/18 04:10 04:10 04:10 WBC 6.8 RBC 3.54 L Hgb 9.2 L Hct 33.3 L MCV 94.1 MCH 26.0 L MCHC 27.6 L RDW 15.6 H RDW Differential 54.2 H Plt Count 185 MPV 11.0 Immature Gran % (Auto) 0.400 Neut % (Auto) 83.2 H Lymph % (Auto) 11.2 L [place] % (Auto) 5.2 Eos % (Auto) 0.0 Baso % (Auto) 0.0 Absolute Neuts (auto) 5.6 Absolute Lymphs (auto) 0.76 L Total Counted Not Reportable PT 32.2 H INR 3.1 Specimen Type Sample Site pH Bicarbonate Actual POC Total CO2 Base Excess O2 Saturation O2 % ABG pCO2 ABG pO2 Luis Test Respiration Rate O2 Delivery Device Vent Mode Tidal Volume POC PEEP Blood Gas Notified Whom Blood Gas Notified Time Sodium 142 Potassium 4.4 Chloride 89 L Carbon Dioxide > 45.0 H* Anion Gap TNP BUN 24 H Creatinine 0.66 Estim Creat Clear Calc 37.60 Est GFR (MDRD) Af Amer 113 Est GFR (MDRD) Non-Af 93 BUN/Creatinine Ratio 36.1 H Glucose 221 H Calcium 8.2 L Total Creatine Kinase Triglycerides MRSA (PCR) 02/15/18 06:50 WBC RBC Hgb Hct MCV MCH MCHC RDW RDW Differential Plt Count MPV Immature Gran % (Auto) Neut % (Auto) Lymph % (Auto) [place] % (Auto) Eos % (Auto) Baso % (Auto) Absolute Neuts (auto) Absolute Lymphs (auto) Total Counted PT INR Specimen Type ART Sample Site R Radial pH 7.38 Bicarbonate Actual 55.7 H POC Total CO2 > 50 Base Excess > 30 H O2 Saturation 97 O2 % 50 ABG pCO2 94.4 H* ABG pO2 108 H Luis Test POS Respiration Rate 12 O2 Delivery Device Vent Vent Mode VC+ Tidal Volume 350 POC PEEP 5 Blood Gas Notified Whom ICU MD Blood Gas Notified Time 655 Sodium Potassium Chloride Carbon Dioxide Anion Gap BUN Creatinine Estim Creat Clear Calc Est GFR (MDRD) Af Amer Est GFR (MDRD) Non-Af BUN/Creatinine Ratio Glucose Calcium Total Creatine Kinase Triglycerides MRSA (PCR) POC Glucose 02/15/18 02/14/18 02/14/18 05:23 23:31 21:38 POC Glucose 214 H 245 H 243 H 02/14/18 02/14/18 18:37 11:17 POC Glucose 267 H 246 H Assessment/Plan All Active Problems CHF (congestive heart failure) (Acute) Cellulitis (Acute) Acute on chronic respiratory failure with hypoxia and hypercapnia (Acute) 72-year-old female with end-stage COPD with acute on chronic hypoxia recently intubated, request PEG placement, hx DVT-right leg- on Coumadin 1. Discussed with the patient and her daughter procedure to place PEG tube. Patient daughter were agreeable to proceed with a PEG also discussed risk including but not limited to bleeding, injury to the colon, infection and stand for at least a month before removal to make sure there is a good track performed. Patient's last dose of Coumadin was on 02/13 her INR is currently 3.1. Patient will need to be off Coumadin for at least 5 days or have her INR reversed to be 1.3 or less. We will continue to follow the patient plan for PEG placement either late this week or early next week. Priyanka Matos M.D. Pager: [phone] [facility] [address] [place] [address], [facility], [address] [place] [id number] Office: [phone] Code Visit Inpatient E&M: 66970 Init Hosp L1
--- NOTE | 2018-02-15 11:31 | CON.PCM_ITS ---
Reason for Consult Date of Consultation: 02/15/18 Reason for Consultation: peg History of Present Illness: The patient is a 72 year old F admitted to the ICU due to end-stage COPD. Patient was intubated yesterday. Previous intubation Dr. Orantes did discuss with patient CODE STATUS she stated that she would want trach and PEG and be a full code. Currently patient is intubated and able to nod to questions as well as right responses the piece of paper. Patient's daughter Michelle who is also her POA is also in the room. Patient states she is hungry currently is intubated with an OG placed. Patient denies any abdominal pain currently or nausea or vomiting. Past Medical History Past Medical History (Chronic Problems): Chronic Problems Anxiety and depression (Chronic) Obstructive sleep apnea (Chronic) on NIPPV History of DVT (deep vein thrombosis) (Chronic) Hypothyroidism (Chronic) Morbid obesity with BMI of 45.0-49.9, adult (Chronic) COPD (chronic obstructive pulmonary disease) (Chronic) Allergies amoxicillin Allergy (Mild, Verified 02/09/18 13:28) Rash Reports tolerating keflex with no issue. azithromycin [From Zithromax] Allergy (Verified 02/07/18 20:43) Swelling levofloxacin [From Levaquin] Allergy (Verified 02/07/18 20:43) Swelling moxifloxacin [From Avelox] Allergy (Verified 02/07/18 20:43) Swelling aspirin Adverse Reaction (Verified 02/09/18 13:28) Other bleeding. Home Medications: Ambulatory Orders Medication Instructions Recorded Acetaminophen [Tylenol Extra 500 mg PO Q6H PRN PRN 02/07/18 Strength] Albuterol Aerosols [Ventolin 2.5 mg INHALATION Q4H PRN PRN 02/07/18 Aerosols] Albuterol Inhaler [Ventolin Hfa 2 puff INHALATION Q4H PRN PRN 02/07/18 (SP)] Calcium Carbonate/Vitamin D3 1 each PO DAILY 02/07/18 [Calcium 600 with Vit D Chew Tb] Cholecalciferol (Vitamin D3) 2,000 unit PO DAILY 02/07/18 [Vitamin D3] Cranberry Fruit Extract [Cranberry] 2,000 mg PO DAILY PRN PRN 02/07/18 Deep Sea Nasal [place] 1 spray BID 02/07/18 Duloxetine Hcl [Cymbalta] 60 mg PO DAILY 02/07/18 Ezetimibe/Simvastatin [Vytorin 1 tablet PO DAILY 02/07/18 10-40 MG Tablet] Furosemide [Lasix] 40 mg PO BIDLX 02/07/18 Insulin Aspart [Novolog Flexpen 10 units SC TIDCM 02/07/18 ([facility])] Levothyroxine [Synthroid] 25 mcg PO DAILY 02/07/18 Loratadine [Claritin] 10 mg PO DAILY 02/07/18 Losartan Potassium [Cozaar] 25 mg PO DAILY 02/07/18 Magnesium Oxide [Magnesium] 400 mg PO DAILY 02/07/18 Montelukast [Singulair] 10 mg PO DAILY 02/07/18 Pantoprazole Sodium [Protonix] 40 mg PO BID 02/07/18 Polyethylene Glycol 3350 [Miralax] 17 gm PO DAILY PRN 02/07/18 Potassium Chloride [K-Dur] 10 meq PO DAILY 02/07/18 Warfarin [Coumadin ([facility])] 3 mg PO DAILY 02/07/18 busPIRone [Buspar] 15 mg PO TID 02/07/18 Surgical History: - - Hysterectomy-1991, , hernia repair likely at lower midline incision Psychiatric History: Anxiety, Depression 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 Lives: - - with daughter Smoking Status: Former smoker Tobacco Use: Cigarettes Alcohol: None Drugs: None Review of Systems Constitutional: Denies: Chills, Fever HEENT: Reports: - - Patient currently intubated with ET and OG tube Cardiovascular: Denies: Chest Pain Respiratory: Reports: - - Patient currently intubated with OG and ET tube Gastrointestinal: Denies: Abdominal Pain Genitourinary: Reports: - - Saldana in place Hematologic/ Lymphatic: Reports: Easy Bleeding - Patient was on Coumadin previously for history of DVT Patient Problems: Active and Suspected Problems CHF (congestive heart failure) (Acute) Cellulitis (Acute) Acute on chronic respiratory failure with hypoxia and hypercapnia (Acute) - Physical Exam General: Alert, Cooperative, No apparent distress HEENT: - - ET tube and OG tube in place Cardiovascular: Regular rate Abdomen: Soft, Non Tender, Non-Distended, Obese, - - No guarding or rebound, previous lower midline incision, no upper abdominal incisions. Extremities: No clubbing, No edema Vital Signs Temp Pulse Resp BP Pulse Ox 97.9 F 85 14 106/64 96 02/15/18 09:00 02/15/18 11:00 02/15/18 11:00 02/15/18 11:00 02/15/18 11:00 Oxygen Flow Rate (L/min) 4 Oxygen Delivery Method Mechanical Ventilator Weight: 225 lb 1.471 oz Body Mass Index (BMI) 45.8 Intake and Output for Last 24 Hours 02/13/18 02/14/18 02/15/18 23:59 23:59 23:59 Intake Total 745.7 / 745.7 1327 / 1327 827 / 827 Output Total 1999 1900 / 1900 350 / 350 Balance -1254.3 / -1254.3 -573 / -573 477 / 477 Microbiology Past 72 Hours 02/14/18 15:20 Respiratory Culture - Preliminary Sputum, Induced/Lukens Appears to be normal respiratory rajan. Further studies to follow. Laboratory Tests Past 24 Hrs 02/14/18 02/14/18 02/14/18 16:18 18:35 18:45 WBC RBC Hgb Hct MCV MCH MCHC RDW RDW Differential Plt Count MPV Immature Gran % (Auto) Neut % (Auto) Lymph % (Auto) [place] % (Auto) Eos % (Auto) Baso % (Auto) Absolute Neuts (auto) Absolute Lymphs (auto) Total Counted PT INR Specimen Type ART Sample Site R RADIAL pH 7.52 H Bicarbonate Actual 61.5 H POC Total CO2 > 50 Base Excess > 30 H O2 Saturation 86 L O2 % 50 ABG pCO2 74.9 H* ABG pO2 50 L Luis Test NA Respiration Rate 14 O2 Delivery Device Vent Mode VC+ Tidal Volume 350 POC PEEP 5 Blood Gas Notified Whom ICU MD Blood Gas Notified Time 1618 Sodium Potassium Chloride Carbon Dioxide Anion Gap BUN Creatinine Estim Creat Clear Calc Est GFR (MDRD) Af Amer Est GFR (MDRD) Non-Af BUN/Creatinine Ratio Glucose Calcium Total Creatine Kinase 55 Triglycerides 257 H MRSA (PCR) Negative 02/15/18 02/15/18 02/15/18 04:10 04:10 04:10 WBC 6.8 RBC 3.54 L Hgb 9.2 L Hct 33.3 L MCV 94.1 MCH 26.0 L MCHC 27.6 L RDW 15.6 H RDW Differential 54.2 H Plt Count 185 MPV 11.0 Immature Gran % (Auto) 0.400 Neut % (Auto) 83.2 H Lymph % (Auto) 11.2 L [place] % (Auto) 5.2 Eos % (Auto) 0.0 Baso % (Auto) 0.0 Absolute Neuts (auto) 5.6 Absolute Lymphs (auto) 0.76 L Total Counted Not Reportable PT 32.2 H INR 3.1 Specimen Type Sample Site pH Bicarbonate Actual POC Total CO2 Base Excess O2 Saturation O2 % ABG pCO2 ABG pO2 Luis Test Respiration Rate O2 Delivery Device Vent Mode Tidal Volume POC PEEP Blood Gas Notified Whom Blood Gas Notified Time Sodium 142 Potassium 4.4 Chloride 89 L Carbon Dioxide > 45.0 H* Anion Gap TNP BUN 24 H Creatinine 0.66 Estim Creat Clear Calc 37.60 Est GFR (MDRD) Af Amer 113 Est GFR (MDRD) Non-Af 93 BUN/Creatinine Ratio 36.1 H Glucose 221 H Calcium 8.2 L Total Creatine Kinase Triglycerides MRSA (PCR) 02/15/18 06:50 WBC RBC Hgb Hct MCV MCH MCHC RDW RDW Differential Plt Count MPV Immature Gran % (Auto) Neut % (Auto) Lymph % (Auto) [place] % (Auto) Eos % (Auto) Baso % (Auto) Absolute Neuts (auto) Absolute Lymphs (auto) Total Counted PT INR Specimen Type ART Sample Site R Radial pH 7.38 Bicarbonate Actual 55.7 H POC Total CO2 > 50 Base Excess > 30 H O2 Saturation 97 O2 % 50 ABG pCO2 94.4 H* ABG pO2 108 H Luis Test POS Respiration Rate 12 O2 Delivery Device Vent Vent Mode VC+ Tidal Volume 350 POC PEEP 5 Blood Gas Notified Whom ICU MD Blood Gas Notified Time 655 Sodium Potassium Chloride Carbon Dioxide Anion Gap BUN Creatinine Estim Creat Clear Calc Est GFR (MDRD) Af Amer Est GFR (MDRD) Non-Af BUN/Creatinine Ratio Glucose Calcium Total Creatine Kinase Triglycerides MRSA (PCR) POC Glucose 02/15/18 02/14/18 02/14/18 05:23 23:31 21:38 POC Glucose 214 H 245 H 243 H 02/14/18 02/14/18 18:37 11:17 POC Glucose 267 H 246 H Assessment/Plan All Active Problems CHF (congestive heart failure) (Acute) Cellulitis (Acute) Acute on chronic respiratory failure with hypoxia and hypercapnia (Acute) 72-year-old female with end-stage COPD with acute on chronic hypoxia recently intubated, request PEG placement, hx DVT-right leg- on Coumadin 1. Discussed with the patient and her daughter procedure to place PEG tube. Patient daughter were agreeable to proceed with a PEG also discussed risk including but not limited to bleeding, injury to the colon, infection and stand for at least a month before removal to make sure there is a good track performed. Patient's last dose of Coumadin was on 02/13 her INR is currently 3.1. Patient will need to be off Coumadin for at least 5 days or have her INR reversed to be 1.3 or less. We will continue to follow the patient plan for PEG placement either late this week or early next week. Priyanka Matos M.D. Pager: [phone] [facility] [address] [place] [address], [facility], [address] [place] [id number] Office: [phone] Code Visit Inpatient E&M: 19912 Init Hosp L1
[2018-02-15 11:50] LABS: Bedside Glucose 193 mg/dL (70-110)
[2018-02-15] MEDS: Vital AF 1.2 Cal Liquid 1,000 ML 60 ML GT (11:57)
--- NOTE | 2018-02-15 14:34 | CASEMGMT ---
LOIDA called Marlyn at [facility] and left her a voice mail letting her know patient will now be going to an LTACH. Gladys PITTS MSW
--- NOTE | 2018-02-15 17:16 | PN_ITS ---
Progress Note Asked to see the patient at the request of Dr. Orantes for respiratory failure. HPI: 72 yo white female with acute on chronic respiratory failure. She failed attempts at Bipap and was intubated on 02/14/18. The patient stated that she wanted a tracheotomy prior to intubation. I spoke with the patient's daughter who is well aware of tracheotomy as her father and sister both had tracheotomy. Past Medical History Past Medical History (Chronic Problems): Chronic Problems Anxiety and depression (Chronic) Obstructive sleep apnea (Chronic) on NIPPV History of DVT (deep vein thrombosis) (Chronic) Hypothyroidism (Chronic) Morbid obesity with BMI of 45.0-49.9, adult (Chronic) COPD (chronic obstructive pulmonary disease) (Chronic) Allergies amoxicillin Allergy (Mild, Verified 02/09/18 13:28) Rash Reports tolerating keflex with no issue. azithromycin [From Zithromax] Allergy (Verified 02/07/18 20:43) Swelling levofloxacin [From Levaquin] Allergy (Verified 02/07/18 20:43) Swelling moxifloxacin [From Avelox] Allergy (Verified 02/07/18 20:43) Swelling aspirin Adverse Reaction (Verified 02/09/18 13:28) Other bleeding. Home Medications: Ambulatory Orders Medication Instructions Recorded Acetaminophen [Tylenol Extra 500 mg PO Q6H PRN PRN 02/07/18 Strength] Albuterol Aerosols [Ventolin 2.5 mg INHALATION Q4H PRN PRN 02/07/18 Aerosols] Albuterol Inhaler [Ventolin Hfa 2 puff INHALATION Q4H PRN PRN 02/07/18 (SP)] Calcium Carbonate/Vitamin D3 1 each PO DAILY 02/07/18 [Calcium 600 with Vit D Chew Tb] Cholecalciferol (Vitamin D3) 2,000 unit PO DAILY 02/07/18 [Vitamin D3] Cranberry Fruit Extract [Cranberry] 2,000 mg PO DAILY PRN PRN 02/07/18 Deep Sea Nasal [place]per[place] 1 spray BID 02/07/18 Duloxetine Hcl [Cymbalta] 60 mg PO DAILY 02/07/18 Ezetimibe/Simvastatin [Vytorin 1 tablet PO DAILY 02/07/18 10-40 MG Tablet] Furosemide [Lasix] 40 mg PO BIDLX 02/07/18 Insulin Aspart [Novolog Flexpen 10 units SC TIDCM 02/07/18 (BK)] Levothyroxine [Synthroid] 25 mcg PO DAILY 02/07/18 Loratadine [Claritin] 10 mg PO DAILY 02/07/18 Losartan Potassium [Cozaar] 25 mg PO DAILY 02/07/18 Magnesium Oxide [Magnesium] 400 mg PO DAILY 02/07/18 Montelukast [Singulair] 10 mg PO DAILY 02/07/18 Pantoprazole Sodium [Protonix] 40 mg PO BID 02/07/18 Polyethylene Glycol 3350 [Miralax] 17 gm PO DAILY PRN 02/07/18 Potassium Chloride [K-Dur] 10 meq PO DAILY 02/07/18 Warfarin [Coumadin (PBKC)] 3 mg PO DAILY 02/07/18 busPIRone [Buspar] 15 mg PO TID 02/07/18 Surgical History: - - Hysterectomy-1991, , hernia repair likely at lower midline incision Psychiatric History: Anxiety, Depression 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 Lives: - - with daughter Smoking Status: Former smoker Tobacco Use: Cigarettes Alcohol: None Drugs: None Review of Systems Constitutional: Denies: Chills, Fever HEENT: Reports: - - Patient currently intubated with ET and OG tube Cardiovascular: Denies: Chest Pain Respiratory: Reports: - - Patient currently intubated with OG and ET tube Gastrointestinal: Denies: Abdominal Pain Genitourinary: Reports: - - Saldana in place Hematologic/ Lymphatic: Reports: Easy Bleeding - Patient was on Coumadin previously for history of DVT Patient Problems: Active and Suspected Problems PE: Intubated sedated ETT and OG in place. Neck-fat. poor palpation of cricoid cartilage A: Acute on chronic respiratory failure with hypoxia and hypercapnia (Acute) P: Will plan for tracheotomy in the operating room. She will need to be off of coumadin for the procedure. INR currently 3.1. Spoke with the patient's daughter today regarding the risks of the procedure. She understands the risks of bleeding, infection, scar, need for further surgery involving the tracheotomy , pneumothorax and need for chest tubes. She would like to proceed with the procedure. I will be working on scheduling this.
[2018-02-15 17:50] LABS: Bedside Glucose 209 mg/dL (70-110)
[2018-02-15] MEDS: Atorvastatin Calcium 20 MG Tablet GT (21:31)
[2018-02-15] MEDS: 0.9% NaCl Peripheral Flush Adult/Peds IV (21:32)
[2018-02-15 21:51] LABS: Bedside Glucose 257 mg/dL (70-110)
[2018-02-16] VITALS (39 sets, daily range): BP systolic 109–158; BP diastolic 52–82; PULSE 78–108; RESP 11–24; TEMP 36.3–37.3; O2SAT 89–99
[2018-02-16 00:06] LABS: Bedside Glucose 275 mg/dL (70-110)
[2018-02-16] MEDS: Propofol 10MG/Ml 1,000 MG/100 ML Bottle 3.102 MG CONT INF ×3 (01:14→17:00)
[2018-02-16] MEDS: Ipratropium/Albuterol Sulfate 3 ML AMPUL.NEB INHALATION ×6 (03:19→22:31)
[2018-02-16 04:43] LABS: International Normalized Ratio 1.9; Prothrombin Time (Protime)PT. 21.8 SECONDS (11.7-14.9)
[2018-02-16 05:01] LABS: Absolute Lymphocyte Count 0.41 X10^3/ul (0.83-4.51); Absolute Neutrophil Count 6.7 X10^3/uL (2.0-7.7); Basophil# 0.01 X10^3/uL; Basophil% 0.1 % (0-1); Hematocrit 33.3 % (37-47); Hemoglobin 9.2 g/dl (12.0-15.0); Lymphocyte # 0.41 X10^3/ul (4.0); Lymphocyte % 5.1 % (19-41); Mean Corp Hgb Conc 27.6 g/gl (32-36); Mean Corpuscular Hgb 26.2 pg (27.0-32.0); Mean Corpuscular Volume 94.9 fL (81-99); Mean Platelet Vol. 11.4 fl (6.2-12.0); Monocyte# 0.89 X10^3/uL; Neutrophil # 6.71 X10^3/uL (2.7-7.7); Neutrophil % 82.7 % (47-70); POSITIVE COUNT NO; POSITIVE DIFFERENTIAL YES; POSITIVE MORPHOLOGY NO; Platelet Count 163 K/mm3 (150-450); Red Blood Count 3.51 M/mm3 (4.2-5.4); White Blood Count 8.1 K/mm3 (4.4-11.0)
[2018-02-16 05:02] LABS: Differential Indicated SCAN CRITERIA MET
[2018-02-16] MEDS: CHLORHEXIDINE GLUC 2% CLOTH 1 EACH TOWELETTE TOPICAL (05:06)
[2018-02-16] MEDS: 0.9% NaCl Peripheral Flush Adult/Peds IV ×2 (05:06→09:42)
[2018-02-16] MEDS: busPIRone 15 MG TABLET GT ×3 (05:06→21:23)
[2018-02-16] MEDS: Levothyroxine 25 MCG TABLET GT (05:07)
[2018-02-16] MEDS: Insulin Lispro 100 UNIT/ML INSULN.PEN SQ ×4 (05:11→23:54)
[2018-02-16 05:26] LABS: BUN 26 mg/dL (7-18); BUN/Creat Ratio 38.5 RATIO (10-20); Calcium,Total 8.5 mg/dL (8.5-10.1); Carbon Dioxide > 45.0 mmol/L (21.0-32.0); Chloride 89 mmol/L (98-107); Creatinine, Serum 0.68 mg/dL (0.55-1.02); EST Glomerular Filtration Rate 91 mL/min (>60); Est Glom Filt Rate - Afr Amer 111 mL/min (>60); Glucose 318 mg/dL (74-106); Potassium 4.6 mmol/L (3.5-5.1); Sodium Level 141 mmol/L (136-145)
--- NOTE | 2018-02-16 06:37 | PCM.PN.INT ---
Subjective: The patient was seen and examined at the bedside this morning. Events from the last 24 hours have been reviewed. The patient is currently afebrile, hemodynamically stable and maintaining appropriate oxygen saturations on ACVC+ with an FiO2 of 50%. No overnight events were noted. The patient is currently tolerating tube feeds. Objective: The patient's most recent lab work, culture data and imaging studies have all been personally reviewed. Surface echocardiogram completed here at [facility] on February 08 revealed mild concentric LVH with an ejection fraction of 65%. Right ventricular systolic pressure was estimated to be 72 mmHg. Respiratory viral panel was negative. Strep and urine Legionella antigens were both negative. Sputum culture appears to be normal respiratory rajan. Records from [facility]: Pulmonary function testing was last completed in October 2017 and revealed evidence of an irreversible very severe obstructive ventilatory impairment with evidence of air trapping and reduction in diffusing capacity. Surface echocardiogram dated October 2017 revealed normal LV size and function. There was evidence of grade 2 diastolic dysfunction. The estimated right ventricular systolic pressure was 50 mmHg. The patient was last seen by her pulmonary provider at the [facility], Dr. Wesley, on January 21, 2018. The patient was admitted to the [facility] January 02 - January 07. The patient's medical history includes COPD, LEDY, diastolic dysfunction, personal history of DVT, morbid obesity and erosive gastroduodenitis/distal esophageal stricture status post dilation in September 2017. She is a former smoker of 2-3 packs per day ?30 years. She has a baseline 3 L/min supplemental oxygen requirement and multiple recent admissions for COPD exacerbations. She has been inherently noncompliant with use of home trilogy. She is on a triple therapy inhaler regimen along with chronic prednisone. General: - - Remains intubated, sedated and mechanically ventilated. HEENT: Atraumatic, PERRLA, Normocephalic Oral: No Gingival or Mucosal Lesions/ Ulcerations, - - Endotracheal and OG tubes in place Neck: Supple, No Nodes, Trachea Midline Lungs: No rhonchi, No wheeze, No rales, Diminished Cardiovascular: Regular rate, Regular Rhythm, Normal S1, Normal S2, No murmurs Abdomen: Bowel Sounds Present, Soft, Non Tender, Obese Extremities: No clubbing, No cyanosis, No edema Skin: No breakdown Musculoskeletal: No Muscle Wasting Lymphatic: No Cervical, Supraclavicular, or Inguinal Adenopathy Neurological: - - No focal deficits. Moves all extremities spontaneously. Will arouse and follow simple commands. Vital Signs Temp Pulse Resp BP Pulse Ox 97.4 F L 83 12 120/57 L 96 02/16/18 00:00 02/16/18 06:28 02/16/18 06:28 02/16/18 06:00 02/16/18 06:28 Oxygen Flow Rate (L/min) 4 Oxygen Delivery Method Mechanical Ventilator Weight: 227 lb 8.273 oz Body Mass Index (BMI) 45.8 Intake and Output for Last 24 Hours 02/14/18 02/15/18 02/16/18 23:59 23:59 23:59 Intake Total 1327 / 1327 1959 / 1959 1228.9 / 1228.9 Output Total 1900 / 1900 900 / 900 650 / 650 Balance -573 / -573 1059 / 1059 578.9 / 578.9 Labs (Last 48 Hours) 02/14/18 02/14/18 02/14/18 05:40 07:01 07:10 WBC RBC Hgb Hct MCV MCH MCHC RDW RDW Differential Plt Count MPV Immature Gran % (Auto) Neut % (Auto) Lymph % (Auto) [place] % (Auto) Eos % (Auto) Baso % (Auto) Absolute Neuts (auto) Absolute Lymphs (auto) Total Counted PT Cancelled 30.7 H INR Cancelled 2.9 Specimen Type Sample Site pH Bicarbonate Actual POC Total CO2 Base Excess O2 Saturation O2 % ABG pCO2 ABG pO2 Luis Test Respiration Rate O2 Delivery Device Vent Mode Tidal Volume POC PEEP Blood Gas Notified Whom Blood Gas Notified Time Sodium Potassium Chloride Carbon Dioxide Anion Gap BUN Creatinine Estim Creat Clear Calc Est GFR (MDRD) Af Amer Est GFR (MDRD) Non-Af BUN/Creatinine Ratio Glucose Calcium Total Creatine Kinase Triglycerides MRSA (PCR) POC Glucose 284 H 02/14/18 02/14/18 02/14/18 11:17 16:18 18:35 WBC RBC Hgb Hct MCV MCH MCHC RDW RDW Differential Plt Count MPV Immature Gran % (Auto) Neut % (Auto) Lymph % (Auto) [place] % (Auto) Eos % (Auto) Baso % (Auto) Absolute Neuts (auto) Absolute Lymphs (auto) Total Counted PT INR Specimen Type ART Sample Site R RADIAL pH 7.52 H Bicarbonate Actual 61.5 H POC Total CO2 > 50 Base Excess > 30 H O2 Saturation 86 L O2 % 50 ABG pCO2 74.9 H* ABG pO2 50 L Luis Test NA Respiration Rate 14 O2 Delivery Device Vent Mode VC+ Tidal Volume 350 POC PEEP 5 Blood Gas Notified Whom ICU MD Blood Gas Notified Time 1618 Sodium Potassium Chloride Carbon Dioxide Anion Gap BUN Creatinine Estim Creat Clear Calc Est GFR (MDRD) Af Amer Est GFR (MDRD) Non-Af BUN/Creatinine Ratio Glucose Calcium Total Creatine Kinase Triglycerides MRSA (PCR) Negative POC Glucose 246 H 02/14/18 02/14/18 02/14/18 18:37 18:45 21:38 WBC RBC Hgb Hct MCV MCH MCHC RDW RDW Differential Plt Count MPV Immature Gran % (Auto) Neut % (Auto) Lymph % (Auto) [place] % (Auto) Eos % (Auto) Baso % (Auto) Absolute Neuts (auto) Absolute Lymphs (auto) Total Counted PT INR Specimen Type Sample Site pH Bicarbonate Actual POC Total CO2 Base Excess O2 Saturation O2 % ABG pCO2 ABG pO2 Luis Test Respiration Rate O2 Delivery Device Vent Mode Tidal Volume POC PEEP Blood Gas Notified Whom Blood Gas Notified Time Sodium Potassium Chloride Carbon Dioxide Anion Gap BUN Creatinine Estim Creat Clear Calc Est GFR (MDRD) Af Amer Est GFR (MDRD) Non-Af BUN/Creatinine Ratio Glucose Calcium Total Creatine Kinase 55 Triglycerides 257 H MRSA (PCR) POC Glucose 267 H 243 H 02/14/18 02/15/18 02/15/18 23:31 04:10 04:10 WBC 6.8 RBC 3.54 L Hgb 9.2 L Hct 33.3 L MCV 94.1 MCH 26.0 L MCHC 27.6 L RDW 15.6 H RDW Differential 54.2 H Plt Count 185 MPV 11.0 Immature Gran % (Auto) 0.400 Neut % (Auto) 83.2 H Lymph % (Auto) 11.2 L [place] % (Auto) 5.2 Eos % (Auto) 0.0 Baso % (Auto) 0.0 Absolute Neuts (auto) 5.6 Absolute Lymphs (auto) 0.76 L Total Counted Not Reportable PT 32.2 H INR 3.1 Specimen Type Sample Site pH Bicarbonate Actual POC Total CO2 Base Excess O2 Saturation O2 % ABG pCO2 ABG pO2 Luis Test Respiration Rate O2 Delivery Device Vent Mode Tidal Volume POC PEEP Blood Gas Notified Whom Blood Gas Notified Time Sodium Potassium Chloride Carbon Dioxide Anion Gap BUN Creatinine Estim Creat Clear Calc Est GFR (MDRD) Af Amer Est GFR (MDRD) Non-Af BUN/Creatinine Ratio Glucose Calcium Total Creatine Kinase Triglycerides MRSA (PCR) POC Glucose 245 H 02/15/18 02/15/18 02/15/18 04:10 05:23 06:50 WBC RBC Hgb Hct MCV MCH MCHC RDW RDW Differential Plt Count MPV Immature Gran % (Auto) Neut % (Auto) Lymph % (Auto) [place] % (Auto) Eos % (Auto) Baso % (Auto) Absolute Neuts (auto) Absolute Lymphs (auto) Total Counted PT INR Specimen Type ART Sample Site R Radial pH 7.38 Bicarbonate Actual 55.7 H POC Total CO2 > 50 Base Excess > 30 H O2 Saturation 97 O2 % 50 ABG pCO2 94.4 H* ABG pO2 108 H Luis Test POS Respiration Rate 12 O2 Delivery Device Vent Vent Mode VC+ Tidal Volume 350 POC PEEP 5 Blood Gas Notified Whom ICU MD Blood Gas Notified Time 655 Sodium 142 Potassium 4.4 Chloride 89 L Carbon Dioxide > 45.0 H* Anion Gap TNP BUN 24 H Creatinine 0.66 Estim Creat Clear Calc 37.60 Est GFR (MDRD) Af Amer 113 Est GFR (MDRD) Non-Af 93 BUN/Creatinine Ratio 36.1 H Glucose 221 H Calcium 8.2 L Total Creatine Kinase Triglycerides MRSA (PCR) POC Glucose 214 H 02/15/18 02/15/18 02/15/18 11:45 17:40 21:39 WBC RBC Hgb Hct MCV MCH MCHC RDW RDW Differential Plt Count MPV Immature Gran % (Auto) Neut % (Auto) Lymph % (Auto) [place] % (Auto) Eos % (Auto) Baso % (Auto) Absolute Neuts (auto) Absolute Lymphs (auto) Total Counted PT INR Specimen Type Sample Site pH Bicarbonate Actual POC Total CO2 Base Excess O2 Saturation O2 % ABG pCO2 ABG pO2 Luis Test Respiration Rate O2 Delivery Device Vent Mode Tidal Volume POC PEEP Blood Gas Notified Whom Blood Gas Notified Time Sodium Potassium Chloride Carbon Dioxide Anion Gap BUN Creatinine Estim Creat Clear Calc Est GFR (MDRD) Af Amer Est GFR (MDRD) Non-Af BUN/Creatinine Ratio Glucose Calcium Total Creatine Kinase Triglycerides MRSA (PCR) POC Glucose 193 H 209 H 257 H 02/15/18 02/16/18 02/16/18 23:56 04:05 04:05 WBC 8.1 RBC 3.51 L Hgb 9.2 L Hct 33.3 L MCV 94.9 MCH 26.2 L MCHC 27.6 L RDW 15.0 H RDW Differential 50.0 H Plt Count 163 MPV 11.4 Immature Gran % (Auto) 1.100 H Neut % (Auto) 82.7 H Lymph % (Auto) 5.1 L [place] % (Auto) 11.0 H Eos % (Auto) 0.0 Baso % (Auto) 0.1 Absolute Neuts (auto) 6.7 Absolute Lymphs (auto) 0.41 L Total Counted Pending PT 21.8 H INR 1.9 Specimen Type Sample Site pH Bicarbonate Actual POC Total CO2 Base Excess O2 Saturation O2 % ABG pCO2 ABG pO2 Luis Test Respiration Rate O2 Delivery Device Vent Mode Tidal Volume POC PEEP Blood Gas Notified Whom Blood Gas Notified Time Sodium Potassium Chloride Carbon Dioxide Anion Gap BUN Creatinine Estim Creat Clear Calc Est GFR (MDRD) Af Amer Est GFR (MDRD) Non-Af BUN/Creatinine Ratio Glucose Calcium Total Creatine Kinase Triglycerides MRSA (PCR) POC Glucose 275 H 02/16/18 04:05 WBC RBC Hgb Hct MCV MCH MCHC RDW RDW Differential Plt Count MPV Immature Gran % (Auto) Neut % (Auto) Lymph % (Auto) [place] % (Auto) Eos % (Auto) Baso % (Auto) Absolute Neuts (auto) Absolute Lymphs (auto) Total Counted PT INR Specimen Type Sample Site pH Bicarbonate Actual POC Total CO2 Base Excess O2 Saturation O2 % ABG pCO2 ABG pO2 Luis Test Respiration Rate O2 Delivery Device Vent Mode Tidal Volume POC PEEP Blood Gas Notified Whom Blood Gas Notified Time Sodium 141 Potassium 4.6 Chloride 89 L Carbon Dioxide > 45.0 H* Anion Gap TNP BUN 26 H Creatinine 0.68 Estim Creat Clear Calc 37.60 Est GFR (MDRD) Af Amer 111 Est GFR (MDRD) Non-Af 91 BUN/Creatinine Ratio 38.5 H Glucose 318 H Calcium 8.5 Total Creatine Kinase Triglycerides MRSA (PCR) POC Glucose Microbiology 02/14/18 15:20 Sputum, Induced/Lukens Gram Stain - Final 02/14/18 15:20 Sputum, Induced/Lukens Respiratory Culture - Preliminary Appears to be normal respiratory rajan. Further studies to follow. Clinical Impression(s) from Imaging Studies Femur X-Ray 02/07/18 20:51 IMPRESSION: Diffuse demineralization with no evidence of acute fracture. Electronically Signed: Wei Lucas DO at 21:53 EDT , Service support , Venous Duplex 02/07/18 21:06 IMPRESSION: No evidence of deep venous thrombosis. Electronically Signed: Wei Lucas DO at 21:49 EDT , Service support , Chest X-Ray 02/07/18 21:35 IMPRESSION: Prominent diffuse interstitial markings with underlying interstitial edema likely. Clinically correlate for underlying CHF exacerbation in the appropriate clinical setting. Electronically Signed: Wei Lucas DO at 21:52 EDT , Service support , Chest X-Ray 02/12/18 09:30 IMPRESSION: Limited by underexposure. No gross change or acute chest disease. Electronically Signed: Deep Snider MD at 13:11 EDT , Service support , Chest X-Ray 02/13/18 16:07 IMPRESSION: 1. Improved inspiratory effort with improving basilar atelectasis. 2. Summation artifact versus new patchy infiltrate or vague nodular densities in the right apex. These can be reevaluated on follow-up study. 3. Stable mild cardiac enlargement. No CHF. Electronically Signed: Angel Will MD at 16:36 EDT , Service support , Chest X-Ray 02/14/18 15:05 IMPRESSION: The tip of the endotracheal tube is at 3.7 cm proximal to the [place]. The tip of the orogastric tube most likely is within the body of the stomach. There has been essentially no change since prior study. Electronically Signed: Jim Plaza MD at 15:44 EDT Tel [phone], Service support , Medical Necessity - Tobacco Use Smoking Status: Former smoker Tobacco Use: Cigarettes Assessment/Plan All Active Problems CHF (congestive heart failure) (Acute) Cellulitis (Acute) Acute on chronic respiratory failure with hypoxia and hypercapnia (Acute) RECOMMENDATIONS: 1. Continue current supportive measures with mechanical ventilatory support. 2. ENT and general surgery to coordinate trach and PEG tube insertion. 3. Continue tube feeds. 4. Plan to continue to hold Coumadin, given upcoming surgical intervention. Weight-based heparin infusion can be started, given subtherapeutic INR today. 5. Continue to check INR daily. Goal INR for surgical intervention less than 1.3. 6. Continue bronchodilators and steroids. 7. Continue Pepcid for GI prophylaxis 8. Continue fentanyl and propofol for sedation. Maintain RASS of -1 to 1. IMPRESSIONS: 1. Acute on chronic combined respiratory failure Likely multifactorial in etiology with end-stage COPD with exacerbation, diastolic dysfunction and pulmonary hypertension contributing. The patient was dependent on noninvasive positive pressure ventilation for multiple days, which culminated in her elective intubation on February 14. She has been failing in health per her family for a multitude of years. She is currently on maximal therapy for her underlying COPD and is prescribed a noninvasive ventilator in her home environment, for which she has been noncompliant with its use. Given her history of multiple recurrent hospitalizations for COPD related issues along with her outpatient noncompliance, would recommend proceeding with tracheostomy and PEG tube placement, following a discussion with the patient. The patient was in agreement to proceed accordingly per my discussion with her prior to being intubated. General surgery and ENT will be consulted for assistance accordingly. We will plan to continue scheduled bronchodilators, diuretics and steroids. The patient will be maintained on ACVC+ with plans to continue propofol and start fentanyl for sedation. The patient has poor long-term prognosis from a respiratory standpoint. The process of weaning from mechanical ventilation can begin once tracheostomy is in place. 2. Heart failure with preserved ejection fraction/pulmonary hypertension Continue current medical management, including diuretics. Creatinine remains stable. 3. Personal history of DVT Given the future plans for surgical intervention, will continue to hold Coumadin. Given that the patient now has a subtherapeutic INR, recommend initiation of weight-based heparin infusion. Goal INR in the day of surgical intervention should be less than 1.3. Continue to check daily INR. 4. Morbid obesity/erosive gastroduodenitis/esophageal stricture/obstructive sleep apnea Complicates care, management, recovery and prognosis. The patient will be continued on appropriate GI prophylaxis. Tube feeds will be continued. Physical therapy to work with patient. TIME: 38 minutes of critical care time, independent of procedures, was spent addressing the patient's acute on chronic combined respiratory failure, COPD with exacerbation, heart failure with preserved ejection fraction, pulmonary hypertension, history of DVT, obstructive sleep apnea, review of all data and collaboration with the care team. ([id number]) Code Visit 9xxxx: [id number] Critical care first hour
[2018-02-16 07:06] LABS: Bedside Glucose 326 mg/dL (70-110)
--- NOTE | 2018-02-16 07:56 | PN.SURG_ITS ---
Patient Problems: Active and Suspected Problems CHF (congestive heart failure) (Acute) Cellulitis (Acute) Acute on chronic respiratory failure with hypoxia and hypercapnia (Acute) Subjective: Patient intubated sedated, alert able to nod appropriately to questions. - Physical Exam General: Alert, Cooperative, No apparent distress HEENT: - - ET and OG tube in place Cardiovascular: Regular rate Abdomen: Soft, Non Tender, Non-Distended, Obese, - - No guarding or rebound Vital Signs Temp Pulse Resp BP Pulse Ox 97.4 F L 82 16 121/60 H 95 02/16/18 00:00 02/16/18 07:00 02/16/18 07:00 02/16/18 07:00 02/16/18 07:00 Oxygen Flow Rate (L/min) 4 Oxygen Delivery Method Mechanical Ventilator Weight: 227 lb 8.273 oz Body Mass Index (BMI) 45.8 Intake and Output for Last 24 Hours 02/14/18 02/15/18 02/16/18 23:59 23:59 23:59 Intake Total 1327 / 1327 1959 / 1959 1228.9 / 1228.9 Output Total 1900 / 1900 900 / 900 650 / 650 Balance -573 / -573 1059 / 1059 578.9 / 578.9 Microbiology Past 72 Hours 02/14/18 15:20 Gram Stain - Final Sputum, Induced/Lukens Respiratory Culture - Preliminary Appears to be normal respiratory rajan. Further studies to follow. Laboratory Tests Past 24 Hrs 02/15/18 02/16/18 02/16/18 06:50 04:05 04:05 WBC 8.1 RBC 3.51 L Hgb 9.2 L Hct 33.3 L MCV 94.9 MCH 26.2 L MCHC 27.6 L RDW 15.0 H RDW Differential 50.0 H Plt Count 163 MPV 11.4 Immature Gran % (Auto) 1.100 H Neut % (Auto) 82.7 H Lymph % (Auto) 5.1 L [place] % (Auto) 11.0 H Eos % (Auto) 0.0 Baso % (Auto) 0.1 Absolute Neuts (auto) 6.7 Absolute Lymphs (auto) 0.41 L Total Counted Not Reportable PT 21.8 H INR 1.9 Specimen Type ART Sample Site R Radial pH 7.38 Bicarbonate Actual 55.7 H POC Total CO2 > 50 Base Excess > 30 H O2 Saturation 97 O2 % 50 ABG pCO2 94.4 H* ABG pO2 108 H Luis Test POS Respiration Rate 12 O2 Delivery Device Vent Vent Mode VC+ Tidal Volume 350 POC PEEP 5 Blood Gas Notified Whom ICU MD Blood Gas Notified Time 655 Sodium Potassium Chloride Carbon Dioxide Anion Gap BUN Creatinine Estim Creat Clear Calc Est GFR (MDRD) Af Amer Est GFR (MDRD) Non-Af BUN/Creatinine Ratio Glucose Calcium 02/16/18 04:05 WBC RBC Hgb Hct MCV MCH MCHC RDW RDW Differential Plt Count MPV Immature Gran % (Auto) Neut % (Auto) Lymph % (Auto) [place] % (Auto) Eos % (Auto) Baso % (Auto) Absolute Neuts (auto) Absolute Lymphs (auto) Total Counted PT INR Specimen Type Sample Site pH Bicarbonate Actual POC Total CO2 Base Excess O2 Saturation O2 % ABG pCO2 ABG pO2 Luis Test Respiration Rate O2 Delivery Device Vent Mode Tidal Volume POC PEEP Blood Gas Notified Whom Blood Gas Notified Time Sodium 141 Potassium 4.6 Chloride 89 L Carbon Dioxide > 45.0 H* Anion Gap TNP BUN 26 H Creatinine 0.68 Estim Creat Clear Calc 37.60 Est GFR (MDRD) Af Amer 111 Est GFR (MDRD) Non-Af 91 BUN/Creatinine Ratio 38.5 H Glucose 318 H Calcium 8.5 POC Glucose 02/16/18 02/15/18 02/15/18 05:10 23:56 21:39 POC Glucose 326 H 275 H 257 H 02/15/18 02/15/18 17:40 11:45 POC Glucose 209 H 193 H Medical Necessity - Tobacco Use Smoking Status: Former smoker Tobacco Use: Cigarettes Assessment/Plan All Active Problems CHF (congestive heart failure) (Acute) Cellulitis (Acute) Acute on chronic respiratory failure with hypoxia and hypercapnia (Acute) 72-year-old female with end-stage COPD with acute on chronic hypoxia recently intubated, request PEG placement, hx DVT-right leg- on Coumadin 1. Patient's INR did drop to 1.9 on its own. We will tentatively plan to place the PEG on Wednesday time to be determined. Priyanka Matos M.D. Pager: [phone] [facility] [address] [place] [address], Outpatient Pavilion, [address] [place] [address] Office: [phone]
--- NOTE | 2018-02-16 09:30 | PCM.PN.ID ---
Patient Problems: Active and Suspected Problems CHF (congestive heart failure) (Acute) Cellulitis (Acute) Acute on chronic respiratory failure with hypoxia and hypercapnia (Acute) Subjective: On vent, no fever. - Physical Exam General: No apparent distress Lungs: Diminished Cardiovascular: Regular rate, Regular Rhythm Abdomen: Soft, Non Tender, Non-Distended Skin: No rashes Vital Signs Temp Pulse Resp BP Pulse Ox 97.4 F L 82 16 121/60 H 95 02/16/18 00:00 02/16/18 07:00 02/16/18 07:00 02/16/18 07:00 02/16/18 07:00 Oxygen Flow Rate (L/min) 4 Oxygen Delivery Method Mechanical Ventilator Weight: 103.2 kg Body Mass Index (BMI) 45.8 Intake and Output for Last 24 Hours 02/14/18 02/15/18 02/16/18 23:59 23:59 23:59 Intake Total 1327 / 1327 1959 / 1959 1228.9 / 1228.9 Output Total 1900 / 1900 900 / 900 650 / 650 Balance -573 / -573 1059 / 1059 578.9 / 578.9 Microbiology Past 72 Hours 02/14/18 15:20 Gram Stain - Final Sputum, Induced/Lukens Respiratory Culture - Preliminary Appears to be normal respiratory rajan. Further studies to follow. Laboratory Tests Past 24 Hrs 02/16/18 02/16/18 02/16/18 04:05 04:05 04:05 WBC 8.1 RBC 3.51 L Hgb 9.2 L Hct 33.3 L MCV 94.9 MCH 26.2 L MCHC 27.6 L RDW 15.0 H RDW Differential 50.0 H Plt Count 163 MPV 11.4 Immature Gran % (Auto) 1.100 H Neut % (Auto) 82.7 H Lymph % (Auto) 5.1 L [place] % (Auto) 11.0 H Eos % (Auto) 0.0 Baso % (Auto) 0.1 Absolute Neuts (auto) 6.7 Absolute Lymphs (auto) 0.41 L Total Counted Not Reportable PT 21.8 H INR 1.9 Sodium 141 Potassium 4.6 Chloride 89 L Carbon Dioxide > 45.0 H* Anion Gap TNP BUN 26 H Creatinine 0.68 Estim Creat Clear Calc 37.60 Est GFR (MDRD) Af Amer 111 Est GFR (MDRD) Non-Af 91 BUN/Creatinine Ratio 38.5 H Glucose 318 H Calcium 8.5 POC Glucose 02/16/18 02/15/18 02/15/18 05:10 23:56 21:39 POC Glucose 326 H 275 H 257 H 02/15/18 02/15/18 17:40 11:45 POC Glucose 209 H 193 H Medical Necessity - Tobacco Use Smoking Status: Former smoker Tobacco Use: Cigarettes Route of nutrition/ use of supplements: [] Nutritional Intake: [] IV Site: [] [place] Catheter: [] - Assessment/Plan Antibiotics: [] Assessment/Plan: [] Active and Suspected Problems CHF (congestive heart failure) (Acute) Cellulitis (Acute) Acute on chronic respiratory failure with hypoxia and hypercapnia (Acute) RLE cellulitis - Had some reported chest/face redness on keflex. Distal B feet with mild redness, but no pain/swelling/drainage. Had some mild leukocytosis, may be related to iv steroids. Stopped clinda and monitoring off abx. No sign of infection at this time in her legs. Sputum cx with normal rajan. will follow as needed, please call with ?s.
[2018-02-16] MEDS: Ferrous Sulfate 325 MG Tablet GT (09:36)
[2018-02-16] MEDS: predniSONE 20 MG Tablet 40 MG GT (09:36)
[2018-02-16] MEDS: Chlorhexidine 15 ML PO ×2 (09:37→21:24)
[2018-02-16] MEDS: DULoxetine Hcl 60 MG Capsule PO (09:38)
[2018-02-16] MEDS: Loratadine 10 MG Tablet GT (09:38)
[2018-02-16] MEDS: Magnesium Oxide 400 MG Tablet GT (09:40)
[2018-02-16] MEDS: Famotidine 20 MG Tablet GT ×2 (09:40→21:23)
[2018-02-16] MEDS: Calcium Carb/Vitamin D 1 TABLET Tablet GT (09:40)
[2018-02-16] MEDS: Montelukast 10 MG Tablet GT (09:41)
[2018-02-16] MEDS: Ezetimibe 10 MG Tablet GT (09:42)
[2018-02-16 09:50] LABS: Partial Thromboplast Time 29.3 Seconds (24.1-36.2)
--- NOTE | 2018-02-16 11:53 | PCM.PN.HOSP ---
Patient Problems: Active and Suspected Problems CHF (congestive heart failure) (Acute) Cellulitis (Acute) Acute on chronic respiratory failure with hypoxia and hypercapnia (Acute) Subjective: Patient was seen and examined. No acute events according to nursing. Patient is on propofol and fentanyl IV. Vitals reviewed and are stable. Remains intubated and on mechanical ventilation Objective: General: Intubated, on m echanical ventilation, not pale, not jaundiced HEENT: Atraumatic, PERRLA, EOMI, Normocephalic Oral: Dry Mucosa Neck: Supple Lungs: Normal air movement, Diminished, Wheezes - ++ Cardiovascular: Regular rate, Regular Rhythm, Normal S1, Normal S2, No murmurs Abdomen: Bowel Sounds Present, Soft, Non Tender, Non-Distended, No Hepato-splenomegaly Extremities: Bilateral leg edema trace - +1 Skin: No rashes, No breakdown Musculoskeletal: No Tenderness to Palpation of Joints or Extremities Lymphatic: No Cervical, Supraclavicular, or Inguinal Adenopathy Neurological: Cranial nerves II-XII grossly intact, Motor Exam 5/5 strength throughout Psych/Mental Status: Normal Affect, Appropriate Vitals/I&O's: Vital Signs Temp Pulse Resp BP Pulse Ox 98.6 F 87 13 116/68 95 02/16/18 08:00 02/16/18 11:37 02/16/18 11:06 02/16/18 11:00 02/16/18 11:06 Oxygen Flow Rate (L/min) 4 Oxygen Delivery Method Mechanical Ventilator Weight: 103.2 kg Body Mass Index (BMI) 45.8 Intake and Output for Last 24 Hours 02/14/18 02/15/18 02/16/18 23:59 23:59 23:59 Intake Total 1327 / 1327 1959 / 1959 1378.9 / 1378.9 Output Total 1900 / 1900 900 / 900 650 / 650 Balance -573 / -573 1059 / 1059 728.9 / 728.9 Microbiology Past 72 Hours 02/14/18 15:20 Sputum, Induced/Lukens Gram Stain - Final 02/14/18 15:20 Sputum, Induced/Lukens Respiratory Culture - Preliminary Appears to be normal respiratory rajan. Further studies to follow. Laboratory Results 02/15/18 17:40: POC Glucose 209 H 02/15/18 21:39: POC Glucose 257 H 02/15/18 23:56: POC Glucose 275 H 02/16/18 04:05: WBC 8.1, RBC 3.51 L, Hgb 9.2 L, Hct 33.3 L, MCV 94.9, MCH 26.2 L, MCHC 27.6 L, RDW 15.0 H, RDW Differential 50.0 H, Plt Count 163, MPV 11.4, Immature Gran % (Auto) 1.100 H, Neut % (Auto) 82.7 H, Lymph % (Auto) 5.1 L, [place] % (Auto) 11.0 H, Eos % (Auto) 0.0, Baso % (Auto) 0.1, Absolute Neuts (auto) 6.7, Absolute Lymphs (auto) 0.41 L, Total Counted Not Reportable 02/16/18 04:05: PT 21.8 H, INR 1.9 02/16/18 04:05: Sodium 141, Potassium 4.6, Chloride 89 L, Carbon Dioxide > 45.0 H*, Anion Gap TNP, BUN 26 H, Creatinine 0.68, Estim Creat Clear Calc 37.60, Est GFR (MDRD) Af Amer 111, Est GFR (MDRD) Non-Af 91, BUN/Creatinine Ratio 38.5 H, Glucose 318 H, Calcium 8.5 02/16/18 05:10: POC Glucose 326 H 02/16/18 09:30: APTT 29.3 Current Medications Acetaminophen (Tylenol Liquid) 500 mg GT Q6H PRN PRN PRN Reason: PAIN Albuterol Sulfate (Ventolin Aerosols) 2.5 mg INHALATION Q2H PRN PRN PRN Reason: SHORTNESS OF BREATH Albuterol/Ipratropium (Duoneb) 3 ml INHALATION Q4H.RT [facility] Last Admin: 02/16/18 11:06 Dose: 3 ml Atorvastatin Calcium (Lipitor) 20 mg GT QHS [facility] Last Admin: 02/15/18 21:31 Dose: 20 mg Bisacodyl (Dulcolax) 10 mg RECTAL DAILY PRN PRN Reason: Constipation Buspirone HCl (Buspar) 15 mg GT TID [facility] Last Admin: 02/16/18 05:06 Dose: 15 mg Calcium/Vitamin D (Os-Carlos 500mg + D) 1 tablet GT DAILY [facility] Last Admin: 02/16/18 09:40 Dose: 1 tablet Chlorhexidine Gluconate () 15 ml PO BID [facility] Last Admin: 02/16/18 09:37 Dose: 15 ml Chlorhexidine Gluconate () 1 each TOPICAL DAILY [facility] Last Admin: 02/16/18 05:06 Dose: 1 each Cholecalciferol (Vitamin D) 2,000 unit GT DAILY [facility] Last Admin: 02/16/18 09:41 Dose: 2,000 unit Dextrose (D50w Syringe) 0 gm IV X1 PRN; Protocol PRN Reason: Hypoglycemia Duloxetine HCl (Cymbalta) 60 mg PO DAILY [facility] Last Admin: 02/16/18 09:38 Dose: 60 mg Ezetimibe (Zetia) 10 mg GT DAILY [facility] Last Admin: 02/16/18 09:42 Dose: 10 mg Famotidine (Pepcid) 20 mg GT BID [facility] Last Admin: 02/16/18 09:40 Dose: 20 mg Ferrous Sulfate (Ferrous Sulfate) 325 mg GT DAILYCM [facility] Last Admin: 02/16/18 09:36 Dose: 325 mg Glucagon () 1 mg IM .X1 PRN PRN Reason: Hypoglycemia Guaifenesin (Robitussin Dm) 10 ml GT Q6H PRN PRN PRN Reason: COUGH Heparin Sodium (Beef Lung) (Heparin 500 Unit/5 Ml (100/Ml)) 500 unit IV UD PRN PRN Reason: HEPARIN FLUSH Heparin Sodium (Porcine) (Heparin Na) 0 unit IV UD PRN PRN Reason: Protocol Propofol (Diprivan) 1,000 mg in 100 mls @ 3.102 mls/hr CONT INF .Q12H [facility]; 5 MCG/KG/MIN PRN Reason: Protocol Last Admin: 02/16/18 06:03 Dose: Not Given Enteral Nutritional Formula (Vital Af 1.2 Carlos Liquid) 1,000 mls @ 60 mls/hr GT .[id number] [facility] Last Admin: 02/16/18 04:09 Dose: Not Given Fentanyl () 100 mls @ 2.5 mls/hr IV .Q40H [facility] Last Admin: 02/16/18 08:00 Dose: 2.5 mls/hr Heparin Sodium/Sodium Chloride () 25,000 unit in 250 mls @ 15 mls/hr IV .[id number] [facility]; As Directed PRN Reason: Protocol Last Admin: 02/16/18 10:22 Dose: 15 mls/hr Insulin Glargine (Lantus (Bkc)) 15 units SC QHS [facility] Last Admin: 02/15/18 21:39 Dose: 15 u Insulin Human Lispro (Humalog Kwikpen (Bkc)) 0 unit SQ Q6 CECILIO PRN Reason: Protocol Last Admin: 02/16/18 05:11 Dose: 8 u Lactobacillus Acidophilus (Acidophilus) 1 tablet GT DAILY [facility] Last Admin: 02/16/18 09:37 Dose: 1 tablet Levothyroxine Sodium (Synthroid) 25 mcg GT DAILY@0600 [facility] Last Admin: 02/16/18 05:07 Dose: 25 mcg Loratadine (Claritin) 10 mg GT DAILY [facility] Last Admin: 02/16/18 09:38 Dose: 10 mg Magnesium Hydroxide (Milk Of Magnesia) 30 ml GT DAILY PRN PRN Reason: Constipation Magnesium Oxide (Mag-Ox 400) 400 mg GT DAILY [facility] Last Admin: 02/16/18 09:40 Dose: 400 mg Montelukast Sodium (Singulair) 10 mg GT DAILY [facility] Last Admin: 02/16/18 09:41 Dose: 10 mg Polyethylene Glycol (Miralax) 17 gm GT DAILY PRN PRN Reason: Constipation Potassium Chloride (K-Dur) 10 meq GT DAILY [facility] Last Admin: 02/16/18 09:39 Dose: 10 meq Prednisone () 40 mg GT DAILY@0800 [facility] Last Admin: 02/16/18 09:36 Dose: 40 mg Senna/Docusate Sodium (Senokot-S, Emily-Colace) 2 tablet GT BID PRN PRN Reason: Constipation Sodium Chloride ([place] Nasal [place]) 1 spray NASAL BID [facility] Last Admin: 02/16/18 09:40 Dose: Not Given Sodium Chloride () 5 - 30 ml IV UD PRN PRN Reason: SALINE FLUSH Last Admin: 02/16/18 09:42 Dose: 10 ml Sodium Chloride () 10 - 20 ml IV UD PRN PRN Reason: PICC FLUSH Last Admin: 02/14/18 21:47 Dose: 20 ml Medical Necessity - Tobacco Use Smoking Status: Former smoker Tobacco Use: Cigarettes Assessment/Plan All Active Problems CHF (congestive heart failure) (Acute) Cellulitis (Acute) Acute on chronic respiratory failure with hypoxia and hypercapnia (Acute) 72-year-old female with endstage COPD, pulmonary hypertension, chronic diastolic CHF admitted with worsening shortness of breath ongoing over the several days prior to admission. Her CODE STATUS is full code. Patient was initially been managed conservatively on the PCU floor as acute COPD exacerbation with steroids. Patient has been intermittently refusing steroids. She was continued on her trilogy with no improvement in her hypercapnia. Pulmonary team consulted and following. 1. Acute on chronic hypoxic/hypercapnic respiratory failure, patient electively intubated, on mechanical ventilator in the ICU, plan is for elective tracheostomy and PEG tube. PEG tube planned for 02/18/18. 2. Acute COPD exacerbation, persistent, on IV steroids 40mg tid, breathing treatments 3. Hypokalemia, resolved. 4. Right lower extremity cellulitis, resolved, monitoring off antibiotics. 5. History of LEDY, obesity hypoventilation syndrome, continue on AVAPS 6. Hyperlipidemia, on statin 7. Hypertension, continue on Cozaar, will conyinue to monitor vitals 8. Anxiety/depression, continue on Cymbalta, Buspar 9. Hypothyroidism, on levothyroxine 10. Type II DM, BS remain uncontrolled due to IV steroids, continue on Lantus 15 units QHS, will dc premeal and monitor on accucheks q6hrly 11. History of diatolic CHF, continue on Lasix 20mg IV bid. 12. H/o DVT, off Coumadin for planned procedures, INR is 1.9 today, will continue to hold off Coumadin, continue heparin drip 13. DVT prophylaxis -started on heparin drip, as patient is off Coumadin and INR is subtherapeutic 14. Code status - full code Code Visit Inpatient E&M: 44779 [facility] Hosp L3
--- NOTE | 2018-02-16 12:14 | PN_ITS ---
Patient Problems: Active and Suspected Problems CHF (congestive heart failure) (Acute) Cellulitis (Acute) Acute on chronic respiratory failure with hypoxia and hypercapnia (Acute) Subjective: Patient was seen and examined. No acute events according to nursing. Patient is on propofol and fentanyl IV. Vitals reviewed and are stable. Remains intubated and on mechanical ventilation Objective: General: Intubated, on m echanical ventilation, not pale, not jaundiced HEENT: Atraumatic, PERRLA, EOMI, Normocephalic Oral: Dry Mucosa Neck: Supple Lungs: Normal air movement, Diminished, Wheezes - ++ Cardiovascular: Regular rate, Regular Rhythm, Normal S1, Normal S2, No murmurs Abdomen: Bowel Sounds Present, Soft, Non Tender, Non-Distended, No Hepato- splenomegaly Extremities: Bilateral leg edema trace - +1 Skin: No rashes, No breakdown Musculoskeletal: No Tenderness to Palpation of Joints or Extremities Lymphatic: No Cervical, Supraclavicular, or Inguinal Adenopathy Neurological: Cranial nerves II-XII grossly intact, Motor Exam 5/5 strength throughout Psych/Mental Status: Normal Affect, Appropriate Vitals/I&O's: Vital Signs Temp Pulse Resp BP Pulse Ox 98.6 F 87 13 116/68 95 02/16/18 08:00 02/16/18 11:37 02/16/18 11:06 02/16/18 11:00 02/16/18 11:06 Oxygen Flow Rate (L/min) 4 Oxygen Delivery Method Mechanical Ventilator Weight: 103.2 kg Body Mass Index (BMI) 45.8 Intake and Output for Last 24 Hours 02/14/18 02/15/18 02/16/18 23:59 23:59 23:59 Intake Total 1327 / 1327 1959 / 1959 1378.9 / 1378.9 Output Total 1900 / 1900 900 / 900 650 / 650 Balance -573 / -573 1059 / 1059 728.9 / 728.9 Microbiology Past 72 Hours 02/14/18 15:20 Sputum, Induced/Lukens Gram Stain - Final 02/14/18 15:20 Sputum, Induced/Lukens Respiratory Culture - Preliminary Appears to be normal respiratory rajan. Further studies to follow. Laboratory Results 02/15/18 17:40: POC Glucose 209 H 02/15/18 21:39: POC Glucose 257 H 02/15/18 23:56: POC Glucose 275 H 02/16/18 04:05: WBC 8.1, RBC 3.51 L, Hgb 9.2 L, Hct 33.3 L, MCV 94.9, MCH 26.2 L , MCHC 27.6 L, RDW 15.0 H, RDW Differential 50.0 H, Plt Count 163, MPV 11.4, Immature Gran % (Auto) 1.100 H, Neut % (Auto) 82.7 H, Lymph % (Auto) 5.1 L, [place] % (Auto) 11.0 H, Eos % (Auto) 0.0, Baso % (Auto) 0.1, Absolute Neuts (auto ) 6.7, Absolute Lymphs (auto) 0.41 L, Total Counted Not Reportable 02/16/18 04:05: PT 21.8 H, INR 1.9 02/16/18 04:05: Sodium 141, Potassium 4.6, Chloride 89 L, Carbon Dioxide > 45.0 H*, Anion Gap TNP, BUN 26 H, Creatinine 0.68, Estim Creat Clear Calc 37.60, Est GFR (MDRD) Af Amer 111, Est GFR (MDRD) Non-Af 91, BUN/Creatinine Ratio 38.5 H, Glucose 318 H, Calcium 8.5 02/16/18 05:10: POC Glucose 326 H 02/16/18 09:30: APTT 29.3 Current Medications Acetaminophen (Tylenol Liquid) 500 mg GT Q6H PRN PRN PRN Reason: PAIN Albuterol Sulfate (Ventolin Aerosols) 2.5 mg INHALATION Q2H PRN PRN PRN Reason: SHORTNESS OF BREATH Albuterol/Ipratropium (Duoneb) 3 ml INHALATION Q4H.RT [facility] Last Admin: 02/16/18 11:06 Dose: 3 ml Atorvastatin Calcium (Lipitor) 20 mg GT QHS [facility] Last Admin: 02/15/18 21:31 Dose: 20 mg Bisacodyl (Dulcolax) 10 mg RECTAL DAILY PRN PRN Reason: Constipation Buspirone HCl (Buspar) 15 mg GT TID [facility] Last Admin: 02/16/18 05:06 Dose: 15 mg Calcium/Vitamin D (Os-Carlos 500mg + D) 1 tablet GT DAILY [facility] Last Admin: 02/16/18 09:40 Dose: 1 tablet Chlorhexidine Gluconate () 15 ml PO BID [facility] Last Admin: 02/16/18 09:37 Dose: 15 ml Chlorhexidine Gluconate () 1 each TOPICAL DAILY [facility] Last Admin: 02/16/18 05:06 Dose: 1 each Cholecalciferol (Vitamin D) 2,000 unit GT DAILY [facility] Last Admin: 02/16/18 09:41 Dose: 2,000 unit Dextrose (D50w Syringe) 0 gm IV X1 PRN; Protocol PRN Reason: Hypoglycemia Duloxetine HCl (Cymbalta) 60 mg PO DAILY [facility] Last Admin: 02/16/18 09:38 Dose: 60 mg Ezetimibe (Zetia) 10 mg GT DAILY [facility] Last Admin: 02/16/18 09:42 Dose: 10 mg Famotidine (Pepcid) 20 mg GT BID [facility] Last Admin: 02/16/18 09:40 Dose: 20 mg Ferrous Sulfate (Ferrous Sulfate) 325 mg GT DAILYCM [facility] Last Admin: 02/16/18 09:36 Dose: 325 mg Glucagon () 1 mg IM .X1 PRN PRN Reason: Hypoglycemia Guaifenesin (Robitussin Dm) 10 ml GT Q6H PRN PRN PRN Reason: COUGH Heparin Sodium (Beef Lung) (Heparin 500 Unit/5 Ml (100/Ml)) 500 unit IV UD PRN PRN Reason: HEPARIN FLUSH Heparin Sodium (Porcine) (Heparin Na) 0 unit IV UD PRN PRN Reason: Protocol Propofol (Diprivan) 1,000 mg in 100 mls @ 3.102 mls/hr CONT INF .Q12H [facility]; 5 MCG/KG/MIN PRN Reason: Protocol Last Admin: 02/16/18 06:03 Dose: Not Given Enteral Nutritional Formula (Vital Af 1.2 Carlos Liquid) 1,000 mls @ 60 mls/hr GT .[id number] [facility] Last Admin: 02/16/18 04:09 Dose: Not Given Fentanyl () 100 mls @ 2.5 mls/hr IV .Q40H [facility] Last Admin: 02/16/18 08:00 Dose: 2.5 mls/hr Heparin Sodium/Sodium Chloride () 25,000 unit in 250 mls @ 15 mls/hr IV .[id number] [facility]; As Directed PRN Reason: Protocol Last Admin: 02/16/18 10:22 Dose: 15 mls/hr Insulin Glargine (Lantus (Bkc)) 15 units SC QHS [facility] Last Admin: 02/15/18 21:39 Dose: 15 u Insulin Human Lispro (Humalog Kwikpen (Bkc)) 0 unit SQ Q6 CECILIO PRN Reason: Protocol Last Admin: 02/16/18 05:11 Dose: 8 u Lactobacillus Acidophilus (Acidophilus) 1 tablet GT DAILY [facility] Last Admin: 02/16/18 09:37 Dose: 1 tablet Levothyroxine Sodium (Synthroid) 25 mcg GT DAILY@0600 [facility] Last Admin: 02/16/18 05:07 Dose: 25 mcg Loratadine (Claritin) 10 mg GT DAILY [facility] Last Admin: 02/16/18 09:38 Dose: 10 mg Magnesium Hydroxide (Milk Of Magnesia) 30 ml GT DAILY PRN PRN Reason: Constipation Magnesium Oxide (Mag-Ox 400) 400 mg GT DAILY [facility] Last Admin: 02/16/18 09:40 Dose: 400 mg Montelukast Sodium (Singulair) 10 mg GT DAILY [facility] Last Admin: 02/16/18 09:41 Dose: 10 mg Polyethylene Glycol (Miralax) 17 gm GT DAILY PRN PRN Reason: Constipation Potassium Chloride (K-Dur) 10 meq GT DAILY [facility] Last Admin: 02/16/18 09:39 Dose: 10 meq Prednisone () 40 mg GT DAILY@0800 [facility] Last Admin: 02/16/18 09:36 Dose: 40 mg Senna/Docusate Sodium (Senokot-S, Emily-Colace) 2 tablet GT BID PRN PRN Reason: Constipation Sodium Chloride ([place] Nasal [place]) 1 spray NASAL BID [facility] Last Admin: 02/16/18 09:40 Dose: Not Given Sodium Chloride () 5 - 30 ml IV UD PRN PRN Reason: SALINE FLUSH Last Admin: 02/16/18 09:42 Dose: 10 ml Sodium Chloride () 10 - 20 ml IV UD PRN PRN Reason: PICC FLUSH Last Admin: 02/14/18 21:47 Dose: 20 ml Medical Necessity - Tobacco Use Smoking Status: Former smoker Tobacco Use: Cigarettes Assessment/Plan All Active Problems CHF (congestive heart failure) (Acute) Cellulitis (Acute) Acute on chronic respiratory failure with hypoxia and hypercapnia (Acute) 72-year-old female with endstage COPD, pulmonary hypertension, chronic diastolic CHF admitted with worsening shortness of breath ongoing over the several days prior to admission. Her CODE STATUS is full code. Patient was initially been managed conservatively on the PCU floor as acute COPD exacerbation with steroids. Patient has been intermittently refusing steroids. She was continued on her trilogy with no improvement in her hypercapnia. Pulmonary team consulted and following. 1. Acute on chronic hypoxic/hypercapnic respiratory failure, patient electively intubated, on mechanical ventilator in the ICU, plan is for elective tracheostomy and PEG tube. PEG tube planned for 02/18/18. 2. Acute COPD exacerbation, persistent, on IV steroids 40mg tid, breathing treatments 3. Hypokalemia, resolved. 4. Right lower extremity cellulitis, resolved, monitoring off antibiotics. 5. History of LEDY, obesity hypoventilation syndrome, continue on AVAPS 6. Hyperlipidemia, on statin 7. Hypertension, continue on Cozaar, will conyinue to monitor vitals 8. Anxiety/depression, continue on Cymbalta, Buspar 9. Hypothyroidism, on levothyroxine 10. Type II DM, BS remain uncontrolled due to IV steroids, continue on Lantus 15 units QHS, will dc premeal and monitor on accucheks q6hrly 11. History of diatolic CHF, continue on Lasix 20mg IV bid. 12. H/o DVT, off Coumadin for planned procedures, INR is 1.9 today, will continue to hold off Coumadin, continue heparin drip 13. DVT prophylaxis -started on heparin drip, as patient is off Coumadin and INR is subtherapeutic 14. Code status - full code Code Visit Inpatient E&M: 57420 [facility] Hosp L3
[2018-02-16 12:51] LABS: Bedside Glucose 334 mg/dL (70-110)
[2018-02-16] MEDS: Vital AF 1.2 Cal Liquid 1,000 ML 60 ML GT (13:23)
[2018-02-16 17:58] LABS: Partial Thromboplast Time 74.3 Seconds (24.1-36.2)
[2018-02-16 18:25] LABS: Bedside Glucose 305 mg/dL (70-110)
[2018-02-16] MEDS: Atorvastatin Calcium 20 MG Tablet GT (21:23)
[2018-02-16 21:46] LABS: Bedside Glucose 286 mg/dL (70-110)
[2018-02-17] VITALS (42 sets, daily range): BP systolic 105–152; BP diastolic 53–103; PULSE 84–99; RESP 12–26; TEMP 36.3–37.1; O2SAT 88–99
[2018-02-17 00:36] LABS: Bedside Glucose 271 mg/dL (70-110)
[2018-02-17 01:14] LABS: Partial Thromboplast Time 90.4 Seconds (24.1-36.2)
[2018-02-17] MEDS: Ipratropium/Albuterol Sulfate 3 ML AMPUL.NEB INHALATION ×6 (02:01→22:23)
[2018-02-17 04:34] LABS: Absolute Neutrophil Count 7.3 X10^3/uL (2.0-7.7); Basophil# 0.02 X10^3/uL; Basophil% 0.2 % (0-1); Hematocrit 32.9 % (37-47); Hemoglobin 9.1 g/dl (12.0-15.0); Lymphocyte % 8.8 % (19-41); Mean Corp Hgb Conc 27.7 g/gl (32-36); Mean Corpuscular Hgb 26.8 pg (27.0-32.0); Mean Corpuscular Volume 96.8 fL (81-99); Mean Platelet Vol. 12.1 fl (6.2-12.0); Monocyte# 1.83 X10^3/uL; Neutrophil # 7.29 X10^3/uL (2.7-7.7); Neutrophil % 71.5 % (47-70); Platelet Count 155 K/mm3 (150-450); RBC Distribution Width SD 50.6 fl (35.1-43.9); White Blood Count 10.2 K/mm3 (4.4-11.0)
[2018-02-17 04:38] LABS: International Normalized Ratio 1.3; Prothrombin Time (Protime)PT. 16.1 SECONDS (11.7-14.9)
[2018-02-17 04:40] LABS: Differential Indicated SCAN CRITERIA MET; POSITIVE COUNT NO; POSITIVE DIFFERENTIAL YES; POSITIVE MORPHOLOGY NO
[2018-02-17] MEDS: Propofol 10MG/Ml 1,000 MG/100 ML Bottle 3.102 MG CONT INF ×3 (04:47→21:35)
[2018-02-17] MEDS: 0.9% NaCl Peripheral Flush Adult/Peds IV ×2 (04:48→08:07)
[2018-02-17 04:49] LABS: BUN 24 mg/dL (7-18); BUN/Creat Ratio 43.6 RATIO (10-20); Carbon Dioxide > 45.0 mmol/L (21.0-32.0); Chloride 91 mmol/L (98-107); Creatinine, Serum 0.55 mg/dL (0.55-1.02); EST Glomerular Filtration Rate 116 mL/min (>60); Est Glom Filt Rate - Afr Amer 140 mL/min (>60); Glucose 263 mg/dL (74-106); Potassium 4.2 mmol/L (3.5-5.1); Sodium Level 145 mmol/L (136-145)
--- NOTE | 2018-02-17 05:06 | PN_ITS ---
Subjective: The patient was seen and examined at the bedside this morning. Events from the last 24 hours have been reviewed. The patient is currently afebrile, hemodynamically stable and maintaining appropriate oxygen saturations on ACVC+ with an FiO2 of 50%. No overnight events were noted by the nursing staff. The patient continues to tolerate tube feeds. INR continues to improve and is 1.3 this morning. Objective: The patient's most recent lab work, culture data and imaging studies have all been personally reviewed. Surface echocardiogram completed here at [facility] on February 08 revealed mild concentric LVH with an ejection fraction of 65%. Right ventricular systolic pressure was estimated to be 72 mmHg. Respiratory viral panel was negative. Strep and urine Legionella antigens were both negative. Sputum culture appears to be normal respiratory rajan. Records from [facility]: Pulmonary function testing was last completed in October 2017 and revealed evidence of an irreversible very severe obstructive ventilatory impairment with evidence of air trapping and reduction in diffusing capacity. Surface echocardiogram dated October 2017 revealed normal LV size and function. There was evidence of grade 2 diastolic dysfunction. The estimated right ventricular systolic pressure was 50 mmHg. The patient was last seen by her pulmonary provider at the [facility], Dr. Wesley, on January 21, 2018. The patient was admitted to the [facility] January 02 - January 07. The patient's medical history includes COPD, LEDY, diastolic dysfunction, personal history of DVT, morbid obesity and erosive gastroduodenitis/distal esophageal stricture status post dilation in September 2017. She is a former smoker of 2-3 packs per day ?30 years. She has a baseline 3 L/min supplemental oxygen requirement and multiple recent admissions for COPD exacerbations. She has been inherently noncompliant with use of home trilogy. She is on a triple therapy inhaler regimen along with chronic prednisone. General: - - Intubated, sedated and mechanically ventilated. HEENT: Atraumatic, Normocephalic Oral: No Gingival or Mucosal Lesions/ Ulcerations, - - Endotracheal and OG tubes remain in place. Neck: Supple, No Nodes, Trachea Midline Lungs: No rhonchi, No wheeze, No rales, Diminished Cardiovascular: Regular rate, Regular Rhythm, Normal S1, Normal S2, No murmurs, No rub noted, No Gallop Abdomen: Bowel Sounds Present, Soft, Non Tender, Non-Distended, Obese Extremities: No clubbing, No cyanosis, No edema Skin: No breakdown Musculoskeletal: No Tenderness to Palpation of Joints or Extremities Lymphatic: No Cervical, Supraclavicular, or Inguinal Adenopathy Neurological: - - No focal deficits. Moves all extremities spontaneously. Is alert and able to follow simple commands appropriately. Vital Signs Temp Pulse Resp BP Pulse Ox 98.2 F 89 12 128/70 H 95 02/17/18 04:00 02/17/18 05:00 02/17/18 05:00 02/17/18 05:00 02/17/18 05:00 Oxygen Flow Rate (L/min) 4 Oxygen Delivery Method Mechanical Ventilator Weight: 227 lb 11.8 oz Body Mass Index (BMI) 45.8 Intake and Output for Last 24 Hours 02/15/18 02/16/18 02/17/18 23:59 23:59 23:59 Intake Total 1959 / 1959 2896.8 / 2896.8 180 / 180 Output Total 900 / 900 1700 / 1700 Balance 1059 / 1059 1196.8 / 1196.8 180 / 180 Labs (Last 48 Hours) 02/14/18 02/15/18 02/15/18 16:18 04:10 05:23 WBC RBC Hgb Hct MCV MCH MCHC RDW RDW Differential Plt Count MPV Immature Gran % (Auto) Neut % (Auto) Lymph % (Auto) [place] % (Auto) Eos % (Auto) Baso % (Auto) Absolute Neuts (auto) Absolute Lymphs (auto) Total Counted PT INR APTT Specimen Type Sample Site pH 7.52 H Bicarbonate Actual 61.5 H POC Total CO2 > 50 Base Excess > 30 H O2 Saturation 86 L O2 % ABG pCO2 74.9 H* ABG pO2 50 L Luis Test Respiration Rate O2 Delivery Device Vent Mode Tidal Volume POC PEEP Blood Gas Notified Whom ICU Blood Gas Notified Time 1618 Sodium Potassium Chloride Carbon Dioxide > 45.0 H* Anion Gap TNP BUN Creatinine Estim Creat Clear Calc Est GFR (MDRD) Af Amer Est GFR (MDRD) Non-Af BUN/Creatinine Ratio Glucose Calcium POC Glucose 214 H 02/15/18 02/15/18 02/15/18 06:50 11:45 17:40 WBC RBC Hgb Hct MCV MCH MCHC RDW RDW Differential Plt Count MPV Immature Gran % (Auto) Neut % (Auto) Lymph % (Auto) [place] % (Auto) Eos % (Auto) Baso % (Auto) Absolute Neuts (auto) Absolute Lymphs (auto) Total Counted PT INR APTT Specimen Type ART Sample Site R Radial pH 7.38 Bicarbonate Actual 55.7 H POC Total CO2 > 50 Base Excess > 30 H O2 Saturation 97 O2 % 50 ABG pCO2 94.4 H* ABG pO2 108 H Luis Test POS Respiration Rate 12 O2 Delivery Device Vent Vent Mode VC+ Tidal Volume 350 POC PEEP 5 Blood Gas Notified Whom ICU MD Blood Gas Notified Time 655 Sodium Potassium Chloride Carbon Dioxide Anion Gap BUN Creatinine Estim Creat Clear Calc Est GFR (MDRD) Af Amer Est GFR (MDRD) Non-Af BUN/Creatinine Ratio Glucose Calcium POC Glucose 193 H 209 H 02/15/18 02/15/18 02/16/18 21:39 23:56 04:05 WBC 8.1 RBC 3.51 L Hgb 9.2 L Hct 33.3 L MCV 94.9 MCH 26.2 L MCHC 27.6 L RDW 15.0 H RDW Differential 50.0 H Plt Count 163 MPV 11.4 Immature Gran % (Auto) 1.100 H Neut % (Auto) 82.7 H Lymph % (Auto) 5.1 L [place] % (Auto) 11.0 H Eos % (Auto) 0.0 Baso % (Auto) 0.1 Absolute Neuts (auto) 6.7 Absolute Lymphs (auto) 0.41 L Total Counted Not Reportable PT INR APTT Specimen Type Sample Site pH Bicarbonate Actual POC Total CO2 Base Excess O2 Saturation O2 % ABG pCO2 ABG pO2 Luis Test Respiration Rate O2 Delivery Device Vent Mode Tidal Volume POC PEEP Blood Gas Notified Whom Blood Gas Notified Time Sodium Potassium Chloride Carbon Dioxide Anion Gap BUN Creatinine Estim Creat Clear Calc Est GFR (MDRD) Af Amer Est GFR (MDRD) Non-Af BUN/Creatinine Ratio Glucose Calcium POC Glucose 257 H 275 H 02/16/18 02/16/18 02/16/18 04:05 04:05 05:10 WBC RBC Hgb Hct MCV MCH MCHC RDW RDW Differential Plt Count MPV Immature Gran % (Auto) Neut % (Auto) Lymph % (Auto) [place] % (Auto) Eos % (Auto) Baso % (Auto) Absolute Neuts (auto) Absolute Lymphs (auto) Total Counted PT 21.8 H INR 1.9 APTT Specimen Type Sample Site pH Bicarbonate Actual POC Total CO2 Base Excess O2 Saturation O2 % ABG pCO2 ABG pO2 Luis Test Respiration Rate O2 Delivery Device Vent Mode Tidal Volume POC PEEP Blood Gas Notified Whom Blood Gas Notified Time Sodium 141 Potassium 4.6 Chloride 89 L Carbon Dioxide > 45.0 H* Anion Gap TNP BUN 26 H Creatinine 0.68 Estim Creat Clear Calc 37.60 Est GFR (MDRD) Af Amer 111 Est GFR (MDRD) Non-Af 91 BUN/Creatinine Ratio 38.5 H Glucose 318 H Calcium 8.5 POC Glucose 326 H 02/16/18 02/16/18 02/16/18 09:30 12:19 17:20 WBC RBC Hgb Hct MCV MCH MCHC RDW RDW Differential Plt Count MPV Immature Gran % (Auto) Neut % (Auto) Lymph % (Auto) [place] % (Auto) Eos % (Auto) Baso % (Auto) Absolute Neuts (auto) Absolute Lymphs (auto) Total Counted PT INR APTT 29.3 74.3 H Specimen Type Sample Site pH Bicarbonate Actual POC Total CO2 Base Excess O2 Saturation O2 % ABG pCO2 ABG pO2 Luis Test Respiration Rate O2 Delivery Device Vent Mode Tidal Volume POC PEEP Blood Gas Notified Whom Blood Gas Notified Time Sodium Potassium Chloride Carbon Dioxide Anion Gap BUN Creatinine Estim Creat Clear Calc Est GFR (MDRD) Af Amer Est GFR (MDRD) Non-Af BUN/Creatinine Ratio Glucose Calcium POC Glucose 334 H 02/16/18 02/16/18 02/16/18 18:17 21:29 23:51 WBC RBC Hgb Hct MCV MCH MCHC RDW RDW Differential Plt Count MPV Immature Gran % (Auto) Neut % (Auto) Lymph % (Auto) [place] % (Auto) Eos % (Auto) Baso % (Auto) Absolute Neuts (auto) Absolute Lymphs (auto) Total Counted PT INR APTT Specimen Type Sample Site pH Bicarbonate Actual POC Total CO2 Base Excess O2 Saturation O2 % ABG pCO2 ABG pO2 Luis Test Respiration Rate O2 Delivery Device Vent Mode Tidal Volume POC PEEP Blood Gas Notified Whom Blood Gas Notified Time Sodium Potassium Chloride Carbon Dioxide Anion Gap BUN Creatinine Estim Creat Clear Calc Est GFR (MDRD) Af Amer Est GFR (MDRD) Non-Af BUN/Creatinine Ratio Glucose Calcium POC Glucose 305 H 286 H 271 H 02/17/18 02/17/18 02/17/18 00:25 04:15 04:15 WBC 10.2 RBC 3.40 L Hgb 9.1 L Hct 32.9 L MCV 96.8 MCH 26.8 L MCHC 27.7 L RDW 15.0 H RDW Differential 50.6 H Plt Count 155 MPV 12.1 H Immature Gran % (Auto) 1.500 H Neut % (Auto) 71.5 H Lymph % (Auto) 8.8 L [place] % (Auto) 18.0 H Eos % (Auto) 0.0 Baso % (Auto) 0.2 Absolute Neuts (auto) 7.3 Absolute Lymphs (auto) 0.90 Total Counted Pending PT 16.1 H INR 1.3 APTT 90.4 H* Specimen Type Sample Site pH Bicarbonate Actual POC Total CO2 Base Excess O2 Saturation O2 % ABG pCO2 ABG pO2 Luis Test Respiration Rate O2 Delivery Device Vent Mode Tidal Volume POC PEEP Blood Gas Notified Whom Blood Gas Notified Time Sodium Potassium Chloride Carbon Dioxide Anion Gap BUN Creatinine Estim Creat Clear Calc Est GFR (MDRD) Af Amer Est GFR (MDRD) Non-Af BUN/Creatinine Ratio Glucose Calcium POC Glucose 02/17/18 04:15 WBC RBC Hgb Hct MCV MCH MCHC RDW RDW Differential Plt Count MPV Immature Gran % (Auto) Neut % (Auto) Lymph % (Auto) [place] % (Auto) Eos % (Auto) Baso % (Auto) Absolute Neuts (auto) Absolute Lymphs (auto) Total Counted PT INR APTT Specimen Type Sample Site pH Bicarbonate Actual POC Total CO2 Base Excess O2 Saturation O2 % ABG pCO2 ABG pO2 Luis Test Respiration Rate O2 Delivery Device Vent Mode Tidal Volume POC PEEP Blood Gas Notified Whom Blood Gas Notified Time Sodium 145 Potassium 4.2 Chloride 91 L Carbon Dioxide > 45.0 H* Anion Gap TNP BUN 24 H Creatinine 0.55 Estim Creat Clear Calc 37.60 Est GFR (MDRD) Af Amer 140 Est GFR (MDRD) Non-Af 116 BUN/Creatinine Ratio 43.6 H Glucose 263 H Calcium 9.0 POC Glucose Microbiology 02/14/18 15:20 Sputum, Induced/[place] Gram Stain - Final 02/14/18 15:20 Sputum, Induced/[place] Respiratory Culture - Preliminary Appears to be normal respiratory rajan. Further studies to follow. Clinical Impression(s) from Imaging Studies Femur X-Ray 02/07/18 20:51 IMPRESSION: Diffuse demineralization with no evidence of acute fracture. Electronically Signed: Wei Lucas DO at 21:53 EDT , Service support , Venous Duplex 02/07/18 21:06 IMPRESSION: No evidence of deep venous thrombosis. Electronically Signed: Wei Lucas DO at 21:49 EDT , Service support , Chest X-Ray 02/07/18 21:35 IMPRESSION: Prominent diffuse interstitial markings with underlying interstitial edema likely. Clinically correlate for underlying CHF exacerbation in the appropriate clinical setting. Electronically Signed: Wei Lucas DO at 21:52 EDT , Service support , Chest X-Ray 02/12/18 09:30 IMPRESSION: Limited by underexposure. No gross change or acute chest disease. Electronically Signed: Deep Snider MD at 13:11 EDT , Service support , Chest X-Ray 02/13/18 16:07 IMPRESSION: 1. Improved inspiratory effort with improving basilar atelectasis. 2. Summation artifact versus new patchy infiltrate or vague nodular densities in the right apex. These can be reevaluated on follow-up study. 3. Stable mild cardiac enlargement. No CHF. Electronically Signed: Angel Will MD at 16:36 EDT , Service support , Chest X-Ray 02/14/18 15:05 IMPRESSION: The tip of the endotracheal tube is at 3.7 cm proximal to the [place]. The tip of the orogastric tube most likely is within the body of the stomach. There has been essentially no change since prior study. Electronically Signed: Jim Plaza MD at 15:44 EDT Tel [phone], Service support , Medical Necessity - Tobacco Use Smoking Status: Former smoker Tobacco Use: Cigarettes Assessment/Plan All Active Problems CHF (congestive heart failure) (Acute) Cellulitis (Acute) Acute on chronic respiratory failure with hypoxia and hypercapnia (Acute) RECOMMENDATIONS: 1. Continue current supportive measures with mechanical ventilatory support. 2. ENT and general surgery to coordinate trach and PEG tube insertion. There are tentative plans for PEG tube placement tomorrow February 18, followed by tracheostomy on February 21. 3. Continue tube feeds. 4. Continue weight-based heparin infusion. 5. Continue to check INR daily. Goal INR for surgical intervention less than 1.3. 6. Continue bronchodilators and steroids. 7. Continue Pepcid for GI prophylaxis. 8. Continue fentanyl and propofol for sedation. Maintain RASS of -1 to 1. IMPRESSIONS: 1. Acute on chronic combined respiratory failure Likely multifactorial in etiology with end-stage COPD with exacerbation, diastolic dysfunction and pulmonary hypertension contributing. The patient was dependent on noninvasive positive pressure ventilation for multiple days, which culminated in her elective intubation on February 14. She has been failing in health per her family for a multitude of years. She is currently on maximal therapy for her underlying COPD and is prescribed a noninvasive ventilator in her home environment, for which she has been noncompliant with its use. Given her history of multiple recurrent hospitalizations for COPD related issues along with her outpatient noncompliance, would recommend proceeding with tracheostomy and PEG tube placement, following a discussion with the patient. The patient was in agreement to proceed accordingly per my discussion with her prior to being intubated. General surgery and ENT are following to coordinate tracheostomy and PEG tube insertion. For now, we will plan to continue scheduled bronchodilators, diuretics and steroids. The patient will be maintained on ACVC+ with plans to continue propofol and start fentanyl for sedation. The patient has poor long-term prognosis from a respiratory standpoint. The process of weaning from mechanical ventilation can begin once tracheostomy is in place. Continue tube feeds and initiate bowel regimen today. 2. Heart failure with preserved ejection fraction/pulmonary hypertension Continue current medical management, including diuretics. Creatinine remains stable. 3. Personal history of DVT Given the future plans for surgical intervention, will continue to hold Coumadin. Continue weight-based heparin infusion. Goal INR in the day of surgical intervention should be less than 1.3. Continue to check daily INR. 4. Morbid obesity/erosive gastroduodenitis/esophageal stricture/obstructive sleep apnea Complicates care, management, recovery and prognosis. The patient will be continued on appropriate GI prophylaxis. Tube feeds will be continued. Physical therapy to work with patient. Case management/social work to assist with LTACH planning. TIME: 38 minutes of critical care time, independent of procedures, was spent addressing the patient's acute on chronic combined respiratory failure, COPD with exacerbation, heart failure with preserved ejection fraction, pulmonary hypertension, history of DVT, obstructive sleep apnea, review of all data and collaboration with the care team. ([id number]) Code Visit [id number]: [id number] Critical care first hour
[2018-02-17] MEDS: Levothyroxine 25 MCG TABLET GT (05:52)
[2018-02-17] MEDS: busPIRone 15 MG TABLET GT ×3 (05:52→21:33)
[2018-02-17] MEDS: Insulin Lispro 100 UNIT/ML INSULN.PEN SQ ×4 (05:52→23:18)
[2018-02-17 05:55] LABS: Bedside Glucose 246 mg/dL (70-110)
[2018-02-17] MEDS: predniSONE 20 MG Tablet 40 MG GT (08:08)
[2018-02-17] MEDS: Ferrous Sulfate 325 MG Tablet GT (08:08)
[2018-02-17 08:29] LABS: Partial Thromboplast Time 74.7 Seconds (24.1-36.2)
--- NOTE | 2018-02-17 08:40 | PCM.PN.HOSP ---
Patient Problems: Active and Suspected Problems CHF (congestive heart failure) (Acute) Cellulitis (Acute) Acute on chronic respiratory failure with hypoxia and hypercapnia (Acute) Subjective: Patient remains intubated. On mechanical ventilation. No acute events overnight. On sedation holiday at the time of physical examination. Able to nod her head no to pain. Vitals reviewed was stable. Blood sugars are uncontrolled because of IV steroids Objective: Physical exam: General: Intubated, on mechanical ventilation, not pale, not jaundiced, appears comfortable. HEENT: Atraumatic, PERRLA, EOMI, Normocephalic Oral: Dry Mucosa Neck: Supple Lungs: Normal air movement, Diminished, Wheezes still present Cardiovascular: Regular rate, Regular Rhythm, Normal S1, Normal S2, No murmurs Abdomen: Bowel Sounds Present, Soft, Non Tender, Non-Distended, No Hepato-splenomegaly Extremities: Bilateral leg edema trace - +1 Skin: No rashes, No breakdown Musculoskeletal: No Tenderness to Palpation of Joints or Extremities Lymphatic: No Cervical, Supraclavicular, or Inguinal Adenopathy Neurological: Cranial nerves II-XII grossly intact, Motor Exam 5/5 strength throughout Psych/Mental Status: Normal Affect, Appropriate Vitals/I&O's: Vital Signs Temp Pulse Resp BP Pulse Ox 97.8 F 94 12 134/96 H 92 02/17/18 08:00 02/17/18 08:00 02/17/18 08:00 02/17/18 08:00 02/17/18 08:00 Oxygen Flow Rate (L/min) 4 Oxygen Delivery Method Mechanical Ventilator Weight: 103.3 kg Body Mass Index (BMI) 45.8 Intake and Output for Last 24 Hours 02/15/18 02/16/18 02/17/18 23:59 23:59 23:59 Intake Total 1959 / 195 2896.8 / 2896.8 935.4 / 935.4 Output Total 900 / 900 1700 / 1700 300 / 300 Balance 1059 / 1059 1196.8 / 1196.8 635.4 / 635.4 Microbiology Past 72 Hours 02/14/18 15:20 Sputum, Induced/Lukens Gram Stain - Final 02/14/18 15:20 Sputum, Induced/Lukens Respiratory Culture - Final Laboratory Results 02/16/18 09:30: APTT 29.3 02/16/18 12:19: POC Glucose 334 H 02/16/18 17:20: APTT 74.3 H 02/16/18 18:17: POC Glucose 305 H 02/16/18 21:29: POC Glucose 286 H 02/16/18 23:51: POC Glucose 271 H 02/17/18 00:25: APTT 90.4 H* 02/17/18 04:15: PT 16.1 H, INR 1.3 02/17/18 04:15: WBC 10.2, RBC 3.40 L, Hgb 9.1 L, Hct 32.9 L, MCV 96.8, MCH 26.8 L, MCHC 27.7 L, RDW 15.0 H, RDW Differential 50.6 H, Plt Count 155, MPV 12.1 H, Immature Gran % (Auto) 1.500 H, Neut % (Auto) 71.5 H, Lymph % (Auto) 8.8 L, [place] % (Auto) 18.0 H, Eos % (Auto) 0.0, Baso % (Auto) 0.2, Absolute Neuts (auto) 7.3, Absolute Lymphs (auto) 0.90, Total Counted Not Reportable 02/17/18 04:15: Sodium 145, Potassium 4.2, Chloride 91 L, Carbon Dioxide > 45.0 H*, Anion Gap TNP, BUN 24 H, Creatinine 0.55, Estim Creat Clear Calc 37.60, Est GFR (MDRD) Af Amer 140, Est GFR (MDRD) Non-Af 116, BUN/Creatinine Ratio 43.6 H, Glucose 263 H, Calcium 9.0 02/17/18 05:49: POC Glucose 246 H 02/17/18 07:35: APTT 74.7 H Current Medications Acetaminophen (Tylenol Liquid) 500 mg GT Q6H PRN PRN PRN Reason: PAIN Albuterol Sulfate (Ventolin Aerosols) 2.5 mg INHALATION Q2H PRN PRN PRN Reason: SHORTNESS OF BREATH Albuterol/Ipratropium (Duoneb) 3 ml INHALATION Q4H.RT [facility] Last Admin: 02/17/18 07:09 Dose: 3 ml Atorvastatin Calcium (Lipitor) 20 mg GT QHS [facility] Last Admin: 02/16/18 21:23 Dose: 20 mg Bisacodyl (Dulcolax) 10 mg RECTAL DAILY PRN PRN Reason: Constipation Buspirone HCl (Buspar) 15 mg GT TID [facility] Last Admin: 02/17/18 05:52 Dose: 15 mg Calcium/Vitamin D (Os-Carlos 500mg + D) 1 tablet GT DAILY [facility] Last Admin: 02/16/18 09:40 Dose: 1 tablet Chlorhexidine Gluconate () 15 ml PO BID [facility] Last Admin: 02/16/18 21:24 Dose: 15 ml Chlorhexidine Gluconate () 1 each TOPICAL DAILY [facility] Last Admin: 02/16/18 05:06 Dose: 1 each Cholecalciferol (Vitamin D) 2,000 unit GT DAILY [facility] Last Admin: 02/16/18 09:41 Dose: 2,000 unit Dextrose (D50w Syringe) 0 gm IV X1 PRN; Protocol PRN Reason: Hypoglycemia Duloxetine HCl (Cymbalta) 60 mg PO DAILY [facility] Last Admin: 02/16/18 09:38 Dose: 60 mg Ezetimibe (Zetia) 10 mg GT DAILY [facility] Last Admin: 02/16/18 09:42 Dose: 10 mg Famotidine (Pepcid) 20 mg GT BID [facility] Last Admin: 02/16/18 21:23 Dose: 20 mg Ferrous Sulfate ([facility] S[facility]ate) [facility] Last Admin: 02/17/18 08:08 Dose: 325 mg Glucagon () 1 mg IM .X1 PRN PRN Reason: Hypoglycemia Guaifenesin (Robitussin Dm) 10 ml GT Q6H PRN PRN PRN Reason: COUGH Heparin Sodium (Beef Lung) (Heparin 500 Unit/5 Ml (100/Ml)) 500 unit IV UD PRN PRN Reason: HEPARIN FLUSH Heparin Sodium (Porcine) (Heparin Na) 0 unit IV UD PRN PRN Reason: Protocol Propofol (Diprivan) 1,000 mg in 100 mls @ 3.102 mls/hr CONT INF .Q12H [facility]; 5 MCG/KG/MIN PRN Reason: Protocol Last Admin: 02/17/18 04:47 Dose: 3.102 mls/hr Enteral Nutritional Formula (Vital Af 1.2 Carlos Liquid) 1,000 mls @ 60 mls/hr GT .[id number] [facility] Last Admin: 02/16/18 13:23 Dose: 60 mls/hr Fentanyl () 100 mls @ 2.5 mls/hr IV .Q40H [facility] Last Admin: 02/17/18 08:07 Dose: 2.5 mls/hr Heparin Sodium/Sodium Chloride () 25,000 unit in 250 mls @ 15 mls/hr IV .[id number] [facility]; As Directed PRN Reason: Protocol Last Admin: 02/17/18 04:47 Dose: 15 mls/hr Insulin Glargine (Lantus (Bk)) 17 units SC QHS [facility] Insulin Human Lispro (Humalog Kwikpen ([facility])) 0 unit SQ Q6 [facility] PRN Reason: Protocol Last Admin: 02/17/18 05:52 Dose: 4 u Lactobacillus Acidophilus (Acidophilus) 1 tablet GT DAILY [facility] Last Admin: 02/16/18 09:37 Dose: 1 tablet Levothyroxine Sodium (Synthroid) 25 mcg GT DAILY@0600 [facility] Last Admin: 02/17/18 05:52 Dose: 25 mcg Loratadine (Claritin) 10 mg GT DAILY [facility] Last Admin: 02/16/18 09:38 Dose: 10 mg Magnesium Hydroxide (Milk Of Magnesia) 30 ml GT DAILY PRN PRN Reason: Constipation Magnesium Oxide (Mag-Ox 400) 400 mg GT DAILY [facility] Last Admin: 02/16/18 09:40 Dose: 400 mg Montelukast Sodium (Singulair) 10 mg GT DAILY [facility] Last Admin: 02/16/18 09:41 Dose: 10 mg Polyethylene Glycol (Miralax) 17 gm GT DAILY PRN PRN Reason: Constipation Potassium Chloride (K-Dur) 10 meq GT DAILY [facility] Last Admin: 02/16/18 09:39 Dose: 10 meq Prednisone () 40 mg GT DAILY@0800 [facility] Last Admin: 02/17/18 08:08 Dose: 40 mg Senna/Docusate Sodium (Senokot-S, Emily-Colace) 2 tablet GT BID PRN PRN Reason: Constipation Sodium Chloride ([place] Nasal [place]) 1 spray NASAL BID [facility] Last Admin: 02/16/18 21:24 Dose: Not Given Sodium Chloride () 5 - 30 ml IV UD PRN PRN Reason: SALINE FLUSH Last Admin: 02/17/18 08:07 Dose: 10 ml Sodium Chloride () 10 - 20 ml IV UD PRN PRN Reason: PICC FLUSH Last Admin: 02/14/18 21:47 Dose: 20 ml Medical Necessity - Tobacco Use Smoking Status: Former smoker Tobacco Use: Cigarettes Assessment/Plan All Active Problems CHF (congestive heart failure) (Acute) Cellulitis (Acute) Acute on chronic respiratory failure with hypoxia and hypercapnia (Acute) 72-year-old female with endstage COPD, pulmonary hypertension, chronic diastolic CHF admitted with worsening shortness of breath ongoing over the several days prior to admission. Her CODE STATUS is full code. Patient was initially been managed conservatively on the PCU floor as acute COPD exacerbation with steroids. Patient had been intermittently refusing steroids. She was continued on her trilogy with no improvement in her hypercapnia. Pulmonary team consulted and following. She however was not improving and upon lengthy discussion with the family she elected for intubation. Intubated on 02/14/2018. 1. Acute on chronic hypoxic/hypercapnic respiratory failure, not improving, electively intubated, on mechanical ventilator in the ICU, appears stable on current ventilatory settings, on propofol and fentanyl, plan is for elective tracheostomy and PEG tube. INR is 1.3. PEG tube planned for 02/18/18. 2. Acute COPD exacerbation, persistent, started on prednisone, continued on breathing treatments. 3. Hypokalemia, resolved. 4. Right lower extremity cellulitis, resolved, monitoring off antibiotics. 5. History of LEDY, obesity hypoventilation syndrome 6. Hyperlipidemia, on statin 7. Hypertension, controlled, off Cozaar 8. Anxiety/depression, continue on Cymbalta, Buspar 9. Hypothyroidism, on levothyroxine 10. Type II DM, BS remain uncontrolled, increase Lantus to 17 units QHS, continue on accucheks q6hrly 11. H/o DVT, on heparin drip now, off Coumadin for planned procedures, INR is 1.3, continue off coumadin, INR in am 12. DVT prophylaxis -started on heparin drip, as patient is off Coumadin and INR is subtherapeutic 13. Code status - full code Code Visit Inpatient E&M: 81123 [facility] L3
--- NOTE | 2018-02-17 09:06 | PN_ITS ---
Patient Problems: Active and Suspected Problems CHF (congestive heart failure) (Acute) Cellulitis (Acute) Acute on chronic respiratory failure with hypoxia and hypercapnia (Acute) Subjective: Patient remains intubated. On mechanical ventilation. No acute events overnight. On sedation holiday at the time of physical examination. Able to nod her head no to pain. Vitals reviewed was stable. Blood sugars are uncontrolled because of IV steroids Objective: Physical exam: General: Intubated, on mechanical ventilation, not pale, not jaundiced, appears comfortable. HEENT: Atraumatic, PERRLA, EOMI, Normocephalic Oral: Dry Mucosa Neck: Supple Lungs: Normal air movement, Diminished, Wheezes still present Cardiovascular: Regular rate, Regular Rhythm, Normal S1, Normal S2, No murmurs Abdomen: Bowel Sounds Present, Soft, Non Tender, Non-Distended, No Hepato- splenomegaly Extremities: Bilateral leg edema trace - +1 Skin: No rashes, No breakdown Musculoskeletal: No Tenderness to Palpation of Joints or Extremities Lymphatic: No Cervical, Supraclavicular, or Inguinal Adenopathy Neurological: Cranial nerves II-XII grossly intact, Motor Exam 5/5 strength throughout Psych/Mental Status: Normal Affect, Appropriate Vitals/I&O's: Vital Signs Temp Pulse Resp BP Pulse Ox 97.8 F 94 12 134/96 H 92 02/17/18 08:00 02/17/18 08:00 02/17/18 08:00 02/17/18 08:00 02/17/18 08:00 Oxygen Flow Rate (L/min) 4 Oxygen Delivery Method Mechanical Ventilator Weight: 103.3 kg Body Mass Index (BMI) 45.8 Intake and Output for Last 24 Hours 02/15/18 02/16/18 02/17/18 23:59 23:59 23:59 Intake Total 1959 / 195 2896.8 / 2896.8 935.4 / 935.4 Output Total 900 / 900 1700 / 1700 300 / 300 Balance 1059 / 1059 1196.8 / 1196.8 635.4 / 635.4 Microbiology Past 72 Hours 02/14/18 15:20 Sputum, Induced/Lukens Gram Stain - Final 02/14/18 15:20 Sputum, Induced/Lukens Respiratory Culture - Final Laboratory Results 02/16/18 09:30: APTT 29.3 02/16/18 12:19: POC Glucose 334 H 02/16/18 17:20: APTT 74.3 H 02/16/18 18:17: POC Glucose 305 H 02/16/18 21:29: POC Glucose 286 H 02/16/18 23:51: POC Glucose 271 H 02/17/18 00:25: APTT 90.4 H* 02/17/18 04:15: PT 16.1 H, INR 1.3 02/17/18 04:15: WBC 10.2, RBC 3.40 L, Hgb 9.1 L, Hct 32.9 L, MCV 96.8, MCH 26.8 L, MCHC 27.7 L, RDW 15.0 H, RDW Differential 50.6 H, Plt Count 155, MPV 12.1 H, Immature Gran % (Auto) 1.500 H, Neut % (Auto) 71.5 H, Lymph % (Auto) 8.8 L, [place] % (Auto) 18.0 H, Eos % (Auto) 0.0, Baso % (Auto) 0.2, Absolute Neuts (auto ) 7.3, Absolute Lymphs (auto) 0.90, Total Counted Not Reportable 02/17/18 04:15: Sodium 145, Potassium 4.2, Chloride 91 L, Carbon Dioxide > 45.0 H*, Anion Gap TNP, BUN 24 H, Creatinine 0.55, Estim Creat Clear Calc 37.60, Est GFR (MDRD) Af Amer 140, Est GFR (MDRD) Non-Af 116, BUN/Creatinine Ratio 43.6 H, Glucose 263 H, Calcium 9.0 02/17/18 05:49: POC Glucose 246 H 02/17/18 07:35: APTT 74.7 H Current Medications Acetaminophen (Tylenol Liquid) 500 mg GT Q6H PRN PRN PRN Reason: PAIN Albuterol Sulfate (Ventolin Aerosols) 2.5 mg INHALATION Q2H PRN PRN PRN Reason: SHORTNESS OF BREATH Albuterol/Ipratropium (Duoneb) 3 ml INHALATION Q4H.RT [facility] Last Admin: 02/17/18 07:09 Dose: 3 ml Atorvastatin Calcium (Lipitor) 20 mg GT QHS [facility] Last Admin: 02/16/18 21:23 Dose: 20 mg Bisacodyl (Dulcolax) 10 mg RECTAL DAILY PRN PRN Reason: Constipation Buspirone HCl (Buspar) 15 mg GT TID [facility] Last Admin: 02/17/18 05:52 Dose: 15 mg Calcium/Vitamin D (Os-Carlos 500mg + D) 1 tablet GT DAILY [facility] Last Admin: 02/16/18 09:40 Dose: 1 tablet Chlorhexidine Gluconate () 15 ml PO BID [facility] Last Admin: 02/16/18 21:24 Dose: 15 ml Chlorhexidine Gluconate () 1 each TOPICAL DAILY [facility] Last Admin: 02/16/18 05:06 Dose: 1 each Cholecalciferol (Vitamin D) 2,000 unit GT DAILY [facility] Last Admin: 02/16/18 09:41 Dose: 2,000 unit Dextrose (D50w Syringe) 0 gm IV X1 PRN; Protocol PRN Reason: Hypoglycemia Duloxetine HCl (Cymbalta) 60 mg PO DAILY [facility] Last Admin: 02/16/18 09:38 Dose: 60 mg Ezetimibe (Zetia) 10 mg GT DAILY [facility] Last Admin: 02/16/18 09:42 Dose: 10 mg Famotidine (Pepcid) 20 mg GT BID [facility] Last Admin: 02/16/18 21:23 Dose: 20 mg Ferrous Sulf[facility] ([facility] S[facility]) [facility] Last Admin: 02/17/18 08:08 Dose: 325 mg Glucagon () 1 mg IM .X1 PRN PRN Reason: Hypoglycemia Guaifenesin (Robitussin Dm) 10 ml GT Q6H PRN PRN PRN Reason: COUGH Heparin Sodium (Beef Lung) (Heparin 500 Unit/5 Ml (100/Ml)) 500 unit IV UD PRN PRN Reason: HEPARIN FLUSH Heparin Sodium (Porcine) (Heparin Na) 0 unit IV UD PRN PRN Reason: Protocol Propofol (Diprivan) 1,000 mg in 100 mls @ 3.102 mls/hr CONT INF .Q12H [facility]; 5 MCG/KG/MIN PRN Reason: Protocol Last Admin: 02/17/18 04:47 Dose: 3.102 mls/hr Enteral Nutritional Formula (Vital Af 1.2 Carlos Liquid) 1,000 mls @ 60 mls/hr GT .[id number] [facility] Last Admin: 02/16/18 13:23 Dose: 60 mls/hr Fentanyl () 100 mls @ 2.5 mls/hr IV .Q40H [facility] Last Admin: 02/17/18 08:07 Dose: 2.5 mls/hr Heparin Sodium/Sodium Chloride () 25,000 unit in 250 mls @ 15 mls/hr IV .[id number] [facility]; As Directed PRN Reason: Protocol Last Admin: 02/17/18 04:47 Dose: 15 mls/hr Insulin Glargine (Lantus (Bk)) 17 units SC QHS [facility] Insulin Human Lispro (Humalog Kwikpen ([facility])) 0 unit SQ Q6 [facility] PRN Reason: Protocol Last Admin: 02/17/18 05:52 Dose: 4 u Lactobacillus Acidophilus (Acidophilus) 1 tablet GT DAILY [facility] Last Admin: 02/16/18 09:37 Dose: 1 tablet Levothyroxine Sodium (Synthroid) 25 mcg GT DAILY@0600 [facility] Last Admin: 02/17/18 05:52 Dose: 25 mcg Loratadine (Claritin) 10 mg GT DAILY [facility] Last Admin: 02/16/18 09:38 Dose: 10 mg Magnesium Hydroxide (Milk Of Magnesia) 30 ml GT DAILY PRN PRN Reason: Constipation Magnesium Oxide (Mag-Ox 400) 400 mg GT DAILY [facility] Last Admin: 02/16/18 09:40 Dose: 400 mg Montelukast Sodium (Singulair) 10 mg GT DAILY [facility] Last Admin: 02/16/18 09:41 Dose: 10 mg Polyethylene Glycol (Miralax) 17 gm GT DAILY PRN PRN Reason: Constipation Potassium Chloride (K-Dur) 10 meq GT DAILY [facility] Last Admin: 02/16/18 09:39 Dose: 10 meq Prednisone () 40 mg GT DAILY@0800 [facility] Last Admin: 02/17/18 08:08 Dose: 40 mg Senna/Docusate Sodium (Senokot-S, Emily-Colace) 2 tablet GT BID PRN PRN Reason: Constipation Sodium Chloride ([place] Nasal [place]) 1 spray NASAL BID [facility] Last Admin: 02/16/18 21:24 Dose: Not Given Sodium Chloride () 5 - 30 ml IV UD PRN PRN Reason: SALINE FLUSH Last Admin: 02/17/18 08:07 Dose: 10 ml Sodium Chloride () 10 - 20 ml IV UD PRN PRN Reason: PICC FLUSH Last Admin: 02/14/18 21:47 Dose: 20 ml Medical Necessity - Tobacco Use Smoking Status: Former smoker Tobacco Use: Cigarettes Assessment/Plan All Active Problems CHF (congestive heart failure) (Acute) Cellulitis (Acute) Acute on chronic respiratory failure with hypoxia and hypercapnia (Acute) 72-year-old female with endstage COPD, pulmonary hypertension, chronic diastolic CHF admitted with worsening shortness of breath ongoing over the several days prior to admission. Her CODE STATUS is full code. Patient was initially been managed conservatively on the PCU floor as acute COPD exacerbation with steroids. Patient had been intermittently refusing steroids. She was continued on her trilogy with no improvement in her hypercapnia. Pulmonary team consulted and following. She however was not improving and upon lengthy discussion with the family she elected for intubation. Intubated on 02/14. 1. Acute on chronic hypoxic/hypercapnic respiratory failure, not improving, electively intubated, on mechanical ventilator in the ICU, appears stable on current ventilatory settings, on propofol and fentanyl, plan is for elective tracheostomy and PEG tube. INR is 1.3. PEG tube planned for 02/18/18. 2. Acute COPD exacerbation, persistent, started on prednisone, continued on breathing treatments. 3. Hypokalemia, resolved. 4. Right lower extremity cellulitis, resolved, monitoring off antibiotics. 5. History of LEDY, obesity hypoventilation syndrome 6. Hyperlipidemia, on statin 7. Hypertension, controlled, off Cozaar 8. Anxiety/depression, continue on Cymbalta, Buspar 9. Hypothyroidism, on levothyroxine 10. Type II DM, BS remain uncontrolled, increase Lantus to 17 units QHS, continue on accucheks q6hrly 11. H/o DVT, on heparin drip now, off Coumadin for planned procedures, INR is 1.3, continue off coumadin, INR in am 12. DVT prophylaxis -started on heparin drip, as patient is off Coumadin and INR is subtherapeutic 13. Code status - full code Code Visit Inpatient E&M: 84216 [facility] L3
[2018-02-17] MEDS: CHLORHEXIDINE GLUC 2% CLOTH 1 EACH TOWELETTE TOPICAL (09:44)
[2018-02-17] MEDS: Vital AF 1.2 Cal Liquid 1,000 ML 60 ML GT (09:44)
[2018-02-17] MEDS: Senna/Docusate Sodium 1 Tablet 2 TABLET GT ×2 (09:44→21:34)
[2018-02-17] MEDS: Montelukast 10 MG Tablet GT (09:48)
[2018-02-17] MEDS: Famotidine 20 MG Tablet GT ×2 (09:48→21:34)
[2018-02-17] MEDS: Chlorhexidine 15 ML PO ×2 (09:50→21:33)
[2018-02-17 10:10] LABS: Bedside Glucose 165 mg/dL (70-110)
[2018-02-17] MEDS: Venlafaxine HCl 75 MG Tablet GT ×2 (10:57→21:33)
[2018-02-17] MEDS: Polyethylene Glycol 3350 17 GM PACKET 34 GM GT ×2 (10:58→13:31)
--- NOTE | 2018-02-17 11:24 | PCM.PN.SRG ---
Patient Problems: Active and Suspected Problems CHF (congestive heart failure) (Acute) Cellulitis (Acute) Acute on chronic respiratory failure with hypoxia and hypercapnia (Acute) Subjective: tolerating TF - Physical Exam General: Alert HEENT: - - ET/OT in place Abdomen: Soft, Non Tender, Non-Distended, Obese, - - No PS Vital Signs Temp Pulse Resp BP Pulse Ox 97.7 F L 97 12 152/68 H 90 02/17/18 10:00 02/17/18 11:00 02/17/18 11:00 02/17/18 11:00 02/17/18 11:00 Oxygen Flow Rate (L/min) 4 Oxygen Delivery Method Mechanical Ventilator Weight: 227 lb 11.8 oz Body Mass Index (BMI) 45.8 Intake and Output for Last 24 Hours 02/15/18 02/16/18 02/17/18 23:59 23:59 23:59 Intake Total 1959 / 1959 2896.8 / 2896.8 1055.4 / 1055.4 Output Total 900 / 900 1700 / 1700 300 / 300 Balance 1059 / 1059 1196.8 / 1196.8 755.4 / 755.4 Microbiology Past 72 Hours 02/14/18 15:20 Gram Stain - Final Sputum, Induced/Lukens Respiratory Culture - Final Laboratory Tests Past 24 Hrs 02/16/18 02/17/18 02/17/18 17:20 00:25 04:15 WBC RBC Hgb Hct MCV MCH MCHC RDW RDW Differential Plt Count MPV Immature Gran % (Auto) Neut % (Auto) Lymph % (Auto) [place] % (Auto) Eos % (Auto) Baso % (Auto) Absolute Neuts (auto) Absolute Lymphs (auto) Total Counted PT 16.1 H INR 1.3 APTT 74.3 H 90.4 H* Sodium Potassium Chloride Carbon Dioxide Anion Gap BUN Creatinine Estim Creat Clear Calc Est GFR (MDRD) Af Amer Est GFR (MDRD) Non-Af BUN/Creatinine Ratio Glucose Calcium 02/17/18 02/17/18 02/17/18 04:15 04:15 07:35 WBC 10.2 RBC 3.40 L Hgb 9.1 L Hct 32.9 L MCV 96.8 MCH 26.8 L MCHC 27.7 L RDW 15.0 H RDW Differential 50.6 H Plt Count 155 MPV 12.1 H Immature Gran % (Auto) 1.500 H Neut % (Auto) 71.5 H Lymph % (Auto) 8.8 L [place] % (Auto) 18.0 H Eos % (Auto) 0.0 Baso % (Auto) 0.2 Absolute Neuts (auto) 7.3 Absolute Lymphs (auto) 0.90 Total Counted Not Reportable PT INR APTT 74.7 H Sodium 145 Potassium 4.2 Chloride 91 L Carbon Dioxide > 45.0 H* Anion Gap TNP BUN 24 H Creatinine 0.55 Estim Creat Clear Calc 37.60 Est GFR (MDRD) Af Amer 140 Est GFR (MDRD) Non-Af 116 BUN/Creatinine Ratio 43.6 H Glucose 263 H Calcium 9.0 POC Glucose 02/17/18 02/17/18 02/16/18 09:47 05:49 23:51 POC Glucose 165 H 246 H 271 H 02/16/18 02/16/18 02/16/18 21:29 18:17 12:19 POC Glucose 286 H 305 H 334 H Medical Necessity - Tobacco Use Smoking Status: Former smoker Tobacco Use: Cigarettes Assessment/Plan All Active Problems CHF (congestive heart failure) (Acute) Cellulitis (Acute) Acute on chronic respiratory failure with hypoxia and hypercapnia (Acute) 72-year-old female with end-stage COPD with acute on chronic hypoxia recently intubated, request PEG placement, hx DVT-right leg- on Coumadin 1. Plan to place the PEG on Wednesday about 11 am, will hold heparin gtt 6 hours before (if PTT is too high will stop before 6 hrs), NPO after midnight. Priyanka Matos M.D. Pager: [phone] [facility] [address] [place] [address], Outpatient Pavilion, [address] [place] [address] Office: [phone] Code Visit Inpatient E&M: 70018 [facility] L[facility]
--- NOTE | 2018-02-17 11:27 | PN.SURG_ITS ---
Patient Problems: Active and Suspected Problems CHF (congestive heart failure) (Acute) Cellulitis (Acute) Acute on chronic respiratory failure with hypoxia and hypercapnia (Acute) Subjective: tolerating TF - Physical Exam General: Alert HEENT: - - ET/OT in place Abdomen: Soft, Non Tender, Non-Distended, Obese, - - No PS Vital Signs Temp Pulse Resp BP Pulse Ox 97.7 F L 97 12 152/68 H 90 02/17/18 10:00 02/17/18 11:00 02/17/18 11:00 02/17/18 11:00 02/17/18 11:00 Oxygen Flow Rate (L/min) 4 Oxygen Delivery Method Mechanical Ventilator Weight: 227 lb 11.8 oz Body Mass Index (BMI) 45.8 Intake and Output for Last 24 Hours 02/15/18 02/16/18 02/17/18 23:59 23:59 23:59 Intake Total 1959 / 1959 2896.8 / 2896.8 1055.4 / 1055.4 Output Total 900 / 900 1700 / 1700 300 / 300 Balance 1059 / 1059 1196.8 / 1196.8 755.4 / 755.4 Microbiology Past 72 Hours 02/14/18 15:20 Gram Stain - Final Sputum, Induced/Lukens Respiratory Culture - Final Laboratory Tests Past 24 Hrs 02/16/18 02/17/18 02/17/18 17:20 00:25 04:15 WBC RBC Hgb Hct MCV MCH MCHC RDW RDW Differential Plt Count MPV Immature Gran % (Auto) Neut % (Auto) Lymph % (Auto) [place] % (Auto) Eos % (Auto) Baso % (Auto) Absolute Neuts (auto) Absolute Lymphs (auto) Total Counted PT 16.1 H INR 1.3 APTT 74.3 H 90.4 H* Sodium Potassium Chloride Carbon Dioxide Anion Gap BUN Creatinine Estim Creat Clear Calc Est GFR (MDRD) Af Amer Est GFR (MDRD) Non-Af BUN/Creatinine Ratio Glucose Calcium 02/17/18 02/17/18 02/17/18 04:15 04:15 07:35 WBC 10.2 RBC 3.40 L Hgb 9.1 L Hct 32.9 L MCV 96.8 MCH 26.8 L MCHC 27.7 L RDW 15.0 H RDW Differential 50.6 H Plt Count 155 MPV 12.1 H Immature Gran % (Auto) 1.500 H Neut % (Auto) 71.5 H Lymph % (Auto) 8.8 L [place] % (Auto) 18.0 H Eos % (Auto) 0.0 Baso % (Auto) 0.2 Absolute Neuts (auto) 7.3 Absolute Lymphs (auto) 0.90 Total Counted Not Reportable PT INR APTT 74.7 H Sodium 145 Potassium 4.2 Chloride 91 L Carbon Dioxide > 45.0 H* Anion Gap TNP BUN 24 H Creatinine 0.55 Estim Creat Clear Calc 37.60 Est GFR (MDRD) Af Amer 140 Est GFR (MDRD) Non-Af 116 BUN/Creatinine Ratio 43.6 H Glucose 263 H Calcium 9.0 POC Glucose 02/17/18 02/17/18 02/16/18 09:47 05:49 23:51 POC Glucose 165 H 246 H 271 H 02/16/18 02/16/18 02/16/18 21:29 18:17 12:19 POC Glucose 286 H 305 H 334 H Medical Necessity - Tobacco Use Smoking Status: Former smoker Tobacco Use: Cigarettes Assessment/Plan All Active Problems CHF (congestive heart failure) (Acute) Cellulitis (Acute) Acute on chronic respiratory failure with hypoxia and hypercapnia (Acute) 72-year-old female with end-stage COPD with acute on chronic hypoxia recently intubated, request PEG placement, hx DVT-right leg- on Coumadin 1. Plan to place the PEG on Wednesday about 11 am, will hold heparin gtt 6 hours before (if PTT is too high will stop before 6 hrs), NPO after midnight. Priyanka Matos M.D. Pager: [phone] [facility] [address] [place] [address], Outpatient Pavilion, [address] [place] [address] Office: [phone] Code Visit Inpatient E&M: 90321 Subs Hosp L1
[2018-02-17 12:20] LABS: Bedside Glucose 254 mg/dL (70-110)
[2018-02-17 17:31] LABS: Bedside Glucose 289 mg/dL (70-110)
[2018-02-17] MEDS: Atorvastatin Calcium 20 MG Tablet GT (21:33)
[2018-02-17] MEDS: Polyethylene Glycol 3350 17 GM PACKET GT (21:34)
[2018-02-17 23:26] LABS: Bedside Glucose 222 mg/dL (70-110)
[2018-02-18] VITALS (46 sets, daily range): BP systolic 114–156; BP diastolic 50–81; PULSE 85–105; RESP 12–20; TEMP 36.4–37.4; O2SAT 50–98; BMI 45.8
[2018-02-18] MEDS: Ipratropium/Albuterol Sulfate 3 ML AMPUL.NEB INHALATION ×5 (02:27→22:15)
[2018-02-18 04:09] LABS: Absolute Neutrophil Count 5.5 X10^3/uL (2.0-7.7); Basophil# 0.03 X10^3/uL; Basophil% 0.3 % (0-1); Eosinophil# 0.01 X10^3/uL; Eosinophils% 0.1 % (0-5); Hematocrit 33.7 % (37-47); Lymphocyte % 13.8 % (19-41); Mean Corp Hgb Conc 26.7 g/gl (32-36); Mean Corpuscular Hgb 25.6 pg (27.0-32.0); Mean Corpuscular Volume 95.7 fL (81-99); Mean Platelet Vol. 11.4 fl (6.2-12.0); Monocyte# 1.85 X10^3/uL; Monocyte% 21.3 % (0-10); Neutrophil % 63.5 % (47-70); Platelet Count 155 K/mm3 (150-450); RBC Distribution Width CV 15.5 % (11.6-14.6); RBC Distribution Width SD 54.2 fl (35.1-43.9); Red Blood Count 3.52 M/mm3 (4.2-5.4); White Blood Count 8.7 K/mm3 (4.4-11.0)
[2018-02-18 04:10] LABS: International Normalized Ratio 1.1; Prothrombin Time (Protime)PT. 14.3 SECONDS (11.7-14.9)
[2018-02-18 04:11] LABS: Differential Indicated SCAN CRITERIA MET; POSITIVE COUNT NO; POSITIVE DIFFERENTIAL YES; POSITIVE MORPHOLOGY NO; Partial Thromboplast Time 75.8 Seconds (24.1-36.2)
[2018-02-18 04:50] LABS: Thyroid Stim Hormone (TSH) 1.38 uIU/mL (0.358-3.74)
[2018-02-18 04:57] LABS: BUN 22 mg/dL (7-18); BUN/Creat Ratio 47.3 RATIO (10-20); Calcium,Total 8.6 mg/dL (8.5-10.1); Carbon Dioxide > 45.0 mmol/L (21.0-32.0); Chloride 93 mmol/L (98-107); Creatinine, Serum 0.46 mg/dL (0.55-1.02); EST Glomerular Filtration Rate 141 mL/min (>60); Est Glom Filt Rate - Afr Amer 170 mL/min (>60); Estimated Creatinine Clearance 87.43 ml/min; Glucose 133 mg/dL (74-106); Potassium 4.3 mmol/L (3.5-5.1); Sodium Level 147 mmol/L (136-145)
[2018-02-18] MEDS: Propofol 10MG/Ml 1,000 MG/100 ML Bottle 3.102 MG CONT INF ×3 (05:40→23:31)
[2018-02-18] MEDS: busPIRone 15 MG TABLET GT ×3 (05:41→22:47)
[2018-02-18] MEDS: Levothyroxine 25 MCG TABLET GT (05:42)
[2018-02-18 05:51] LABS: Bedside Glucose 112 mg/dL (70-110)
[2018-02-18] MEDS: CHLORHEXIDINE GLUC 2% CLOTH 1 EACH TOWELETTE TOPICAL (06:25)
--- NOTE | 2018-02-18 07:10 | PCM.PN.INT ---
Subjective: The patient was seen and examined at the bedside this morning. Events from the last 24 hours have been reviewed. The patient is currently afebrile, hemodynamically stable and maintaining appropriate oxygen saturations with an FiO2 requirement of 50%. The patient is currently overall net -3.7 L for the admission. Tube feeds and heparin drip were on hold in preparation for planned surgical procedures today. Objective: The patient's most recent lab work, culture data and imaging studies have all been personally reviewed. Surface echocardiogram completed here at [facility] on February 08 revealed mild concentric LVH with an ejection fraction of 65%. Right ventricular systolic pressure was estimated to be 72 mmHg. Respiratory viral panel was negative. Strep and urine Legionella antigens were both negative. Sputum culture appears to be normal respiratory rajan. Records from [facility]: Pulmonary function testing was last completed in October 2017 and revealed evidence of an irreversible very severe obstructive ventilatory impairment with evidence of air trapping and reduction in diffusing capacity. Surface echocardiogram dated October 2017 revealed normal LV size and function. There was evidence of grade 2 diastolic dysfunction. The estimated right ventricular systolic pressure was 50 mmHg. The patient was last seen by her pulmonary provider at the [facility], Dr. Wesley, on January 21, 2018. The patient was admitted to the [facility] January 02 - January 07. The patient's medical history includes COPD, LEDY, diastolic dysfunction, personal history of DVT, morbid obesity and erosive gastroduodenitis/distal esophageal stricture status post dilation in September 2017. She is a former smoker of 2-3 packs per day ?30 years. She has a baseline 3 L/min supplemental oxygen requirement and multiple recent admissions for COPD exacerbations. She has been inherently noncompliant with use of home trilogy. She is on a triple therapy inhaler regimen along with chronic prednisone. General: - - Intubated, sedated and mechanically ventilated. Currently tolerating assist control mode mechanical ventilation. HEENT: Atraumatic, PERRLA, Normocephalic Oral: No Gingival or Mucosal Lesions/ Ulcerations, - - Endotracheal and OG tube in place Neck: Supple, No Nodes, Trachea Midline Lungs: - - Coarse mechanical breath sounds anteriorly with occasional expiratory wheeze. Cardiovascular: Regular rate, Regular Rhythm, Normal S1, Normal S2, No murmurs, No rub noted, No Gallop Abdomen: Bowel Sounds Present, Soft, Non Tender, Obese Extremities: No clubbing, No cyanosis, - - Edematous upper and lower extremities Skin: No breakdown Musculoskeletal: No Muscle Wasting Lymphatic: No Cervical, Supraclavicular, or Inguinal Adenopathy Neurological: - - No focal neurological deficits. Currently sedated. Moves extremities spontaneously. Vital Signs Temp Pulse Resp BP Pulse Ox 99.3 F H 90 12 120/64 94 02/18/18 06:00 02/18/18 07:00 02/18/18 07:00 02/18/18 07:00 02/18/18 07:00 Oxygen Flow Rate (L/min) 4 Oxygen Delivery Method Mechanical Ventilator Weight: 233 lb 3.985 oz Body Mass Index (BMI) 45.8 Intake and Output for Last 24 Hours 02/16/18 02/17/18 02/18/18 23:59 23:59 23:59 Intake Total 2896.8 / 2896.8 3015.4 / 3015.4 393 / 393 Output Total 1700 / 1700 1300 / 1300 250 / 250 Balance 1196.8 / 1196.8 1715.4 / 1715.4 143 / 143 Labs (Last 48 Hours) 02/16/18 02/16/18 02/16/18 09:30 12:19 17:20 WBC RBC Hgb Hct MCV MCH MCHC RDW RDW Differential Plt Count MPV Immature Gran % (Auto) Neut % (Auto) Lymph % (Auto) [place] % (Auto) Eos % (Auto) Baso % (Auto) Absolute Neuts (auto) Absolute Lymphs (auto) Total Counted PT INR APTT 29.3 74.3 H Sodium Potassium Chloride Carbon Dioxide Anion Gap BUN Creatinine Estim Creat Clear Calc Est GFR (MDRD) Af Amer Est GFR (MDRD) Non-Af BUN/Creatinine Ratio Glucose Calcium TSH POC Glucose 334 H 02/16/18 02/16/18 02/16/18 18:17 21:29 23:51 WBC RBC Hgb Hct MCV MCH MCHC RDW RDW Differential Plt Count MPV Immature Gran % (Auto) Neut % (Auto) Lymph % (Auto) [place] % (Auto) Eos % (Auto) Baso % (Auto) Absolute Neuts (auto) Absolute Lymphs (auto) Total Counted PT INR APTT Sodium Potassium Chloride Carbon Dioxide Anion Gap BUN Creatinine Estim Creat Clear Calc Est GFR (MDRD) Af Amer Est GFR (MDRD) Non-Af BUN/Creatinine Ratio Glucose Calcium TSH POC Glucose 305 H 286 H 271 H 02/17/18 02/17/18 02/17/18 00:25 04:15 04:15 WBC 10.2 RBC 3.40 L Hgb 9.1 L Hct 32.9 L MCV 96.8 MCH 26.8 L MCHC 27.7 L RDW 15.0 H RDW Differential 50.6 H Plt Count 155 MPV 12.1 H Immature Gran % (Auto) 1.500 H Neut % (Auto) 71.5 H Lymph % (Auto) 8.8 L [place] % (Auto) 18.0 H Eos % (Auto) 0.0 Baso % (Auto) 0.2 Absolute Neuts (auto) 7.3 Absolute Lymphs (auto) 0.90 Total Counted Not Reportable PT 16.1 H INR 1.3 APTT 90.4 H* Sodium Potassium Chloride Carbon Dioxide Anion Gap BUN Creatinine Estim Creat Clear Calc Est GFR (MDRD) Af Amer Est GFR (MDRD) Non-Af BUN/Creatinine Ratio Glucose Calcium TSH POC Glucose 02/17/18 02/17/18 02/17/18 04:15 05:49 07:35 WBC RBC Hgb Hct MCV MCH MCHC RDW RDW Differential Plt Count MPV Immature Gran % (Auto) Neut % (Auto) Lymph % (Auto) [place] % (Auto) Eos % (Auto) Baso % (Auto) Absolute Neuts (auto) Absolute Lymphs (auto) Total Counted PT INR APTT 74.7 H Sodium 145 Potassium 4.2 Chloride 91 L Carbon Dioxide > 45.0 H* Anion Gap TNP BUN 24 H Creatinine 0.55 Estim Creat Clear Calc 37.60 Est GFR (MDRD) Af Amer 140 Est GFR (MDRD) Non-Af 116 BUN/Creatinine Ratio 43.6 H Glucose 263 H Calcium 9.0 TSH POC Glucose 246 H 02/17/18 02/17/18 02/17/18 09:47 12:10 14:40 WBC RBC Hgb Hct MCV MCH MCHC RDW RDW Differential Plt Count MPV Immature Gran % (Auto) Neut % (Auto) Lymph % (Auto) [place] % (Auto) Eos % (Auto) Baso % (Auto) Absolute Neuts (auto) Absolute Lymphs (auto) Total Counted PT INR APTT 70.0 H Sodium Potassium Chloride Carbon Dioxide Anion Gap BUN Creatinine Estim Creat Clear Calc Est GFR (MDRD) Af Amer Est GFR (MDRD) Non-Af BUN/Creatinine Ratio Glucose Calcium TSH POC Glucose 165 H 254 H 02/17/18 02/17/18 02/18/18 17:10 23:14 03:30 WBC RBC Hgb Hct MCV MCH MCHC RDW RDW Differential Plt Count MPV Immature Gran % (Auto) Neut % (Auto) Lymph % (Auto) [place] % (Auto) Eos % (Auto) Baso % (Auto) Absolute Neuts (auto) Absolute Lymphs (auto) Total Counted PT 14.3 INR 1.1 APTT 75.8 H Sodium Potassium Chloride Carbon Dioxide Anion Gap BUN Creatinine Estim Creat Clear Calc Est GFR (MDRD) Af Amer Est GFR (MDRD) Non-Af BUN/Creatinine Ratio Glucose Calcium TSH POC Glucose 289 H 222 H 02/18/18 02/18/18 02/18/18 03:30 03:30 03:30 WBC 8.7 RBC 3.52 L Hgb 9.0 L Hct 33.7 L MCV 95.7 MCH 25.6 L MCHC 26.7 L RDW 15.5 H RDW Differential 54.2 H Plt Count 155 MPV 11.4 Immature Gran % (Auto) 1.000 H Neut % (Auto) 63.5 Lymph % (Auto) 13.8 L [place] % (Auto) 21.3 H Eos % (Auto) 0.1 Baso % (Auto) 0.3 Absolute Neuts (auto) 5.5 Absolute Lymphs (auto) 1.20 Total Counted Not Reportable PT INR APTT Sodium 147 H Potassium 4.3 Chloride 93 L Carbon Dioxide > 45.0 H* Anion Gap TNP BUN 22 H Creatinine 0.46 L Estim Creat Clear Calc 87.43 Est GFR (MDRD) Af Amer 170 Est GFR (MDRD) Non-Af 141 BUN/Creatinine Ratio 47.3 H Glucose 133 H Calcium 8.6 TSH 1.38 POC Glucose 02/18/18 05:31 WBC RBC Hgb Hct MCV MCH MCHC RDW RDW Differential Plt Count MPV Immature Gran % (Auto) Neut % (Auto) Lymph % (Auto) [place] % (Auto) Eos % (Auto) Baso % (Auto) Absolute Neuts (auto) Absolute Lymphs (auto) Total Counted PT INR APTT Sodium Potassium Chloride Carbon Dioxide Anion Gap BUN Creatinine Estim Creat Clear Calc Est GFR (MDRD) Af Amer Est GFR (MDRD) Non-Af BUN/Creatinine Ratio Glucose Calcium TSH POC Glucose 112 H Microbiology 02/14/18 15:20 Sputum, Induced/Lukens Gram Stain - Final 02/14/18 15:20 Sputum, Induced/Lukens Respiratory Culture - Final Clinical Impression(s) from Imaging Studies Femur X-Ray 02/07/18 20:51 IMPRESSION: Diffuse demineralization with no evidence of acute fracture. Electronically Signed: Wei Lucas DO at 21:53 EDT , Service support , Venous Duplex 02/07/18 21:06 IMPRESSION: No evidence of deep venous thrombosis. Electronically Signed: Wei Lucas DO at 21:49 EDT , Service support , Chest X-Ray 02/07/18 21:35 IMPRESSION: Prominent diffuse interstitial markings with underlying interstitial edema likely. Clinically correlate for underlying CHF exacerbation in the appropriate clinical setting. Electronically Signed: Wei Lucas DO at 21:52 EDT , Service support , Chest X-Ray 02/12/18 09:30 IMPRESSION: Limited by underexposure. No gross change or acute chest disease. Electronically Signed: Deep Snider MD at 13:11 EDT , Service support , Chest X-Ray 02/13/18 16:07 IMPRESSION: 1. Improved inspiratory effort with improving basilar atelectasis. 2. Summation artifact versus new patchy infiltrate or vague nodular densities in the right apex. These can be reevaluated on follow-up study. 3. Stable mild cardiac enlargement. No CHF. Electronically Signed: Angel Will MD at 16:36 EDT , Service support , Chest X-Ray 02/14/18 15:05 IMPRESSION: The tip of the endotracheal tube is at 3.7 cm proximal to the [place]. The tip of the orogastric tube most likely is within the body of the stomach. There has been essentially no change since prior study. Electronically Signed: Jim Plaza MD at 15:44 EDT Tel [phone], Service support , Medical Necessity - Tobacco Use Smoking Status: Former smoker Tobacco Use: Cigarettes Assessment/Plan All Active Problems CHF (congestive heart failure) (Acute) Cellulitis (Acute) Acute on chronic respiratory failure with hypoxia and hypercapnia (Acute) RECOMMENDATIONS: 1. Continue current supportive measures with mechanical ventilatory support. 2. ENT and general surgery planning for PEG tube insertion and tracheostomy today. 3. Continue to hold tube feeds and heparin infusion until planned surgical intervention has been completed. 4. Continue bronchodilators and steroids. 5. Continue Pepcid for GI prophylaxis. 6. Continue fentanyl and propofol for sedation. Maintain RASS of -1 to 1. IMPRESSIONS: 1. Acute on chronic combined respiratory failure Likely multifactorial in etiology with end-stage COPD with exacerbation, diastolic dysfunction and pulmonary hypertension contributing. The patient was dependent on noninvasive positive pressure ventilation for multiple days, which culminated in her elective intubation on February 14. She has been failing in health per her family for a multitude of years. She is currently on maximal therapy for her underlying COPD and is prescribed a noninvasive ventilator in her home environment, for which she has been noncompliant with its use. Given her history of multiple recurrent hospitalizations for COPD related issues along with her outpatient noncompliance, would recommend proceeding with tracheostomy and PEG tube placement, following a discussion with the patient. The patient was in agreement to proceed accordingly per my discussion with her prior to being intubated. General surgery and ENT are planning for surgical intervention today. We will plan to continue scheduled bronchodilators, diuretics and steroids. The patient will be maintained on ACVC+ with plans to continue propofol and fentanyl for sedation. The patient has poor long-term prognosis from a respiratory standpoint. The process of weaning from mechanical ventilation can begin once tracheostomy is in place. 2. Heart failure with preserved ejection fraction/pulmonary hypertension Continue current medical management, including diuretics. Creatinine remains stable. 3. Personal history of DVT Given the future plans for surgical intervention, will continue to hold Coumadin. Weight-based heparin infusion is currently on hold due to plans for surgical interventions today. 4. Morbid obesity/erosive gastroduodenitis/esophageal stricture/obstructive sleep apnea Complicates care, management, recovery and prognosis. The patient will be continued on appropriate GI prophylaxis. Physical therapy to work with patient. Case management/social work to assist with LTACH planning. TIME: 38 minutes of critical care time, independent of procedures, was spent addressing the patient's acute on chronic combined respiratory failure, COPD with exacerbation, heart failure with preserved ejection fraction, pulmonary hypertension, history of DVT, obstructive sleep apnea, review of all data and collaboration with the care team. ([id number]) Code Visit 9xxxx: [id number] Critical care first hour
[2018-02-18] MEDS: Chlorhexidine 15 ML PO ×2 (10:13→22:48)
[2018-02-18] MEDS: 0.9% NaCl Peripheral Flush Adult/Peds IV ×2 (10:18→14:04)
--- NOTE | 2018-02-18 10:33 | PN_ITS ---
Patient Problems: Active and Suspected Problems CHF (congestive heart failure) (Acute) Cellulitis (Acute) Acute on chronic respiratory failure with hypoxia and hypercapnia (Acute) Subjective: Patient seen and examined today, she remains on the ventilator at this time, she does not appear to be in any distress. Is currently sedated on IV fentanyl and propofol. Patient will have a PEG and tracheostomy placed today, plan is for the patient to go to an LTAC sometime afterwards-probably early next week. - Physical Exam General: No apparent distress, Well developed, Well nourished, - - Patient is sedated and on the ventilator HEENT: Atraumatic, PERRLA, EOMI, Normocephalic Oral: Moist Mucosa Neck: Supple, No JVD, Trachea Midline, Thyroid Normal Size and Texture Lungs: Clear to auscultation, Normal air movement, No wheeze, No rales, Rhonchi - Scattered expiratory rhonchi are noted bilaterally Cardiovascular: Regular rate, Regular Rhythm, Normal S1, Normal S2, No murmurs, No Ectopic Activity, PMI Normal, No rub noted, No Gallop Abdomen: Bowel Sounds Present, Soft, Non Tender, Non-Distended, Obese, No hernias noted Extremities: Capillary Refill Less than 3 Seconds, Edema - Minimal lower extremity edema is noted which is nonpitting Skin: No rashes, No breakdown Neurological: Cranial nerves II-XII grossly intact, Neuro grossly intact Psych/Mental Status: - - Patient is on the ventilator at this time and is sedated Vital Signs Temp Pulse Resp BP Pulse Ox 98.8 F 94 12 121/65 H 95 02/18/18 08:00 02/18/18 08:55 02/18/18 08:55 02/18/18 08:00 02/18/18 08:55 Oxygen Flow Rate (L/min) 4 Oxygen Delivery Method Mechanical Ventilator Weight: 105.8 kg Body Mass Index (BMI) 45.8 Intake and Output for Last 24 Hours 02/16/18 02/17/18 02/18/18 23:59 23:59 23:59 Intake Total 2896.8 / 2896.8 3015.4 / 3015.4 393 / 393 Output Total 1700 / 1700 1300 / 1300 250 / 250 Balance 1196.8 / 1196.8 1715.4 / 1715.4 143 / 143 Microbiology Past 72 Hours 02/14/18 15:20 Gram Stain - Final Sputum, Induced/Lukens Respiratory Culture - Final Laboratory Tests Past 24 Hrs 02/17/18 02/18/18 02/18/18 14:40 03:30 03:30 WBC 8.7 RBC 3.52 L Hgb 9.0 L Hct 33.7 L MCV 95.7 MCH 25.6 L MCHC 26.7 L RDW 15.5 H RDW Differential 54.2 H Plt Count 155 MPV 11.4 Immature Gran % (Auto) 1.000 H Neut % (Auto) 63.5 Lymph % (Auto) 13.8 L [place] % (Auto) 21.3 H Eos % (Auto) 0.1 Baso % (Auto) 0.3 Absolute Neuts (auto) 5.5 Absolute Lymphs (auto) 1.20 Total Counted Not Reportable PT 14.3 INR 1.1 APTT 70.0 H 75.8 H Sodium Potassium Chloride Carbon Dioxide Anion Gap BUN Creatinine Estim Creat Clear Calc Est GFR (MDRD) Af Amer Est GFR (MDRD) Non-Af BUN/Creatinine Ratio Glucose Calcium TSH 02/18/18 02/18/18 03:30 03:30 WBC RBC Hgb Hct MCV MCH MCHC RDW RDW Differential Plt Count MPV Immature Gran % (Auto) Neut % (Auto) Lymph % (Auto) [place] % (Auto) Eos % (Auto) Baso % (Auto) Absolute Neuts (auto) Absolute Lymphs (auto) Total Counted PT INR APTT Sodium 147 H Potassium 4.3 Chloride 93 L Carbon Dioxide > 45.0 H* Anion Gap TNP BUN 22 H Creatinine 0.46 L Estim Creat Clear Calc 87.43 Est GFR (MDRD) Af Amer 170 Est GFR (MDRD) Non-Af 141 BUN/Creatinine Ratio 47.3 H Glucose 133 H Calcium 8.6 TSH 1.38 POC Glucose 02/18/18 02/17/18 02/17/18 05:31 23:14 17:10 POC Glucose 112 H 222 H 289 H 02/17/18 12:10 POC Glucose 254 H Medical Necessity - Tobacco Use Smoking Status: Former smoker Tobacco Use: Cigarettes Assessment/Plan All Active Problems CHF (congestive heart failure) (Acute) Cellulitis (Acute) Acute on chronic respiratory failure with hypoxia and hypercapnia (Acute) #1 acute on chronic combined respiratory failure-pulmonary medicine is managing ventilator #2 exacerbation of COPD #3 type 2 diabetes #4 anxiety/depression #5 hypertension #6 hyperlipidemia #7 morbid obesity #8 obstructive sleep apnea #9 pulmonary hypertension #10 diastolic congestive heart failure-acute on chronic Continue present medical treatment, again patient is going to have a trach and PEG tube inserted today. Code Visit Inpatient E&M: 32802 Subs Hosp L2
--- NOTE | 2018-02-18 10:53 | NURSING ---
Sedation increased per Dr. Orantes for PEG insertion
--- NOTE | 2018-02-18 11:17 | NURSING ---
PEG insertion at bedside by Dr. Matos and Endo staff. PT tolerating procedure well.
--- NOTE | 2018-02-18 11:31 | PCM.OPRPT ---
Report of Operation Date of Procedure: 02/18/18 Pre-Operative Diagnosis: Malnutrition, acute on chronic hypoxia Post-Operative Diagnosis: Same Surgery/Procedure Performed:: EGD with PEG placement Type of Anesthesia:: Other - Patient is currently on a ventilator and sedated in ICU Special Medications: Clindamycin 600mg IV ?1 Specimen's removed: None Estimated Blood Loss (mL): Minimal Description of Procedure: Patient's was on a ventilator and sedated in the ICU per the cdl program coordinator. Timeout was completed verifying correct patient, procedure, site, positioning on special from prior to beginning procedure. After adequate sedation, mouthpiece was placed in the patient's mouth and endoscope was passed down into the stomach. No obvious stricture is seen in the esophagus and just some mild gastritis in the stomach. The stomach was insufflated with air and scope position the midportion and directed towards the anterior abdominal wall. With the room darkened and intensity turned up on the endoscope, a good light reflex noted on the skin of the abdomen wall in the left upper quadrant. Finger pressure was applied at the light reflection with adequate indentation on the stomach wall on endoscopy. A polypectomy snare was passed into the stomach, fully opened, and positioned so that the loop encircled the point of demonstrated finger indentation. The overlying skin was anesthetized with lidocaine and a 1 cm incision was made at the chosen site. The introducer needle with overlying catheter was passed through this incision into the stomach under visualization with the gastroscope. The needle and catheter gently grasped by the endoscopic snare. The guidewire was passed and snared. The endoscope, snare and guidewire were then withdrawn and pulled back out of the mouth. The gastrotomy tube was attached to the loop the guidewire and the whole thing pulled back the stomach to the 3.5 cm charles of the gastrotomy tube was noted at skin level. The gastroscope was reintroduced and adequate placement of the gastrotomy tube was identified and picture was taken. The gastrotomy tube in was cut to length and the cramping appendage was placed. A collection bag will be placed in in the context of. The patient tolerated procedure well. Grafts/Implants Used: 20 [place] PEG - Complications none
[2018-02-18 11:46] LABS: Bedside Glucose 103 mg/dL (70-110)
[2018-02-18] MEDS: Senna/Docusate Sodium 1 Tablet 2 TABLET GT ×2 (11:52→22:48)
[2018-02-18] MEDS: predniSONE 20 MG Tablet 40 MG GT (11:53)
[2018-02-18] MEDS: Venlafaxine HCl 75 MG Tablet GT ×2 (11:55→22:47)
[2018-02-18] MEDS: Montelukast 10 MG Tablet GT (11:55)
[2018-02-18] MEDS: Famotidine 20 MG Tablet 40 MG GT ×2 (11:56→22:47)
[2018-02-18] MEDS: Polyethylene Glycol 3350 17 GM PACKET GT ×2 (11:59→22:46)
[2018-02-18] MEDS: Dext 5%-0.45% NS 1,000 ML 125 ML IV ×2 (12:18→20:35)
--- NOTE | 2018-02-18 15:47 | NURSING ---
To OR via bed w/ surgery staff
--- NOTE | 2018-02-18 16:15 | CPS ---
Clean circuit with new vent set up at bedside after patient taken to surgery. TUBE WINDER HAND
--- NOTE | 2018-02-18 17:41 | RAD_ITS ---
STUDY: X-RAY CHEST REASON FOR EXAM: Female, 72 years old. Post tracheostomy TECHNIQUE: Single AP portable view of the chest. COMPARISON: 02/14/2018 FINDINGS: Tracheostomy tube is in placed with appropriate positioning. Right PICC with tip in the mid SVC. No pneumothorax. Again noted are moderately hypoinflated lungs with diffuse interstitial edema and bibasilar patchy airspace disease, infiltrates and effusions RAD/Chest 1 View (Portable) IMPRESSION: Tracheostomy tube as above. Right PICC as above. CHF Electronically Signed: Agus Bello DO at 19:17 EDT Tel , Service support ,
--- NOTE | 2018-02-18 17:45 | NURSING ---
Returned from OR
[2018-02-18 18:05] LABS: Bedside Glucose 89 mg/dL (70-110)
--- NOTE | 2018-02-18 18:07 | PCM.OPRPT ---
Report of Operation Date of Procedure: 02/18/18 Pre-Operative Diagnosis: Respiratory failure Post-Operative Diagnosis: Same Surgery/Procedure Performed:: Tracheostomy Description of Surgical Findings:: #6 RESIDENT SURGEON placed drill setup operator: None drill setup operator: Lucio Alas Type of Anesthesia:: General, Other - Patient is currently on a ventilator and sedated in ICU Anesthesiologist: Duong Rust Specimen's removed: None Estimated Blood Loss (mL): Minimal Description of Procedure: The patient was taken to the OR on 02/18/18. She was placed in the supine position on the OR table. She was given sufficient general anesthesia. The neck was prepped and draped steriley. 1% lidocaine with epinephrine was injected into the skin overlying the intended incision. A 3 cm incision was made with a 15 blade. Hemostasis was achieved with monopolar cautery. The neck was defatted using bovie cautery. The fascia was identified and divided in the midline sharply. The strap muscles were identified and lateralized. Multiple vessels were encountered and clamped, cut and ligated with 4-0 silk. The cricoid was then identified. A plane was established posterior to the thyroid isthmus. We then clamped the isthmus and divided it with a 15 blade. Each side of the isthmus was stick tied with 2-0 chromic. Next, I identified the second tracheal ring. I created an inferiorly based flap/window in the second tracheal ring. This was sutured to the subcutaneous fat and dermis with interrupted 4-0 chromic. Next, the ETT was backed out to above the opening. A #6 was easily placed into the trachea and the circuit was attached. We saw immediate CO2 return. The cuff was inflated and the instrumentation was removed. Floseal was placed into the wound. The trach tube was sutured to the skin with 2-0 silk and trach ties were placed around the neck and tied to the tracheotomy tube. The patient was then removed from the OR and brought to the ICU in stable condition. Blood loss minimal, replacement none. Sponge, needle and instrument count were correct at the end of the procedure. Dr. Kacey Alas assisted on the case and was vital in providing exposure. - Complications none
--- NOTE | 2018-02-18 18:17 | OP.PCM_ITS ---
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 She was placed in the supine position on the OR table. She was given sufficient general anesthesia. The neck was prepped and draped steriley. 1% lidocaine with epinephrine was injected into the skin overlying the intended incision. A 3 cm incision was made with a 15 blade. Hemostasis was achieved with monopolar cautery. The neck was defatted using bovie cautery. The fascia was identified and divided in the midline sharply. The strap muscles were identified and lateralized. Multiple vessels were encountered and clamped, cut and ligated with 4-0 silk. The cricoid was then identified. A plane was established posterior to the thyroid isthmus. We then clamped the isthmus and divided it with a 15 blade. Each side of the isthmus was stick tied with 2-0 chromic. Next, I identified the second tracheal ring. I created an inferiorly based flap/window in the second tracheal ring. This was sutured to the subcutaneous fat and dermis with interrupted 4-0 chromic. Next, the ETT was backed out to above the opening. A #6 was easily placed into the trachea and the circuit was attached. We saw immediate CO2 return. The cuff was inflated and the instrumentation was removed. Floseal was placed into the wound. The trach tube was sutured to the skin with 2-0 silk and trach ties were placed around the neck and tied to the tracheotomy tube. The patient was then removed from the OR and brought to the ICU in stable condition. Blood loss minimal, replacement none. Sponge, needle and instrument count were correct at the end of the procedure. Dr. Kacey Alas assisted on the case and was vital in providing exposure. - Complications none
[2018-02-18] MEDS: Atorvastatin Calcium 20 MG Tablet GT (22:47)
[2018-02-19] VITALS (37 sets, daily range): BP systolic 107–135; BP diastolic 50–91; PULSE 87–114; RESP 12–23; TEMP 36.1–37.3; O2SAT 91–99
[2018-02-19 00:06] LABS: Bedside Glucose 258 mg/dL (70-110)
[2018-02-19] MEDS: Insulin Lispro 100 UNIT/ML INSULN.PEN SQ ×4 (00:35→17:07)
[2018-02-19] MEDS: Ipratropium/Albuterol Sulfate 3 ML AMPUL.NEB INHALATION ×6 (03:35→22:50)
[2018-02-19] MEDS: Dext 5%-0.45% NS 1,000 ML 125 ML IV ×3 (04:45→19:24)
[2018-02-19] MEDS: CHLORHEXIDINE GLUC 2% CLOTH 1 EACH TOWELETTE TOPICAL (04:45)
--- NOTE | 2018-02-19 04:57 | NURSING ---
Arturo hernandez PSN in to do SBT
[2018-02-19] MEDS: Levothyroxine 25 MCG TABLET GT (05:58)
[2018-02-19] MEDS: busPIRone 15 MG TABLET GT ×3 (05:58→22:02)
[2018-02-19 06:06] LABS: Bedside Glucose 207 mg/dL (70-110)
--- NOTE | 2018-02-19 08:36 | PCM.PN.INT ---
Subjective: The patient was seen and examined at the bedside this morning. Events from the last 24 hours have been reviewed. The patient is currently afebrile, hemodynamically stable and maintaining appropriate oxygen saturations on CPAP currently with an FiO2 of 50%. The patient did undergo successful placement of tracheostomy and PEG tube yesterday. Overnight, nursing staff reports some bleeding around the trach site. The patient was able to be transition to CPAP this morning. She is alert and denies any significant pain. Objective: The patient's most recent lab work, culture data and imaging studies have all been personally reviewed. Surface echocardiogram completed here at [facility] on February 08 revealed mild concentric LVH with an ejection fraction of 65%. Right ventricular systolic pressure was estimated to be 72 mmHg. Respiratory viral panel was negative. Strep and urine Legionella antigens were both negative. Sputum culture appears to be normal respiratory rajan. Records from [facility]: Pulmonary function testing was last completed in October 2017 and revealed evidence of an irreversible very severe obstructive ventilatory impairment with evidence of air trapping and reduction in diffusing capacity. Surface echocardiogram dated October 2017 revealed normal LV size and function. There was evidence of grade 2 diastolic dysfunction. The estimated right ventricular systolic pressure was 50 mmHg. The patient was last seen by her pulmonary provider at the [facility], Dr. Wesley, on January 21, 2018. The patient was admitted to the [facility] January 02 - January 07. The patient's medical history includes COPD, LEDY, diastolic dysfunction, personal history of DVT, morbid obesity and erosive gastroduodenitis/distal esophageal stricture status post dilation in September 2017. She is a former smoker of 2-3 packs per day ?30 years. She has a baseline 3 L/min supplemental oxygen requirement and multiple recent admissions for COPD exacerbations. She has been inherently noncompliant with use of home trilogy. She is on a triple therapy inhaler regimen along with chronic prednisone. General: Alert, No apparent distress, - - Remains mechanically ventilated. HEENT: Atraumatic, PERRLA, Normocephalic Oral: No Gingival or Mucosal Lesions/ Ulcerations Neck: Supple, No Nodes, - - Tracheostomy site is intact. Lungs: No rhonchi, No wheeze, No rales, Diminished Cardiovascular: Regular rate, Regular Rhythm, Normal S1, Normal S2, No murmurs Abdomen: Bowel Sounds Present, Soft, Non Tender, Obese, - - PEG site is C/D/I Extremities: No clubbing, No cyanosis, Edema Skin: - - No significant change from previous. Musculoskeletal: No Tenderness to Palpation of Joints or Extremities, No Muscle Wasting Lymphatic: No Cervical, Supraclavicular, or Inguinal Adenopathy Neurological: - - No focal neurological deficits. Vital Signs Temp Pulse Resp BP Pulse Ox 97 F L 97 17 135/64 H 96 02/19/18 06:00 02/19/18 07:00 02/19/18 07:00 02/19/18 07:00 02/19/18 07:00 Oxygen Flow Rate (L/min) 4 Oxygen Delivery Method CPAP Weight: 233 lb 14.567 oz Body Mass Index (BMI) 45.8 Intake and Output for Last 24 Hours 02/17/18 02/18/18 02/19/18 23:59 23:59 23:59 Intake Total 3015.4 / 3015.4 1520 / 1520 2001 Output Total 1300 / 1300 935 / 935 565 / 565 Balance 1715.4 / 1715.4 585 / 585 1437 / 1437 Labs (Last 48 Hours) 02/17/18 02/17/18 02/17/18 07:35 09:47 12:10 WBC RBC Hgb Hct MCV MCH MCHC RDW RDW Differential Plt Count MPV Immature Gran % (Auto) Neut % (Auto) Lymph % (Auto) [place] % (Auto) Eos % (Auto) Baso % (Auto) Absolute Neuts (auto) Absolute Lymphs (auto) Total Counted PT INR APTT 74.7 H Sodium Potassium Chloride Carbon Dioxide Anion Gap BUN Creatinine Estim Creat Clear Calc Est GFR (MDRD) Af Amer Est GFR (MDRD) Non-Af BUN/Creatinine Ratio Glucose Calcium TSH POC Glucose 165 H 254 H 02/17/18 02/17/18 02/17/18 14:40 17:10 23:14 WBC RBC Hgb Hct MCV MCH MCHC RDW RDW Differential Plt Count MPV Immature Gran % (Auto) Neut % (Auto) Lymph % (Auto) [place] % (Auto) Eos % (Auto) Baso % (Auto) Absolute Neuts (auto) Absolute Lymphs (auto) Total Counted PT INR APTT 70.0 H Sodium Potassium Chloride Carbon Dioxide Anion Gap BUN Creatinine Estim Creat Clear Calc Est GFR (MDRD) Af Amer Est GFR (MDRD) Non-Af BUN/Creatinine Ratio Glucose Calcium TSH POC Glucose 289 H 222 H 02/18/18 02/18/18 02/18/18 03:30 03:30 03:30 WBC 8.7 RBC 3.52 L Hgb 9.0 L Hct 33.7 L MCV 95.7 MCH 25.6 L MCHC 26.7 L RDW 15.5 H RDW Differential 54.2 H Plt Count 155 MPV 11.4 Immature Gran % (Auto) 1.000 H Neut % (Auto) 63.5 Lymph % (Auto) 13.8 L [place] % (Auto) 21.3 H Eos % (Auto) 0.1 Baso % (Auto) 0.3 Absolute Neuts (auto) 5.5 Absolute Lymphs (auto) 1.20 Total Counted Not Reportable PT 14.3 INR 1.1 APTT 75.8 H Sodium 147 H Potassium 4.3 Chloride 93 L Carbon Dioxide > 45.0 H* Anion Gap TNP BUN 22 H Creatinine 0.46 L Estim Creat Clear Calc 87.43 Est GFR (MDRD) Af Amer 170 Est GFR (MDRD) Non-Af 141 BUN/Creatinine Ratio 47.3 H Glucose 133 H Calcium 8.6 TSH POC Glucose 02/18/18 02/18/18 02/18/18 03:30 05:31 11:40 WBC RBC Hgb Hct MCV MCH MCHC RDW RDW Differential Plt Count MPV Immature Gran % (Auto) Neut % (Auto) Lymph % (Auto) [place] % (Auto) Eos % (Auto) Baso % (Auto) Absolute Neuts (auto) Absolute Lymphs (auto) Total Counted PT INR APTT Sodium Potassium Chloride Carbon Dioxide Anion Gap BUN Creatinine Estim Creat Clear Calc Est GFR (MDRD) Af Amer Est GFR (MDRD) Non-Af BUN/Creatinine Ratio Glucose Calcium TSH 1.38 POC Glucose 112 H 103 02/18/18 02/19/18 02/19/18 18:00 00:00 05:55 WBC RBC Hgb Hct MCV MCH MCHC RDW RDW Differential Plt Count MPV Immature Gran % (Auto) Neut % (Auto) Lymph % (Auto) [place] % (Auto) Eos % (Auto) Baso % (Auto) Absolute Neuts (auto) Absolute Lymphs (auto) Total Counted PT INR APTT Sodium Potassium Chloride Carbon Dioxide Anion Gap BUN Creatinine Estim Creat Clear Calc Est GFR (MDRD) Af Amer Est GFR (MDRD) Non-Af BUN/Creatinine Ratio Glucose Calcium TSH POC Glucose 89 258 H 207 H Microbiology 02/14/18 15:20 Sputum, Induced/Lukens Gram Stain - Final 02/14/18 15:20 Sputum, Induced/Lukens Respiratory Culture - Final Clinical Impression(s) from Imaging Studies Femur X-Ray 02/07/18 20:51 IMPRESSION: Diffuse demineralization with no evidence of acute fracture. Electronically Signed: Wei Lucas DO at 21:53 EDT , Service support , Venous Duplex 02/07/18 21:06 IMPRESSION: No evidence of deep venous thrombosis. Electronically Signed: Wei Lucas DO at 21:49 EDT , Service support , Chest X-Ray 02/07/18 21:35 IMPRESSION: Prominent diffuse interstitial markings with underlying interstitial edema likely. Clinically correlate for underlying CHF exacerbation in the appropriate clinical setting. Electronically Signed: Wei Lucas DO at 21:52 EDT , Service support , Chest X-Ray 02/12/18 09:30 IMPRESSION: Limited by underexposure. No gross change or acute chest disease. Electronically Signed: Deep Snider MD at 13:11 EDT , Service support , Chest X-Ray 02/13/18 16:07 IMPRESSION: 1. Improved inspiratory effort with improving basilar atelectasis. 2. Summation artifact versus new patchy infiltrate or vague nodular densities in the right apex. These can be reevaluated on follow-up study. 3. Stable mild cardiac enlargement. No CHF. Electronically Signed: Angel Will MD at 16:36 EDT , Service support , Chest X-Ray 02/14/18 15:05 IMPRESSION: The tip of the endotracheal tube is at 3.7 cm proximal to the [place]. The tip of the orogastric tube most likely is within the body of the stomach. There has been essentially no change since prior study. Electronically Signed: Jim Plaza MD at 15:44 EDT Tel [phone], Service support , Chest X-Ray 02/18/18 17:41 IMPRESSION: Tracheostomy tube as above. Right PICC as above. CHF Electronically Signed: Agus Bello DO at 19:17 EDT Tel , Service support , Medical Necessity - Tobacco Use Smoking Status: Former smoker Tobacco Use: Cigarettes Assessment/Plan All Active Problems CHF (congestive heart failure) (Acute) Cellulitis (Acute) Acute on chronic respiratory failure with hypoxia and hypercapnia (Acute) RECOMMENDATIONS: 1. Continue current supportive measures with mechanical ventilatory support. Will attempt weaning process now the tracheostomy is in place. 2. Continue to hold off on restarting anticoagulation for at least an additional 24 hours. 3. Okay from a surgical perspective to start tube feeds today. 4. Once tube feeds are restarted, resume Levemir. Continue sliding scale insulin coverage. 5. Continue bronchodilators and steroids. 6. Continue Pepcid for GI prophylaxis. 7. Fentanyl and propofol can be utilized for sedation, if needed. 8. Continue patient on CPAP as tolerated. Recommend transitioning back to ACVC+ overnight. IMPRESSIONS: 1. Acute on chronic combined respiratory failure Likely multifactorial in etiology with end-stage COPD with exacerbation, diastolic dysfunction and pulmonary hypertension contributing. The patient was dependent on noninvasive positive pressure ventilation for multiple days, which culminated in her elective intubation on February 14. She has been failing in health per her family for a multitude of years. She is currently on maximal therapy for her underlying COPD and is prescribed a noninvasive ventilator in her home environment, for which she has been noncompliant with its use. Given her history of multiple recurrent hospitalizations for COPD related issues along with her outpatient noncompliance, it was recommended that the patient undergo tracheostomy and PEG tube insertion. The patient was in agreement with this plan prior to being intubated. Therefore, on February 18, the patient underwent successful PEG tube insertion and tracheostomy. She is currently tolerating CPAP mode of mechanical ventilation. Recommend continuing this with plans to transition back to full mechanical ventilatory support at night. Recommend holding off on restarting anticoagulation for at least an additional 24 hours. Tube feeds can be restarted today per surgery. 2. Heart failure with preserved ejection fraction/pulmonary hypertension Continue current medical management, including diuretics. Creatinine remains stable. 3. Personal history of DVT Given the future plans for surgical intervention, will continue to hold Coumadin. Given the amount of bleeding noted during tracheostomy placement, will hold off on starting anticoagulation for at least an additional 24 hours. 4. Morbid obesity/erosive gastroduodenitis/esophageal stricture/obstructive sleep apnea Complicates care, management, recovery and prognosis. The patient will be continued on appropriate GI prophylaxis. Physical therapy to work with patient. Case management/social work to assist with LTACH planning. TIME: 35 minutes of critical care time, independent of procedures, was spent addressing the patient's acute on chronic combined respiratory failure, COPD with exacerbation, heart failure with preserved ejection fraction, pulmonary hypertension, history of DVT, obstructive sleep apnea, review of all data and collaboration with the care team. ([id number]) Code Visit [id number]: [id number] Critical care first hour
--- NOTE | 2018-02-19 08:43 | PN_ITS ---
Subjective: The patient was seen and examined at the bedside this morning. Events from the last 24 hours have been reviewed. The patient is currently afebrile, hemodynamically stable and maintaining appropriate oxygen saturations on CPAP currently with an FiO2 of 50%. The patient did undergo successful placement of tracheostomy and PEG tube yesterday. Overnight, nursing staff reports some bleeding around the trach site. The patient was able to be transition to CPAP this morning. She is alert and denies any significant pain. Objective: The patient's most recent lab work, culture data and imaging studies have all been personally reviewed. Surface echocardiogram completed here at [facility] on February 08 revealed mild concentric LVH with an ejection fraction of 65%. Right ventricular systolic pressure was estimated to be 72 mmHg. Respiratory viral panel was negative. Strep and urine Legionella antigens were both negative. Sputum culture appears to be normal respiratory rajan. Records from [facility]: Pulmonary function testing was last completed in October 2017 and revealed evidence of an irreversible very severe obstructive ventilatory impairment with evidence of air trapping and reduction in diffusing capacity. Surface echocardiogram dated October 2017 revealed normal LV size and function. There was evidence of grade 2 diastolic dysfunction. The estimated right ventricular systolic pressure was 50 mmHg. The patient was last seen by her pulmonary provider at the [facility], Dr. Wesley, on January 21, 2018. The patient was admitted to the [facility] January 02 - January 07. The patient's medical history includes COPD, LEDY, diastolic dysfunction, personal history of DVT, morbid obesity and erosive gastroduodenitis/distal esophageal stricture status post dilation in September 2017. She is a former smoker of 2-3 packs per day ?30 years. She has a baseline 3 L/min supplemental oxygen requirement and multiple recent admissions for COPD exacerbations. She has been inherently noncompliant with use of home trilogy. She is on a triple therapy inhaler regimen along with chronic prednisone. General: Alert, No apparent distress, - - Remains mechanically ventilated. HEENT: Atraumatic, PERRLA, Normocephalic Oral: No Gingival or Mucosal Lesions/ Ulcerations Neck: Supple, No Nodes, - - Tracheostomy site is intact. Lungs: No rhonchi, No wheeze, No rales, Diminished Cardiovascular: Regular rate, Regular Rhythm, Normal S1, Normal S2, No murmurs Abdomen: Bowel Sounds Present, Soft, Non Tender, Obese, - - PEG site is C/D/I Extremities: No clubbing, No cyanosis, Edema Skin: - - No significant change from previous. Musculoskeletal: No Tenderness to Palpation of Joints or Extremities, No Muscle Wasting Lymphatic: No Cervical, Supraclavicular, or Inguinal Adenopathy Neurological: - - No focal neurological deficits. Vital Signs Temp Pulse Resp BP Pulse Ox 97 F L 97 17 135/64 H 96 02/19/18 06:00 02/19/18 07:00 02/19/18 07:00 02/19/18 07:00 02/19/18 07:00 Oxygen Flow Rate (L/min) 4 Oxygen Delivery Method CPAP Weight: 233 lb 14.567 oz Body Mass Index (BMI) 45.8 Intake and Output for Last 24 Hours 02/17/18 02/18/18 02/19/18 23:59 23:59 23:59 Intake Total 3015.4 / 3015.4 1520 / 1520 2001 Output Total 1300 / 1300 935 / 935 565 / 565 Balance 1715.4 / 1715.4 585 / 585 1437 / 1437 Labs (Last 48 Hours) 02/17/18 02/17/18 02/17/18 07:35 09:47 12:10 WBC RBC Hgb Hct MCV MCH MCHC RDW RDW Differential Plt Count MPV Immature Gran % (Auto) Neut % (Auto) Lymph % (Auto) [place] % (Auto) Eos % (Auto) Baso % (Auto) Absolute Neuts (auto) Absolute Lymphs (auto) Total Counted PT INR APTT 74.7 H Sodium Potassium Chloride Carbon Dioxide Anion Gap BUN Creatinine Estim Creat Clear Calc Est GFR (MDRD) Af Amer Est GFR (MDRD) Non-Af BUN/Creatinine Ratio Glucose Calcium TSH POC Glucose 165 H 254 H 02/17/18 02/17/18 02/17/18 14:40 17:10 23:14 WBC RBC Hgb Hct MCV MCH MCHC RDW RDW Differential Plt Count MPV Immature Gran % (Auto) Neut % (Auto) Lymph % (Auto) [place] % (Auto) Eos % (Auto) Baso % (Auto) Absolute Neuts (auto) Absolute Lymphs (auto) Total Counted PT INR APTT 70.0 H Sodium Potassium Chloride Carbon Dioxide Anion Gap BUN Creatinine Estim Creat Clear Calc Est GFR (MDRD) Af Amer Est GFR (MDRD) Non-Af BUN/Creatinine Ratio Glucose Calcium TSH POC Glucose 289 H 222 H 02/18/18 02/18/18 02/18/18 03:30 03:30 03:30 WBC 8.7 RBC 3.52 L Hgb 9.0 L Hct 33.7 L MCV 95.7 MCH 25.6 L MCHC 26.7 L RDW 15.5 H RDW Differential 54.2 H Plt Count 155 MPV 11.4 Immature Gran % (Auto) 1.000 H Neut % (Auto) 63.5 Lymph % (Auto) 13.8 L [place] % (Auto) 21.3 H Eos % (Auto) 0.1 Baso % (Auto) 0.3 Absolute Neuts (auto) 5.5 Absolute Lymphs (auto) 1.20 Total Counted Not Reportable PT 14.3 INR 1.1 APTT 75.8 H Sodium 147 H Potassium 4.3 Chloride 93 L Carbon Dioxide > 45.0 H* Anion Gap TNP BUN 22 H Creatinine 0.46 L Estim Creat Clear Calc 87.43 Est GFR (MDRD) Af Amer 170 Est GFR (MDRD) Non-Af 141 BUN/Creatinine Ratio 47.3 H Glucose 133 H Calcium 8.6 TSH POC Glucose 02/18/18 02/18/18 02/18/18 03:30 05:31 11:40 WBC RBC Hgb Hct MCV MCH MCHC RDW RDW Differential Plt Count MPV Immature Gran % (Auto) Neut % (Auto) Lymph % (Auto) [place] % (Auto) Eos % (Auto) Baso % (Auto) Absolute Neuts (auto) Absolute Lymphs (auto) Total Counted PT INR APTT Sodium Potassium Chloride Carbon Dioxide Anion Gap BUN Creatinine Estim Creat Clear Calc Est GFR (MDRD) Af Amer Est GFR (MDRD) Non-Af BUN/Creatinine Ratio Glucose Calcium TSH 1.38 POC Glucose 112 H 103 02/18/18 02/19/18 02/19/18 18:00 00:00 05:55 WBC RBC Hgb Hct MCV MCH MCHC RDW RDW Differential Plt Count MPV Immature Gran % (Auto) Neut % (Auto) Lymph % (Auto) [place] % (Auto) Eos % (Auto) Baso % (Auto) Absolute Neuts (auto) Absolute Lymphs (auto) Total Counted PT INR APTT Sodium Potassium Chloride Carbon Dioxide Anion Gap BUN Creatinine Estim Creat Clear Calc Est GFR (MDRD) Af Amer Est GFR (MDRD) Non-Af BUN/Creatinine Ratio Glucose Calcium TSH POC Glucose 89 258 H 207 H Microbiology 02/14/18 15:20 Sputum, Induced/Lukens Gram Stain - Final 02/14/18 15:20 Sputum, Induced/Lukens Respiratory Culture - Final Clinical Impression(s) from Imaging Studies Femur X-Ray 02/07/18 20:51 IMPRESSION: Diffuse demineralization with no evidence of acute fracture. Electronically Signed: Wei Lucas DO at 21:53 EDT , Service support , Venous Duplex 02/07/18 21:06 IMPRESSION: No evidence of deep venous thrombosis. Electronically Signed: Wei Lucas DO at 21:49 EDT , Service support , Chest X-Ray 02/07/18 21:35 IMPRESSION: Prominent diffuse interstitial markings with underlying interstitial edema likely. Clinically correlate for underlying CHF exacerbation in the appropriate clinical setting. Electronically Signed: Wei Lucas DO at 21:52 EDT , Service support , Chest X-Ray 02/12/18 09:30 IMPRESSION: Limited by underexposure. No gross change or acute chest disease. Electronically Signed: Deep Snider MD at 13:11 EDT , Service support , Chest X-Ray 02/13/18 16:07 IMPRESSION: 1. Improved inspiratory effort with improving basilar atelectasis. 2. Summation artifact versus new patchy infiltrate or vague nodular densities in the right apex. These can be reevaluated on follow-up study. 3. Stable mild cardiac enlargement. No CHF. Electronically Signed: Angel Will MD at 16:36 EDT , Service support , Chest X-Ray 02/14/18 15:05 IMPRESSION: The tip of the endotracheal tube is at 3.7 cm proximal to the paris. The tip of the orogastric tube most likely is within the body of the stomach. There has been essentially no change since prior study. Electronically Signed: Jim Plaza MD at 15:44 EDT Tel [phone], Service support , Chest X-Ray 02/18/18 17:41 IMPRESSION: Tracheostomy tube as above. Right PICC as above. CHF Electronically Signed: Agus Bello DO at 19:17 EDT Tel , Service support , Medical Necessity - Tobacco Use Smoking Status: Former smoker Tobacco Use: Cigarettes Assessment/Plan All Active Problems CHF (congestive heart failure) (Acute) Cellulitis (Acute) Acute on chronic respiratory failure with hypoxia and hypercapnia (Acute) RECOMMENDATIONS: 1. Continue current supportive measures with mechanical ventilatory support. Will attempt weaning process now the tracheostomy is in place. 2. Continue to hold off on restarting anticoagulation for at least an additional 24 hours. 3. Okay from a surgical perspective to start tube feeds today. 4. Once tube feeds are restarted, resume Levemir. Continue sliding scale insulin coverage. 5. Continue bronchodilators and steroids. 6. Continue Pepcid for GI prophylaxis. 7. Fentanyl and propofol can be utilized for sedation, if needed. 8. Continue patient on CPAP as tolerated. Recommend transitioning back to ACVC + overnight. IMPRESSIONS: 1. Acute on chronic combined respiratory failure Likely multifactorial in etiology with end-stage COPD with exacerbation, diastolic dysfunction and pulmonary hypertension contributing. The patient was dependent on noninvasive positive pressure ventilation for multiple days, which culminated in her elective intubation on February 14. She has been failing in health per her family for a multitude of years. She is currently on maximal therapy for her underlying COPD and is prescribed a noninvasive ventilator in her home environment, for which she has been noncompliant with its use. Given her history of multiple recurrent hospitalizations for COPD related issues along with her outpatient noncompliance, it was recommended that the patient undergo tracheostomy and PEG tube insertion. The patient was in agreement with this plan prior to being intubated. Therefore, on February 18, the patient underwent successful PEG tube insertion and tracheostomy. She is currently tolerating CPAP mode of mechanical ventilation. Recommend continuing this with plans to transition back to full mechanical ventilatory support at night. Recommend holding off on restarting anticoagulation for at least an additional 24 hours. Tube feeds can be restarted today per surgery. 2. Heart failure with preserved ejection fraction/pulmonary hypertension Continue current medical management, including diuretics. Creatinine remains stable. 3. Personal history of DVT Given the future plans for surgical intervention, will continue to hold Coumadin. Given the amount of bleeding noted during tracheostomy placement, will hold off on starting anticoagulation for at least an additional 24 hours. 4. Morbid obesity/erosive gastroduodenitis/esophageal stricture/obstructive sleep apnea Complicates care, management, recovery and prognosis. The patient will be continued on appropriate GI prophylaxis. Physical therapy to work with patient. Case management/social work to assist with LTACH planning. TIME: 35 minutes of critical care time, independent of procedures, was spent addressing the patient's acute on chronic combined respiratory failure, COPD with exacerbation, heart failure with preserved ejection fraction, pulmonary hypertension, history of DVT, obstructive sleep apnea, review of all data and collaboration with the care team. ([id number]) Code Visit 9xxxx: [id number] Critical care first hour
--- NOTE | 2018-02-19 09:34 | CM.UR ---
Participated in interdisciplinary rounds. Patient now has Trach and PEG tube. Dr. Orantes is questioning whether the patient can be placed somewhere else instead of LTACH now that she is on cpap during day and actively being weaned from vent. Orders are for mechanical vent support during sleep. Explained I'll alert SW to explore that option. PEG tube feedings are to resume today. Zoila العلي RN, CCM.
--- NOTE | 2018-02-19 10:10 | PCM.PN.BLA ---
Progress Note The patient did well overnight avss Trach- in place. Patent. On the vent. Cuff is up and appropriate. No skin breakdown. Minimal serosanguinous drainage from around the tube. No bleeding. A: POD #1 s/p tracheostomy P: Continue trach care. Will remove sutures on POD #3.
[2018-02-19] MEDS: Chlorhexidine 15 ML PO ×2 (11:11→22:01)
[2018-02-19] MEDS: Famotidine 20 MG Tablet 40 MG GT ×2 (11:43→22:02)
[2018-02-19] MEDS: Polyethylene Glycol 3350 17 GM PACKET GT ×2 (11:44→22:02)
[2018-02-19] MEDS: predniSONE 20 MG Tablet 40 MG GT (11:44)
[2018-02-19] MEDS: Senna/Docusate Sodium 1 Tablet 2 TABLET GT ×2 (11:45→22:02)
[2018-02-19] MEDS: Ondansetron 4 MG/2 ML Vial IV (11:45)
[2018-02-19] MEDS: Venlafaxine HCl 75 MG Tablet GT ×2 (11:45→22:02)
[2018-02-19] MEDS: Montelukast 10 MG Tablet GT (11:46)
[2018-02-19 11:55] LABS: Bedside Glucose 214 mg/dL (70-110)
--- NOTE | 2018-02-19 12:00 | NURSING ---
dr. gallegos udated pt returned to vent setting , no longer tolerating c-pap, low urine output no further orders received
[2018-02-19] MEDS: Propofol 10MG/Ml 1,000 MG/100 ML Bottle 3.102 MG CONT INF (16:04)
[2018-02-19] MEDS: Vital AF 1.2 Cal Liquid 1,000 ML 60 ML GT (16:04)
[2018-02-19 17:11] LABS: Bedside Glucose 238 mg/dL (70-110)
--- NOTE | 2018-02-19 17:27 | CPS ---
Pt remained on a CPAP trial for 6 hours. Pt was placed back on AC VC+ settings at 1145 due to low saturation, increased RR and HR.
--- NOTE | 2018-02-19 18:18 | PCM.PROGNOTE ---
Patient Problems: Active and Suspected Problems CHF (congestive heart failure) (Acute) Cellulitis (Acute) Acute on chronic respiratory failure with hypoxia and hypercapnia (Acute) Subjective: Patient was seen and examined today, she was indicating that she was nauseated this morning, family was at the bedside and I talked briefly about her care. Patient does not appear to be in any respiratory distress at this time, she is alert. - Physical Exam General: Alert, Cooperative, No apparent distress, Well developed HEENT: Atraumatic, PERRLA, EOMI, Normocephalic Oral: Moist Mucosa Neck: Supple, No JVD, No Nuchal Rigidity, Trachea Midline, Thyroid Normal Size and Texture, - - Tracheostomy in place Lungs: Clear to auscultation, Normal air movement, No rhonchi, No rales, Wheezes - Scattered expiratory wheezes are noted Cardiovascular: Regular rate, Regular Rhythm, Normal S1, Normal S2, No murmurs, No Ectopic Activity, PMI Normal, No rub noted, No Gallop Abdomen: Bowel Sounds Present, Soft, Non Tender, Non-Distended, Obese Extremities: No clubbing, No cyanosis, Capillary Refill Less than 3 Seconds Skin: No rashes, No breakdown Musculoskeletal: No Tenderness to Palpation of Joints or Extremities Neurological: Cranial nerves II-XII grossly intact, Neuro grossly intact, Sensory exam intact to light touch and pain, Coordination normal Psych/Mental Status: Normal Affect, Appropriate Vital Signs Temp Pulse Resp BP Pulse Ox 98.1 F 98 12 107/50 L 99 02/19/18 12:00 02/19/18 17:22 02/19/18 17:22 02/19/18 13:00 02/19/18 17:22 Oxygen Flow Rate (L/min) 4 Oxygen Delivery Method Mechanical Ventilator Weight: 106.1 kg Body Mass Index (BMI) 45.8 Intake and Output for Last 24 Hours 02/17/18 02/18/18 02/19/18 23:59 23:59 23:59 Intake Total 3015.4 / 3015.4 1520 / 1520 2652 / 2652 Output Total 1300 / 1300 935 / 935 765 / 765 Balance 1715.4 / 1715.4 585 / 585 1887 / 1887 Microbiology Past 72 Hours 02/14/18 15:20 Gram Stain - Final Sputum, Induced/Lukens Respiratory Culture - Final POC Glucose 07/07/18 07/07/18 07/07/18 17:06 11:33 05:55 POC Glucose 238 H 214 H 207 H 02/19/18 00:00 POC Glucose 258 H Medical Necessity - Tobacco Use Smoking Status: Former smoker Tobacco Use: Cigarettes Assessment/Plan All Active Problems CHF (congestive heart failure) (Acute) Cellulitis (Acute) Acute on chronic respiratory failure with hypoxia and hypercapnia (Acute) #1 acute on chronic combined respiratory failure-pulmonary medicine is managing ventilator, patient appears comfortable status post trach #2 exacerbation of COPD #3 type 2 diabetes #4 anxiety/depression #5 hypertension #6 hyperlipidemia #7 morbid obesity #8 obstructive sleep apnea #9 pulmonary hypertension #10 diastolic congestive heart failure-acute on chronic continue present treatment, repeat chest x-ray in the morning Code Visit Inpatient E&M: 31995 Subs Hosp L2
[2018-02-19] MEDS: Atorvastatin Calcium 20 MG Tablet GT (22:02)
[2018-02-20] VITALS (39 sets, daily range): BP systolic 67–156; BP diastolic 31–78; PULSE 0–132; RESP 12–32; TEMP 37.3–42.2; O2SAT 85–99
[2018-02-20] MEDS: Insulin Lispro 100 UNIT/ML INSULN.PEN SQ ×4 (01:05→18:26)
[2018-02-20 01:06] LABS: Bedside Glucose 273 mg/dL (70-110)
[2018-02-20] MEDS: Propofol 10MG/Ml 1,000 MG/100 ML Bottle 3.102 MG CONT INF (02:13)
[2018-02-20] MEDS: Ipratropium/Albuterol Sulfate 3 ML AMPUL.NEB INHALATION ×5 (02:26→20:05)
[2018-02-20 04:28] LABS: Absolute Lymphocyte Count 1.31 X10^3/ul (0.83-4.51); Absolute Neutrophil Count 9.3 X10^3/uL (2.0-7.7); Basophil# 0.03 X10^3/uL; Basophil% 0.2 % (0-1); Hemoglobin 8.5 g/dl (12.0-15.0); Lymphocyte # 1.31 X10^3/ul (4.0); Mean Corp Hgb Conc 26.6 g/gl (32-36); Mean Corpuscular Hgb 25.5 pg (27.0-32.0); Mean Corpuscular Volume 96.1 fL (81-99); Mean Platelet Vol. 11.3 fl (6.2-12.0); Monocyte# 2.22 X10^3/uL; Neutrophil % 71.2 % (47-70); Platelet Count 161 K/mm3 (150-450); RBC Distribution Width CV 15.7 % (11.6-14.6); RBC Distribution Width SD 54.3 fl (35.1-43.9); Red Blood Count 3.33 M/mm3 (4.2-5.4); White Blood Count 13.1 K/mm3 (4.4-11.0)
[2018-02-20 04:30] LABS: POSITIVE COUNT NO; POSITIVE DIFFERENTIAL YES; POSITIVE MORPHOLOGY NO
[2018-02-20 04:31] LABS: Differential Indicated SCAN CRITERIA MET
[2018-02-20 04:36] LABS: BUN 13 mg/dL (7-18); BUN/Creat Ratio 23.3 RATIO (10-20); Calcium,Total 8.3 mg/dL (8.5-10.1); Chloride 90 mmol/L (98-107); Creatinine, Serum 0.56 mg/dL (0.55-1.02); EST Glomerular Filtration Rate 114 mL/min (>60); Est Glom Filt Rate - Afr Amer 138 mL/min (>60); Estimated Creatinine Clearance 87.68 ml/min; Glucose 257 mg/dL (74-106); Potassium 4.8 mmol/L (3.5-5.1); Sodium Level 139 mmol/L (136-145)
[2018-02-20 04:57] LABS: Anisocytosis RARE; Macrocytosis RARE; Platelet Estimate ADEQUATE (ADEQ)
[2018-02-20 05:17] LABS: Carbon Dioxide > 45.0 mmol/L (21.0-32.0)
[2018-02-20 05:41] LABS: Bedside Glucose 248 mg/dL (70-110)
--- NOTE | 2018-02-20 05:55 | RAD_ITS ---
STUDY: X-RAY CHEST REASON FOR EXAM: Female, 72 years old. Shortness of breath TECHNIQUE: Single AP portable view of the chest. COMPARISON: 02/18/2018. FINDINGS: Tracheostomy tube remains in good position. EKG lines overlying the chest. Right PICC line in place with the tip in the mid SVC. The lungs are hyper expanded. Bibasilar opacities. Increased pulmonary vascular congestion. Chronic interstitial changes. There is no demonstrated pleural abnormality. Normal size heart. Normal mediastinum and luke. Normal visualized pulmonary arteries. Normal visualized aortic arch and descending thoracic aorta. Normal visualized thoracic spine. Normal visualized ribs, clavicles, and shoulders. There is no demonstrated abnormality of the visualized soft tissue structures of the upper abdomen. RAD/Chest 1 View IMPRESSION: Increased pulmonary vascular congestion. Bibasilar airspace disease. Tracheostomy tube and right PICC line remain in place. Electronically Signed: Miki Santoyo DO at 7:23 EDT , Service support ,
[2018-02-20] MEDS: busPIRone 15 MG TABLET GT ×2 (06:19→14:58)
[2018-02-20] MEDS: Levothyroxine 25 MCG TABLET GT (06:21)
--- NOTE | 2018-02-20 07:05 | PCM.PN.INT ---
Subjective: The patient was seen and examined at the bedside this morning. Events from the last 24 hours have been reviewed. The patient was noted to be febrile overnight with a T-max of 100.2?F. This morning, the patient was placed on a CPAP trial. However, despite her sedation being on hold, she was far less responsive than previous. An arterial blood gas was obtained on her CPAP trial and revealed a pH of 7.24 with a corresponding PCO2 of 113. The patient spontaneous breathing trial was discontinued and she was placed back on full mechanical ventilatory support. Objective: The patient's most recent lab work, culture data and imaging studies have all been personally reviewed. Surface echocardiogram completed here at [facility] on February 08 revealed mild concentric LVH with an ejection fraction of 65%. Right ventricular systolic pressure was estimated to be 72 mmHg. Respiratory viral panel was negative. Strep and urine Legionella antigens were both negative. Sputum culture appears to be normal respiratory rajan. Records from [facility]: Pulmonary function testing was last completed in October 2017 and revealed evidence of an irreversible very severe obstructive ventilatory impairment with evidence of air trapping and reduction in diffusing capacity. Surface echocardiogram dated October 2017 revealed normal LV size and function. There was evidence of grade 2 diastolic dysfunction. The estimated right ventricular systolic pressure was 50 mmHg. The patient was last seen by her pulmonary provider at the [facility], Dr. Wesley, on January 21, 2018. The patient was admitted to [facility] January 02 - January 07. The patient's medical history includes COPD, LEDY, diastolic dysfunction, personal history of DVT, morbid obesity and erosive gastroduodenitis/distal esophageal stricture status post dilation in September 2017. She is a former smoker of 2-3 packs per day ?30 years. She has a baseline 3 L/min supplemental oxygen requirement and multiple recent admissions for COPD exacerbations. She has been inherently noncompliant with use of home trilogy. She is on a triple therapy inhaler regimen along with chronic prednisone. General: No apparent distress, Lethargic, - - Remains mechanically ventilated HEENT: Atraumatic, PERRLA, Normocephalic Oral: No Gingival or Mucosal Lesions/ Ulcerations Neck: Supple, No Nodes, Trachea Midline Lungs: - - Globally diminished air movement bilaterally with faint and expiratory wheezes present. The patient is tachypnea currently on CPAP. Cardiovascular: Normal S1, Normal S2, No murmurs, No rub noted, No Gallop, Tachycardic Abdomen: Bowel Sounds Present, Soft, Non Tender, Obese, - - Tolerating tube feeds without issue Extremities: No clubbing, No cyanosis, Edema Skin: No breakdown Musculoskeletal: No Muscle Wasting Lymphatic: No Cervical, Supraclavicular, or Inguinal Adenopathy Neurological: - - The patient is less responsive than previous, with sedation off. Will minimally arouse to verbal stimulation. Vital Signs Temp Pulse Resp BP Pulse Ox 100.2 F H 110 H 32 H 119/60 93 02/20/18 05:00 02/20/18 06:00 02/20/18 06:00 02/20/18 06:00 02/20/18 06:00 Oxygen Flow Rate (L/min) 4 Oxygen Delivery Method Mechanical Ventilator Weight: 190 lb 4.143 oz Body Mass Index (BMI) 45.8 Intake and Output for Last 24 Hours 02/18/18 02/19/18 02/20/18 23:59 23:59 23:59 Intake Total 1520 / 1520 3477 / 3477 2278.2 / 2278.2 Output Total 935 / 935 1015 / 1015 625 / 625 Balance 585 / 585 2462 / 2462 1653.2 / 1653.2 Labs (Last 48 Hours) 02/18/18 02/18/18 02/19/18 11:40 18:00 00:00 WBC RBC Hgb Hct MCV MCH MCHC RDW RDW Differential Plt Count MPV Immature Gran % (Auto) Neut % (Auto) Lymph % (Auto) [place] % (Auto) Eos % (Auto) Baso % (Auto) Absolute Neuts (auto) Absolute Lymphs (auto) Total Counted Differential Comment Diff Path Review Platelet Estimate Anisocytosis Macrocytosis Sodium Potassium Chloride Carbon Dioxide Anion Gap BUN Creatinine Estim Creat Clear Calc Est GFR (MDRD) Af Amer Est GFR (MDRD) Non-Af BUN/Creatinine Ratio Glucose Calcium POC Glucose 103 89 258 H 02/19/18 02/19/18 02/19/18 05:55 11:33 17:06 WBC RBC Hgb Hct MCV MCH MCHC RDW RDW Differential Plt Count MPV Immature Gran % (Auto) Neut % (Auto) Lymph % (Auto) [place] % (Auto) Eos % (Auto) Baso % (Auto) Absolute Neuts (auto) Absolute Lymphs (auto) Total Counted Differential Comment Diff Path Review Platelet Estimate Anisocytosis Macrocytosis Sodium Potassium Chloride Carbon Dioxide Anion Gap BUN Creatinine Estim Creat Clear Calc Est GFR (MDRD) Af Amer Est GFR (MDRD) Non-Af BUN/Creatinine Ratio Glucose Calcium POC Glucose 207 H 214 H 238 H 02/20/18 02/20/18 02/20/18 01:01 04:05 04:05 WBC 13.1 H RBC 3.33 L Hgb 8.5 L Hct 32.0 L MCV 96.1 MCH 25.5 L MCHC 26.6 L RDW 15.7 H RDW Differential 54.3 H Plt Count 161 MPV 11.3 Immature Gran % (Auto) 1.600 H Neut % (Auto) 71.2 H Lymph % (Auto) 10.0 L [place] % (Auto) 17.0 H Eos % (Auto) 0.0 Baso % (Auto) 0.2 Absolute Neuts (auto) 9.3 H Absolute Lymphs (auto) 1.31 Total Counted Not Reportable Differential Comment SEE COMMENT Diff Path Review May foll Platelet Estimate ADEQUATE Anisocytosis RARE Macrocytosis RARE Sodium 139 Potassium 4.8 Chloride 90 L Carbon Dioxide > 45.0 H* Anion Gap TNP BUN 13 Creatinine 0.56 Estim Creat Clear Calc 87.68 Est GFR (MDRD) Af Amer 138 Est GFR (MDRD) Non-Af 114 BUN/Creatinine Ratio 23.3 H Glucose 257 H Calcium 8.3 L POC Glucose 273 H 02/20/18 05:33 WBC RBC Hgb Hct MCV MCH MCHC RDW RDW Differential Plt Count MPV Immature Gran % (Auto) Neut % (Auto) Lymph % (Auto) [place] % (Auto) Eos % (Auto) Baso % (Auto) Absolute Neuts (auto) Absolute Lymphs (auto) Total Counted Differential Comment Diff Path Review Platelet Estimate Anisocytosis Macrocytosis Sodium Potassium Chloride Carbon Dioxide Anion Gap BUN Creatinine Estim Creat Clear Calc Est GFR (MDRD) Af Amer Est GFR (MDRD) Non-Af BUN/Creatinine Ratio Glucose Calcium POC Glucose 248 H Clinical Impression(s) from Imaging Studies Femur X-Ray 02/07/18 20:51 IMPRESSION: Diffuse demineralization with no evidence of acute fracture. Electronically Signed: Wei Lucas DO at 21:53 EDT , Service support , Venous Duplex 02/07/18 21:06 IMPRESSION: No evidence of deep venous thrombosis. Electronically Signed: Wei DO Lance at 21:49 EDT , Service support , Chest X-Ray 02/07/18 21:35 IMPRESSION: Prominent diffuse interstitial markings with underlying interstitial edema likely. Clinically correlate for underlying CHF exacerbation in the appropriate clinical setting. Electronically Signed: Wei Lucas DO at 21:52 EDT , Service support , Chest X-Ray 02/12/18 09:30 IMPRESSION: Limited by underexposure. No gross change or acute chest disease. Electronically Signed: Deep Snider MD at 13:11 EDT , Service support , Chest X-Ray 02/13/18 16:07 IMPRESSION: 1. Improved inspiratory effort with improving basilar atelectasis. 2. Summation artifact versus new patchy infiltrate or vague nodular densities in the right apex. These can be reevaluated on follow-up study. 3. Stable mild cardiac enlargement. No CHF. Electronically Signed: Angel Will MD at 16:36 EDT , Service support , Chest X-Ray 02/14/18 15:05 IMPRESSION: The tip of the endotracheal tube is at 3.7 cm proximal to the [place]. The tip of the orogastric tube most likely is within the body of the stomach. There has been essentially no change since prior study. Electronically Signed: Jim Plaza MD at 15:44 EDT Tel [phone], Service support , Chest X-Ray 02/18/18 17:41 IMPRESSION: Tracheostomy tube as above. Right PICC as above. CHF Electronically Signed: Agus Bello DO at 19:17 EDT Tel , Service support , Medical Necessity - Tobacco Use Smoking Status: Former smoker Tobacco Use: Cigarettes Assessment/Plan All Active Problems CHF (congestive heart failure) (Acute) Cellulitis (Acute) Acute on chronic respiratory failure with hypoxia and hypercapnia (Acute) RECOMMENDATIONS: 1. Continue current supportive measures with mechanical ventilatory support. 2. Resend blood, urine and sputum cultures, given fevers noted overnight. 3. Obtain repeat plain film chest x-ray. 4. Continue to hold off on restarting anticoagulation for at least an additional 24 hours. 5. Continue tube feeds and sliding scale insulin coverage. 6. Continue bronchodilators and steroids. 7. Continue Pepcid for GI prophylaxis. 8. Fentanyl and propofol can be utilized for sedation, if needed. IMPRESSIONS: 1. Acute on chronic combined respiratory failure Likely multifactorial in etiology with end-stage COPD with exacerbation, diastolic dysfunction and pulmonary hypertension contributing. The patient was dependent on noninvasive positive pressure ventilation for multiple days, which culminated in her elective intubation on February 14. She has been failing in health per her family for a multitude of years. She is currently on maximal therapy for her underlying COPD and is prescribed a noninvasive ventilator in her home environment, for which she has been noncompliant with its use. Given her history of multiple recurrent hospitalizations for COPD related issues along with her outpatient noncompliance, it was recommended that the patient undergo tracheostomy and PEG tube insertion. The patient was in agreement with this plan prior to being intubated. Therefore, on February 18, the patient underwent successful PEG tube insertion and tracheostomy. The patient is more lethargic this morning on her CPAP trial. Will obtain arterial blood gas and place her back on full mechanical ventilatory support. Given fevers noted overnight, cultures were also be obtained. Recommend holding off on restarting anticoagulation for at least an additional 24 hours. Tube feeds can be continued. 2. Heart failure with preserved ejection fraction/pulmonary hypertension Continue current medical management, including diuretics. Creatinine remains stable. 3. Personal history of DVT Given the future plans for surgical intervention, will continue to hold Coumadin. Given the amount of bleeding noted during tracheostomy placement, will hold off on starting anticoagulation for at least an additional 24 hours. 4. Morbid obesity/erosive gastroduodenitis/esophageal stricture/obstructive sleep apnea Complicates care, management, recovery and prognosis. The patient will be continued on appropriate GI prophylaxis. Physical therapy to work with patient. Case management/social work to assist with LTACH planning. TIME: 45 minutes of critical care time, independent of procedures, was spent addressing the patient's acute on chronic combined respiratory failure, COPD with exacerbation, heart failure with preserved ejection fraction, pulmonary hypertension, history of DVT, obstructive sleep apnea, review of all data and collaboration with the care team. ([id number]) Code Visit 9xxxx: [id number] Critical care first hour
--- NOTE | 2018-02-20 07:09 | PN_ITS ---
Subjective: The patient was seen and examined at the bedside this morning. Events from the last 24 hours have been reviewed. The patient was noted to be febrile overnight with a T-max of 100.2?F. This morning, the patient was placed on a CPAP trial. However, despite her sedation being on hold, she was far less responsive than previous. An arterial blood gas was obtained on her CPAP trial and revealed a pH of 7.24 with a corresponding PCO2 of 113. The patient spontaneous breathing trial was discontinued and she was placed back on full mechanical ventilatory support. Objective: The patient's most recent lab work, culture data and imaging studies have all been personally reviewed. Surface echocardiogram completed here at [facility] on February 08 revealed mild concentric LVH with an ejection fraction of 65%. Right ventricular systolic pressure was estimated to be 72 mmHg. Respiratory viral panel was negative. Strep and urine Legionella antigens were both negative. Sputum culture appears to be normal respiratory rajan. [facility]: Pulmonary function testing was last completed in October 2017 and revealed evidence of an irreversible very severe obstructive ventilatory impairment with evidence of air trapping and reduction in diffusing capacity. Surface echocardiogram dated October 2017 revealed normal LV size and function. There was evidence of grade 2 diastolic dysfunction. The estimated right ventricular systolic pressure was 50 mmHg. The patient was last seen by her pulmonary provider at the [facility], Dr. Wesley, on January 21, 2018. The patient was admitted to the [facility] January 02 - January 07. The patient's medical history includes COPD, LEDY, diastolic dysfunction, personal history of DVT, morbid obesity and erosive gastroduodenitis/distal esophageal stricture status post dilation in September 2017. She is a former smoker of 2-3 packs per day ?30 years. She has a baseline 3 L/min supplemental oxygen requirement and multiple recent admissions for COPD exacerbations. She has been inherently noncompliant with use of home trilogy. She is on a triple therapy inhaler regimen along with chronic prednisone. General: No apparent distress, Lethargic, - - Remains mechanically ventilated HEENT: Atraumatic, PERRLA, Normocephalic Oral: No Gingival or Mucosal Lesions/ Ulcerations Neck: Supple, No Nodes, Trachea Midline Lungs: - - Globally diminished air movement bilaterally with faint and expiratory wheezes present. The patient is tachypnea currently on CPAP. Cardiovascular: Normal S1, Normal S2, No murmurs, No rub noted, No Gallop, Tachycardic Abdomen: Bowel Sounds Present, Soft, Non Tender, Obese, - - Tolerating tube feeds without issue Extremities: No clubbing, No cyanosis, Edema Skin: No breakdown Musculoskeletal: No Muscle Wasting Lymphatic: No Cervical, Supraclavicular, or Inguinal Adenopathy Neurological: - - The patient is less responsive than previous, with sedation off. Will minimally arouse to verbal stimulation. Vital Signs Temp Pulse Resp BP Pulse Ox 100.2 F H 110 H 32 H 119/60 93 02/20/18 05:00 02/20/18 06:00 02/20/18 06:00 02/20/18 06:00 02/20/18 06:00 Oxygen Flow Rate (L/min) 4 Oxygen Delivery Method Mechanical Ventilator Weight: 190 lb 4.143 oz Body Mass Index (BMI) 45.8 Intake and Output for Last 24 Hours 02/18/18 02/19/18 02/20/18 23:59 23:59 23:59 Intake Total 1520 / 1520 3477 / 3477 2278.2 / 2278.2 Output Total 935 / 935 1015 / 1015 625 / 625 Balance 585 / 585 2462 / 2462 1653.2 / 1653.2 Labs (Last 48 Hours) 02/18/18 02/18/18 02/19/18 11:40 18:00 00:00 WBC RBC Hgb Hct MCV MCH MCHC RDW RDW Differential Plt Count MPV Immature Gran % (Auto) Neut % (Auto) Lymph % (Auto) [place] % (Auto) Eos % (Auto) Baso % (Auto) Absolute Neuts (auto) Absolute Lymphs (auto) Total Counted Differential Comment Diff Path Review Platelet Estimate Anisocytosis Macrocytosis Sodium Potassium Chloride Carbon Dioxide Anion Gap BUN Creatinine Estim Creat Clear Calc Est GFR (MDRD) Af Amer Est GFR (MDRD) Non-Af BUN/Creatinine Ratio Glucose Calcium POC Glucose 103 89 258 H 02/19/18 02/19/18 02/19/18 05:55 11:33 17:06 WBC RBC Hgb Hct MCV MCH MCHC RDW RDW Differential Plt Count MPV Immature Gran % (Auto) Neut % (Auto) Lymph % (Auto) [place] % (Auto) Eos % (Auto) Baso % (Auto) Absolute Neuts (auto) Absolute Lymphs (auto) Total Counted Differential Comment Diff Path Review Platelet Estimate Anisocytosis Macrocytosis Sodium Potassium Chloride Carbon Dioxide Anion Gap BUN Creatinine Estim Creat Clear Calc Est GFR (MDRD) Af Amer Est GFR (MDRD) Non-Af BUN/Creatinine Ratio Glucose Calcium POC Glucose 207 H 214 H 238 H 02/20/18 02/20/18 02/20/18 01:01 04:05 04:05 WBC 13.1 H RBC 3.33 L Hgb 8.5 L Hct 32.0 L MCV 96.1 MCH 25.5 L MCHC 26.6 L RDW 15.7 H RDW Differential 54.3 H Plt Count 161 MPV 11.3 Immature Gran % (Auto) 1.600 H Neut % (Auto) 71.2 H Lymph % (Auto) 10.0 L [place] % (Auto) 17.0 H Eos % (Auto) 0.0 Baso % (Auto) 0.2 Absolute Neuts (auto) 9.3 H Absolute Lymphs (auto) 1.31 Total Counted Not Reportable Differential Comment SEE COMMENT Diff Path Review May foll Platelet Estimate ADEQUATE Anisocytosis RARE Macrocytosis RARE Sodium 139 Potassium 4.8 Chloride 90 L Carbon Dioxide > 45.0 H* Anion Gap TNP BUN 13 Creatinine 0.56 Estim Creat Clear Calc 87.68 Est GFR (MDRD) Af Amer 138 Est GFR (MDRD) Non-Af 114 BUN/Creatinine Ratio 23.3 H Glucose 257 H Calcium 8.3 L POC Glucose 273 H 02/20/18 05:33 WBC RBC Hgb Hct MCV MCH MCHC RDW RDW Differential Plt Count MPV Immature Gran % (Auto) Neut % (Auto) Lymph % (Auto) [place] % (Auto) Eos % (Auto) Baso % (Auto) Absolute Neuts (auto) Absolute Lymphs (auto) Total Counted Differential Comment Diff Path Review Platelet Estimate Anisocytosis Macrocytosis Sodium Potassium Chloride Carbon Dioxide Anion Gap BUN Creatinine Estim Creat Clear Calc Est GFR (MDRD) Af Amer Est GFR (MDRD) Non-Af BUN/Creatinine Ratio Glucose Calcium POC Glucose 248 H Clinical Impression(s) from Imaging Studies Femur X-Ray 02/07/18 20:51 IMPRESSION: Diffuse demineralization with no evidence of acute fracture. Electronically Signed: Wei Lucas DO at 21:53 EDT , Service support , Venous Duplex 02/07/18 21:06 IMPRESSION: No evidence of deep venous thrombosis. Electronically Signed: Wei DO Lance at 21:49 EDT , Service support , Chest X-Ray 02/07/18 21:35 IMPRESSION: Prominent diffuse interstitial markings with underlying interstitial edema likely. Clinically correlate for underlying CHF exacerbation in the appropriate clinical setting. Electronically Signed: Wei Lucas DO at 21:52 EDT , Service support , Chest X-Ray 02/12/18 09:30 IMPRESSION: Limited by underexposure. No gross change or acute chest disease. Electronically Signed: Deep Snider MD at 13:11 EDT , Service support , Chest X-Ray 02/13/18 16:07 IMPRESSION: 1. Improved inspiratory effort with improving basilar atelectasis. 2. Summation artifact versus new patchy infiltrate or vague nodular densities in the right apex. These can be reevaluated on follow-up study. 3. Stable mild cardiac enlargement. No CHF. Electronically Signed: Angel Will MD at 16:36 EDT , Service support , Chest X-Ray 02/14/18 15:05 IMPRESSION: The tip of the endotracheal tube is at 3.7 cm proximal to the [place]. The tip of the orogastric tube most likely is within the body of the stomach. There has been essentially no change since prior study. Electronically Signed: Jim Plaza MD at 15:44 EDT Tel [phone], Service support , Chest X-Ray 02/18/18 17:41 IMPRESSION: Tracheostomy tube as above. Right PICC as above. CHF Electronically Signed: Agus Bello DO at 19:17 EDT Tel , Service support , Medical Necessity - Tobacco Use Smoking Status: Former smoker Tobacco Use: Cigarettes Assessment/Plan All Active Problems CHF (congestive heart failure) (Acute) Cellulitis (Acute) Acute on chronic respiratory failure with hypoxia and hypercapnia (Acute) RECOMMENDATIONS: 1. Continue current supportive measures with mechanical ventilatory support. 2. Resend blood, urine and sputum cultures, given fevers noted overnight. 3. Obtain repeat plain film chest x-ray. 4. Continue to hold off on restarting anticoagulation for at least an additional 24 hours. 5. Continue tube feeds and sliding scale insulin coverage. 6. Continue bronchodilators and steroids. 7. Continue Pepcid for GI prophylaxis. 8. Fentanyl and propofol can be utilized for sedation, if needed. IMPRESSIONS: 1. Acute on chronic combined respiratory failure Likely multifactorial in etiology with end-stage COPD with exacerbation, diastolic dysfunction and pulmonary hypertension contributing. The patient was dependent on noninvasive positive pressure ventilation for multiple days, which culminated in her elective intubation on February 14. She has been failing in health per her family for a multitude of years. She is currently on maximal therapy for her underlying COPD and is prescribed a noninvasive ventilator in her home environment, for which she has been noncompliant with its use. Given her history of multiple recurrent hospitalizations for COPD related issues along with her outpatient noncompliance, it was recommended that the patient undergo tracheostomy and PEG tube insertion. The patient was in agreement with this plan prior to being intubated. Therefore, on February 18, the patient underwent successful PEG tube insertion and tracheostomy. The patient is more lethargic this morning on her CPAP trial. Will obtain arterial blood gas and place her back on full mechanical ventilatory support. Given fevers noted overnight, cultures were also be obtained. Recommend holding off on restarting anticoagulation for at least an additional 24 hours. Tube feeds can be continued. 2. Heart failure with preserved ejection fraction/pulmonary hypertension Continue current medical management, including diuretics. Creatinine remains stable. 3. Personal history of DVT Given the future plans for surgical intervention, will continue to hold Coumadin. Given the amount of bleeding noted during tracheostomy placement, will hold off on starting anticoagulation for at least an additional 24 hours. 4. Morbid obesity/erosive gastroduodenitis/esophageal stricture/obstructive sleep apnea Complicates care, management, recovery and prognosis. The patient will be continued on appropriate GI prophylaxis. Physical therapy to work with patient. Case management/social work to assist with LTACH planning. TIME: 45 minutes of critical care time, independent of procedures, was spent addressing the patient's acute on chronic combined respiratory failure, COPD with exacerbation, heart failure with preserved ejection fraction, pulmonary hypertension, history of DVT, obstructive sleep apnea, review of all data and collaboration with the care team. ([id number]) Code Visit 9xxxx: [id number] Critical care first hour
[2018-02-20 09:09] LABS: Allen Test POS; Blood Gas Specimen Type ART; Mode CPAP; SITE R RADIAL
[2018-02-20 09:10] LABS: FI02 50; PEEP 5; PS 5
[2018-02-20 09:11] LABS: Time Given 607; pH 7.25 (7.35-7.45)
[2018-02-20 09:13] LABS: Base Excess 22 mmol/L (-2 to +2); Bicarbonate 49.5 mmol/L (22-26); PO2 72 mmHG (75-100); SO2 89 % (95-99); Total Carbon Dioxide > 50 mmol/L; pCO2 113.2 mmHg (35-45)
[2018-02-20] MEDS: Famotidine 20 MG Tablet 40 MG GT (09:15)
[2018-02-20] MEDS: Senna/Docusate Sodium 1 Tablet 2 TABLET GT (09:16)
[2018-02-20] MEDS: Polyethylene Glycol 3350 17 GM PACKET GT (09:16)
[2018-02-20] MEDS: Venlafaxine HCl 75 MG Tablet GT (09:17)
[2018-02-20] MEDS: predniSONE 20 MG Tablet 40 MG GT (09:18)
[2018-02-20] MEDS: Montelukast 10 MG Tablet GT (09:18)
[2018-02-20 09:19] LABS: O2 Delivery Device VENT
[2018-02-20] MEDS: CHLORHEXIDINE GLUC 2% CLOTH 1 EACH TOWELETTE TOPICAL (09:19)
[2018-02-20] MEDS: Chlorhexidine 15 ML PO (09:20)
--- NOTE | 2018-02-20 10:08 | CM.UR ---
Participated in interdisciplinary rounds this am. Patient failed SBT trial this am. She did spike a fever overnight and she is having co2 retention. Plan remains for LTACH placement. Zoila العلي RN, [facility].
[2018-02-20 11:15] LABS: Bedside Glucose 269 mg/dL (70-110)
--- NOTE | 2018-02-20 13:32 | PN_ITS ---
Patient Problems: Active and Suspected Problems CHF (congestive heart failure) (Acute) Cellulitis (Acute) Acute on chronic respiratory failure with hypoxia and hypercapnia (Acute) Subjective: Patient seen and examined today, she is less alert today than compared with yesterday. A spontaneous breathing trial was attempted this morning but her PCO2 mehran and this had to be stopped and she was placed back on the vent. Patient's chest x-ray was read out as increased vascular congestion, I talked with pulmonary medicine about this and we will place her back on IV Lasix once a day. - Physical Exam General: No apparent distress, Well developed HEENT: Atraumatic, Normocephalic Oral: Moist Mucosa Neck: Supple, No JVD, No Nuchal Rigidity, Trachea Midline, Thyroid Normal Size and Texture Lungs: Clear to auscultation, Normal air movement, No rhonchi, Wheezes - Expiratory wheezes are noted bilaterally Cardiovascular: Regular rate, Regular Rhythm, Normal S1, Normal S2, No murmurs, No Ectopic Activity, PMI Normal, No rub noted, No Gallop Abdomen: Bowel Sounds Present, Soft, Non Tender, Non-Distended, No hernias noted , - - PEG tube in place Extremities: No clubbing, No cyanosis, No edema, Capillary Refill Less than 3 Seconds Skin: No rashes, No breakdown Neurological: Cranial nerves II-XII grossly intact, Neuro grossly intact, Sensory exam intact to light touch and pain Psych/Mental Status: - - Patient is lethargic, responds to painful stimuli Vital Signs Temp Pulse Resp BP Pulse Ox 100.0 F H 114 H 23 H 150/78 H 96 02/20/18 08:00 02/20/18 13:00 02/20/18 13:00 02/20/18 13:00 02/20/18 13:00 Oxygen Flow Rate (L/min) 4 Oxygen Delivery Method Mechanical Ventilator Weight: 86.3 kg Body Mass Index (BMI) 45.8 Intake and Output for Last 24 Hours 02/18/18 02/19/18 02/20/18 23:59 23:59 23:59 Intake Total 1520 / 1520 3477 / 3477 2278.2 / 2278.2 Output Total 935 / 935 1015 / 1015 625 / 625 Balance 585 / 585 2462 / 2462 1653.2 / 1653.2 Laboratory Tests Past 24 Hrs 02/20/18 02/20/18 02/20/18 04:05 04:05 06:07 WBC 13.1 H RBC 3.33 L Hgb 8.5 L Hct 32.0 L MCV 96.1 MCH 25.5 L MCHC 26.6 L RDW 15.7 H RDW Differential 54.3 H Plt Count 161 MPV 11.3 Immature Gran % (Auto) 1.600 H Neut % (Auto) 71.2 H Lymph % (Auto) 10.0 L [place] % (Auto) 17.0 H Eos % (Auto) 0.0 Baso % (Auto) 0.2 Absolute Neuts (auto) 9.3 H Absolute Lymphs (auto) 1.31 Total Counted Not Reportable Differential Comment SEE COMMENT Diff Path Review May foll Platelet Estimate ADEQUATE Anisocytosis RARE Macrocytosis RARE Specimen Type ART Sample Site R RADIAL pH 7.25 L Bicarbonate Actual 49.5 H POC Total CO2 > 50 Base Excess 22 H O2 Saturation 89 L O2 % 50 ABG pCO2 113.2 H* ABG pO2 72 L Luis Test POS Respiration Rate TNP O2 Delivery Device VENT Liter Flow TNP Minute Volume TNP Vent Mode CPAP Tidal Volume TNP POC PEEP 5 POC Pressure Suppt 5 Blood Gas Notified Whom ICU Blood Gas Notified Time 607 Sodium 139 Potassium 4.8 Chloride 90 L Carbon Dioxide > 45.0 H* Anion Gap TNP BUN 13 Creatinine 0.56 Estim Creat Clear Calc 87.68 Est GFR (MDRD) Af Amer 138 Est GFR (MDRD) Non-Af 114 BUN/Creatinine Ratio 23.3 H Glucose 257 H Calcium 8.3 L POC Glucose 02/20/18 02/20/18 02/20/18 11:11 05:33 01:01 POC Glucose 269 H 248 H 273 H 02/19/18 17:06 POC Glucose 238 H Medical Necessity - Tobacco Use Smoking Status: Former smoker Tobacco Use: Cigarettes Assessment/Plan All Active Problems CHF (congestive heart failure) (Acute) Cellulitis (Acute) Acute on chronic respiratory failure with hypoxia and hypercapnia (Acute) #1 acute on chronic combined respiratory failure-pulmonary medicine is managing ventilator #2 exacerbation of COPD #3 type 2 diabetes #4 anxiety/depression #5 hypertension #6 hyperlipidemia #7 morbid obesity #8 obstructive sleep apnea #9 pulmonary hypertension #10 diastolic congestive heart failure-acute on chronic-I will placed patient on Lasix 40 mg IV daily, I will start this today Code Visit Inpatient E&M: 46334 Subs Hosp L2
[2018-02-20] MEDS: Vital AF 1.2 Cal Liquid 1,000 ML 60 ML GT (14:48)
[2018-02-20] MEDS: Furosemide 40 MG/4 ML Vial IV (14:53)
[2018-02-20 15:05] LABS: Blood Gas Specimen Type ART
[2018-02-20 15:06] LABS: SITE R RADIAL
[2018-02-20 15:07] LABS: Allen Test POS; Mode VC+; O2 Delivery Device Vent
[2018-02-20 15:08] LABS: FI02 50; PEEP 5; RR 12; Time Given 958; Vt 350; pH 7.32 (7.35-7.45)
[2018-02-20 15:09] LABS: Base Excess 25 mmol/L (-2 to +2); PO2 72 mmHG (75-100); SO2 91 % (95-99); Total Carbon Dioxide > 50 mmol/L; pCO2 99.6 mmHg (35-45)
[2018-02-20 18:25] LABS: Bedside Glucose 320 mg/dL (70-110)
--- NOTE | 2018-02-20 18:54 | NURSING ---
dr gamez updated on pt increased hr 130, fio2 increased to 60% received orders for labs & abg
[2018-02-20 19:17] LABS: Hematocrit 33.3 % (37-47); Mean Corpuscular Hgb 25.8 pg (27.0-32.0); Mean Corpuscular Volume 95.4 fL (81-99); Mean Platelet Vol. 12.2 fl (6.2-12.0); Platelet Count 180 K/mm3 (150-450); RBC Distribution Width CV 15.6 % (11.6-14.6); RBC Distribution Width SD 53.5 fl (35.1-43.9); Red Blood Count 3.49 M/mm3 (4.2-5.4)
[2018-02-20 19:21] LABS: POSITIVE COUNT YES; POSITIVE DIFFERENTIAL NO; POSITIVE MORPHOLOGY YES
[2018-02-20 19:22] LABS: Differential Indicated MANUAL DIFF
--- NOTE | 2018-02-20 19:32 | PCM.HOSP.N ---
Hospitalist Note I was contacted by ICU nursing christine at approximately 6:50 PM, patient has become more tachycardic with heart rates in the 130s, she remains nonresponsive to painful stimuli at this time, initially patient's blood pressure was 107 systolic but then approximately 15 minutes later, patient's blood pressure was in the 80s systolic. I ordered stat labs on the patient including a CBC, serum lactic acid, and ordered a fluid bolus along with IV vancomycin and meropenem. Patient's repeat temperature at 720 was 107 degrees, patient had some mottling of her toes on her left foot. I contacted critical care to let them know what was going on, he advised restarting the patient's heparin and bolusing the patient with heparin. I let the night hospitalist know what was going on with the patient, I also called the patient's daughter, I let her know about the change in the patient's medical condition, and I inquired as to whether she had any opinion in regards to her CODE STATUS with this apparent worsening of the patient's medical condition, patient's daughter stated that she was driving in and would not give me an answer on the telephone concerning her CODE STATUS. I feel the patient probably has sepsis with septic shock, blood cultures were drawn earlier this morning. In addition, I also started Levophed for blood pressure support at this time for the patient. Prognosis is guarded at this point due to the patient's multiple medical problems.
[2018-02-20] MEDS: Heparin Injection (Vial) 5,000 UNIT/ML VIAL 6000 UNIT IV (19:42)
[2018-02-20] MEDS: HEPARIN/D5w 25,000 UNITS 25,000 UNITS/250 ML IV.SOLN. 12 UNITS IV (19:46)
[2018-02-20 19:48] LABS: Lymphocyte 17 % (19-41); Metamyelocyte 2 % (0-1); Monocyte 5 % (0-10); Myelocyte 4 (0-0); Neutrophil-Band 2 % (0-5); Neutrophil-Segmented 70 % (47-70); Total Cells Counted 100 (MANUAL DIFF)
[2018-02-20 19:51] LABS: Absolute Lymphocyte Count 2.72 X10^3/ul (0.83-4.51); Absolute Neutrophil Count 11.5 X10^3/uL (2.0-7.7)
[2018-02-20 20:04] LABS: International Normalized Ratio 1.4; Prothrombin Time (Protime)PT. 17.3 SECONDS (11.7-14.9)
[2018-02-20 20:08] LABS: Partial Thromboplast Time 195.4 Seconds (24.1-36.2)
[2018-02-20] MEDS: Lactated Ringers 1,000 ML 999 ML IV (21:33)
--- NOTE | 2018-02-20 21:50 | PCM.DEATH ---
Preliminary Cause of Acute hypercapenic and hypoxic respiratory failure Date of Admission: 02/08/18 Date of : 02/20/18 - Principle Diagnosis Problem List: Active and Suspected Problems CHF (congestive heart failure) (Acute) Cellulitis (Acute) Acute on chronic respiratory failure with hypoxia and hypercapnia (Acute) Hospital Course 72 y/o female w/ h/o end-stage COPD with exacerbation, diastolic dysfunction, pulmonary hypertension, obesity, erosive gastroduodenitis, esophageal stricture, obstructive sleep apnea, and DVT was admitted for acute hypoxic and hypercapnic respiratory failure. She underwent trach and peg. She failed breathing trial. Code blue was called secondary to her heart rate trending down but she regained pulse without CPR. Held family discussion with daughter who is the POA and family. Lengthy discussion and code status was changed to comfort measures. She was wean of pressors and ventilator off. She comfortably with family at bedside.
--- NOTE | 2018-02-20 21:59 | EXP.PCM_ITS ---
Preliminary Cause of Acute hypercapenic and hypoxic respiratory failure Date of Admission: 02/08/18 Date of : 02/20/18 - Principle Diagnosis Problem List: Active and Suspected Problems CHF (congestive heart failure) (Acute) Cellulitis (Acute) Acute on chronic respiratory failure with hypoxia and hypercapnia (Acute) Hospital Course 72 y/o female w/ h/o end-stage COPD with exacerbation, diastolic dysfunction, pulmonary hypertension, obesity, erosive gastroduodenitis, esophageal stricture , obstructive sleep apnea, and DVT was admitted for acute hypoxic and hypercapnic respiratory failure. She underwent trach and peg. She failed breathing trial. Code blue was called secondary to her heart rate trending down but she regained pulse without CPR. Held family discussion with daughter who is the POA and family. Lengthy discussion and code status was changed to comfort measures. She was wean of pressors and ventilator off. She comfortably with family at bedside.
--- NOTE | 2018-02-20 22:15 | NURSING ---
see code documentation for 02/20/182013
[2018-02-21 06:41] LABS: Allen Test POS; Base Excess 26 mmol/L (-2 to +2); Bicarbonate 51.1 mmol/L (22-26); Blood Gas Specimen Type ART; FI02 60; Mode VC+; O2 Delivery Device Vent; PEEP 5; PO2 59 mmHG (75-100); RR 14; SITE R Radial; SO2 88 % (95-99); Time Given 1905; Total Carbon Dioxide > 50 mmol/L; Vt 350; pCO2 82.7 mmHg (35-45)
[2018-02-21 14:26] LABS: Pathologist Review Reviewed
[2018-02-21 14:27] LABS: Pathologist Review Reviewed
== END 2018-02-20 20:29 | DRG 4 ==
LOC: ED 21:07 → PCU 02-08 00:42 → ICU 02-14 14:22
PROVIDERS: Anesthesiology; Internal Medicine; Internal Medicine Critical Care Medicine; Otolaryngology; Surgery; Admitting Provider Family Medicine; Emergency Provider Emergency Medicine; Family Provider Family Medicine; PCP Family Medicine; Visit Provider Internal Medicine
PROC: 0DH63UZ Insertion of Feeding Device into Stomach, Percutaneous Approach (ICD-10-PCS; principal; 2018-02-18 10:50)
PROC: 0B110F4 Bypass Trachea to Cutaneous with Tracheostomy Device, Open Approach (ICD-10-PCS; principal; 2018-02-18 15:30)
DX: J96.21 Acute and chronic respiratory failure with hypoxia (principal); I50.33 Acute on chronic diastolic (congestive) heart failure; J44.1 Chronic obstructive pulmonary disease with (acute) exacerbation; L03.115 Cellulitis of right lower limb; Z68.42 Body mass index [BMI] 45.0-49.9, adult; E66.2 Morbid (severe) obesity with alveolar hypoventilation; E03.9 Hypothyroidism, unspecified; J96.22 Acute and chronic respiratory failure with hypercapnia; E78.5 Hyperlipidemia, unspecified; I11.0 Hypertensive heart disease with heart failure; F41.9 Anxiety disorder, unspecified; E11.65 Type 2 diabetes mellitus with hyperglycemia; I48.91 Unspecified atrial fibrillation; I27.20 Pulmonary hypertension, unspecified; Z99.81 Dependence on supplemental oxygen; Z79.4 Long term (current) use of insulin; Z87.891 Personal history of nicotine dependence; Z79.01 Long term (current) use of anticoagulants; Z86.718 Personal history of other venous thrombosis and embolism; F32.9 Major depressive disorder, single episode, unspecified; E87.6 Hypokalemia
CPT/HCPCS: 31500; 31720; 36415; 36569; 36600; 71045; 73552; 80048; 80053; 82550; 82803; 82962; 83036; 83605; 83880; 84443; 84478; 84484; 85025; 85610; 85730; 87040; 87070; 87077; 87086; 87088; 87186; 87205; 87449; 87633; 87641; 93005; 93306; 93971; 94002; 94003; 94640; 94660; 94667; 94668; 95831; 97110; 97162; 97165; 97530; 97535; 97802; 97803; 99251; 99285; J7030; J7040; J7120; Q9957; A4216; G0463; J1940; J2405; J7799